=== PATIENT | male | born 1950 | race Caucasian/White ===

== ENCOUNTER 2017-12-13 00:15 | Inpatient (IN) | payer MEDICARE, OTHER, MEDICAID, SELFPAY ==
[2017-12-13] VITALS (24 sets, daily range): BP systolic 131–161; BP diastolic 48–103; PULSE 79–90; RESP 16–26; TEMP 35.6–37.2; O2SAT 85–96; BMI 56.2; BMI 56.0; BMI 56.1
--- NOTE | 2017-12-13 00:56 | ED.RN ---
PT HAS MULTIPLE AREAS ON BODY OF SKIN BREAKDOWN AND SEEPING OF CLEAR FLUID. PT HAS EDEMA FROM ABDOMEN TO FEET, BILAT LEGS WITH THICKENED SKIN AND SCALES.
--- NOTE | 2017-12-13 01:00 | EKG12_ITS ---
Test Reason : SOB Blood Pressure : / mmHG Vent. Rate : 080 BPM Atrial Rate : 080 BPM P-R Int : 000 ms QRS Dur : 168 ms QT Int : 472 ms P-R-T Axes : 000 261 066 degrees QTc Int : 544 ms Ventricular-paced rhythm Biventricular pacemaker detected Abnormal ECG Confirmed by NICOLE MALDONADO ([id number]), material expeditor SHANTI ARTIS ([id number]) on 12/17/2017 8:48:58 AM Referred By: MAIA Confirmed By:NICOLE MALDONADO
--- NOTE | 2017-12-13 01:05 | ED.DCSUM_ITS ---
History of Present Illness Chief Complaint: Shortness of Breath Informant: Patient Onset: Today Context: - - unknown Timing: Continuous Quality: sob Location: chest Current Severity: - - gone Maximum Severity: Severe Relieved by: oxygen given by EMS Associated Symptoms: productive cough. no chest pain. Narrative: Patient states he feels good now that he has oxygen. He has a history of COPD, and states that he started feeling short of breath but does not recall when, he thinks it was sometime today, he states he has felt somewhat disoriented and confused today since being dyspneic, although that is improved now as well. His lack of memory does limit the hx to some degree. States he had 2 falls recently, the last was yesterday. Thinks he ripped off a couple toenails in the process, but doesn't feel any pain due to longstanding peripheral neuropathy. - Past Medical History (1) COPD (chronic obstructive pulmonary disease) Status: Chronic (2) Type 2 diabetes mellitus Status: Chronic (3) Chronic atrial fibrillation Status: Chronic (4) S/P cardiac pacemaker procedure Status: Chronic (5) Morbid obesity with BMI of 50.0-59.9, adult Status: Chronic Past Medical History - Allergies and Home Meds Allergies/Adverse Reactions: Allergies No Known Allergies Allergy (Unverified 03/07/17 10:33) Primary Care Physician: David Doctor,Out of [NON-STAFF] - Lives: - - assisted living apartment Smoking Status: Current every day smoker Drugs: None Review of Systems General: Reports: - - ROS limited due to lack of recent memory. Denies: Chills, Fever, Malaise Eyes: Denies: Visual changes - bilaterally, Diplopia ENT: Denies: Rhinorrhea, Sore throat Cardiovascular: Denies: Chest pain, Palpitations, Heart racing Respiratory: Reports: Dyspnea, Cough, Sputum - unk contents Gastrointestinal: Denies: Abdominal pain, Nausea, Vomiting, Diarrhea, Hematochezia Musculoskeletal: Reports: Swelling - BLE chronic Skin: Reports: Rash - chronic intertriginous, Wounds - BLE. Denies: Abscess Neurological: Reports: Numbness - bilat feet chronic. Denies: Headache, Weakness Physical Exam Vital Signs/Narrative: Vital Signs Temp Pulse Resp BP Pulse Ox 12/13/17 00:17 96.0 F L 80 22 H 138/72 H 95 12/13/17 00:16 80 23 H 138/72 H 94 Inital Vital Signs reviewed: Yes General: Well nourished, Well developed, Obese - morbidly, limiting most of physical exam to some degree or another Head: Normocephalic, Atraumatic Eyes: Perrl, EOMI ENT: Moist mucous membranes, No rhinorrhea Neck: Supple, Nontender, - - FROM w/o meningismus Cardiovascular: Regular rate, Regular rhythm, No murmurs Respiratory: No distress, Chest nontender, Wheezing - end expiratory anteriorly; clear throughout posterior aspect, Diminished - throughout Abdomen: Soft, Nontender, Nondistended, Normal bowel sounds Back: Nontender Extremities: Nontender, Edema - w/ chronic BLE stasis dermatitis, - - several avulsed toenails bilaterally w/o active bleeding. evidence of chronic onychomycosis throughout the nails that are left. Skin: Normal color Neurological: Alert, Oriented x3, Cranial nerves II-XII grossly intact, Normal Strength, Normal Sensation, Disoriented - w/r/t past events today Diagnostic/Tx/Re-eval Impressions Chest X-Ray 12/13/17 01:25 IMPRESSION: Cardiomegaly with central vascular congestion.. A dual-chamber cardiac pacemaker is in place Electronically Signed: Thad Christiansen MD at 2:10 EDT Tel , Service support , 12/13/17 01:25 Chest 1 View (Portable) [RAD] Stat Laboratory Results 12/13/17 12/13/17 01:20 01:20 WBC 8.8 RBC 4.87 Hgb 12.5 L Hct 41.7 MCV 85.6 MCH 25.7 L MCHC 30.0 L RDW 18.4 H RDW Differential 56.6 H Plt Count 190 MPV 8.7 Immature Gran % (Auto) 0.200 Neut % (Auto) 81.8 H Lymph % (Auto) 7.1 L Taliaferro % (Auto) 9.2 Eos % (Auto) 1.4 Baso % (Auto) 0.3 Absolute Neuts (auto) 7.2 Absolute Lymphs (auto) 0.62 L Total Counted Not Reportable Sodium 138 Potassium 4.8 Chloride 100 Carbon Dioxide 36.0 H Anion Gap 2 L BUN 30 H Creatinine 1.15 Estim Creat Clear Calc 70.44 Est GFR (MDRD) Af Amer 82 Est GFR (MDRD) Non-Af 67 BUN/Creatinine Ratio 26.1 H Glucose 61 L Calcium 8.3 L Troponin I 0.068 H - Rhythm Strip Rhythm Strip: paced Rate: 80 Ectopy: None - EKG Initial EKG Interpretation: Paced, Non-Specific ST Changes - ant-laterally Prior: Changed - last EKG from 1999, prior to pacemaker - Medical Decision Making Patient also has a history of congestive heart failure, which is chest x-ray is consistent with, showing pulmonary edema. He took his oxygen off, saying that he wanted to go home, however he is very hypoxic without it. He is stable while he is wearing his oxygen, when his pulse ox is over 90%. He does not have renal failure or insufficiency. Clinically he appears to have anasarca. He does not have oxygen at home. For these reasons he should be admitted. He was ordered Lasix here and advised to stay on his oxygen and he eventually was comfortable with that. Discussed with Dr. Faulkner. Of note, he is not delirious. I think his memory issues and disorientation, which was described as that by the patient, is due to his hypoxemia. I do not think he needs emergent imaging of his brain given this. Also, his troponin is just barely nonspecifically elevated, and this is likely due to hypoxemia as well. He was not having any angina, although admittedly he does not recall his clinical scenario prior to getting to the hospital. Aspirin is withheld since he is anticoagulated on Xarelto. ED Disposition - Plan for ED Patient: Disposition: Acute Care Hospital [facility] Chief Complaint: Shortness of Breath Diagnosis: Hypoxemia, Morbid obesity with BMI of 50.0-59.9, adult, Acute exacerbation of CHF (congestive heart failure)
[2017-12-13] MEDS: Ipratropium/Albuterol Sulfate 3 ML AMPUL.NEB INHALATION ×5 (01:07→18:38)
--- NOTE | 2017-12-13 01:25 | RAD_ITS ---
STUDY: X-RAY CHEST REASON FOR EXAM: Male, 67 years old. Difficulty breathing TECHNIQUE: 1 view COMPARISON: None. FINDINGS: Cardiomegaly with a dual-chamber cardiac pacemaker in place. Central vascular congestive changes. No pleural effusions.. Normal visualized thoracic spine. Normal visualized ribs, clavicles, and shoulders. There is no demonstrated abnormality of the visualized soft tissue structures of the upper abdomen. RAD/Chest 1 View (Portable) IMPRESSION: Cardiomegaly with central vascular congestion.. A dual-chamber cardiac pacemaker is in place Electronically Signed: Thad Christiansen MD at 2:10 EDT Tel , Service support ,
[2017-12-13 01:41] LABS: Absolute Lymphocyte Count 0.62 X10^3/ul (0.83-4.51); Absolute Neutrophil Count 7.2 X10^3/uL (2.0-7.7); Basophil# 0.03 X10^3/uL; Basophil% 0.3 % (0-1); Eosinophil# 0.12 X10^3/uL; Eosinophils% 1.4 % (0-5); Hematocrit 41.7 % (40-54); Hemoglobin 12.5 g/dl (13.0-16.5); Lymphocyte # 0.62 X10^3/ul (4.0); Lymphocyte % 7.1 % (19-41); Mean Corpuscular Hgb 25.7 pg (27.0-32.0); Mean Corpuscular Volume 85.6 fL (80-94); Mean Platelet Vol. 8.7 fl (6.2-12.0); Monocyte# 0.81 X10^3/uL; Monocyte% 9.2 % (0-10); Neutrophil # 7.17 X10^3/uL (2.7-7.7); Neutrophil % 81.8 % (47-70); Platelet Count 190 K/mm3 (150-450); RBC Distribution Width CV 18.4 % (11.6-14.6); RBC Distribution Width SD 56.6 fl (35.1-43.9); Red Blood Count 4.87 M/mm3 (4.6-6.2); White Blood Count 8.8 K/mm3 (4.4-11.0)
[2017-12-13 01:42] LABS: POSITIVE COUNT NO; POSITIVE DIFFERENTIAL NO; POSITIVE MORPHOLOGY NO
[2017-12-13 01:55] LABS: Anion Gap 2 (5-15); BUN 30 mg/dL (7-18); BUN/Creat Ratio 26.1 RATIO (10-20); Calcium,Total 8.3 mg/dL (8.5-10.1); Chloride 100 mmol/L (98-107); Creatinine, Serum 1.15 mg/dL (0.70-1.30); EST Glomerular Filtration Rate 67 mL/min (>60); Est Glom Filt Rate - Afr Amer 82 mL/min (>60); Estimated Creatinine Clearance 70.44 ml/min; Glucose 61 mg/dL (74-106); Potassium 4.8 mmol/L (3.5-5.1); Sodium Level 138 mmol/L (136-145)
--- NOTE | 2017-12-13 03:17 | PCM.HP.STD ---
History of Present Illness Date of Admission: 12/13/17 Chief Complaint: Dyspnea The patient is a 67 y/o M w/ PMHx: GERMANIA, Morbid Obesity, HTN, HLD, Chronic CHF Unclear Type, Diabetes mellitus type II Uncontrolled w/ Neuropathy, CKD stage III, PAF, Chronic COPD, GERD who presents to the [facility] ED on 12/13/17 with history of severe dyspnea with call to EMS and upon their evaluation was confused, could not recall his name of date of , improved w/ aerosol administration. He notes having recently had increased cough, mildly productive sputum, increased LE edema, worsened orthopnea (normally sleeps in chair baseline), increased weight gain and increased abdominal girth w/ worsened dyspnea complaints. In the ED work-up included T 96, heart rate 80, BP 130/72, respiratory rate 23, 94% on 2 L nasal cannula--> increased oxygenation needs now 95% on 4 L nasal cannula CBC with WBC 8.8, hemoglobin 12.5, platelet 190 without market left shift, BMP with carbon dioxide 36, BUN/creatinine 30/1.15, glucose 61, troponin 0.068, BNP pending upon evaluation, chest x-ray with cardiomegaly with central vascular congestion with dual-chamber pacemaker in place, EKG w/ no acute evidence of ischemia. In the ED patient administered duoneb and IV lasix. Past Medical History Past Medical History (Chronic Problems): Chronic Problems (Last Reviewed 03/07/17 @ 10:25 by Ivana Jett) COPD (chronic obstructive pulmonary disease) (Chronic) Type 2 diabetes mellitus (Chronic) Chronic atrial fibrillation (Chronic) S/P cardiac pacemaker procedure (Chronic) Morbid obesity with BMI of 50.0-59.9, adult (Chronic) Medical History: Medical History (Last Reviewed 03/07/17 @ 10:25 by Ivana Jett) A-fib I48.91 Arthritis M19.90 Bone fracture T14.8XXA Bradycardia R00.1 CHF (congestive heart failure) I50.9 CKD (chronic kidney disease) N18.9 COPD (chronic obstructive pulmonary disease) J44.9 Cataracts, bilateral H26.9 Diabetes type 2, controlled E11.9 GERD (gastroesophageal reflux disease) K21.9 Headache R51 Heart failure I50.9 High cholesterol E78.00 Neuropathy G62.9 Osteoarthritis M19.90 Pneumonia J18.9 Syncope R55 Vision problems H54.7 HTN (hypertension) I10 Allergies No Known Allergies Allergy (Unverified 03/07/17 10:33) Home Medications: Ambulatory Orders Medication Instructions Recorded acetaminophen 500 mg tablet 1,000 mg PO BID PRN tab 02/25/17 acetaminophen 500 mg tablet 1,000 mg PO QHS tab 02/25/17 albuterol sulfate concentrate 2.5 2.5 mg INHALATION Q6H PRN ea 02/25/17 mg/0.5 mL solution for nebulization budesonide 0.5 mg/2 mL suspension 0.5 mg INHALATION Q12H 02/25/17 for nebulization cetirizine 10 mg capsule PO 02/25/17 cholecalciferol (vitamin D3) 50,000 unit PO .COMPLEX 02/25/17 50,000 unit capsule docusate sodium 100 mg capsule 100 mg PO QDAY 02/25/17 furosemide 40 mg tablet 40 mg PO BID tab 02/25/17 glimepiride 4 mg tablet 8 mg PO QAM tab 02/25/17 guaifenesin 100 mg/5 mL oral liquid 300 mg PO ONCE 02/25/17 guaifenesin ER 600 mg tablet, 600 mg PO Q12H PRN 02/25/17 extended release 12 hr insulin detemir (U- 100) 100 See Rx Instructions SC BID 02/25/17 unit/mL subcutaneous solution linagliptin 5 mg tablet 5 mg PO QDAY 02/25/17 lisinopril 2.5 mg tablet 2.5 mg PO QDAY 02/25/17 omega-3 fatty acids 1,000 mg 1,000 mg PO BID cap 02/25/17 capsule omeprazole 40 mg capsule,delayed 40 mg PO QDAY 02/25/17 release potassium chloride ER 20 mEq 20 meq PO QDAY 02/25/17 tablet,extended release rivaroxaban 20 mg tablet 20 mg PO QDAY 02/25/17 umeclidinium 62.5 mcg/actuation 1 inh INHALATION QDAY 02/25/17 blister powder for inhalation bumetanide 1 mg tablet 1 mg PO .q am tab 03/07/17 furosemide 20 mg tablet 20 mg PO QDAY 03/07/17 gabapentin 600 mg tablet 600 mg PO .COMPLEX 03/07/17 gabapentin 800 mg tablet 900 mg PO QHS tab 01/18/18 insulin lispro (U- 100) 100 40 unit SC TID ml 03/07/17 unit/mL subcutaneous solution omega-3 acid ethyl esters 1 gram 1 g PO BID cap 03/07/17 capsule Surgical History: Surgical History (Last Reviewed 03/07/17 @ 10:25 by Ivana Jett) H/O heart surgery Z98.890 H/O knee surgery Z98.890 Hx of appendectomy Z98.890, Z90.49 Surgical History: appendectomy, pacemaker implantation, - - Knee surgery. Psychiatric History: No pertinent psych hx Lives: - - assisted living apartment Smoking Status: Current every day smoker - 1/2-1 cigarette tobacco use per day. Tobacco Use: Cigarettes Alcohol: None Drugs: None - *Family History Maternal Family History: Family History (Last Reviewed 03/07/17 @ 10:25 by Ivana Jett) Mother Arthritis Cancer Brother Diabetes Kidney disease Grandmother Diabetes Grandfather Heart disease History Items: Cancer, Heart Disease Paternal Family History: Family History (Last Reviewed 03/07/17 @ 10:25 by Ivana Jett) Mother Arthritis Cancer Brother Diabetes Kidney disease Grandmother Diabetes Grandfather Heart disease History Items: Heart Disease Review of Systems Constitutional: Reports: Malaise, Weakness, Weight Change, Fatigue. Denies: Chills, Fever HEENT: Denies: Head Aches, Sinus Congestion, Sinus Drainage Cardiovascular: Reports: Edema, Orthopnea. Denies: Chest Pain, Palpitations Respiratory: Reports: Cough, Shortness of Breath, Shortness of breath at rest, Shortness of breath upon exertion, Sputum production, Wheezing Gastrointestinal: Denies: Abdominal Pain, Nausea, Vomiting Genitourinary: Denies: Dysuria Musculoskeletal: Reports: Back Pain, Joint Pain. Denies: Joint Tenderness Skin: Reports: Skin Changes, Wounds. Denies: Rash Neurological: Denies: Numbness, Tingling, Focal weakness Psychiatric: Denies: Anxiety, Depression, Homicidal Ideations, Suicidal Ideations Hematologic/ Lymphatic: Reports: Easy Bruising, Easy Bleeding VTE Information - Inpt Only VTE Present on Admission: No VTE Mechan Device Prophylaxis: SCD's VTE Pharm Prophylaxis ordered?: No Reason prophylaxis not ordered:: Treatment Not Indicated - On xarelto already. Subjective: Seated upright in the ED bed, fatigued appearing, increased work of breathing, accessory muscle usage, increased RR. Objective: Physical Examination: General: awake, alert, oriented x [address], name, year, improved from initial EMS evaluation, cooperative, seated upright in the ED bed, increased work of breathing, accessory muscle usage, increased RR, awaiting ABG and planned BIPAP placement. Skin: normal color, turgor, no icterus, cyanosis except severe BL LE distal to knee chronic venous stasis skin changes, poor pedal care, foul smelling. HEENT: AT/NC, EOMI, PERRLA, mildly dry MM, no carotid bruits unable to discern JVD secondary to habitus, thickened neck. Lungs: Diffusely diminished BS, > bases, increased work of breathing, accessory muscle usage, occasional expiratory wheeze, distant, minimal rales. Heart: Regular rate and rhythm (paced); no gallop, rub audible. Abdomen: firm, morbidly obese, anasarca, pitting to upper abdomen, NTTP, distended, distant BS, unable to asses HSM secondary to habitus. Extremities: no cyanosis, clubbing, BL LE severe chronic venous stasis skin changes, see skin, pitting edema to upper abdomen as noted. Neurological: patient awake, alert, oriented x 3; cognitive function intact; pupils equally reactive to light and accomodation; cranial nerves II-XII grossly normal, moving all 4 extremities but very limited, no focal deficits, strength severely globally decreased secondary to acute presentation. Psychiatric: affect appears mildly irritable, no acute evidence of depressive or anxiety feelings. - Physical Exam Vital Signs Temp Pulse Resp BP Pulse Ox 96.0 F L 80 25 H 161/67 H 95 12/13/17 00:17 12/13/17 01:11 12/13/17 01:22 12/13/17 01:22 12/13/17 01:22 Oxygen Flow Rate (L/min) 4 Oxygen Delivery Method Nasal Cannula Weight: 425 lb 14.224 oz Body Mass Index (BMI) 56.2 Laboratory Tests Past 24 Hrs 12/13/17 12/13/17 12/13/17 01:20 01:20 01:20 WBC 8.8 RBC 4.87 Hgb 12.5 L Hct 41.7 MCV 85.6 MCH 25.7 L MCHC 30.0 L RDW 18.4 H RDW Differential 56.6 H Plt Count 190 MPV 8.7 Immature Gran % (Auto) 0.200 Neut % (Auto) 81.8 H Lymph % (Auto) 7.1 L [place] % (Auto) 9.2 Eos % (Auto) 1.4 Baso % (Auto) 0.3 Absolute Neuts (auto) 7.2 Absolute Lymphs (auto) 0.62 L Total Counted Not Reportable Sodium 138 Potassium 4.8 Chloride 100 Carbon Dioxide 36.0 H Anion Gap 2 L BUN 30 H Creatinine 1.15 Estim Creat Clear Calc 70.44 Est GFR (MDRD) Af Amer 82 Est GFR (MDRD) Non-Af 67 BUN/Creatinine Ratio 26.1 H Glucose 61 L Calcium 8.3 L Troponin I 0.068 H B-Natriuretic Peptide Pending Assessment/Plan All Active Problems (Last Reviewed 03/07/17 @ 10:25 by Ivana Jett) Erectile dysfunction associated with type 2 diabetes mellitus (Acute) The patient is a 67 y/o M w/ PMHx: GERMANIA, Morbid Obesity, HTN, HLD, Chronic CHF Unclear Type, Diabetes mellitus type II Uncontrolled w/ Neuropathy, CKD stage III, PAF, Chronic COPD, GERD who presents to the [facility] ED on 12/13/17 with history of severe dyspnea with call to EMS and upon their evaluation was confused, could not recall his name of date of , improved w/ aerosol administration. (1) Acute Hypoxic Respiratory Failure secondary to Acute Decompensated CHF, Unclear type and #2, complicated by habitus, likely Hypoventilation Syndrome: CXR obtained in the ED w/ congestion, increased work of breathing, accessory muscle usage, worsening hypoxia w/ desaturations and increased oxygen needs in the ED, ABG requested, patient willing to trial BIPAP. Will admit to PCU, maintain on BIPAP if able to tolerate, maintain on cardiac telemetry, obtain cardiac enzyme series, obtain serial EKGs, initiate IV lasix diuresis, monitor I/Os, maintain on intake restriction, continue medical therapy w/ xarelto, statin, not on BB likely secondary to his COPD, ACEI. Will obtain TSH and magnesium level. Will obtain ECHO. Cardiology consulted, pending. PRN morphine to decrease afterload, continue oxygen supplementation, if necessary will position w/ upright position with legs off bed to decrease preload. (2) Acute Hypoxic Respiratory Failure secondary to Acute on chronic COPD exacerbation and #1: CXR w/ chronic changes and congestion as noted #1, increasing oxygen needs while in the ED, will obtain ABG, given GERMANIA history will place on BIPAP, continue ATC duonebs, PRN albuterol, IV methylprednisolone, HOB, IS parameters, defer abx, sputum Cx, respiratory viral panel. (3) Indeterminate cardiac enzyme: EKG in ED with no acute evidence of ischemia, CXR w/ congestion as noted, initial trop 0.68. Will place on a monitored bed, obtain serial cardiac enzymes and EKGs. ASA, NG, morphine. Cardiology consulted as noted, pending. (4) Acute Encephalopathy: Secondary to Acute Hypoxic Respiratory Failure, Multifactorial, including CHF Exacerbation #1, COPD exacerbation #2. Continue treatment as noted. (5) PAF: s/p Pacemaker placement. Maintain on telemetry as noted, continue home xarelto regimen, not on BB or other agent. (6) Diabetes mellitus type II, Uncontrolled: Uncontrolled from prior records, will obtain HgBA1c, hypoglycemia upon presentation, hold home oral regimen, continue home insulin regimen if BS improves, ADA diet, accu checks w/ TID scheduled and ISS, nutrition consultation for education and teaching. (7) Morbid Obesity: Weight loss and lifestyle changes encouraged, nutrition consulted. (8) Chronic Kidney Disease Stage III: Admission BUN/Cr 30/1.15, baseline renal function noted 1.2, repeat BMP in AM. (9) GERMANIA: CPAP q HS recommended prior but he has refused, willing to trial BIPAP. (10) Chronic Venous Stasis Disease: Notable BL LE skin changes, will consult wound RN, would benefit from referral at discharge to [facility]. (11) Tobacco Abuse: Encouraged cessation, inpatient consultation per RT, NR if desired. (12) GERD: PPI. (13) DVT Prophylaxis: SCDs, xarelto. (14) CODE status: Discussed CODE status at length including difference between FULL code, DNR-CCA and DNR-CC status. Following discussions about the differences in these status, requested FULL CODE status currently with allowance of BIPAP but no intubation unless cardiac arrest. Discussed this issues with these parameters at length but patient notes understands that current presentation may require intubation but refuses unless CODE. Advanced Care Planning Face to Face Time: 16 minutes. Code Visit Inpatient E&M: 93021 Init Hosp L3 Procedures: 11082 Advncd Care Plan 30 Min
[2017-12-13] MEDS: Furosemide 40 MG/4 ML Vial IV (03:35)
[2017-12-13 03:36] LABS: BNP,B-Type NATRIURETIC PEPTIDE 84.8 pg/mL (0-100)
--- NOTE | 2017-12-13 03:39 | ED.RN ---
[facility] CAREGIVER CALLED FOR UPDATE. CAREGIVER NOTIFIED PATIENT WILL BE ADMITTED TO PCU FOR CHF EXACERBATION AND HYPOXIA
[2017-12-13] MEDS: MethylPREDNISolone 125 MG/2 ML Vial IV (03:56)
[2017-12-13] MEDS: Lidocaine Jelly 2% 20 ML Syringe (URO-JET) 20 APPLIC TOPICAL (03:56)
--- NOTE | 2017-12-13 04:32 | ECHOCS_ITS ---
[id number] ECHO^ECHOCS^Echo Complete W/ Contrast [id number] TAG_START Cardiovascular Services Echocardiogram [address] [place], [place] [id number] Ordering Physician: Jossy Faulkner TAG_ENDED TAG_START Name: IZAIAH BRICENO Study Date: 12/13/2017 09:36 AM BP: 135/83 mmHg Patient Location: [facility]^[id number]^1 BSA: 3.0 m2 : 1950 Gender: Male Height: 73 in Age: 67 yrs Ethnicity: C Weight: 425 lb History: PAR, COPD, PACER, DM II, CKD III, HLD, HTN, GERMANIA, SOB, TOB USE.CHRONIC CHF TAG_ENDED Reason For Study: CHF Procedure This was a 2D Doppler, Color Flow transthoracic echocardiogram. The study was technically limited. The study was technically difficult. Limited views were obtained. PT unable to lie in left lateral decubitus position due to obesity and SOB. Exam performed portable in patient room. Left Ventricle Moderate concentric left ventricular hypertrophy. The estimated ejection fraction is 55 %. Paced septal motion. No regional wall motion abnormalities noted. TAG_START I Segments Size 1-2 small X - Cannot 1 - Normal 2 - 3 - Akinetic 4 - Dyskinetic3-5 moderate Interpret Hypokinetic 6-14 large 5 - Aneurysmal 15-16 diffuse TAG_ENDED Right Ventricle Severely dilated right ventricle. Moderately severe global right ventricular systolic dysfunction. Mitral Valve The mitral valve is structurally normal. No prolapse or stenosis seen. Tricuspid Valve Normal tricuspid valve. Trivial tricuspid valve insufficiency. Right ventricular systolic pressure estimated to be 24 mmHg. Aortic Valve Trisinus/trileaflet aortic valve. Pulmonic Valve The pulmonic valve is not well visualized. Great Vessels Normal aortic root. Normal arch. Pericardium/Pleural No pericardial effusion. Medication Diluted definity 6.0ml given slow IV push to enhance endocardial definition. MMode/2D Measurements & Calculations LVIDd: 5.6 cm IVSd: 1.6 cm Ao root diam: 4.4 cm LVIDs: 4.1 cm LVPWd: 1.5 cm FS: 27.0 % LA dimension(2D): 4.2 cm Doppler Measurements & Calculations PA V2 max: 121.2 cm/sec TR max napoleon: 187.7 cm/sec TR max P.1 mmHg Interpretation Summary Moderate concentric left ventricular hypertrophy. The estimated ejection fraction is 55 %. Severely dilated right ventricle. Right ventricular systolic pressure estimated to be 24 mmHg, but most likely is underestimated.. The study was technically difficult. There is no comparison study available. Contrast injection was performed. TAG_START TAG_ENDED Ordering Physician: Jossy Faulkner Referring Physician: EMMANUEL PCP Performed By: Katherine Quiñonez RDCS, RVT
[2017-12-13 05:51] LABS: Absolute Lymphocyte Count 0.79 X10^3/ul (0.83-4.51); Absolute Neutrophil Count 6.6 X10^3/uL (2.0-7.7); Basophil# 0.04 X10^3/uL; Basophil% 0.5 % (0-1); Eosinophil# 0.13 X10^3/uL; Eosinophils% 1.6 % (0-5); Hematocrit 42.9 % (40-54); Hemoglobin 13.2 g/dl (13.0-16.5); Lymphocyte # 0.79 X10^3/ul (4.0); Lymphocyte % 9.8 % (19-41); Mean Corp Hgb Conc 30.8 g/gl (32-36); Mean Corpuscular Hgb 25.8 pg (27.0-32.0); Mean Corpuscular Volume 83.8 fL (80-94); Mean Platelet Vol. 9.2 fl (6.2-12.0); Monocyte# 0.52 X10^3/uL; Monocyte% 6.5 % (0-10); Neutrophil # 6.56 X10^3/uL (2.7-7.7); Neutrophil % 81.4 % (47-70); Platelet Count 231 K/mm3 (150-450); RBC Distribution Width CV 19.2 % (11.6-14.6); RBC Distribution Width SD 57.7 fl (35.1-43.9); Red Blood Count 5.12 M/mm3 (4.6-6.2); White Blood Count 8.1 K/mm3 (4.4-11.0)
--- NOTE | 2017-12-13 05:55 | EKG12_ITS ---
Test Reason : MORNING EKG Blood Pressure : / mmHG Vent. Rate : 080 BPM Atrial Rate : 088 BPM P-R Int : 000 ms QRS Dur : 158 ms QT Int : 460 ms P-R-T Axes : 081 255 075 degrees QTc Int : 530 ms Sinus rhythm with complete heart block and Wide QRS rhythm Right bundle branch block Septal infarct , age undetermined Possible Lateral infarct , age undetermined Abnormal ECG When compared with ECG of 13-DEC-2017 01:11, MANUAL COMPARISON REQUIRED, DATA IS UNCONFIRMED Confirmed by NICOLE MALDONADO ([id number]), features editor SHANTI ARTIS ([id number]) on 12/17/2017 12:50:08 PM Referred By: MELODY Confirmed By:NICOLE MALDONADO
[2017-12-13 06:04] LABS: POSITIVE COUNT NO; POSITIVE DIFFERENTIAL NO; POSITIVE MORPHOLOGY NO
[2017-12-13 06:13] LABS: Anion Gap 6 (5-15); BUN 31 mg/dL (7-18); BUN/Creat Ratio 26.7 RATIO (10-20); Calcium,Total 8.4 mg/dL (8.5-10.1); Chloride 99 mmol/L (98-107); Cholesterol 117 mg/dL (200); Creatinine, Serum 1.16 mg/dL (0.70-1.30); EST Glomerular Filtration Rate 67 mL/min (>60); Est Glom Filt Rate - Afr Amer 81 mL/min (>60); Estimated Creatinine Clearance 69.84 ml/min; Glucose 38 mg/dL (74-106); High Density Lipoprotein 32 mg/dL; Magnesium 2.6 mg/dL (1.6-2.6); Potassium 5.1 mmol/L (3.5-5.1); Sodium Level 139 mmol/L (136-145); Thyroid Stim Hormone (TSH) 1.67 uIU/mL (0.358-3.74); Triglycerides 46 mg/dL; Very Low Density Lipoprotein 9 mg/dL (5-40)
[2017-12-13] MEDS: Budesonide Respules 0.5 MG/2 ML AMPUL.NEB. INHALATION (06:44)
[2017-12-13] MEDS: Nystatin Powder 15gm Bottle 1 APPLIC TOPICAL ×3 (06:46→22:14)
[2017-12-13 06:51] LABS: Bedside Glucose 75 mg/dL (70-110)
[2017-12-13] MEDS: 0.9% NaCl Peripheral Flush Adult/Peds IV ×4 (06:56→23:03)
[2017-12-13] MEDS: Gabapentin 600 MG Tablet PO ×2 (09:30→11:06)
[2017-12-13] MEDS: Pantoprazole Sodium 40 MG Tablet PO (09:31)
--- NOTE | 2017-12-13 10:13 | CASEMGMT ---
SW spoke with patient, introduced self and role at [facility]. Patient is from [facility]. He normally uses a power wc, but it is currently broken so he doesn't get around. They help him with everything. SW asked him if he thinks he will need to go somewhere for rehab at d/c. He said no as he had 5 weeks of rehab at [facility] and then 8 weeks at [facility]. SW asked him if this was recently and he said it was in the last couple of years. SW told him that doesn't mean he will never need rehab again especially if he is not getting around now. SW asked if he is d/c over the weekend will he need transportation and he said he will and he uses [facility]. PATO told him we will follow alone. PATO called [facility] and spoke with Denisse, one of the nurses. She said his power wc broke last Saturday. They have been trying to get him a new one or rent one, but have not had any luck. Apparently one place may be able to fix his, but it could be a couple of months. She said all he does is go from a recliner to the bedside commode. He has fallen twice since he has been without his power chair. She said he refuses to let them check his skin folds and bathe him. This whole week he has refused his Bumex until yesterday when the Nurse Practitioner came in and spoke to him. He is not on O2 at [place] normally. PATO asked if he is allowed to return. She said she would have to have their talent acquisition project manager, Machelle call PATO. She took PATO's name and number to give to Machelle. Await return call from [facility] and patient's PT/OT evaluations. Plan: undetermined Leah RIOS MSW
[2017-12-13 10:26] LABS: Bedside Glucose 185 mg/dL (70-110)
[2017-12-13] MEDS: Losartan Potassium 25 MG Tablet PO (11:06)
[2017-12-13] MEDS: Rivaroxaban 20 MG Tablet PO (11:06)
[2017-12-13] MEDS: Docusate Sodium 100 MG Capsule PO (11:06)
[2017-12-13] MEDS: Bumetanide 25 MG in CONTAINER,EMPTY 1 BAG CONT INF (11:14)
[2017-12-13] MEDS: Insulin Lispro 100 UNIT/ML INSULN.PEN SC ×3 (12:16→22:02)
[2017-12-13 12:31] LABS: Bedside Glucose 189 mg/dL (70-110)
--- NOTE | 2017-12-13 13:52 | NURSING ---
wound photo: right leg
--- NOTE | 2017-12-13 13:53 | NURSING ---
wound photo: left leg
--- NOTE | 2017-12-13 14:02 | CASEMGMT ---
PATO had faxed H&P and PT/OT to [facility]. PATO called [facility] at [facility] and she said they can take patient back as long as he will take his medications like he is supposed to. She said since his power wheelchair broke he refused to take his Bumex so he did not have to get up and urinate. She said when he has his power wheelchair he gets out and about all the time. However, since his chair has broken he isolates himself in his room and self neglects. They have things lined up to get him a power wc, but it will be a couple of months. PATO put a green sheet on chart and a transport form. Plan: Return to [facility]. Leah RIOS MSW
[2017-12-13] MEDS: Glucerna Shake 120 ML LIQUID 60 ML PO ×2 (15:39→22:12)
--- NOTE | 2017-12-13 16:28 | PCM.CONS.C ---
Problem List (1) Type 2 diabetes mellitus Status: Chronic (2) Chronic atrial fibrillation Status: Chronic (3) S/P cardiac pacemaker procedure Status: Chronic (4) Morbid obesity with BMI of 50.0-59.9, adult Status: Chronic (5) Acute exacerbation of CHF (congestive heart failure) Status: Acute Reason for Consult Date of Consultation: 12/13/17 Reason for Consultation: Shortness of breath, congestive heart failure, pachydermia, lower extremity edema. History of Present Illness: The patient is a 67 year old M, status post pacemaker placement 2 years ago at [facility], was diagnosed with congestive heart failure 3 years ago, and underwent catheterization with unknown results. He reportedly did not receive any stents however. In addition he has diabetes type 2, severe obesity, and pachydermia of both his legs and abdomen. The patient also has a PMHx of GERMANIA, Morbid Obesity, HTN, HLD, Chronic CHF Unclear Type, Diabetes mellitus type II Uncontrolled w/ Neuropathy, CKD stage III, PAF, Chronic COPD, GERD who presents to the [facility] ED on 12/13/17 with history of severe dyspnea with call to EMS and upon their evaluation was confused, could not recall his name of date of , improved w/ aerosol administration. He notes having recently had increased cough, mildly productive sputum, increased LE edema, worsened orthopnea (normally sleeps in chair baseline), increased weight gain and increased abdominal girth w/ worsened dyspnea complaints. Currently the patient is somewhat somnolent, and is nodding off to sleep several times during our conversation. He denies any chest pain, angina presyncope or syncope. I get the impression that he is essentially bedbound or chair bound at home. Echocardiogram was performed which was technically difficult due to his body habitus which showed relatively intact LV function, severe right ventricular enlargement, and an RVSP of approximately 24 mmHg which is most likely underestimated. She has severe pachydermia and severe abdominal distention, ascites, and pachydermia as well. [] Past Medical History Allergies/Adverse Reactions: Allergies No Known Allergies Allergy (Unverified 03/07/17 10:33) Home Medications: Ambulatory Orders Medication Instructions Recorded acetaminophen 500 mg tablet 1,000 mg PO BID PRN tab 02/25/17 acetaminophen 500 mg tablet 1,000 mg PO QHS tab 02/25/17 albuterol sulfate concentrate 2.5 2.5 mg INHALATION Q6H PRN ea 02/25/17 mg/0.5 mL solution for nebulization budesonide 0.5 mg/2 mL suspension 0.5 mg INHALATION Q12H 02/25/17 for nebulization cetirizine 10 mg capsule PO 02/25/17 cholecalciferol (vitamin D3) 50,000 unit PO .COMPLEX 02/25/17 50,000 unit capsule docusate sodium 100 mg capsule 100 mg PO QDAY 02/25/17 furosemide 40 mg tablet 40 mg PO BID tab 02/25/17 glimepiride 4 mg tablet 8 mg PO QAM tab 02/25/17 guaifenesin 100 mg/5 mL oral liquid 300 mg PO ONCE 02/25/17 guaifenesin ER 600 mg tablet, 600 mg PO Q12H PRN 02/25/17 extended release 12 hr insulin detemir (U- 100) 100 See Rx Instructions SC BID 02/25/17 unit/mL subcutaneous solution linagliptin 5 mg tablet 5 mg PO QDAY 02/25/17 lisinopril 2.5 mg tablet 2.5 mg PO QDAY 02/25/17 omega-3 fatty acids 1,000 mg 1,000 mg PO BID cap 02/25/17 capsule omeprazole 40 mg capsule,delayed 40 mg PO QDAY 02/25/17 release potassium chloride ER 20 mEq 20 meq PO QDAY 02/25/17 tablet,extended release rivaroxaban 20 mg tablet 20 mg PO QDAY 02/25/17 umeclidinium 62.5 mcg/actuation 1 inh INHALATION QDAY 02/25/17 blister powder for inhalation bumetanide 1 mg tablet 1 mg PO .q am tab 03/07/17 furosemide 20 mg tablet 20 mg PO QDAY 03/07/17 gabapentin 600 mg tablet 600 mg PO .COMPLEX 03/07/17 gabapentin 800 mg tablet 900 mg PO QHS tab 03/07/17 insulin lispro (U- 100) 100 40 unit SC TID ml 03/07/17 unit/mL subcutaneous solution omega-3 acid ethyl esters 1 gram 1 g PO BID cap 03/07/17 capsule Past Medical History (Chronic Problems): Chronic Problems (Last Reviewed 03/07/17 @ 10:25 by Ivana Jett) COPD (chronic obstructive pulmonary disease) (Chronic) Type 2 diabetes mellitus (Chronic) Chronic atrial fibrillation (Chronic) S/P cardiac pacemaker procedure (Chronic) Morbid obesity with BMI of 50.0-59.9, adult (Chronic) Surgical History: appendectomy, pacemaker implantation, - - Knee surgery. Psychiatric History: No pertinent psych hx - *Family History Maternal Family History: Family History (Last Reviewed 03/07/17 @ 10:25 by Ivana Jett) Mother Arthritis Cancer Brother Diabetes Kidney disease Grandmother Diabetes Grandfather Heart disease History Items: Cancer, Heart Disease Paternal Family History: Family History (Last Reviewed 03/07/17 @ 10:25 by Ivana Jett) Mother Arthritis Cancer Brother Diabetes Kidney disease Grandmother Diabetes Grandfather Heart disease History Items: Heart Disease Lives: - - assisted living apartment Smoking Status: Current every day smoker Tobacco Use: Cigarettes Alcohol: None Drugs: None Review of Systems - Review of Systems General: Denies: Fever, Night Sweats, Fatigue Cardiovascular: Reports: Shortness of Breath, Shortness of Breath at Rest, Orthopnea, PND, Peripheral Edema. Denies: Chest Discomfort, Palpitations, Lightheadedness, Dizziness, Near Syncope, Syncope Respiratory: Denies: Cough, Sputum Production, Hemoptysis Gastrointestinal: Denies: Hematemesis, Hematochezia, Melena Genitourinary: Denies: Dysuria, Hematuria Skin: Denies: Rash Subjectve: Patient laying in bed, no acute distress. Objective: Vital Signs Temp Pulse Resp BP Pulse Ox 98.9 F 80 18 143/78 H 92 12/13/17 16:22 12/13/17 16:22 12/13/17 16:22 12/13/17 16:22 12/13/17 16:22 Oxygen Flow Rate (L/min) 4.5 Oxygen Delivery Method Nasal Cannula Weight: 501 lb 8.826 oz Body Mass Index (BMI) 56.0 Intake and Output for Last 24 Hours 12/11/17 12/12/17 12/13/17 23:59 23:59 23:59 Intake Total 480 / 480 Output Total 1750 / 1750 Balance -1270 / -1270 General: Awake, Alert, Oriented x 3 HEENT: PERRL, EOMI, Sclera Non Icteric Neck: Supple, Good ROM, No Lymph Node Enlargement Lungs: Diminished Gildardo Bases Cardiovascular: Regular Rhythm, Normal S1, Normal S2, No Murmurs, No Rubs, No Gallops Vascular: No Carotid Bruits, Normal Femoral Pulses, Normal Radial Pulses, Normal Dorsalis Pedal Pulse, Normal Posterior Tibial Pulses Abdomen: Bowel Sounds Present, Soft, Non Tender, No HSM, No Organomegaly, Obese, Distended, Ascites Extremities: No Cyanosis, No Clubbing, No edema, Bilaterel Edema +4 Neurological: No Focal Motor or Sensory Deficit 12/13/17 01:20: WBC 8.8, RBC 4.87, Hgb 12.5 L, Hct 41.7, MCV 85.6, MCH 25.7 L, MCHC 30.0 L, RDW 18.4 H, RDW Differential 56.6 H, Plt Count 190, MPV 8.7, Immature Gran % (Auto) 0.200, Neut % (Auto) 81.8 H, Lymph % (Auto) 7.1 L, Frontier % (Auto) 9.2, Eos % (Auto) 1.4, Baso % (Auto) 0.3, Absolute Neuts (auto) 7.2, Total Counted Not Reportable 12/13/17 01:20: Sodium 138, Potassium 4.8, Chloride 100, Carbon Dioxide 36.0 H, Anion Gap 2 L, BUN 30 H, Creatinine 1.15, Est GFR (MDRD) Af Amer 82, Est GFR (MDRD) Non-Af 67, BUN/Creatinine Ratio 26.1 H, Glucose 61 L, Calcium 8.3 L, Troponin I 0.068 H 12/13/17 01:20: B-Natriuretic Peptide 84.8 12/13/17 05:16: Sodium 139, Potassium 5.1, Chloride 99, Carbon Dioxide 34.0 H, Anion Gap 6, BUN 31 H, Creatinine 1.16, Est GFR (MDRD) Af Amer 81, Est GFR (MDRD) Non-Af 67, BUN/Creatinine Ratio 26.7 H, Glucose 38 L*, Calcium 8.4 L, Magnesium 2.6, Triglycerides 46, Cholesterol 117, LDL Cholesterol 76, VLDL Cholesterol 9, HDL Cholesterol 32 L 12/13/17 05:16: Hemoglobin A1c 8.0 H 12/13/17 05:16: WBC 8.1, RBC 5.12, Hgb 13.2, Hct 42.9, MCV 83.8, MCH 25.8 L, MCHC 30.8 L, RDW 19.2 H, RDW Differential 57.7 H, Plt Count 231, MPV 9.2, Immature Gran % (Auto) 0.200, Neut % (Auto) 81.4 H, Lymph % (Auto) 9.8 L, Frontier % (Auto) 6.5, Eos % (Auto) 1.6, Baso % (Auto) 0.5, Absolute Neuts (auto) 6.6, Total Counted Not Reportable 12/13/17 05:16: Troponin I 0.053 H 12/13/17 09:07: Troponin I 0.053 H 12/13/17 12:05: Troponin I 0.060 H Rhythm: EKG: ECHO: As above Stress Test: Cardiac Cath: PCI: CT Surgery: Holter monitor: EPS: PPM: CXR: Chest CT Scan: Assessment/Plan 1. Right-sided heart failure: The patient has evidence of severe right-sided heart failure including abdominal distention, ascites, dense pachydermia of both lower extremities, severely enlarged right sided cardiac findings on chest x-ray as well as echocardiogram. His echocardiogram showed his RVSP to be approximately 24 mmHg, but my suspicion is that this is probably underestimated. I recommended the patient start a Bumex drip at 0.5 mg/h, as well as IV chlorothiazide 250 mg twice daily. Patient may be preload dependent so would watch for hypotension. In addition he will continue his Cozaar, and will start him on Imdur 30 mg p.o. daily for pulmonary afterload reduction. Patient has a known pacemaker in place, which appears to be working normally. At this point he is a very poor candidate for cardiac catheterization via his bilateral femoral arteries due to his severe abdominal pannus, and most likely would require left heart catheterization via the right radial approach. This could be done perhaps as an outpatient as he would have to stop his anticoagulation therapy for some time. Would recommend holding off on this until he has been medically optimized. Would recommend a goal of 1956-0421 cc net negative urine output per day. He already has a Mario in place. Recommend 1500 cc fluid restriction. I believe the majority of the patient's problem is due to his obstructive sleep apnea, and recommended he continue CPAP therapy moving forward. May want to consider pulmonary consultation for possible pulmonary artery vasodilatation therapy. 2. Coronary artery disease: Patient has had no anginal symptoms but has apparently undergone a catheterization at [facility] about 2-3 years ago. Recommend [facility] prior to repeat catheterization. 3. Status post pacemaker: We will consider pacemaker interrogation. I do not believe the patient would benefit from an upgrade of his pacemaker at this time. 4. Thank you very much for the opportunity to participate in the cardiac care of the patient. Consultation time took place between 905 and 9:35 AM. Code Visit Inpatient E&M: 06162 Init Hosp L2
--- NOTE | 2017-12-13 16:33 | CON.PCM_ITS ---
Problem List (1) Type 2 diabetes mellitus Status: Chronic (2) Chronic atrial fibrillation Status: Chronic (3) S/P cardiac pacemaker procedure Status: Chronic (4) Morbid obesity with BMI of 50.0-59.9, adult Status: Chronic (5) Acute exacerbation of CHF (congestive heart failure) Status: Acute Reason for Consult Date of Consultation: 12/13/17 Reason for Consultation: Shortness of breath, congestive heart failure, pachydermia, lower extremity edema. History of Present Illness: The patient is a 67 year old M, status post pacemaker placement 2 years ago at [facility], was diagnosed with congestive heart failure 3 years ago, and underwent catheterization with unknown results. He reportedly did not receive any stents however. In addition he has diabetes type 2, severe obesity, and pachydermia of both his legs and abdomen. The patient also has a PMHx of GERMANIA, Morbid Obesity, HTN, HLD, Chronic CHF Unclear Type, Diabetes mellitus type II Uncontrolled w/ Neuropathy, CKD stage III, PAF, Chronic COPD, GERD who presents to the [facility] ED on 12/13/17 with history of severe dyspnea with call to EMS and upon their evaluation was confused, could not recall his name of date of , improved w/ aerosol administration. He notes having recently had increased cough, mildly productive sputum, increased LE edema, worsened orthopnea (normally sleeps in chair baseline), increased weight gain and increased abdominal girth w/ worsened dyspnea complaints. Currently the patient is somewhat somnolent, and is nodding off to sleep several times during our conversation. He denies any chest pain, angina presyncope or syncope. I get the impression that he is essentially bedbound or chair bound at home. Echocardiogram was performed which was technically difficult due to his body habitus which showed relatively intact LV function, severe right ventricular enlargement, and an RVSP of approximately 24 mmHg which is most likely underestimated. She has severe pachydermia and severe abdominal distention, ascites, and pachydermia as well. [] Past Medical History Allergies/Adverse Reactions: Allergies No Known Allergies Allergy (Unverified 03/07/17 10:33) Home Medications: Ambulatory Orders Medication Instructions Recorded acetaminophen 500 mg tablet 1,000 mg PO BID PRN tab 02/25/17 acetaminophen 500 mg tablet 1,000 mg PO QHS tab 02/25/17 albuterol sulfate concentrate 2.5 2.5 mg INHALATION Q6H PRN ea 02/25/17 mg/0.5 mL solution for nebulization budesonide 0.5 mg/2 mL suspension 0.5 mg INHALATION Q12H 02/25/17 for nebulization cetirizine 10 mg capsule PO 02/25/17 cholecalciferol (vitamin D3) 50,000 unit PO .COMPLEX 02/25/17 50,000 unit capsule docusate sodium 100 mg capsule 100 mg PO QDAY 02/25/17 furosemide 40 mg tablet 40 mg PO BID tab 02/25/17 glimepiride 4 mg tablet 8 mg PO QAM tab 02/25/17 guaifenesin 100 mg/5 mL oral liquid 300 mg PO ONCE 02/25/17 guaifenesin ER 600 mg tablet, 600 mg PO Q12H PRN 02/25/17 extended release 12 hr insulin detemir (U- 100) 100 See Rx Instructions SC BID 02/25/17 unit/mL subcutaneous solution linagliptin 5 mg tablet 5 mg PO QDAY 02/25/17 lisinopril 2.5 mg tablet 2.5 mg PO QDAY 02/25/17 omega-3 fatty acids 1,000 mg 1,000 mg PO BID cap 02/25/17 capsule omeprazole 40 mg capsule,delayed 40 mg PO QDAY 02/25/17 release potassium chloride ER 20 mEq 20 meq PO QDAY 02/25/17 tablet,extended release rivaroxaban 20 mg tablet 20 mg PO QDAY 02/25/17 umeclidinium 62.5 mcg/actuation 1 inh INHALATION QDAY 02/25/17 blister powder for inhalation bumetanide 1 mg tablet 1 mg PO .q am tab 03/07/17 furosemide 20 mg tablet 20 mg PO QDAY 03/07/17 gabapentin 600 mg tablet 600 mg PO .COMPLEX 03/07/17 gabapentin 800 mg tablet 900 mg PO QHS tab 03/07/17 insulin lispro (U- 100) 100 40 unit SC TID ml 03/07/17 unit/mL subcutaneous solution omega-3 acid ethyl esters 1 gram 1 g PO BID cap 03/07/17 capsule Past Medical History (Chronic Problems): Chronic Problems (Last Reviewed 03/07/17 @ 10:25 by Ivana Jett) COPD (chronic obstructive pulmonary disease) (Chronic) Type 2 diabetes mellitus (Chronic) Chronic atrial fibrillation (Chronic) S/P cardiac pacemaker procedure (Chronic) Morbid obesity with BMI of 50.0-59.9, adult (Chronic) Surgical History: appendectomy, pacemaker implantation, - - Knee surgery. Psychiatric History: No pertinent psych hx - *Family History Maternal Family History: Family History (Last Reviewed 03/07/17 @ 10:25 by Ivana Jett) Mother Arthritis Cancer Brother Diabetes Kidney disease Grandmother Diabetes Grandfather Heart disease History Items: Cancer, Heart Disease Paternal Family History: Family History (Last Reviewed 03/07/17 @ 10:25 by Ivana Jett) Mother Arthritis Cancer Brother Diabetes Kidney disease Grandmother Diabetes Grandfather Heart disease History Items: Heart Disease Lives: - - assisted living apartment Smoking Status: Current every day smoker Tobacco Use: Cigarettes Alcohol: None Drugs: None Review of Systems - Review of Systems General: Denies: Fever, Night Sweats, Fatigue Cardiovascular: Reports: Shortness of Breath, Shortness of Breath at Rest, Orthopnea, PND, Peripheral Edema. Denies: Chest Discomfort, Palpitations, Lightheadedness, Dizziness, Near Syncope, Syncope Respiratory: Denies: Cough, Sputum Production, Hemoptysis Gastrointestinal: Denies: Hematemesis, Hematochezia, Melena Genitourinary: Denies: Dysuria, Hematuria Skin: Denies: Rash Subjectve: Patient laying in bed, no acute distress. Objective: Vital Signs Temp Pulse Resp BP Pulse Ox 98.9 F 80 18 143/78 H 92 12/13/17 16:22 12/13/17 16:22 12/13/17 16:22 12/13/17 16:22 12/13/17 16:22 Oxygen Flow Rate (L/min) 4.5 Oxygen Delivery Method Nasal Cannula Weight: 501 lb 8.826 oz Body Mass Index (BMI) 56.0 Intake and Output for Last 24 Hours 12/11/17 12/12/17 12/13/17 23:59 23:59 23:59 Intake Total 480 / 480 Output Total 1750 / 1750 Balance -1270 / -1270 General: Awake, Alert, Oriented x 3 HEENT: PERRL, EOMI, Sclera Non Icteric Neck: Supple, Good ROM, No Lymph Node Enlargement Lungs: Diminished Gildardo Bases Cardiovascular: Regular Rhythm, Normal S1, Normal S2, No Murmurs, No Rubs, No Gallops Vascular: No Carotid Bruits, Normal Femoral Pulses, Normal Radial Pulses, Normal Dorsalis Pedal Pulse, Normal Posterior Tibial Pulses Abdomen: Bowel Sounds Present, Soft, Non Tender, No HSM, No Organomegaly, Obese, Distended, Ascites Extremities: No Cyanosis, No Clubbing, No edema, Bilaterel Edema +4 Neurological: No Focal Motor or Sensory Deficit 12/13/17 01:20: WBC 8.8, RBC 4.87, Hgb 12.5 L, Hct 41.7, MCV 85.6, MCH 25.7 L, MCHC 30.0 L, RDW 18.4 H, RDW Differential 56.6 H, Plt Count 190, MPV 8.7, Immatu re Gran % (Auto) 0.200, Neut % (Auto) 81.8 H, Lymph % (Auto) 7.1 L, Carson % (Auto) 9.2, Eos % (Auto) 1.4, Baso % (Auto) 0.3, Absolute Neuts (auto) 7.2, Total Counted Not Reportable 12/13/17 01:20: Sodium 138, Potassium 4.8, Chloride 100, Carbon Dioxide 36.0 H, Anion Gap 2 L, BUN 30 H, Creatinine 1.15, Est GFR (MDRD) Af Amer 82, Est GFR (MDRD) Non-Af 67, BUN/Creatinine Ratio 26.1 H, Glucose 61 L, Calcium 8.3 L, Troponin I 0.068 H 12/13/17 01:20: B-Natriuretic Peptide 84.8 12/13/17 05:16: Sodium 139, Potassium 5.1, Chloride 99, Carbon Dioxide 34.0 H, Anion Gap 6, BUN 31 H, Creatinine 1.16, Est GFR (MDRD) Af Amer 81, Est GFR (MDRD) Non-Af 67, BUN/Creatinine Ratio 26.7 H, Glucose 38 L*, Calcium 8.4 L, Magnesium 2.6, Triglycerides 46, Cholesterol 117, LDL Cholesterol 76, VLDL Cholesterol 9, HDL Cholesterol 32 L 12/13/17 05:16: Hemoglobin A1c 8.0 H 12/13/17 05:16: WBC 8.1, RBC 5.12, Hgb 13.2, Hct 42.9, MCV 83.8, MCH 25.8 L, MCHC 30.8 L, RDW 19.2 H, RDW Differential 57.7 H, Plt Count 231, MPV 9.2, Immature Gran % (Auto) 0.200, Neut % (Auto) 81.4 H, Lymph % (Auto) 9.8 L, Carson % (Auto) 6.5, Eos % (Auto) 1.6, Baso % (Auto) 0.5, Absolute Neuts (auto) 6.6, Total Counted Not Reportable 12/13/17 05:16: Troponin I 0.053 H 12/13/17 09:07: Troponin I 0.053 H 12/13/17 12:05: Troponin I 0.060 H Rhythm: EKG: ECHO: As above Stress Test: Cardiac Cath: PCI: CT Surgery: Holter monitor: EPS: PPM: CXR: Chest CT Scan: Assessment/Plan 1. Right-sided heart failure: The patient has evidence of severe right-sided heart failure including abdominal distention, ascites, dense pachydermia of both lower extremities, severely enlarged right sided cardiac findings on chest x- ray as well as echocardiogram. His echocardiogram showed his RVSP to be approximately 24 mmHg, but my suspicion is that this is probably underestimated. I recommended the patient start a Bumex drip at 0.5 mg/h, as well as IV chlorothiazide 250 mg twice daily. Patient may be preload dependent so would watch for hypotension. In addition he will continue his Cozaar, and will start him on Imdur 30 mg p.o. daily for pulmonary afterload reduction. Patient has a known pacemaker in place, which appears to be working normally. At this point he is a very poor candidate for cardiac catheterization via his bilateral femoral arteries due to his severe abdominal pannus, and most likely would require left heart catheterization via the right radial approach. This could be done perhaps as an outpatient as he would have to stop his anticoagulation therapy for some time. Would recommend holding off on this until he has been medically optimized. Would recommend a goal of 3807-9359 cc net negative urine output per day. He already has a Mario in place. Recommend 1500 cc fluid restriction. I believe the majority of the patient's problem is due to his obstructive sleep apnea, and recommended he continue CPAP therapy moving forward. May want to consider pulmonary consultation for possible pulmonary artery vasodilatation therapy. 2. Coronary artery disease: Patient has had no anginal symptoms but has apparently undergone a catheterization at [facility] about 2-3 years ago. Recommend obtaining those records from [facility] prior to repeat catheterization. 3. Status post pacemaker: We will consider pacemaker interrogation. I do not believe the patient would benefit from an upgrade of his pacemaker at this time. 4. Thank you very much for the opportunity to participate in the cardiac care of the patient. Consultation time took place between 905 and 9:35 AM. Code Visit Inpatient E&M: 87187 Init Hosp L2
[2017-12-13 16:40] LABS: Bedside Glucose 284 mg/dL (70-110)
--- NOTE | 2017-12-13 17:42 | PCM.HOSP.N ---
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 H&P, vitals, labs, imaging and plan of management reviewed. Patient was seen by school age lead teacher. Seen and examined. Patient has multiple comorbidities including heart failure, no tinnitus type II, hypertension, coronary artery disease, pacemaker and cardiac cath probably in [facility] with unknown result. Patient was admitted with severe onset of dyspnea and patient said he could not breathe. Patient has morbid obesity, cough with productive cough and orthopnea. Anasarca with ascites and bilateral lower extremity swelling with hypertrophy and lymphedema. Patient has weeping from both legs. Troponins elevated 0.068, plateau probably from heart failure or demand ischemia: Right-sided heart failure, most probably from obstructive sleep apnea with COPD: The patient is currently on Bumex drip for right heart failure. 2D echo was done and reported EF 55% paced septal motion. No regional motion abnormality. Right ventricle severely dilated with moderate severe global systolic dysfunction. Tricuspid valve normal with trivial TR, RVSP 24 mmHg. Mitral valve normal. no pericardial effusion. Midline ordered as patient suspected to be on Bumex drip at least for few days. Coronary artery disease: Cardiology on board. Record from [facility] requested. Pacemaker interrogation ordered. COPD with obstructive sleep apnea: On bronchodilator. IV Solu-Medrol, incentive spirometry, chest physiotherapy BiPAP support Multiple comorbidities including diabetes mellitus type 2, uncontrolled with peripheral neuropathy, CKD stage III, paroxysmal A. fib, hypertension, morbid obesity: Guarded prognosis. Multiple comorbidities complicates the present care and expect difficult and delay recovery
--- NOTE | 2017-12-13 17:50 | CCHN_ITS ---
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 H&P, vitals, labs, imaging and plan of management reviewed. Patient was seen by cabinetmaker supervisor. Seen and examined. Patient has multiple comorbidities including heart failure, no tinnitus type II, hypertension, coronary artery disease, pacemaker and cardiac cath probably in [facility] [place] with unknown result. Patient was admitted with severe onset of dyspnea and patient said he could not breathe. Patient has morbid obesity, cough with productive cough and orthopnea. Anasarca with ascites and bilateral lower extremity swelling with hypertrophy and lymphedema. Patient has weeping from both legs. Troponins elevated 0.068, plateau probably from heart failure or demand ischemia: Right-sided heart failure, most probably from obstructive sleep apnea with COPD: The patient is currently on Bumex drip for right heart failure. 2D echo was done and reported EF 55% paced septal motion. No regional motion abnormality. Right ventricle severely dilated with moderate severe global systolic dysfunction. Tricuspid valve normal with trivial TR, RVSP 24 mmHg. Mitral valve normal. no pericardial effusion. Midline ordered as patient suspected to be on Bumex drip at least for few days. Coronary artery disease: Cardiology on board. Record from [facility] [place] requested. Pacemaker interrogation ordered. COPD with obstructive sleep apnea: On bronchodilator. IV Solu-Medrol, incentive spirometry, chest physiotherapy BiPAP support Multiple comorbidities including diabetes mellitus type 2, uncontrolled with peripheral neuropathy, CKD stage III, paroxysmal A. fib, hypertension, morbid obesity: Guarded prognosis. Multiple comorbidities complicates the present care and expect difficult and delay recovery
[2017-12-13] MEDS: Gabapentin 300 MG Capsule 900 MG PO (22:13)
[2017-12-13 22:30] LABS: Bedside Glucose 353 mg/dL (70-110)
[2017-12-14] VITALS (16 sets, daily range): BP systolic 119–150; BP diastolic 43–93; PULSE 70–90; RESP 16–32; TEMP 36.4–37.2; O2SAT 91–94
[2017-12-14] MEDS: 0.9% NaCl Peripheral Flush Adult/Peds IV ×2 (05:54→05:59)
[2017-12-14] MEDS: Nystatin Powder 15gm Bottle 1 APPLIC TOPICAL ×3 (05:55→22:55)
[2017-12-14] MEDS: Ipratropium/Albuterol Sulfate 3 ML AMPUL.NEB INHALATION ×4 (06:49→18:52)
[2017-12-14 06:55] LABS: Bedside Glucose 299 mg/dL (70-110)
[2017-12-14 07:01] LABS: Absolute Lymphocyte Count 1.08 X10^3/ul (0.83-4.51); Hematocrit 41.5 % (40-54); Hemoglobin 12.3 g/dl (13.0-16.5); Lymphocyte # 1.08 X10^3/ul (4.0); Lymphocyte % 9.4 % (19-41); Mean Corp Hgb Conc 29.6 g/gl (32-36); Mean Corpuscular Hgb 25.3 pg (27.0-32.0); Mean Corpuscular Volume 85.2 fL (80-94); Mean Platelet Vol. 9.2 fl (6.2-12.0); Monocyte# 0.42 X10^3/uL; Monocyte% 3.6 % (0-10); Neutrophil % 86.7 % (47-70); Platelet Count 204 K/mm3 (150-450); RBC Distribution Width CV 18.2 % (11.6-14.6); RBC Distribution Width SD 55.9 fl (35.1-43.9); Red Blood Count 4.87 M/mm3 (4.6-6.2); White Blood Count 11.5 K/mm3 (4.4-11.0)
[2017-12-14] MEDS: Budesonide Respules 0.5 MG/2 ML AMPUL.NEB. INHALATION ×3 (07:03→23:53)
[2017-12-14 07:16] LABS: POSITIVE COUNT NO; POSITIVE DIFFERENTIAL NO; POSITIVE MORPHOLOGY NO
[2017-12-14 07:21] LABS: Anion Gap 5 (5-15); BUN 40 mg/dL (7-18); BUN/Creat Ratio 26.8 RATIO (10-20); Calcium,Total 8.1 mg/dL (8.5-10.1); Chloride 95 mmol/L (98-107); Creatinine, Serum 1.49 mg/dL (0.70-1.30); EST Glomerular Filtration Rate 50 mL/min (>60); Est Glom Filt Rate - Afr Amer 61 mL/min (>60); Estimated Creatinine Clearance 54.37 ml/min; Glucose 286 mg/dL (74-106); Potassium 5.1 mmol/L (3.5-5.1); Sodium Level 135 mmol/L (136-145)
[2017-12-14] MEDS: Insulin Lispro 100 UNIT/ML INSULN.PEN SC ×4 (08:07→22:54)
[2017-12-14] MEDS: Gabapentin 600 MG Tablet PO ×2 (08:09→11:39)
[2017-12-14] MEDS: Losartan Potassium 25 MG Tablet PO (10:00)
[2017-12-14] MEDS: Isosorbide Mononitrate 30 MG Tablet PO (10:00)
[2017-12-14] MEDS: Rivaroxaban 20 MG Tablet PO (10:02)
[2017-12-14] MEDS: Pantoprazole Sodium 40 MG Tablet PO (10:02)
--- NOTE | 2017-12-14 10:30 | PCM.PN.CARD ---
Subjectve: Patient reports feeling better this morning and his lower extremity edema is markedly improved on a Bumex drip. Telemetry has shown pacemaker rhythm, no ventricular arrhythmias. Patient is approximately 5 L negative since being admitted, for a total of around 10 pounds. Echocardiogram done yesterday showed what appears to be intact LV function with an EF of 55%, severe right ventricular enlargement, and an estimated RVSP of 24 mmHg which is most likely underestimated. It was a very technically difficult study due to the patient's body habitus. Objective: Vital Signs Temp Pulse Resp BP Pulse Ox 98.4 F 90 18 134/76 H 91 12/14/17 10:00 12/14/17 10:00 12/14/17 10:00 12/14/17 10:00 12/14/17 10:00 Oxygen Flow Rate (L/min) 4 Oxygen Delivery Method Nasal Cannula Weight: 501 lb 8.826 oz Body Mass Index (BMI) 56.0 Intake and Output for Last 24 Hours 12/12/17 12/13/17 12/14/17 23:59 23:59 23:59 Intake Total 1251 / 1251 153.9 / 153.9 Output Total 4500 / 4500 1900 / 1900 Balance -3249 / -3249 -1746.1 / -1746.1 General: Awake, Alert, Oriented x 3 HEENT: PERRL, EOMI, Sclera Non Icteric Neck: Supple, Good ROM, No Lymph Node Enlargement Lungs: Clear to auscultation Cardiovascular: Regular Rhythm, Normal S1, Normal S2, No Rubs, No Gallops Murmur Murmur: Grade 2/6, Holosystolic Vascular: No Carotid Bruits, Normal Femoral Pulses, Normal Radial Pulses, Normal Dorsalis Pedal Pulse, Normal Posterior Tibial Pulses Abdomen: Bowel Sounds Present, Soft, Non Tender, No HSM, No Organomegaly Extremities: No Cyanosis, No Clubbing, No edema, Bilateral Edema +2 Neurological: No Focal Motor or Sensory Deficit 12/13/17 12:05: Troponin I 0.060 H 12/14/17 06:28: WBC 11.5 H, RBC 4.87, Hgb 12.3 L, Hct 41.5, MCV 85.2, MCH 25.3 L, MCHC 29.6 L, RDW 18.2 H, RDW Differential 55.9 H, Plt Count 204, MPV 9.2, Immature Gran % (Auto) 0.300, Neut % (Auto) 86.7 H, Lymph % (Auto) 9.4 L, Carbon % (Auto) 3.6, Eos % (Auto) 0.0, Baso % (Auto) 0.0, Absolute Neuts (auto) 10.0 H, Total Counted Not Reportable 12/14/17 06:28: Sodium 135 L, Potassium 5.1, Chloride 95 L, Carbon Dioxide 35.0 H, Anion Gap 5, BUN 40 H, Creatinine 1.49 H, Est GFR (MDRD) Af Amer 61, Est GFR (MDRD) Non-Af 50 L, BUN/Creatinine Ratio 26.8 H, Glucose 286 H, Calcium 8.1 L Rhythm: EKG: ECHO: Stress Test: Cardiac Cath: PCI: CT Surgery: Holter monitor: EPS: PPM: CXR: Chest CT Scan: Medical Necessity - Tobacco Use Smoking Status: Current every day smoker Tobacco Use: Cigarettes Assessment/Plan 1. Right-sided heart failure: The patient has evidence of severe right-sided heart failure including abdominal distention, ascites, dense pachydermia of both lower extremities, severely enlarged right sided cardiac findings on chest x-ray as well as echocardiogram. His echocardiogram showed his RVSP to be approximately 24 mmHg, but my suspicion is that this is probably underestimated. I recommended the patient start a Bumex drip at 0.5 mg/h, and we will stop his IV chlorothiazide today. Patient was admitted on 1 mg of Bumex daily, but my suspicion is he will require a higher dose such as 2 mg p.o. twice daily. Would recommend switching him to this tomorrow as well as metolazone on a as needed basis. Patient may be preload dependent so would watch for hypotension. In addition he will continue his Cozaar, and will start him on Imdur 30 mg p.o. daily for pulmonary afterload reduction, as well as hypertension. Patient has a known pacemaker in place, which appears to be working normally. At this point he is a very poor candidate for cardiac catheterization via his bilateral femoral arteries due to his severe abdominal pannus, and most likely would require left heart catheterization via the right radial approach. This could be done perhaps as an outpatient as he would have to stop his anticoagulation therapy for some time. Would recommend holding off on this until he has been medically optimized. Would recommend a goal of 3907-7177 cc net negative urine output per day. He already has a Mario in place. Recommend 1500 cc fluid restriction. I believe the majority of the patient's problem is due to his obstructive sleep apnea, and recommended he continue CPAP therapy moving forward. May want to consider pulmonary consultation for possible pulmonary artery vasodilatation therapy. 2. Coronary artery disease: Patient has had no anginal symptoms but has apparently undergone a catheterization at [facility] about 2-3 years ago. Recommend obtaining those records from [facility] prior to repeat catheterization. 3. Status post pacemaker: We will consider pacemaker interrogation. I do not believe the patient would benefit from an upgrade of his pacemaker at this time. 4. Thank you very much for the opportunity to participate in the cardiac care of the patient. He can follow-up with Dr. Pace going forward. We will look to discharge the patient tomorrow. Code Visit Inpatient E&M: 65349 Subs Hosp L2
--- NOTE | 2017-12-14 10:34 | PN.CARD_ITS ---
Subjectve: Patient reports feeling better this morning and his lower extremity edema is markedly improved on a Bumex drip. Telemetry has shown pacemaker rhythm, no ventricular arrhythmias. Patient is approximately 5 L negative since being admitted, for a total of around 10 pounds. Echocardiogram done yesterday showed what appears to be intact LV function with an EF of 55%, severe right ventricular enlargement, and an estimated RVSP of 24 mmHg which is most likely underestimated. It was a very technically difficult study due to the patient's body habitus. Objective: Vital Signs Temp Pulse Resp BP Pulse Ox 98.4 F 90 18 134/76 H 91 12/14/17 10:00 12/14/17 10:00 12/14/17 10:00 12/14/17 10:00 12/14/17 10:00 Oxygen Flow Rate (L/min) 4 Oxygen Delivery Method Nasal Cannula Weight: 501 lb 8.826 oz Body Mass Index (BMI) 56.0 Intake and Output for Last 24 Hours 12/12/17 12/13/17 12/14/17 23:59 23:59 23:59 Intake Total 1251 / 1251 153.9 / 153.9 Output Total 4500 / 4500 1900 / 1900 Balance -3249 / -3249 -1746.1 / -1746.1 General: Awake, Alert, Oriented x 3 HEENT: PERRL, EOMI, Sclera Non Icteric Neck: Supple, Good ROM, No Lymph Node Enlargement Lungs: Clear to auscultation Cardiovascular: Regular Rhythm, Normal S1, Normal S2, No Rubs, No Gallops Murmur Murmur: Grade 2/6, Holosystolic Vascular: No Carotid Bruits, Normal Femoral Pulses, Normal Radial Pulses, Normal Dorsalis Pedal Pulse, Normal Posterior Tibial Pulses Abdomen: Bowel Sounds Present, Soft, Non Tender, No HSM, No Organomegaly Extremities: No Cyanosis, No Clubbing, No edema, Bilateral Edema +2 Neurological: No Focal Motor or Sensory Deficit 12/13/17 12:05: Troponin I 0.060 H 12/14/17 06:28: WBC 11.5 H, RBC 4.87, Hgb 12.3 L, Hct 41.5, MCV 85.2, MCH 25.3 L , MCHC 29.6 L, RDW 18.2 H, RDW Differential 55.9 H, Plt Count 204, MPV 9.2, Immature Gran % (Auto) 0.300, Neut % (Auto) 86.7 H, Lymph % (Auto) 9.4 L, [place] % (Auto) 3.6, Eos % (Auto) 0.0, Baso % (Auto) 0.0, Absolute Neuts (auto) 10.0 H, Total Counted Not Reportable 12/14/17 06:28: Sodium 135 L, Potassium 5.1, Chloride 95 L, Carbon Dioxide 35.0 H, Anion Gap 5, BUN 40 H, Creatinine 1.49 H, Est GFR (MDRD) Af Amer 61, Est GFR (MDRD) Non-Af 50 L, BUN/Creatinine Ratio 26.8 H, Glucose 286 H, Calcium 8.1 L Rhythm: EKG: ECHO: Stress Test: Cardiac Cath: PCI: CT Surgery: Holter monitor: EPS: PPM: CXR: Chest CT Scan: Medical Necessity - Tobacco Use Smoking Status: Current every day smoker Tobacco Use: Cigarettes Assessment/Plan 1. Right-sided heart failure: The patient has evidence of severe right-sided heart failure including abdominal distention, ascites, dense pachydermia of both lower extremities, severely enlarged right sided cardiac findings on chest x-ray as well as echocardiogram. His echocardiogram showed his RVSP to be approximately 24 mmHg, but my suspicion is that this is probably underestimated. I recommended the patient start a Bumex drip at 0.5 mg/h, and we will stop his IV chlorothiazide today. Patient was admitted on 1 mg of Bumex daily, but my suspicion is he will require a higher dose such as 2 mg p.o. twice daily. Would recommend switching him to this tomorrow as well as metolazone on a as needed basis. Patient may be preload dependent so would watch for hypotension. In addition he will continue his Cozaar, and will start him on Imdur 30 mg p.o. daily for pulmonary afterload reduction, as well as hypertension. Patient has a known pacemaker in place, which appears to be working normally. At this point he is a very poor candidate for cardiac catheterization via his bilateral femoral arteries due to his severe abdominal pannus, and most likely would require left heart catheterization via the right radial approach. This could be done perhaps as an outpatient as he would have to stop his anticoagulation therapy for some time. Would recommend holding off on this until he has been medically optimized. Would recommend a goal of 7831-5185 cc net negative urine output per day. He already has a Mario in place. Recommend 1500 cc fluid restriction. I believe the majority of the patient's problem is due to his obstructive sleep apnea, and recommended he continue CPAP therapy moving forward. May want to consider pulmonary consultation for possible pulmonary artery vasodilatation therapy. 2. Coronary artery disease: Patient has had no anginal symptoms but has apparently undergone a catheterization at [facility] about 2-3 years ago. Recommend obtaining those records from [facility] prior to repeat catheterization. 3. Status post pacemaker: We will consider pacemaker interrogation. I do not believe the patient would benefit from an upgrade of his pacemaker at this time. 4. Thank you very much for the opportunity to participate in the cardiac care of the patient. He can follow-up with Dr. Pace going forward. We will look to discharge the patient tomorrow. Code Visit Inpatient E&M: 76377 Subs Hosp L2
[2017-12-14 11:56] LABS: Bedside Glucose 311 mg/dL (70-110)
--- NOTE | 2017-12-14 14:48 | PCM.PN.HOSP ---
Patient Problems: Active and Suspected Problems (Last Reviewed 03/07/17 @ 10:25 by Ivana Jett) Hypoxemia (Acute) Morbid obesity with BMI of 50.0-59.9, adult (Acute) Acute exacerbation of CHF (congestive heart failure) (Acute) Subjective: Patient was seen and examined. He has no new complaints. Denies any worsening shortness of breath. He has been diuresing well. Mario catheter in situ. Denies chest pain or dizziness or palpitations. Vitals/I&O's: Vital Signs Temp Pulse Resp BP Pulse Ox 98.0 F 80 18 131/71 H 92 12/14/17 12:00 12/14/17 12:00 12/14/17 12:00 12/14/17 12:00 12/14/17 12:00 Oxygen Flow Rate (L/min) 4 Oxygen Delivery Method Nasal Cannula Weight: 227.5 kg Body Mass Index (BMI) 56.0 Intake and Output for Last 24 Hours 12/12/17 12/13/17 12/14/17 23:59 23:59 23:59 Intake Total 1251 / 1251 647.1 / 647.1 Output Total 4500 / 4500 5500 / 5500 Balance -3249 / -3249 -4852.9 / -4852.9 General: Alert, Oriented x3, Cooperative, No apparent distress, - - Super morbidly obese HEENT: Atraumatic, PERRLA, EOMI, Normocephalic Oral: Moist Mucosa Neck: Supple, No JVD, Negative Carotid Bruits Lungs: Normal air movement, Diminished Cardiovascular: Regular rate, Regular Rhythm, Normal S1, Normal S2, No murmurs Abdomen: Bowel Sounds Present, Soft, Non Tender, Non-Distended, No Hepato-splenomegaly Extremities: Edema - +2-3 with chronic venous stasis changes, hyperpigmentation and scaling of the skin Skin: No rashes, No breakdown Musculoskeletal: No Tenderness to Palpation of Joints or Extremities Lymphatic: No Cervical, Supraclavicular, or Inguinal Adenopathy Neurological: Cranial nerves II-XII grossly intact, Neuro grossly intact Psych/Mental Status: Normal Affect, Appropriate Microbiology Past 72 Hours 12/13/17 06:00 Mucosa - Nasopharyngeal Respiratory Panel (PCR) - Final Laboratory Results 12/13/17 16:28: POC Glucose 284 H 12/13/17 22:01: POC Glucose 353 H 12/14/17 06:28: WBC 11.5 H, RBC 4.87, Hgb 12.3 L, Hct 41.5, MCV 85.2, MCH 25.3 L, MCHC 29.6 L, RDW 18.2 H, RDW Differential 55.9 H, Plt Count 204, MPV 9.2, Immature Gran % (Auto) 0.300, Neut % (Auto) 86.7 H, Lymph % (Auto) 9.4 L, [place] % (Auto) 3.6, Eos % (Auto) 0.0, Baso % (Auto) 0.0, Absolute Neuts (auto) 10.0 H, Absolute Lymphs (auto) 1.08, Total Counted Not Reportable 12/14/17 06:28: Sodium 135 L, Potassium 5.1, Chloride 95 L, Carbon Dioxide 35.0 H, Anion Gap 5, BUN 40 H, Creatinine 1.49 H, Estim Creat Clear Calc 54.37, Est GFR (MDRD) Af Amer 61, Est GFR (MDRD) Non-Af 50 L, BUN/Creatinine Ratio 26.8 H, Glucose 286 H, Calcium 8.1 L 12/14/17 06:41: POC Glucose 299 H 12/14/17 11:37: POC Glucose 311 H Current Medications Acetaminophen (Tylenol) 650 mg PO Q6H PRN PRN PRN Reason: Mild Pain (scale 0-3)/T>100.7 Al Hydroxide/Mg Hydroxide (Mylanta Ii) 30 ml PO Q6H PRN PRN PRN Reason: Gastric burning Albuterol/Ipratropium (Duoneb) 3 ml INHALATION Q4HWA.RT [facility] Last Admin: 12/14/17 10:50 Dose: 3 ml Budesonide (Pulmicort Aerosol) 0.5 mg INHALATION Q12H [facility] Last Admin: 12/14/17 07:03 Dose: 0.5 mg Docusate Sodium (Colace) 100 mg PO DAILY [facility] Last Admin: 12/14/17 09:54 Dose: Not Given Gabapentin (Neurontin) 600 mg PO BID@0800,1200 [facility] Last Admin: 12/14/17 11:39 Dose: 600 mg Gabapentin (Neurontin) 900 mg PO QHS [facility] Last Admin: 12/13/17 22:13 Dose: 900 mg Bumetanide 25 mg/ (Miscellaneous Information) 100 mls @ 2 mls/hr CONT INF .Q50H [facility] Last Admin: 12/13/17 11:14 Dose: 2 mls/hr Insulin Glargine (Lantus (Bkc)) 65 units SC QAM [facility] Last Admin: 12/14/17 10:01 Dose: 65 u Insulin Glargine (Lantus (Bkc)) 73 units SC QHS [facility] Last Admin: 12/13/17 22:01 Dose: 73 units Insulin Human Lispro (Humalog Kwikpen (Bk)) 0 unit SC ACHS [facility]; Protocol Last Admin: 12/14/17 11:40 Dose: 5 u Isosorbide Mononitrate (Imdur) 30 mg PO DAILY [facility] Last Admin: 12/14/17 10:00 Dose: 30 mg Losartan Potassium (Cozaar) 25 mg PO DAILY [facility] Last Admin: 12/14/17 10:00 Dose: 25 mg Magnesium Hydroxide (Milk Of Magnesia) 30 ml PO DAILY PRN PRN Reason: Constipation Methylprednisolone (Solu-Medrol) 40 mg IV Q8 [facility] Last Admin: 12/14/17 05:54 Dose: 40 mg Morphine Sulfate () 2 - 4 mg IV Q3H PRN PRN PRN Reason: Severe Pain (pain scale 6-10) Morphine Sulfate () 1 - 2 mg IV Q4H PRN PRN PRN Reason: Moderate Pain (pain scale 4-5) Nicotine (Nicoderm Cq (Pbkc)) 14 mg TRANSDERM. DAILY [facility] Last Admin: 12/14/17 10:02 Dose: 14 mg Nutritional Formula (Lactose Free) (Glucerna Shake) 60 ml PO 4X/DAY [facility] Last Admin: 12/14/17 10:00 Dose: Not Given Nystatin (Mycostatin Powder) 1 applic TOPICAL TID [facility]; Protocol Last Admin: 12/14/17 05:55 Dose: 1 applicatio Ondansetron HCl (Zofran) 4 mg IV Q8H PRN PRN PRN Reason: NAUSEA Pantoprazole Sodium (Protonix) 40 mg PO DAILY [facility] Last Admin: 12/14/17 10:02 Dose: 40 mg Potassium Chloride (K-Dur) 20 meq PO DAILY [facility] Last Admin: 12/14/17 10:01 Dose: 20 meq Promethazine HCl (Phenergan) 12.5 mg IV Q6H PRN PRN PRN Reason: NAUSEA/VOMITING Rivaroxaban (Xarelto) 20 mg PO DAILY [facility] Last Admin: 12/14/17 10:02 Dose: 20 mg Sodium Chloride () 5 - 30 ml IV UD PRN PRN Reason: SALINE FLUSH Last Admin: 12/14/17 05:59 Dose: 10 ml Medical Necessity - Tobacco Use Smoking Status: Current every day smoker Tobacco Use: Cigarettes Assessment/Plan All Active Problems (Last Reviewed 03/07/17 @ 10:25 by Ivana Jett) Hypoxemia (Acute) Morbid obesity with BMI of 50.0-59.9, adult (Acute) Acute exacerbation of CHF (congestive heart failure) (Acute) Erectile dysfunction associated with type 2 diabetes mellitus (Acute) 67-year-old male with past medical history of GER[place]IA, super morbid obesity, retention, hyperlipidemia, 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 1. Acute hypoxic respiratory failure secondary to acute on chronic diastolic CHF/acute on chronic COPD exacerbation, remains on 4 L of oxygen, will continue to wean off oxygen 2. Acute on chronic diastolic CHF, pulmonary hypertension EF 55%, on Bumex drip, diuresing well, continue diuresis, will monitor for contraction alkalosis 3. Indeterminate cardiac enzymes secondary to likely demand ischemia from CHF, cardiology following 4. Acute metabolic encephalopathy secondary to acute hypoxic respiratory failure, acute CHF exacerbation, resolved, patient is alert and oriented x3, will continue to monitor 5. PAF, status post pacemaker, rate controlled, on Xarelto 6. Type II DM, HbA1c 8.0, blood sugars are uncontrolled secondary to steroid, would increase basal insulin and continue with medium to high insulin sliding scale with Accu-Cheks 7. Super morbid obesity, HI 66.2, diet and exercises recommended 8. CKD stage III, slight increase in creatinine likely second to diuretic, will continue to monitor 9. [place]ER[place] on CPAP 10. Nicotine dependency -on nicotine patch 11. DVT prophylaxis -Xarelto Code Visit Inpatient E&M: 31784 Subs Hosp L2
--- NOTE | 2017-12-14 15:04 | PN_ITS ---
Patient Problems: Active and Suspected Problems (Last Reviewed 03/07/17 @ 10:25 by Ivana Jett) Hypoxemia (Acute) Morbid obesity with BMI of 50.0-59.9, adult (Acute) Acute exacerbation of CHF (congestive heart failure) (Acute) Subjective: Patient was seen and examined. He has no new complaints. Denies any worsening shortness of breath. He has been diuresing well. Mario catheter in situ. Denies chest pain or dizziness or palpitations. Vitals/I&O's: Vital Signs Temp Pulse Resp BP Pulse Ox 98.0 F 80 18 131/71 H 92 12/14/17 12:00 12/14/17 12:00 12/14/17 12:00 12/14/17 12:00 12/14/17 12:00 Oxygen Flow Rate (L/min) 4 Oxygen Delivery Method Nasal Cannula Weight: 227.5 kg Body Mass Index (BMI) 56.0 Intake and Output for Last 24 Hours 12/12/17 12/13/17 12/14/17 23:59 23:59 23:59 Intake Total 1251 / 1251 647.1 / 647.1 Output Total 4500 / 4500 5500 / 5500 Balance -3249 / -3249 -4852.9 / -4852.9 General: Alert, Oriented x3, Cooperative, No apparent distress, - - Super morbidly obese HEENT: Atraumatic, PERRLA, EOMI, Normocephalic Oral: Moist Mucosa Neck: Supple, No JVD, Negative Carotid Bruits Lungs: Normal air movement, Diminished Cardiovascular: Regular rate, Regular Rhythm, Normal S1, Normal S2, No murmurs Abdomen: Bowel Sounds Present, Soft, Non Tender, Non-Distended, No Hepato- splenomegaly Extremities: Edema - +2-3 with chronic venous stasis changes, hyperpigmentation and scaling of the skin Skin: No rashes, No breakdown Musculoskeletal: No Tenderness to Palpation of Joints or Extremities Lymphatic: No Cervical, Supraclavicular, or Inguinal Adenopathy Neurological: Cranial nerves II-XII grossly intact, Neuro grossly intact Psych/Mental Status: Normal Affect, Appropriate Microbiology Past 72 Hours 12/13/17 06:00 Mucosa - Nasopharyngeal Respiratory Panel (PCR) - Final Laboratory Results 12/13/17 16:28: POC Glucose 284 H 12/13/17 22:01: POC Glucose 353 H 12/14/17 06:28: WBC 11.5 H, RBC 4.87, Hgb 12.3 L, Hct 41.5, MCV 85.2, MCH 25.3 L , MCHC 29.6 L, RDW 18.2 H, RDW Differential 55.9 H, Plt Count 204, MPV 9.2, Immature Gran % (Auto) 0.300, Neut % (Auto) 86.7 H, Lymph % (Auto) 9.4 L, [place] % (Auto) 3.6, Eos % (Auto) 0.0, Baso % (Auto) 0.0, Absolute Neuts (auto) 10.0 H, Absolute Lymphs (auto) 1.08, Total Counted Not Reportable 12/14/17 06:28: Sodium 135 L, Potassium 5.1, Chloride 95 L, Carbon Dioxide 35.0 H, Anion Gap 5, BUN 40 H, Creatinine 1.49 H, Estim Creat Clear Calc 54.37, Est GFR (MDRD) Af Amer 61, Est GFR (MDRD) Non-Af 50 L, BUN/Creatinine Ratio 26.8 H, Glucose 286 H, Calcium 8.1 L 12/14/17 06:41: POC Glucose 299 H 12/14/17 11:37: POC Glucose 311 H Current Medications Acetaminophen (Tylenol) 650 mg PO Q6H PRN PRN PRN Reason: Mild Pain (scale 0-3)/T>100.7 Al Hydroxide/Mg Hydroxide (Mylanta Ii) 30 ml PO Q6H PRN PRN PRN Reason: Gastric burning Albuterol/Ipratropium (Duoneb) 3 ml INHALATION Q4HWA.RT [facility] Last Admin: 12/14/17 10:50 Dose: 3 ml Budesonide (Pulmicort Aerosol) 0.5 mg INHALATION Q12H [facility] Last Admin: 12/14/17 07:03 Dose: 0.5 mg Docusate Sodium (Colace) 100 mg PO DAILY [facility] Last Admin: 12/14/17 09:54 Dose: Not Given Gabapentin (Neurontin) 600 mg PO BID@0800,1200 [facility] Last Admin: 12/14/17 11:39 Dose: 600 mg Gabapentin (Neurontin) 900 mg PO QHS [facility] Last Admin: 12/13/17 22:13 Dose: 900 mg Bumetanide 25 mg/ (Miscellaneous Information) 100 mls @ 2 mls/hr CONT INF .Q50H [facility] Last Admin: 12/13/17 11:14 Dose: 2 mls/hr Insulin Glargine (Lantus (Bkc)) 65 units SC QAM [facility] Last Admin: 12/14/17 10:01 Dose: 65 u Insulin Glargine (Lantus (Bkc)) 73 units SC QHS [facility] Last Admin: 12/13/17 22:01 Dose: 73 units Insulin Human Lispro (Humalog Kwikpen (Bk)) 0 unit SC ACHS [facility]; Protocol Last Admin: 12/14/17 11:40 Dose: 5 u Isosorbide Mononitrate (Imdur) 30 mg PO DAILY [facility] Last Admin: 12/14/17 10:00 Dose: 30 mg Losartan Potassium (Cozaar) 25 mg PO DAILY [facility] Last Admin: 12/14/17 10:00 Dose: 25 mg Magnesium Hydroxide (Milk Of Magnesia) 30 ml PO DAILY PRN PRN Reason: Constipation Methylprednisolone (Solu-Medrol) 40 mg IV Q8 [facility] Last Admin: 12/14/17 05:54 Dose: 40 mg Morphine Sulfate () 2 - 4 mg IV Q3H PRN PRN PRN Reason: Severe Pain (pain scale 6-10) Morphine Sulfate () 1 - 2 mg IV Q4H PRN PRN PRN Reason: Moderate Pain (pain scale 4-5) Nicotine (Nicoderm Cq (Pbkc)) 14 mg TRANSDERM. DAILY [facility] Last Admin: 12/14/17 10:02 Dose: 14 mg Nutritional Formula (Lactose Free) (Glucerna Shake) 60 ml PO 4X/DAY [facility] Last Admin: 12/14/17 10:00 Dose: Not Given Nystatin (Mycostatin Powder) 1 applic TOPICAL TID [facility]; Protocol Last Admin: 12/14/17 05:55 Dose: 1 applicatio Ondansetron HCl (Zofran) 4 mg IV Q8H PRN PRN PRN Reason: NAUSEA Pantoprazole Sodium (Protonix) 40 mg PO DAILY [facility] Last Admin: 12/14/17 10:02 Dose: 40 mg Potassium Chloride (K-Dur) 20 meq PO DAILY [facility] Last Admin: 12/14/17 10:01 Dose: 20 meq Promethazine HCl (Phenergan) 12.5 mg IV Q6H PRN PRN PRN Reason: NAUSEA/VOMITING Rivaroxaban (Xarelto) 20 mg PO DAILY [facility] Last Admin: 12/14/17 10:02 Dose: 20 mg Sodium Chloride () 5 - 30 ml IV UD PRN PRN Reason: SALINE FLUSH Last Admin: 12/14/17 05:59 Dose: 10 ml Medical Necessity - Tobacco Use Smoking Status: Current every day smoker Tobacco Use: Cigarettes Assessment/Plan All Active Problems (Last Reviewed 03/07/17 @ 10:25 by Ivana Jett) Hypoxemia (Acute) Morbid obesity with BMI of 50.0-59.9, adult (Acute) Acute exacerbation of CHF (congestive heart failure) (Acute) Erectile dysfunction associated with type 2 diabetes mellitus (Acute) 67-year-old male with past medical history of GERMANIA, super morbid obesity, retention, hyperlipidemia, 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 1. Acute hypoxic respiratory failure secondary to acute on chronic diastolic CHF/acute on chronic COPD exacerbation, remains on 4 L of oxygen, will continue to wean off oxygen 2. Acute on chronic diastolic CHF, pulmonary hypertension EF 55%, on Bumex drip, diuresing well, continue diuresis, will monitor for contraction alkalosis 3. Indeterminate cardiac enzymes secondary to likely demand ischemia from CHF, cardiology following 4. Acute metabolic encephalopathy secondary to acute hypoxic respiratory failure, acute CHF exacerbation, resolved, patient is alert and oriented x3, will continue to monitor 5. PAF, status post pacemaker, rate controlled, on Xarelto 6. Type II DM, HbA1c 8.0, blood sugars are uncontrolled secondary to steroid, would increase basal insulin and continue with medium to high insulin sliding scale with Accu-Cheks 7. Super morbid obesity, AL 66.2, diet and exercises recommended 8. CKD stage III, slight increase in creatinine likely second to diuretic, will continue to monitor 9. GER[place]IA on CPAP 10. Nicotine dependency -on nicotine patch 11. DVT prophylaxis -Xarelto Code Visit Inpatient E&M: 15208 Subs Hosp L2
[2017-12-14 17:06] LABS: Bedside Glucose 271 mg/dL (70-110)
[2017-12-14] MEDS: Glucerna Shake 120 ML LIQUID 60 ML PO (22:52)
[2017-12-14] MEDS: Gabapentin 300 MG Capsule 900 MG PO (22:55)
[2017-12-14] MEDS: Bumetanide 25 MG in CONTAINER,EMPTY 1 BAG CONT INF (22:58)
[2017-12-14 23:10] LABS: Bedside Glucose 248 mg/dL (70-110)
[2017-12-15] VITALS (13 sets, daily range): BP systolic 105–140; BP diastolic 39–68; PULSE 71–99; RESP 18–26; TEMP 36.7–37.1; O2SAT 77–95
--- NOTE | 2017-12-15 01:10 | CPS ---
Pt refusing bipap at this time.
[2017-12-15 01:51] LABS: Bedside Glucose 189 mg/dL (70-110)
[2017-12-15] MEDS: Budesonide Respules 0.5 MG/2 ML AMPUL.NEB. INHALATION (06:49)
[2017-12-15] MEDS: Ipratropium/Albuterol Sulfate 3 ML AMPUL.NEB INHALATION ×3 (06:49→14:34)
[2017-12-15] MEDS: Nystatin Powder 15gm Bottle 1 APPLIC TOPICAL ×2 (06:56→11:55)
[2017-12-15 07:10] LABS: Bedside Glucose 120 mg/dL (70-110)
[2017-12-15] MEDS: Gabapentin 600 MG Tablet PO ×2 (08:54→11:55)
[2017-12-15] MEDS: predniSONE 10 MG Tablet 40 MG PO (08:54)
[2017-12-15] MEDS: Losartan Potassium 25 MG Tablet PO (08:55)
[2017-12-15] MEDS: Isosorbide Mononitrate 30 MG Tablet PO (08:55)
[2017-12-15] MEDS: Pantoprazole Sodium 40 MG Tablet PO (08:59)
[2017-12-15] MEDS: Glucerna Shake 120 ML LIQUID 60 ML PO ×2 (09:02→11:55)
[2017-12-15] MEDS: Rivaroxaban 20 MG Tablet PO (09:02)
[2017-12-15] MEDS: 0.9% NaCl Peripheral Flush Adult/Peds IV (09:17)
--- NOTE | 2017-12-15 11:17 | PCM.PN.CARD ---
Subjectve: Patient reports marked improved breathing today, and declines catheterization at this point. Patient reports that his breathing is much better, has been ambulating to the bathroom without difficulty and his lower extremity edema has markedly improved. Objective: Vital Signs Temp Pulse Resp BP Pulse Ox 98.8 F 71 18 140/53 H 93 12/15/17 08:32 12/15/17 10:53 12/15/17 10:53 12/15/17 08:32 12/15/17 08:32 Oxygen Flow Rate (L/min) 4 Oxygen Delivery Method Nasal Cannula Weight: 490 lb 1.401 oz Body Mass Index (BMI) 56.0 Intake and Output for Last 24 Hours 12/13/17 12/14/17 12/15/17 23:59 23:59 23:59 Intake Total 1251 / 1251 1396.1 / 1396.1 630.0 / 630.0 Output Total 4500 / 4500 7600 / 7600 5110 / 5110 Balance -3249 / -3249 -6203.9 / -6203.9 -4480.0 / -4480.0 General: Awake, Alert, Oriented x 3 HEENT: PERRL, EOMI, Sclera Non Icteric Neck: Supple, Good ROM, No Lymph Node Enlargement Lungs: Clear to auscultation Cardiovascular: Regular Rhythm, Normal S1, Normal S2, No Murmurs, No Rubs, No Gallops Vascular: No Carotid Bruits, Normal Femoral Pulses, Normal Radial Pulses, Normal Dorsalis Pedal Pulse, Normal Posterior Tibial Pulses Abdomen: Bowel Sounds Present, Soft, Non Tender, No HSM, No Organomegaly Extremities: No Cyanosis, No Clubbing, Bilateral Edema +2 Neurological: No Focal Motor or Sensory Deficit Rhythm: Telemetry shows permanent pacemaker. EKG: ECHO: Stress Test: Cardiac Cath: PCI: CT Surgery: Holter monitor: EPS: PPM: CXR: Chest CT Scan: Medical Necessity - Tobacco Use Smoking Status: Current every day smoker Tobacco Use: Cigarettes Assessment/Plan 1. Right-sided heart failure: The patient has evidence of severe right-sided heart failure including abdominal distention, ascites, dense pachydermia of both lower extremities, severely enlarged right sided cardiac findings on chest x-ray as well as echocardiogram. His echocardiogram showed his RVSP to be approximately 24 mmHg, but my suspicion is that this is probably underestimated. Patient was treated with IV Bumex drip as well as IV chlorothiazide. We have had fairly significant diuresis in approximately 13 L net negative reduction, estimated to be approximately 25 pounds. The patient is ambulating well, and declines catheterization at this time. Patient reports that he will be compliant with his medications.. Patient was admitted on only 20 mg of p.o. Lasix daily. Would recommend that he be discharged home on Lasix 80 mg p.o. twice daily going forward.. Patient may require periodic metolazone on an as-needed basis to facilitate IV diuresis. Patient may be preload dependent so would watch for hypotension. In addition he will continue his Cozaar, and will start him on Imdur 30 mg p.o. daily for pulmonary afterload reduction, as well as hypertension. Patient has a known pacemaker in place, which appears to be working normally. At this point he is a very poor candidate for cardiac catheterization via his bilateral femoral arteries due to his severe abdominal pannus, and most likely would require left heart catheterization via the right radial approach. This could be done perhaps as an outpatient as he would have to stop his anticoagulation therapy for some time. Would recommend holding off on this until he has been medically optimized. I believe the majority of the patient's problem is due to his obstructive sleep apnea, and recommended he continue CPAP therapy moving forward. May want to consider pulmonary consultation for possible pulmonary artery vasodilatation therapy. 2. Coronary artery disease: Patient has had no anginal symptoms but has apparently undergone a catheterization at [facility] about 2-3 years ago. Recommend obtaining those records from [facility] prior to repeat catheterization. 3. Status post pacemaker: We will consider pacemaker interrogation. I do not believe the patient would benefit from an upgrade of his pacemaker at this time. 4. Thank you very much for the opportunity to participate in the cardiac care of the patient. He can follow-up with Dr. Pace going forward. Patient may be discharged home today. Code Visit Inpatient E&M: 75164 Subs Hosp L2
--- NOTE | 2017-12-15 11:22 | PN.CARD_ITS ---
Subjectve: Patient reports marked improved breathing today, and declines catheterization at this point. Patient reports that his breathing is much better, has been ambulating to the bathroom without difficulty and his lower extremity edema has markedly improved. Objective: Vital Signs Temp Pulse Resp BP Pulse Ox 98.8 F 71 18 140/53 H 93 12/15/17 08:32 12/15/17 10:53 12/15/17 10:53 12/15/17 08:32 12/15/17 08:32 Oxygen Flow Rate (L/min) 4 Oxygen Delivery Method Nasal Cannula Weight: 490 lb 1.401 oz Body Mass Index (BMI) 56.0 Intake and Output for Last 24 Hours 12/13/17 12/14/17 12/15/17 23:59 23:59 23:59 Intake Total 1251 / 1251 1396.1 / 1396.1 630.0 / 630.0 Output Total 4500 / 4500 7600 / 7600 5110 / 5110 Balance -3249 / -3249 -6203.9 / -6203.9 -4480.0 / -4480.0 General: Awake, Alert, Oriented x 3 HEENT: PERRL, EOMI, Sclera Non Icteric Neck: Supple, Good ROM, No Lymph Node Enlargement Lungs: Clear to auscultation Cardiovascular: Regular Rhythm, Normal S1, Normal S2, No Murmurs, No Rubs, No Gallops Vascular: No Carotid Bruits, Normal Femoral Pulses, Normal Radial Pulses, Normal Dorsalis Pedal Pulse, Normal Posterior Tibial Pulses Abdomen: Bowel Sounds Present, Soft, Non Tender, No HSM, No Organomegaly Extremities: No Cyanosis, No Clubbing, Bilateral Edema +2 Neurological: No Focal Motor or Sensory Deficit Rhythm: Telemetry shows permanent pacemaker. EKG: ECHO: Stress Test: Cardiac Cath: PCI: CT Surgery: Holter monitor: EPS: PPM: CXR: Chest CT Scan: Medical Necessity - Tobacco Use Smoking Status: Current every day smoker Tobacco Use: Cigarettes Assessment/Plan 1. Right-sided heart failure: The patient has evidence of severe right-sided heart failure including abdominal distention, ascites, dense pachydermia of both lower extremities, severely enlarged right sided cardiac findings on chest x-ray as well as echocardiogram. His echocardiogram showed his RVSP to be appr oximately 24 mmHg, but my suspicion is that this is probably underestimated. Patient was treated with IV Bumex drip as well as IV chlorothiazide. We have had fairly significant diuresis in approximately 13 L net negative reduction, estimated to be approximately 25 pounds. The patient is ambulating well, and declines catheterization at this time. Patient reports that he will be compliant with his medications.. Patient was admitted on only 20 mg of p.o. Lasix daily. Would recommend that he be discharged home on Lasix 80 mg p.o. twice daily going forward.. Patient may require periodic metolazone on an as- needed basis to facilitate IV diuresis. Patient may be preload dependent so would watch for hypotension. In addition he will continue his Cozaar, and will start him on Imdur 30 mg p.o. daily for pulmonary afterload reduction, as well as hypertension. Patient has a known pacemaker in place, which appears to be working normally. At this point he is a very poor candidate for cardiac catheterization via his bilateral femoral arteries due to his severe abdominal pannus, and most likely would require left heart catheterization via the right radial approach. This could be done perhaps as an outpatient as he would have to stop his anticoagulation therapy for some time. Would recommend holding off on this until he has been medically optimized. I believe the majority of the patient's problem is due to his obstructive sleep apnea, and recommended he continue CPAP therapy moving forward. May want to consider pulmonary consultation for possible pulmonary artery vasodilatation therapy. 2. Coronary artery disease: Patient has had no anginal symptoms but has apparently undergone a catheterization at [facility] about 2-3 years ago. Recommend obtaining those records from [facility] prior to repeat catheterization. 3. Status post pacemaker: We will consider pacemaker interrogation. I do not believe the patient would benefit from an upgrade of his pacemaker at this time. 4. Thank you very much for the opportunity to participate in the cardiac care of the patient. He can follow-up with Dr. Pace going forward. Patient may be discharged home today. Code Visit Inpatient E&M: 07274 Subs Hosp L2
[2017-12-15] MEDS: Furosemide 80 MG Tablet PO (11:54)
[2017-12-15 12:11] LABS: Bedside Glucose 128 mg/dL (70-110)
[2017-12-15 12:38] LABS: Anion Gap 3 (5-15); BUN 48 mg/dL (7-18); Calcium,Total 8.2 mg/dL (8.5-10.1); Chloride 94 mmol/L (98-107); Creatinine, Serum 1.41 mg/dL (0.70-1.30); EST Glomerular Filtration Rate 53 mL/min (>60); Est Glom Filt Rate - Afr Amer 65 mL/min (>60); Estimated Creatinine Clearance 57.45 ml/min; Glucose 122 mg/dL (74-106); Potassium 4.3 mmol/L (3.5-5.1); Sodium Level 138 mmol/L (136-145)
--- NOTE | 2017-12-15 14:12 | DCINST_ITS ---
- Discharge Diagnoses Current Active Problems: Current Active and Chronic Problems (Last Reviewed 03/07/17 @ 10:25 by Ivana Jett) COPD (chronic obstructive pulmonary disease) (Chronic) Type 2 diabetes mellitus (Chronic) Chronic atrial fibrillation (Chronic) S/P cardiac pacemaker procedure (Chronic) Morbid obesity with BMI of 50.0-59.9, adult (Chronic) Hypoxemia (Acute) Morbid obesity with BMI of 50.0-59.9, adult (Acute) Acute exacerbation of CHF (congestive heart failure) (Acute) Reason(s) for Visit for Discharge Instructions: Shortness of breath You will use the following diet at home:: Calorie/Carbohydrate Controlled (specify 1200, 1400, etc), Cardiac Your food should be the consistency of: Regular Your liquids should be the consistency of: Regular/Thin Discharge Activity: Return to Normal Activity Additional Instructions: Continue to take all your medications as prescribed. Continue to use your oxygen all the time. You need to follow-up with the electron beam photo mask technician and veterinary physiologist. Follow a low salt diet. Weigh yourself everyday and keep a log of your weights. Let your doctor know if you gain more than 4 pounds. Allergies/Adverse Reactions: Allergies No Known Allergies Allergy (Unverified 03/07/17 10:33) Medications to take at Discharge acetaminophen 500 mg tablet 1,000 mg PO BID PRN tab 02/25/17 acetaminophen 500 mg tablet 1,000 mg PO QHS tab 02/25/17 budesonide 0.5 mg/2 mL suspension for nebulization 0.5 mg INHALATION Q12H 02/25/17 cholecalciferol (vitamin D3) 50,000 unit capsule 50,000 unit PO .COMPLEX 02/25/17 docusate sodium 100 mg capsule 200 mg PO QDAY 02/25/17 linagliptin 5 mg tablet 5 mg PO QDAY 02/25/17 omega-3 fatty acids 1,000 mg capsule 1,000 mg PO BID cap 02/25/17 potassium chloride ER 20 mEq tablet,extended release 20 meq PO QDAY 02/25/17 rivaroxaban 20 mg tablet 20 mg PO QDAY 02/25/17 Fluticasone/Salmeterol [Advair 100-50 Diskus] 1 each IH BID 12/15/17 Furosemide [Lasix] 80 mg PO BID@1000,1800 #60 tablet 12/15/17 Gabapentin [Neurontin] 900 mg PO QHS #30 capsule 12/15/17 Glucerna Shake 60 ml PO 4X/DAY #100 liquid 12/15/17 Insulin Glargine [Lantus SoloStar Pen] 68 units SC QAM pen 12/15/17 Insulin Glargine [Lantus SoloStar Pen] 75 units SC QHS pen 12/15/17 Insulin Lispro [Humalog KwikPen] See Protocol SC ACHS insuln.pen 12/15/17 Isosorbide Mononitrate [Imdur] 30 mg PO DAILY #30 tablet 12/15/17 Losartan Potassium [Cozaar] 25 mg PO DAILY #30 tablet 12/15/17 Melatonin 3 mg PO QHS 12/15/17 Montelukast Sodium [Singulair] 10 mg PO QHS 12/15/17 Nicotine [Nicoderm] 14 mg TRANSDERM. DAILY #30 patch 12/15/17 Potassium Chloride [K-Dur] 20 meq PO DAILY #30 tablet 12/15/17 Prednisone 10 mg PO UD #30 tablet 12/15/17 The following prescriptions were given: Furosemide [Lasix] 80 mg PO BID@1000,1800 #60 tablet Gabapentin [Neurontin] 900 mg PO QHS #30 capsule Isosorbide Mononitrate [Imdur] 30 mg PO DAILY #30 tablet Losartan Potassium [Cozaar] 25 mg PO DAILY #30 tablet Nicotine [Nicoderm] 14 mg TRANSDERM. DAILY #30 patch Potassium Chloride [K-Dur] 20 meq PO DAILY #30 tablet Prednisone 10 mg PO UD #30 tablet Glucerna Shake 60 ml PO 4X/DAY #100 liquid Orders to be completed after discharge: Basic Metabolic Profile (BMP) Location: Laboratory Primary Care Physician: Care Physician,No Primary [Primary Care Provider] - Please follow up with your Primary Care Physician in: within 2 weeks Test Results: Test results from this visit will be discussed in further detail at your follow- up appointment, if applicable. Please Follow Up With: Scottie Pace MD When: within 2 weeks Please Follow Up With: Som Vail MD When: Within 2 weeks Proposed Discharge Date: 12/15/17
--- NOTE | 2017-12-15 14:12 | DS.PCM_ITS ---
Discharge Date and Diagnosis Date of Admission: 12/13/17 Date of Discharge: 12/15/17 - Primary Discharge Diagnosis Active and Suspected Problems (Last Reviewed 03/07/17 @ 10:25 by Ivana Jett) Acute hypoxic respiratory failure Acute on chronic diastolic CHF Acute metabolic encephalopathy Hyperglycemia Morbid obesity with BMI of 50.0-59.9, adult (Acute) Nicotine independence - Secondary Discharge Diagnosis Chronic Problems (Last Reviewed 03/07/17 @ 10:25 by Ivana Jett) COPD (chronic obstructive pulmonary disease) (Chronic) Type 2 diabetes mellitus (Chronic) Chronic atrial fibrillation (Chronic) S/P cardiac pacemaker procedure (Chronic) Morbid obesity with BMI of 50.0-59.9, adult (Chronic) Hospital Course and Treatment Imaging Results: Clinical Impression(s) from Imaging Studies Chest X-Ray 12/13/17 01:25 IMPRESSION: Cardiomegaly with central vascular congestion.. 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 His management was as follows: 1. Acute hypoxic respiratory failure secondary to acute on chronic diastolic CHF/acute on chronic COPD exacerbation, was managed on oxygen, discharged on 4 L of oxygen, will need to follow-up with pulmonology 2. Acute on chronic diastolic CHF, pulmonary hypertension EF 55%, initially managed on Bumex drip, diuresed well, discharged on Lasix 80 mg p.o. twice daily, would need to follow-up with cardiology 3. Indeterminate cardiac enzymes secondary to likely demand ischemia from CHF, cardiology following 4. Acute metabolic encephalopathy secondary to acute hypoxic respiratory failure, acute CHF exacerbation, resolved, patient is alert and oriented x3, at the time of discharge 5. PAF, status post pacemaker, rate controlled, on Xarelto 6. Type II DM, HbA1c 8.0, blood sugars are uncontrolled secondary to steroid, changes were managed to insulin. 7. Super morbid obesity, BMI 66.2, diet and exercises recommended 8. CKD stage III, slight increase in creatinine likely second to diuretic, will need to follow-up closely with his primary care doctor 9. GERMANIA on CPAP 10. Nicotine dependency -on nicotine patch Subjective: On the day of discharge, patient was seen and examined. He feels relatively better. His Mario catheter was removed. He is eager to be discharged because he says he has a family meeting the evening. Discussed with cardiologymallika for discharge Objective: General: Alert, Oriented x3, Cooperative, No apparent distress, - - Super morbidly obese HEENT: Atraumatic, PERRLA, EOMI, Normocephalic Oral: Moist Mucosa Neck: Supple, No JVD, Negative Carotid Bruits Lungs: Normal air movement, Diminished Cardiovascular: Regular rate, Regular Rhythm, Normal S1, Normal S2, No murmurs Abdomen: Bowel Sounds Present, Soft, Non Tender, Non-Distended, No Hepato- splenomegaly Extremities: Edema - +2-3 with chronic venous stasis changes, hyperpigmentation and scaling of the skin Skin: No rashes, No breakdown Musculoskeletal: No Tenderness to Palpation of Joints or Extremities Lymphatic: No Cervical, Supraclavicular, or Inguinal Adenopathy Neurological: Cranial nerves II-XII grossly intact, Neuro grossly intact Psych/Mental Status: Normal Affect, Appropriate - Physical Exam Vital Signs Temp Pulse Resp BP Pulse Ox 98.8 F 80 18 140/53 H 77 12/15/17 08:32 12/15/17 12:16 12/15/17 10:53 12/15/17 08:32 12/15/17 11:57 Oxygen Flow Rate (L/min) 4 Oxygen Delivery Method Nasal Cannula Weight: 222.3 kg Body Mass Index (BMI) 56.0 Intake and Output for Last 24 Hours 12/13/17 12/14/17 12/15/17 23:59 23:59 23:59 Intake Total 1251 / 1251 1396.1 / 1396.1 930.0 / 930.0 Output Total 4500 / 4500 7600 / 7600 5110 / 5110 Balance -3249 / -3249 -6203.9 / -6203.9 -4180.0 / -4180.0 Microbiology Past 72 Hours 12/13/17 06:00 Respiratory Panel (PCR) - Final Mucosa - Nasopharyngeal Laboratory Tests Past 24 Hrs 12/15/17 12:12 Sodium 138 Potassium 4.3 Chloride 94 L Carbon Dioxide 41.0 H Anion Gap 3 L BUN 48 H Creatinine 1.41 H Estim Creat Clear Calc 57.45 Est GFR (MDRD) Af Amer 65 Est GFR (MDRD) Non-Af 53 L BUN/Creatinine Ratio 34.0 H Glucose 122 H Calcium 8.2 L POC Glucose 12/15/17 12/15/17 12/15/17 11:52 06:55 01:43 POC Glucose 128 H 120 H 189 H 12/14/17 12/14/17 22:50 16:41 POC Glucose 248 H 271 H Discharge Diet: Low fat/ Low Cholesterol, 2000 mg Sodium Diet Discharge Activity: Return to Normal Activity Home Medications: Medications to take at Discharge acetaminophen 500 mg tablet 1,000 mg PO BID PRN tab 02/25/17 acetaminophen 500 mg tablet 1,000 mg PO QHS tab 02/25/17 budesonide 0.5 mg/2 mL suspension for nebulization 0.5 mg INHALATION Q12H 02/25/17 cholecalciferol (vitamin D3) 50,000 unit capsule 50,000 unit PO .COMPLEX 02/25/17 docusate sodium 100 mg capsule 200 mg PO QDAY 02/25/17 linagliptin 5 mg tablet 5 mg PO QDAY 02/25/17 omega-3 fatty acids 1,000 mg capsule 1,000 mg PO BID cap 02/25/17 potassium chloride ER 20 mEq tablet,extended release 20 meq PO QDAY 02/25/17 rivaroxaban 20 mg tablet 20 mg PO QDAY 02/25/17 Fluticasone/Salmeterol [Advair 100-50 Diskus] 1 each IH BID 12/15/17 Furosemide [Lasix] 80 mg PO BID@1000,1800 #60 tab 12/15/17 Gabapentin [Neurontin] 900 mg PO QHS #30 cap 12/15/17 Glucerna Shake 60 ml PO 4X/DAY #100 liquid 12/15/17 Insulin Glargine [Lantus SoloStar Pen] 68 units SC QAM pen 12/15/17 Insulin Glargine [Lantus SoloStar Pen] 75 units SC QHS pen 12/15/17 Insulin Lispro [Humalog KwikPen] See Protocol SC ACHS insuln.pen 12/15/17 Isosorbide Mononitrate [Imdur] 30 mg PO DAILY #30 tab 12/15/17 Losartan Potassium [Cozaar] 25 mg PO DAILY #30 tab 12/15/17 Melatonin 3 mg PO QHS 12/15/17 Montelukast Sodium [Singulair] 10 mg PO QHS 12/15/17 Nicotine [Nicoderm] 14 mg TRANSDERM. DAILY #30 patch 12/15/17 Potassium Chloride [K-Dur] 20 meq PO DAILY #30 tab 12/15/17 Prednisone 10 mg PO UD #30 tab 12/15/17 Following Prescrptions Were Given to Patient: Furosemide [Lasix] 80 mg PO BID@1000,1800 #60 tab Gabapentin [Neurontin] 900 mg PO QHS #30 cap Isosorbide Mononitrate [Imdur] 30 mg PO DAILY #30 tab Losartan Potassium [Cozaar] 25 mg PO DAILY #30 tab Nicotine [Nicoderm] 14 mg TRANSDERM. DAILY #30 patch Potassium Chloride [K-Dur] 20 meq PO DAILY #30 tab Prednisone 10 mg PO UD #30 tab Glucerna Shake 60 ml PO 4X/DAY #100 liquid Other Amb Orders: Basic Metabolic Profile (BMP) Location: Laboratory Primary Care Physician: Care Physician,No Primary [Primary Care Provider] - Please follow up with your Primary Care Physician in: within 2 weeks Please Follow Up With: Scottie Pace MD When: within 2 weeks Please Follow Up With: Som Vail MD When: Within 2 weeks Disposition: Asstd Living/Non-Skill [place] Minutes spent on discharge:: 40 Patient Condition:: Stable Medical Necessity - Tobacco Use Smoking Status: Current every day smoker Tobacco Use: Cigarettes Meaningful Use Info Meaningful Use Diagnoses (Choose all that apply): None applicable Code Visit Inpatient E&M: 98782 Disch Hosp
[2017-12-15] MEDS: Insulin Lispro 100 UNIT/ML INSULN.PEN SC (15:47)
[2017-12-15 15:51] LABS: Bedside Glucose 186 mg/dL (70-110)
== END 2017-12-15 16:50 | disposition home or self-care (01) | DRG 291 ==
LOC: ED 03:23 → PCU 03:40
PROVIDERS: Internal Medicine; Admitting Provider Family Medicine; Emergency Provider Emergency Medicine; Visit Provider Internal Medicine
DX: I13.0 Hypertensive heart and chronic kidney disease with heart failure and stage 1 through stage 4 chronic kidney disease, or unspecified chronic kidney disease (principal); J96.01 Acute respiratory failure with hypoxia; G93.41 Metabolic encephalopathy; I50.33 Acute on chronic diastolic (congestive) heart failure; J44.1 Chronic obstructive pulmonary disease with (acute) exacerbation; Z68.43 Body mass index [BMI] 50.0-59.9, adult; E11.22 Type 2 diabetes mellitus with diabetic chronic kidney disease; N18.3 Chronic kidney disease, stage 3 (moderate); E66.01 Morbid (severe) obesity due to excess calories; E11.65 Type 2 diabetes mellitus with hyperglycemia; F17.210 Nicotine dependence, cigarettes, uncomplicated; T38.0X5A Adverse effect of glucocorticoids and synthetic analogues, initial encounter; G47.33 Obstructive sleep apnea (adult) (pediatric); I27.20 Pulmonary hypertension, unspecified; Z95.0 Presence of cardiac pacemaker; J44.9 Chronic obstructive pulmonary disease, unspecified; Z79.4 Long term (current) use of insulin; E11.42 Type 2 diabetes mellitus with diabetic polyneuropathy; I48.0 Paroxysmal atrial fibrillation
CPT/HCPCS: 36415; 51702; 71045; 80048; 80061; 82962; 83036; 83735; 83880; 84443; 84484; 85025; 87633; 93005; 93306; 94003; 94640; 97110; 97162; 97165; 97530; 99285; 99406; Q9957; A4216; C8929; J1940

== ENCOUNTER 2017-12-18 17:32 | Inpatient (IN) | payer MEDICARE, MEDICAID, SELFPAY ==
[2017-12-18] VITALS (8 sets, daily range): BP systolic 126–165; BP diastolic 58–85; PULSE 80–81; RESP 18–24; TEMP 36.6–36.7; O2SAT 95–98; BMI 61.5; BMI 60.0
[2017-12-18 17:40] LABS: Bedside Glucose 259 mg/dL (70-110)
--- NOTE | 2017-12-18 17:45 | EKG12_ITS ---
Test Reason : SOB Blood Pressure : / mmHG Vent. Rate : 080 BPM Atrial Rate : 277 BPM P-R Int : 000 ms QRS Dur : 156 ms QT Int : 464 ms P-R-T Axes : 000 265 075 degrees QTc Int : 535 ms Atrial flutter Biventricular pacemaker detected Abnormal ECG Confirmed by EMMANUEL MACIAS, AJITH ([id number]), editor publications SHANTI ARTIS ([id number]) on 12/25/2017 2:20:47 PM Referred By: MR Confirmed By:AJITH BENITEZ MD
--- NOTE | 2017-12-18 17:45 | RAD_ITS ---
STUDY: X-RAY CHEST REASON FOR EXAM: Male, 67 years old. Chest pain, shortness of breath TECHNIQUE: Single frontal view COMPARISON: December 13, 2017 FINDINGS: Stable left-sided pacemaker. The lungs are expanded. Possible trace left pleural effusion. Cardiomegaly. Normal mediastinum and francisca. Prominence of the pulmonary arteries. Normal visualized aortic arch and descending thoracic aorta. Mild degenerative changes at the thoracic spine. Normal visualized ribs, clavicles, and shoulders. There is no demonstrated abnormality of the visualized soft tissue structures of the upper abdomen. RAD/Chest 1 View (Portable) IMPRESSION: Cardiomegaly with pulmonary vascular congestion. Possible trace left effusion. Electronically Signed: Larry Alex DO at 18:47 EDT Tel [phone], Service support ,
[2017-12-18 18:00] LABS: Absolute Neutrophil Count 8.6 X10^3/uL (2.0-7.7); Basophil# 0.04 X10^3/uL; Basophil% 0.4 % (0-1); Eosinophil# 0.37 X10^3/uL; Eosinophils% 3.3 % (0-5); Hematocrit 45.4 % (40-54); Hemoglobin 13.4 g/dl (13.0-16.5); Lymphocyte % 9.9 % (19-41); Mean Corp Hgb Conc 29.5 g/gl (32-36); Mean Corpuscular Hgb 25.1 pg (27.0-32.0); Mean Platelet Vol. 9.2 fl (6.2-12.0); Monocyte# 0.98 X10^3/uL; Monocyte% 8.9 % (0-10); Neutrophil # 8.57 X10^3/uL (2.7-7.7); Neutrophil % 77.4 % (47-70); Platelet Count 166 K/mm3 (150-450); RBC Distribution Width CV 18.6 % (11.6-14.6); Red Blood Count 5.34 M/mm3 (4.6-6.2); White Blood Count 11.1 K/mm3 (4.4-11.0)
[2017-12-18 18:02] LABS: POSITIVE COUNT NO; POSITIVE DIFFERENTIAL NO; POSITIVE MORPHOLOGY NO
[2017-12-18 18:27] LABS: Bacteria 0 SEEN /hpf (None Seen); Mucous, Urine 0 SEEN /hpf (<or=2+); Red Blood Cells-Urine 0 SEEN /hpf (0-5); Squamous Epithelial Cells - UA 0 SEEN /hpf (0-5); White Blood Cells 0 SEEN /hpf (0-5)
[2017-12-18 18:28] LABS: BNP,B-Type NATRIURETIC PEPTIDE 126.2 pg/mL (0-100)
[2017-12-18 18:30] LABS: BUN 31 mg/dL (7-18); BUN/Creat Ratio 29.5 RATIO (10-20); Calcium,Total 8.9 mg/dL (8.5-10.1); Carbon Dioxide > 45.0 mmol/L (21.0-32.0); Chloride 89 mmol/L (98-107); Creatinine, Serum 1.05 mg/dL (0.70-1.30); EST Glomerular Filtration Rate 75 mL/min (>60); Est Glom Filt Rate - Afr Amer 91 mL/min (>60); Estimated Creatinine Clearance 77.15 ml/min; Glucose 258 mg/dL (74-106); Potassium 4.5 mmol/L (3.5-5.1); Sodium Level 137 mmol/L (136-145)
[2017-12-18 18:36] LABS: Color, Urine Yellow (Yellow); Glucose, Dipstick 50 mg/dl (Normal); Ketone-Dipstick Negative (Negative); Leukocyte Esterase-Dipstick Negative /ul (Negative); Nitrite-Dipstick Negative (Negative); Occult Blood-Urine Negative /ul (Negative); Protein-Dipstick Negative (Negative); Urine Bilirubin Dipstick Negative (Negative); Urine Clarity Clear (Clear); Urine Urobilinogen Normal (Normal)
--- NOTE | 2017-12-18 18:47 | ED.VISSUMM ---
- ER Visit Summary Date of Service: 12/18/17 Chief Complaint: Dizziness and blood sugar problem History of Present Illness: The patient is a 67 M who has been living in assisted living. He was recently discharged from the hospital. He was treated for hypoxic respiratory failure, CHF, encephalopathy, and high blood sugars. He had an echocardiogram that showed LVH and a dilated right ventricle. His ejection fraction was 55%. He is on Lasix. History was obtained from his facility. The patient has been essentially bedridden. He is morbidly obese and had his chair break recently so he has been laying in bed. He has not taking his medications because he does not want to get up to urinate. He has difficulty with ambulation. He has difficulty taking care of himself. He was planning to be transferred to [facility] on Saturday for rehab. He is not doing well and his assisted living currently. Last night he was seen by EMS after he was less responsive than normal. He was hypoglycemic. He was treated with D50. He refused transport at that time. Staff at his facility said he seemed a little bit confused today. Physical Examination: Afebrile and vital signs unremarkable. 98% on nasal cannula. He is sitting upright. He has difficulty moving secondary to his size. His lungs are diminished throughout all helms. Heart regular. Abdomen soft. Lower extremities are edematous with venous stasis changes. Alert and oriented. Cranial nerves grossly intact. Normal strength and sensation grossly. Test Results: EKG showed a paced rhythm at a rate of 80. White count 11.1. Chloride 89, CO2 greater than 45. Glucose 258, BUN 31. BNP 126 and troponin normal. Chest x-ray shows chronic changes and congestion. Official read is pending. Emergency Department Course and Treatment: Patient placed on the monitor. Treated with oxygen. He was having difficulty ambulating and using the restroom so a Mario catheter was placed. He quickly passed 1500 cc of urine. It was noted that he has a stage I ulcer under his abdominal wall pannus. Workup was all fairly unremarkable. I believe his symptoms are related to his obesity, CHF, and COPD. He is hyperglycemic here today without acute complications. He is not septic at this time. Patient will be discussed with the hospitalist for admission. I suspect he will need placement. Treatment Plan: As above Disposition: Admission Impression: 1. CHF 2. COPD 3. Hyperglycemia 4. Inability to ambulate This note was generated with [employer] dictation software. It may contain incorrect words, spelling, and punctuation that were not noted in review of the chart prior to signing ED Disposition - Plan for ED Patient: Chief Complaint: Shortness of Breath Referrals: Care Physician,No Primary [Primary Care Provider] -
--- NOTE | 2017-12-18 18:53 | ED.DCSUM_ITS ---
- ER Visit Summary Date of Service: 12/18/17 Chief Complaint: Dizziness and blood sugar problem History of Present Illness: The patient is a 67 M who has been living in assisted living. He was recently discharged from the hospital. He was treated for hypoxic respiratory failure, CHF, encephalopathy, and high blood sugars. He had an echocardiogram that showed LVH and a dilated right ventricle. His ejection fraction was 55%. He is on Lasix. History was obtained from his facility. The patient has been essentially bedridden. He is morbidly obese and had his chair break recently so he has been laying in bed. He has not taking his medications because he does not want to get up to urinate. He has difficulty with ambulation. He has difficulty taking care of himself. He was planning to be transferred to [facility] on Saturday for rehab. He is not doing well and his assisted living currently. Last night he was seen by EMS after he was less responsive than normal. He was hypoglycemic. He was treated with D50. He refused transport at that time. Staff at his facility said he seemed a little bit confused today. Physical Examination: Afebrile and vital signs unremarkable. 98% on nasal cannula. He is sitting upright. He has difficulty moving secondary to his s ize. His lungs are diminished throughout all helms. Heart regular. Abdomen soft. Lower extremities are edematous with venous stasis changes. Alert and oriented. Cranial nerves grossly intact. Normal strength and sensation grossly. Test Results: EKG showed a paced rhythm at a rate of 80. White count 11.1. Chloride 89, CO2 greater than 45. Glucose 258, BUN 31. BNP 126 and troponin normal. Chest x-ray shows chronic changes and congestion. Official read is pending. Emergency Department Course and Treatment: Patient placed on the monitor. Treated with oxygen. He was having difficulty ambulating and using the restroom so a Mario catheter was placed. He quickly passed 1500 cc of urine. It was noted that he has a stage I ulcer under his abdominal wall pannus. Workup was all fairly unremarkable. I believe his symptoms are related to his obesity, CHF, and COPD. He is hyperglycemic here today without acute compl ications. He is not septic at this time. Patient will be discussed with the hospitalist for admission. I suspect he will need placement. Treatment Plan: As above Disposition: Admission Impression: 1. CHF 2. COPD 3. Hyperglycemia 4. Inability to ambulate This note was generated with [employer] dictation software. It may contain incorrect words, spelling, and punctuation that were not noted in review of the chart prior to signing ED Disposition - Plan for ED Patient: Chief Complaint: Shortness of Breath Referrals: Care Physician,No Primary [Primary Care Provider] -
--- NOTE | 2017-12-18 19:25 | PCM.HP.STD ---
Problem List (1) COPD (chronic obstructive pulmonary disease) Status: Chronic (2) Type 2 diabetes mellitus Status: Chronic (3) Chronic atrial fibrillation Status: Chronic (4) S/P cardiac pacemaker procedure Status: Chronic (5) Morbid obesity with BMI of 50.0-59.9, adult Status: Chronic (6) Hypoxemia Status: Acute (7) Morbid obesity with BMI of 50.0-59.9, adult Status: Acute History of Present Illness Date of Admission: 12/18/17 Chief Complaint: SOB The patient is a 67 year old M with a past medical history of GERMANIA, morbid obesity, hypertension, hyperlipidemia, chronic CHF of unclear type, diabetes type 2 uncontrolled with neuropathy, CKD stage III, paroxysmal A. fib, chronic COPD, GERD who presents the ER today with increased shortness of breath from his assisted living. He had EMS called yesterday because of altered mental status and hypoglycemia where he required an amp of D50. At that time he refused to come in for evaluation. Today he was feeling more short of breath and be able to the assisted living felt that he was a little bit more confused so EMS was called to bring to the hospital. According to the facility he is been essentially bedridden since his chair broke and he has been having difficulty ambulating and taking care of himself and they state that he has not been taking his medications because he does not want to get up to urinate. I discussed this with him, and he states that he has been taking his Lasix at home. In the ER vital signs were fairly unremarkable he was satting well on 2-4 L of nasal cannula which she wears chronically at home. Labs were only mildly abnormal compared to his baseline on discharge on 12/15 he had a CO2 of 41 at discharge and now his bicarb is greater than 45. His glucose is 258 and his chloride is 89. Past Medical History Past Medical History (Chronic Problems): Chronic Problems (Last Reviewed 03/07/17 @ 10:25 by Ivana Jett) COPD (chronic obstructive pulmonary disease) (Chronic) Type 2 diabetes mellitus (Chronic) Chronic atrial fibrillation (Chronic) S/P cardiac pacemaker procedure (Chronic) Morbid obesity with BMI of 50.0-59.9, adult (Chronic) Medical History: Medical History (Last Reviewed 03/07/17 @ 10:25 by Ivana Jett) A-fib I48.91 Arthritis M19.90 Bone fracture T14.8XXA Bradycardia R00.1 CHF (congestive heart failure) I50.9 CKD (chronic kidney disease) N18.9 COPD (chronic obstructive pulmonary disease) J44.9 Cataracts, bilateral H26.9 Diabetes type 2, controlled E11.9 GERD (gastroesophageal reflux disease) K21.9 Headache R51 Heart failure I50.9 High cholesterol E78.00 Neuropathy G62.9 Osteoarthritis M19.90 Pneumonia J18.9 Syncope R55 Vision problems H54.7 HTN (hypertension) I10 Allergies No Known Allergies Allergy (Unverified 03/07/17 10:33) Home Medications: Ambulatory Orders Medication Instructions Recorded acetaminophen 500 mg tablet 1,000 mg PO QHS tab 02/25/17 budesonide 0.5 mg/2 mL suspension 0.5 mg INHALATION Q12H 02/25/17 for nebulization cholecalciferol (vitamin D3) 50,000 unit PO .COMPLEX 02/25/17 50,000 unit capsule docusate sodium 100 mg capsule 200 mg PO QDAY 02/25/17 linagliptin 5 mg tablet 5 mg PO QDAY 02/25/17 omega-3 fatty acids 1,000 mg 1,000 mg PO BID cap 02/25/17 capsule rivaroxaban 20 mg tablet 20 mg PO QDAY 02/25/17 Furosemide [Lasix] 80 mg PO BID@1000,1800 #60 tab 12/15/17 Melatonin 3 mg PO QHS 12/15/17 Montelukast Sodium [Singulair] 10 mg PO QHS 12/15/17 Fluticasone/Salmeterol [Advair 1 each IH BID 12/18/17 100-50 Diskus] Gabapentin [Neurontin] 900 mg PO QHS 12/18/17 Glimepiride [Amaryl] 4 mg PO DAILY 12/18/17 Insulin Glargine [Lantus SoloStar 68 units SC QAM 12/18/17 Pen] Insulin Glargine [Lantus SoloStar 75 units SC QHS 12/18/17 Pen] Insulin Lispro [Humalog KwikPen] 45 unit SC TIDCM 12/18/17 Losartan Potassium [Cozaar] 25 mg PO DAILY 12/18/17 Nicotine [Nicoderm] 14 mg TRANSDERM. DAILY 12/18/17 Omeprazole 40 mg PO DAILY 12/18/17 Potassium Chloride [K-Dur] 20 meq PO DAILY 12/18/17 Prednisone 10 mg PO DAILY 12/18/17 Vitamin B Complex 1 each PO DAILY 12/18/17 Surgical History: Surgical History (Last Reviewed 03/07/17 @ 10:25 by Ivana Jett) H/O heart surgery Z98.890 H/O knee surgery Z98.890 Hx of appendectomy Z98.890, Z90.49 Surgical History: appendectomy, pacemaker implantation, - - Knee surgery. Psychiatric History: No pertinent psych hx Smoking Status: Current every day smoker Tobacco Use: Cigarettes - *Family History Maternal Family History: Family History (Last Reviewed 03/07/17 @ 10:25 by Ivana Jett) Mother Arthritis Cancer Brother Diabetes Kidney disease Grandmother Diabetes Grandfather Heart disease History Items: Cancer, Heart Disease Paternal Family History: Family History (Last Reviewed 03/07/17 @ 10:25 by Ivana Jett) Mother Arthritis Cancer Brother Diabetes Kidney disease Grandmother Diabetes Grandfather Heart disease History Items: Heart Disease Review of Systems Constitutional: Denies: Chills, Fever, Weight Change HEENT: Denies: Head Aches, Sinus Congestion, Sinus Drainage Cardiovascular: Denies: Chest Pain, Palpitations Respiratory: Reports: Shortness of breath at rest. Denies: Cough, Sputum production Gastrointestinal: Denies: Abdominal Pain, Nausea, Vomiting Genitourinary: Denies: Dysuria Musculoskeletal: Denies: Joint Pain, Joint Tenderness Skin: Denies: Rash, Wounds Neurological: Denies: Focal weakness, Numbness, Tingling Psychiatric: Denies: Anxiety, Depression Hematologic/ Lymphatic: Denies: Easy Bruising, Easy Bleeding VTE Information - Inpt Only VTE Present on Admission: No - Physical Exam General: Alert, Oriented x3, Cooperative, No apparent distress HEENT: Atraumatic, PERRLA, EOMI, Normocephalic Oral: Moist Mucosa Neck: Supple, No JVD Lungs: Clear to auscultation, Normal air movement, No rhonchi, No wheeze, No rales, - - difficult to hear well given body habitus Cardiovascular: Regular rate, Regular Rhythm, Normal S1, Normal S2, No murmurs, - - Difficult to hear well given body habitus Abdomen: Soft, Non Tender, Non-Distended, No Hepato-splenomegaly, Obese Extremities: Edema - significant and non-pitting Skin: - - stasis dermatitis Neurological: Cranial nerves II-XII grossly intact, - - no sensation in his feet from neuropathy Psych/Mental Status: Normal Affect, Appropriate Vital Signs Temp Pulse Resp Pulse Ox 98 F 80 24 H 98 12/18/17 17:33 12/18/17 17:33 12/18/17 17:33 12/18/17 17:33 Oxygen Flow Rate (L/min) 4 Oxygen Delivery Method Nasal Cannula Weight: 466 lb 7.97 oz Body Mass Index (BMI) 61.5 Laboratory Tests Past 24 Hrs 12/18/17 12/18/17 12/18/17 17:40 17:52 17:52 WBC 11.1 H RBC 5.34 Hgb 13.4 Hct 45.4 MCV 85.0 MCH 25.1 L MCHC 29.5 L RDW 18.6 H RDW Differential 57.0 H Plt Count 166 MPV 9.2 Immature Gran % (Auto) 0.100 Neut % (Auto) 77.4 H Lymph % (Auto) 9.9 L [place] % (Auto) 8.9 Eos % (Auto) 3.3 Baso % (Auto) 0.4 Absolute Neuts (auto) 8.6 H Absolute Lymphs (auto) 1.10 Total Counted Not Reportable Sodium 137 Potassium 4.5 Chloride 89 L Carbon Dioxide > 45.0 H* Anion Gap TNP BUN 31 H Creatinine 1.05 Estim Creat Clear Calc 77.15 Est GFR (MDRD) Af Amer 91 Est GFR (MDRD) Non-Af 75 BUN/Creatinine Ratio 29.5 H Glucose 258 H Calcium 8.9 Troponin I 0.040 B-Natriuretic Peptide Urine Color Yellow Urine Clarity Clear Urine pH 8.0 Ur Specific [place] 1.010 Urine Protein Negative Urine Glucose (UA) 50 H Urine Ketones Negative Urine Occult Blood Negative Urine Nitrite Negative Urine Bilirubin Negative Urine Urobilinogen Normal Ur Leukocyte Esterase Negative Urine RBC 0 SEEN Urine WBC 0 SEEN Ur Squamous Epith Cells 0 SEEN Urine Bacteria 0 SEEN Urine Mucus 0 SEEN 12/18/17 17:52 WBC RBC Hgb Hct MCV MCH MCHC RDW RDW Differential Plt Count MPV Immature Gran % (Auto) Neut % (Auto) Lymph % (Auto) [place] % (Auto) Eos % (Auto) Baso % (Auto) Absolute Neuts (auto) Absolute Lymphs (auto) Total Counted Sodium Potassium Chloride Carbon Dioxide Anion Gap BUN Creatinine Estim Creat Clear Calc Est GFR (MDRD) Af Amer Est GFR (MDRD) Non-Af BUN/Creatinine Ratio Glucose Calcium Troponin I B-Natriuretic Peptide 126.2 H Urine Color Urine Clarity Urine pH Ur Specific [place] Urine Protein Urine Glucose (UA) Urine Ketones Urine Occult Blood Urine Nitrite Urine Bilirubin Urine Urobilinogen Ur Leukocyte Esterase Urine RBC Urine WBC Ur Squamous Epith Cells Urine Bacteria Urine Mucus POC Glucose 12/18/17 17:37 POC Glucose 259 H Assessment/Plan All Active Problems (Last Reviewed 03/07/17 @ 10:25 by Ivana Jett) Hypoxemia (Acute) Morbid obesity with BMI of 50.0-59.9, adult (Acute) Acute exacerbation of CHF (congestive heart failure) (Acute) Erectile dysfunction associated with type 2 diabetes mellitus (Acute) 1. SOB and confusion secondary to COPD, Chronic CHF, ? metabolic alkalosis either from hypochloremia or lasix use, and his morbid obesity - He is not requiring more oxygen than he went home on -He is still on 4 L - Cannot appreciate any wheezing, will continue him on his home respiratory medications - He does have an elevated bicarb, will order an ABG to evaluate the extent of his alkalosis - If he has an alkalosis would start acetazolamide instead of lasix for diuresis - He had a recent echo on 12/13 with an Ef of 55%, will not repeat - He had recent steroids and since he is not requiring more oxygen will hold off on IV steroids for now, c/w chronic prednisone - troponin negative 2. A-fib - stable at the moment - c/w xarelto and home medications 3. DM2/CKD3 - he is a little hyperglycemic today - Will resume his home insulin with an added SSI - Creatinine 1.05 4. Morbid obesity/Chronic venous stasis - Discussed that his weight is killing him - He refuses to diet at home and refuses to consider bariatric surgery 5. Tobacco abuse - advised cessation 6. GERMANIA - refuses CPAP - Can try BiPAP if needed DVT: Xarelto Diet: 1800 calories per day only Code Visit Inpatient E&M: 54463 Init Hosp L3
[2017-12-18 20:50] LABS: Bedside Glucose 211 mg/dL (70-110)
[2017-12-18] MEDS: Insulin Lispro 100 UNIT/ML INSULN.PEN SQ (22:02)
[2017-12-18 22:11] LABS: Bedside Glucose 280 mg/dL (70-110)
[2017-12-18] MEDS: 0.9% NaCl Peripheral Flush Adult/Peds IV (23:20)
[2017-12-18] MEDS: LORazepam 2 MG/ML Syringe 1 MG IV (23:20)
[2017-12-19] VITALS (18 sets, daily range): BP systolic 138–183; BP diastolic 68–92; PULSE 78–98; RESP 16–22; TEMP 36.6–36.9; O2SAT 80–99
[2017-12-19] MEDS: AcetaZOLAMIDE 250 MG Tablet PO ×3 (03:09→17:56)
[2017-12-19 06:48] LABS: Absolute Lymphocyte Count 0.94 X10^3/ul (0.83-4.51); Absolute Neutrophil Count 7.2 X10^3/uL (2.0-7.7); Basophil# 0.07 X10^3/uL; Basophil% 0.7 % (0-1); Eosinophil# 0.51 X10^3/uL; Eosinophils% 5.2 % (0-5); Hematocrit 42.6 % (40-54); Hemoglobin 13.1 g/dl (13.0-16.5); Lymphocyte # 0.94 X10^3/ul (4.0); Lymphocyte % 9.6 % (19-41); Mean Corp Hgb Conc 30.8 g/gl (32-36); Mean Corpuscular Hgb 25.4 pg (27.0-32.0); Mean Corpuscular Volume 82.7 fL (80-94); Mean Platelet Vol. 9.7 fl (6.2-12.0); Monocyte# 1.05 X10^3/uL; Monocyte% 10.7 % (0-10); Neutrophil # 7.23 X10^3/uL (2.7-7.7); Neutrophil % 73.6 % (47-70); Platelet Count 182 K/mm3 (150-450); RBC Distribution Width CV 19.6 % (11.6-14.6); RBC Distribution Width SD 57.6 fl (35.1-43.9); Red Blood Count 5.15 M/mm3 (4.6-6.2); White Blood Count 9.8 K/mm3 (4.4-11.0)
[2017-12-19 07:05] LABS: Anion Gap 3 (5-15); BUN 26 mg/dL (7-18); BUN/Creat Ratio 28.6 RATIO (10-20); Calcium,Total 8.7 mg/dL (8.5-10.1); Chloride 93 mmol/L (98-107); Creatinine, Serum 0.91 mg/dL (0.70-1.30); EST Glomerular Filtration Rate 88 mL/min (>60); Est Glom Filt Rate - Afr Amer 107 mL/min (>60); Estimated Creatinine Clearance 89.02 ml/min; Glucose 175 mg/dL (74-106); Potassium 4.3 mmol/L (3.5-5.1); Sodium Level 138 mmol/L (136-145)
[2017-12-19] MEDS: Albuterol 2.5 MG/3 ML VIAL.NEB. INHALATION ×3 (07:08→19:34)
[2017-12-19 07:11] LABS: POSITIVE COUNT NO; POSITIVE DIFFERENTIAL NO; POSITIVE MORPHOLOGY NO
[2017-12-19 07:20] LABS: Bedside Glucose 193 mg/dL (70-110)
[2017-12-19] MEDS: Pantoprazole Sodium 40 MG Tablet PO (09:48)
[2017-12-19] MEDS: Docusate Sodium 100 MG Capsule 200 MG PO (09:48)
[2017-12-19] MEDS: Omega-3 Acid Ethyl Esters 1 GM Capsule PO ×2 (09:48→21:24)
[2017-12-19] MEDS: Losartan Potassium 25 MG Tablet PO (09:48)
[2017-12-19] MEDS: predniSONE 10 MG Tablet PO (09:49)
[2017-12-19] MEDS: LINAGLIPTIN 5 MG TABLET PO (09:49)
[2017-12-19] MEDS: Insulin Lispro 100 UNIT/ML INSULN.PEN SQ ×2 (10:14→14:07)
[2017-12-19 10:36] LABS: Bedside Glucose 185 mg/dL (70-110)
--- NOTE | 2017-12-19 11:22 | CASEMGMT ---
PATO spoke with patient and he said he was planning on going to [facility] for a short time. The plan was to go Saturday. PATO called Michelle at [facility] and she confirmed this plan. PATO told her patient will likely be here until Saturday which would give him his qualifying stay. Information will be faxed to [facility]. Plan: [facility] under skilled level of care when ready for d/c. Leah CRONIN
--- NOTE | 2017-12-19 11:50 | CASEMGMT ---
Initial referral faxed to [facility], PT/OT pending. ERICK Carranza, TONGUE STITCHER
--- NOTE | 2017-12-19 13:01 | NURSING ---
was asked to see patient for dry skin to bilateral lower legs and sheared areas inner thighs and scrotum. patient has a very large, hardened pannus so is difficult to assess skin folds. pt was able to stand. there is some sheared, irritated skin noted to inner thighs and scrotum. will get an order for calmoseptine to protect skin. patient also has very dry, thick skin to bilateral lower legs. pt was in the hospital approx a week ago. legs looks slightly less edematous this admission. will monitor skin. pt states he will be going to [facility] at discharge.
[2017-12-19] MEDS: 0.9% NaCl Peripheral Flush Adult/Peds IV ×3 (13:51→21:20)
[2017-12-19] MEDS: Furosemide 40 MG/4 ML Vial IV ×2 (13:51→20:21)
[2017-12-19] MEDS: Insulin Lispro 100 UNIT/ML INSULN.PEN 45 UNIT SC (14:07)
[2017-12-19 14:26] LABS: Bedside Glucose 275 mg/dL (70-110)
--- NOTE | 2017-12-19 14:39 | PCM.PROGNOTE ---
<Darren Allan - Last Filed: 12/19/17 14:39> Subjective: SOB improved. No CP. Rare nonproductive cough. Significant LE edema. Not using CPAP/BiPAP at home. Reportedly noncompliant with lasix. - Physical Exam General: Alert, Oriented x3, Cooperative HEENT: Atraumatic, PERRLA, EOMI, Normocephalic Neck: Supple, No JVD, Negative Carotid Bruits Lungs: Rales, Wheezes Cardiovascular: Regular rate, No murmurs Abdomen: Bowel Sounds Present, Soft, Non Tender, Obese Extremities: Capillary Refill Less than 3 Seconds, Edema - 2+ pitting edema BLE Skin: No rashes, No breakdown Musculoskeletal: No Tenderness to Palpation of Joints or Extremities Neurological: Cranial nerves II-XII grossly intact Psych/Mental Status: Normal Affect, Appropriate, Alert and oriented to time, place, person, mood and affect Vital Signs Temp Pulse Resp BP Pulse Ox 98.0 F 80 20 H 144/92 H 99 12/19/17 13:58 12/19/17 13:58 12/19/17 13:58 12/19/17 13:58 12/19/17 13:58 Oxygen Flow Rate (L/min) 4 Oxygen Delivery Method Nasal Cannula Weight: 449 lb 11.888 oz Body Mass Index (BMI) 60.0 Intake and Output for Last 24 Hours 12/17/17 12/18/17 12/19/17 23:59 23:59 23:59 Intake Total 180 / 180 240 / 240 Output Total 1400 / 1400 2049 / 2049 Balance -1220 / -1220 -1810 / -1810 Laboratory Tests Past 24 Hrs 12/18/17 12/18/17 12/18/17 17:40 17:52 17:52 WBC 11.1 H RBC 5.34 Hgb 13.4 Hct 45.4 MCV 85.0 MCH 25.1 L MCHC 29.5 L RDW 18.6 H RDW Differential 57.0 H Plt Count 166 MPV 9.2 Immature Gran % (Auto) 0.100 Neut % (Auto) 77.4 H Lymph % (Auto) 9.9 L [place] % (Auto) 8.9 Eos % (Auto) 3.3 Baso % (Auto) 0.4 Absolute Neuts (auto) 8.6 H Absolute Lymphs (auto) 1.10 Total Counted Not Reportable Sodium 137 Potassium 4.5 Chloride 89 L Carbon Dioxide > 45.0 H* Anion Gap TNP BUN 31 H Creatinine 1.05 Estim Creat Clear Calc 77.15 Est GFR (MDRD) Af Amer 91 Est GFR (MDRD) Non-Af 75 BUN/Creatinine Ratio 29.5 H Glucose 258 H Calcium 8.9 Troponin I 0.040 B-Natriuretic Peptide Urine Color Yellow Urine Clarity Clear Urine pH 8.0 Ur Specific [place] 1.010 Urine Protein Negative Urine Glucose (UA) 50 H Urine Ketones Negative Urine Occult Blood Negative Urine Nitrite Negative Urine Bilirubin Negative Urine Urobilinogen Normal Ur Leukocyte Esterase Negative Urine RBC 0 SEEN Urine WBC 0 SEEN Ur Squamous Epith Cells 0 SEEN Urine Bacteria 0 SEEN Urine Mucus 0 SEEN 12/18/17 12/19/17 12/19/17 17:52 06:05 06:05 WBC 9.8 RBC 5.15 Hgb 13.1 Hct 42.6 MCV 82.7 MCH 25.4 L MCHC 30.8 L RDW 19.6 H RDW Differential 57.6 H Plt Count 182 MPV 9.7 Immature Gran % (Auto) 0.200 Neut % (Auto) 73.6 H Lymph % (Auto) 9.6 L [place] % (Auto) 10.7 H Eos % (Auto) 5.2 H Baso % (Auto) 0.7 Absolute Neuts (auto) 7.2 Absolute Lymphs (auto) 0.94 Total Counted Not Reportable Sodium 138 Potassium 4.3 Chloride 93 L Carbon Dioxide 42.0 H Anion Gap 3 L BUN 26 H Creatinine 0.91 Estim Creat Clear Calc 89.02 Est GFR (MDRD) Af Amer 107 Est GFR (MDRD) Non-Af 88 BUN/Creatinine Ratio 28.6 H Glucose 175 H Calcium 8.7 Troponin I B-Natriuretic Peptide 126.2 H Urine Color Urine Clarity Urine pH Ur Specific [place] Urine Protein Urine Glucose (UA) Urine Ketones Urine Occult Blood Urine Nitrite Urine Bilirubin Urine Urobilinogen Ur Leukocyte Esterase Urine RBC Urine WBC Ur Squamous Epith Cells Urine Bacteria Urine Mucus POC Glucose 12/19/17 12/19/17 12/19/17 14:02 10:07 06:46 POC Glucose 275 H 185 H 193 H 12/18/17 12/18/17 12/18/17 22:00 20:43 17:37 POC Glucose 280 H 211 H 259 H Medical Necessity - Tobacco Use Smoking Status: Current every day smoker Tobacco Use: Cigarettes Assessment/Plan All Active Problems (Last Reviewed 03/07/17 @ 10:25 by Ivana Jett) Hypoxemia (Acute) Morbid obesity with BMI of 50.0-59.9, adult (Acute) Acute exacerbation of CHF (congestive heart failure) (Acute) Erectile dysfunction associated with type 2 diabetes mellitus (Acute) 1. Acute hypoxic respiratory exacerbation 2/2 Acute systolic CHF exacerbation and CO2 retention 2/2 noncompliance with CPAP/BiPAP - continue bipap, lasix. Currently stable on NC. on losartan. Not on beta melly. last echo ef 55%. 2. COPD - continue aerosols, continue oral prednisone taper. Recent negative resp panel. 3. Nicotine abuse - continues to smoke at least 1 ppd. Nicotine patch if desired 4. Hx afib - rate stable, on xarelto 5. Dmt2 with morbid obesity - titrate insulin to response 6. CKDIII - stable 7. GERMANIA - refusing bipap DVT ppx: xarelto DC planning: SNF. Failed at home after recent admission. This patient was seen by Darren Allan PA-C under the supervision of Doctor Aranda. <Serenity Aranda - Last Filed: 12/19/17 15:27> - Physical Exam Vital Signs Temp Pulse Resp BP Pulse Ox 98.0 F 80 20 H 144/92 H 99 12/19/17 13:58 12/19/17 13:58 12/19/17 13:58 12/19/17 13:58 12/19/17 13:58 Oxygen Flow Rate (L/min) 4 Oxygen Delivery Method Nasal Cannula Weight: 204 kg Body Mass Index (BMI) 60.0 Intake and Output for Last 24 Hours 12/17/17 12/18/17 12/19/17 23:59 23:59 23:59 Intake Total 180 / 180 240 / 240 Output Total 1400 / 1400 2049 Balance -1220 / -1220 -1810 / -1810 Laboratory Tests Past 24 Hrs 12/18/17 12/18/17 12/18/17 17:40 17:52 17:52 WBC 11.1 H RBC 5.34 Hgb 13.4 Hct 45.4 MCV 85.0 MCH 25.1 L MCHC 29.5 L RDW 18.6 H RDW Differential 57.0 H Plt Count 166 MPV 9.2 Immature Gran % (Auto) 0.100 Neut % (Auto) 77.4 H Lymph % (Auto) 9.9 L [place] % (Auto) 8.9 Eos % (Auto) 3.3 Baso % (Auto) 0.4 Absolute Neuts (auto) 8.6 H Absolute Lymphs (auto) 1.10 Total Counted Not Reportable Sodium 137 Potassium 4.5 Chloride 89 L Carbon Dioxide > 45.0 H* Anion Gap TNP BUN 31 H Creatinine 1.05 Estim Creat Clear Calc 77.15 Est GFR (MDRD) Af Amer 91 Est GFR (MDRD) Non-Af 75 BUN/Creatinine Ratio 29.5 H Glucose 258 H Calcium 8.9 Troponin I 0.040 B-Natriuretic Peptide Urine Color Yellow Urine Clarity Clear Urine pH 8.0 Ur Specific [place] 1.010 Urine Protein Negative Urine Glucose (UA) 50 H Urine Ketones Negative Urine Occult Blood Negative Urine Nitrite Negative Urine Bilirubin Negative Urine Urobilinogen Normal Ur Leukocyte Esterase Negative Urine RBC 0 SEEN Urine WBC 0 SEEN Ur Squamous Epith Cells 0 SEEN Urine Bacteria 0 SEEN Urine Mucus 0 SEEN 12/18/17 12/19/17 12/19/17 17:52 06:05 06:05 WBC 9.8 RBC 5.15 Hgb 13.1 Hct 42.6 MCV 82.7 MCH 25.4 L MCHC 30.8 L RDW 19.6 H RDW Differential 57.6 H Plt Count 182 MPV 9.7 Immature Gran % (Auto) 0.200 Neut % (Auto) 73.6 H Lymph % (Auto) 9.6 L [place] % (Auto) 10.7 H Eos % (Auto) 5.2 H Baso % (Auto) 0.7 Absolute Neuts (auto) 7.2 Absolute Lymphs (auto) 0.94 Total Counted Not Reportable Sodium 138 Potassium 4.3 Chloride 93 L Carbon Dioxide 42.0 H Anion Gap 3 L BUN 26 H Creatinine 0.91 Estim Creat Clear Calc 89.02 Est GFR (MDRD) Af Amer 107 Est GFR (MDRD) Non-Af 88 BUN/Creatinine Ratio 28.6 H Glucose 175 H Calcium 8.7 Troponin I B-Natriuretic Peptide 126.2 H Urine Color Urine Clarity Urine pH Ur Specific [place] Urine Protein Urine Glucose (UA) Urine Ketones Urine Occult Blood Urine Nitrite Urine Bilirubin Urine Urobilinogen Ur Leukocyte Esterase Urine RBC Urine WBC Ur Squamous Epith Cells Urine Bacteria Urine Mucus POC Glucose 12/19/17 12/19/17 12/19/17 14:02 10:07 06:46 POC Glucose 275 H 185 H 193 H 12/18/17 12/18/17 12/18/17 22:00 20:43 17:37 POC Glucose 280 H 211 H 259 H Assessment/Plan This patient was seen in conjunction with CHRIS Austin. I have independently interviewed and examined the patient and reviewed pertinent historical, laboratory, and other data. Please refer to CHRIS Austin note for his patient's presentation, findings, and recommendations. I have reviewed and his note and concur with his documentation Patient was seen and examined. Complains of feeling very slightly better. Denies chest pain or shortness of breath. Remains on 4 L of oxygen Vitals reviewed -blood pressure slightly high. Patient is diuresing well Labs reviewed - stable Physical Exam: Gen: Super morbidly obese, not pale, not jaundiced, appears comfortable CVS:HS I +II, regular, no murmurs RESP: Diminished at lung bases GI: bese abdominal wall pannus, full, nontender, no ballotable organs EXT: Chronic scaling of legs, chronic venous stasis changes, dystrophic nails Meds reviewed. ASSESSMENT: 1. Acute Hypoxic respiratory failure 2. Acute on chronic diastolic CHF 3. PAF 4. Type II DM 5. Super morbid obesity 6. CKD stage III 7. GERMANIA on CPAP 8. Nicotine dependency 9. COPD Plan: Encourage use of BiPAP per previous settings Start Lasix 40 mg IV twice daily Strict I's and O's Daily weight Continue with prednisone taper Code Visit Inpatient E&M: 32727 Subs Hosp L2
--- NOTE | 2017-12-19 15:09 | CHAPLAIN ---
Type of Pastoral Visit _x__ Initial Visit ___ Follow-up Visit ___ On-call Visit ___ General Patient Visit ___ Spiritual Assessment ___ Family Conference ___ Bereavement ___ Rapid Response ___ Code Blue ___ Other (describe below) Pastoral Care Referral From _x__ Patient ___ Family ___ Nurse ___ Physician ___ Industrial Relations Representative ___ Visiting Teacher ___ Other (describe below) Sacrament/Intervention _x__ Active listening ___ Anointing ___ Yarsanism ___ Bereavement ___ Communion _x__ Lily exploration ___ _x__ Life review _x__ Prayer ___ Reconciliation ___ Sacrament of Sick ___ Supportive presence ___ Wedding ___ Other (describe below) Pastoral Comments patient is welcoming, answers questions, but is somewhat slow to give answers; 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
[2017-12-19 17:01] LABS: Bedside Glucose 84 mg/dL (70-110)
[2017-12-19] MEDS: predniSONE 20 MG Tablet PO (17:56)
[2017-12-19] MEDS: Rivaroxaban 20 MG Tablet PO (17:56)
[2017-12-19] MEDS: Dextrose 50%-Water 25 GM/50 ML DISP.SYRIN IV (21:20)
[2017-12-19] MEDS: Acetaminophen 500 MG Tablet 1000 MG PO (21:23)
[2017-12-19] MEDS: Gabapentin 300 MG Capsule 900 MG PO (21:23)
[2017-12-19] MEDS: Menthol/Lanolin/Calamine/Znox 113 GM Tube 1 APPLIC TOPICAL (21:24)
[2017-12-19] MEDS: Montelukast 10 MG Tablet PO (21:24)
[2017-12-19] MEDS: MELATONIN 3 MG TABLET PO (21:24)
[2017-12-19 23:16] LABS: Bedside Glucose 57 mg/dL (70-110)
[2017-12-19 23:16] LABS: Bedside Glucose 153 mg/dL (70-110)
--- NOTE | 2017-12-19 23:55 | CPS ---
Pt refuses PAP therapy at this time
[2017-12-20] VITALS (14 sets, daily range): BP systolic 113–157; BP diastolic 58–98; PULSE 79–87; RESP 18–22; TEMP 36.6–37.2; O2SAT 93–94
[2017-12-20 02:51] LABS: Bedside Glucose 122 mg/dL (70-110)
[2017-12-20 06:25] LABS: Anion Gap 7 (5-15); BUN 27 mg/dL (7-18); BUN/Creat Ratio 25.7 RATIO (10-20); Calcium,Total 9.3 mg/dL (8.5-10.1); Chloride 96 mmol/L (98-107); Creatinine, Serum 1.05 mg/dL (0.70-1.30); EST Glomerular Filtration Rate 75 mL/min (>60); Est Glom Filt Rate - Afr Amer 91 mL/min (>60); Estimated Creatinine Clearance 77.15 ml/min; Glucose 143 mg/dL (74-106); Potassium 4.6 mmol/L (3.5-5.1); Sodium Level 137 mmol/L (136-145)
[2017-12-20 07:01] LABS: Bedside Glucose 148 mg/dL (70-110)
[2017-12-20 07:11] LABS: Allen Test POS; Blood Gas Specimen Type ART; SITE L RADIAL
[2017-12-20 07:12] LABS: O2 Delivery Device Nasal Can; Time Given 128; pH 7.47 (7.35-7.45)
[2017-12-20 07:13] LABS: Base Excess 28 mmol/L (-2 to +2); Bicarbonate 51.6 mmol/L (22-26); PO2 62 mmHG (75-100); SO2 91 % (95-99); Total Carbon Dioxide > 50 mmol/L; pCO2 71.7 mmHg (35-45)
[2017-12-20] MEDS: Albuterol 2.5 MG/3 ML VIAL.NEB. INHALATION ×3 (07:34→19:25)
[2017-12-20] MEDS: predniSONE 10 MG Tablet 20 MG PO (09:25)
[2017-12-20] MEDS: Omega-3 Acid Ethyl Esters 1 GM Capsule PO ×2 (09:26→22:53)
[2017-12-20] MEDS: Insulin Lispro 100 UNIT/ML INSULN.PEN 45 UNIT SC ×2 (09:26→12:22)
[2017-12-20] MEDS: Losartan Potassium 25 MG Tablet PO (09:26)
[2017-12-20] MEDS: Docusate Sodium 100 MG Capsule 200 MG PO (09:26)
[2017-12-20] MEDS: Pantoprazole Sodium 40 MG Tablet PO (09:26)
[2017-12-20] MEDS: LINAGLIPTIN 5 MG TABLET PO (09:26)
[2017-12-20] MEDS: Furosemide 40 MG/4 ML Vial IV ×2 (09:26→17:23)
[2017-12-20] MEDS: Menthol/Lanolin/Calamine/Znox 113 GM Tube 1 APPLIC TOPICAL ×2 (09:27→22:43)
[2017-12-20 12:05] LABS: Bedside Glucose 156 mg/dL (70-110)
[2017-12-20] MEDS: AcetaZOLAMIDE 250 MG Tablet PO (12:22)
[2017-12-20] MEDS: Insulin Lispro 100 UNIT/ML INSULN.PEN SQ ×2 (12:23→22:47)
--- NOTE | 2017-12-20 13:18 | PN_ITS ---
Addendum entered and electronically signed by CHRIS Austin 12/20/17 13:30: Code Visit Clarification - pt has acute on chronic hypoxic and hypercapnic respiratory failure Original Note: <Darren Allan - Last Filed: 12/20/17 13:29> Subjective: Pt overall feels much better. He has maintained on O2 via NC with good sats and has even had periods where he took off the NC and felt fine. His LE edema has improved as well. He has had a large volume diuresis >11L out since arrival. Pt refused to use BiPAP again. He says he does not have a machine at home and does not have a plan to get one. - Physical Exam General: Alert, Oriented x3, Cooperative HEENT: Atraumatic, PERRLA, EOMI, Normocephalic Neck: Supple, No JVD, Negative Carotid Bruits Lungs: Diminished, Rales - faint Cardiovascular: Regular rate, No murmurs Abdomen: Bowel Sounds Present, Soft, Non Tender Extremities: Capillary Refill Less than 3 Seconds, Edema Skin: No rashes, No breakdown Musculoskeletal: No Tenderness to Palpation of Joints or Extremities Neurological: Cranial nerves II-XII grossly intact Psych/Mental Status: Normal Affect, Appropriate, Alert and oriented to time, place, person, mood and affect Vital Signs Temp Pulse Resp BP Pulse Ox 98.7 F 80 18 143/74 H 93 12/20/17 10:46 12/20/17 10:46 12/20/17 10:46 12/20/17 10:46 12/20/17 10:46 Oxygen Flow Rate (L/min) 2 Oxygen Delivery Method Nasal Cannula Weight: 428 lb 5.73 oz Body Mass Index (BMI) 60.0 Intake and Output for Last 24 Hours 12/18/17 12/19/17 12/20/17 23:59 23:59 23:59 Intake Total 180 / 180 840 / 840 240 / 240 Output Total 1400 / 1400 7950 / 7950 3600 / 3600 Balance -1220 / -1220 -7110 / -7110 -3360 / -3360 Laboratory Tests Past 24 Hrs 12/19/17 12/20/17 01:28 05:45 Specimen Type ART Sample Site L RADIAL pH 7.47 H Bicarbonate Actual 51.6 H POC Total CO2 > 50 Base Excess 28 H O2 Saturation 91 L ABG pCO2 71.7 H* ABG pO2 62 L Mario Test POS O2 Delivery Device Nasal Can Liter Flow 4.0 Blood Gas Notified Whom HOSP Blood Gas Notified Time 128 Sodium 137 Potassium 4.6 Chloride 96 L Carbon Dioxide 34.0 H Anion Gap 7 BUN 27 H Creatinine 1.05 Estim Creat Clear Calc 77.15 Est GFR (MDRD) Af Amer 91 Est GFR (MDRD) Non-Af 75 BUN/Creatinine Ratio 25.7 H Glucose 143 H Calcium 9.3 POC Glucose 12/20/17 12/20/17 12/20/17 12:02 06:56 02:47 POC Glucose 156 H 148 H 122 H 12/19/17 12/19/17 12/19/17 22:13 20:54 16:51 POC Glucose 153 H 57 L 84 12/19/17 14:02 POC Glucose 275 H Medical Necessity - Tobacco Use Smoking Status: Current every day smoker Tobacco Use: Cigarettes Assessment/Plan All Active Problems (Last Reviewed 03/07/17 @ 10:25 by Ivana Jett) Hypoxemia (Acute) Morbid obesity with BMI of 50.0-59.9, adult (Acute) Acute exacerbation of CHF (congestive heart failure) (Acute) Erectile dysfunction associated with type 2 diabetes mellitus (Acute) 1. Acute hypoxic respiratory exacerbation 2/2 Acute systolic CHF exacerbation and CO2 retention 2/2 noncompliance with CPAP/BiPAP - continue bipap, lasix. Cur rently stable on NC. on losartan. Not on beta melly. last echo ef 55%. -Out >11 liter. -He was given diamox last night and his CO2 has significantly decreased. Will hold for now. 2. COPD - continue aerosols, continue oral prednisone taper. Recent negative resp panel. 3. Nicotine abuse - continues to smoke at least 1 ppd. Nicotine patch if desired 4. Hx afib - rate stable, on xarelto 5. Dmt2 with morbid obesity - titrate insulin to response 6. CKDIII - stable 7. GERMANIA - refusing bipap, does not have at home. 8. HTN - this has improved with diuresis. DVT ppx: xarelto DC planning: SNF likely tomorrow. This patient was seen by Darren Allan PA-C under the supervision of Doctor Manoj. <Serenity Aranda - Last Filed: 12/20/17 17:59> - Physical Exam Vital Signs Temp Pulse Resp BP Pulse Ox 99 F 80 18 113/58 L 93 12/20/17 16:18 12/20/17 16:18 12/20/17 16:18 12/20/17 16:18 12/20/17 16:18 Oxygen Flow Rate (L/min) 2 Oxygen Delivery Method Nasal Cannula Weight: 194.3 kg Body Mass Index (BMI) 60.0 Intake and Output for Last 24 Hours 12/18/17 12/19/17 12/20/17 23:59 23:59 23:59 Intake Total 180 / 180 840 / 840 510 / 510 Output Total 1400 / 1400 7950 / 7950 3600 / 3600 Balance -1220 / -1220 -7110 / -7110 -3090 / -3090 Laboratory Tests Past 24 Hrs 12/19/17 12/20/17 01:28 05:45 Specimen Type ART Sample Site L RADIAL pH 7.47 H Bicarbonate Actual 51.6 H POC Total CO2 > 50 Base Excess 28 H O2 Saturation 91 L ABG pCO2 71.7 H* ABG pO2 62 L Mario Test POS O2 Delivery Device Nasal Can Liter Flow 4.0 Blood Gas Notified Whom HOSP Blood Gas Notified Time 128 Sodium 137 Potassium 4.6 Chloride 96 L Carbon Dioxide 34.0 H Anion Gap 7 BUN 27 H Creatinine 1.05 Estim Creat Clear Calc 77.15 Est GFR (MDRD) Af Amer 91 Est GFR (MDRD) Non-Af 75 BUN/Creatinine Ratio 25.7 H Glucose 143 H Calcium 9.3 POC Glucose 12/20/17 12/20/17 12/20/17 16:18 12:02 06:56 POC Glucose 144 H 156 H 148 H 12/20/17 12/19/17 12/19/17 02:47 22:13 20:54 POC Glucose 122 H 153 H 57 L Assessment/Plan This patient was seen in conjunction with CHRIS Austin. I have independently interviewed and examined the patient and reviewed pertinent historical, laboratory, and other data. Please refer to CHRIS Austin note for his patient's presentation, findings, and recommendations. I have reviewed and his note and concur with his documentation Patient was seen and examined. No new complaints, diuresed a lot, currently on 2 L of oxygen Vitals reviewed, stable Labs reviewed - stable Physical Exam: Gen: Super morbidly obese, not pale, not jaundiced, appears comfortable CVS:HS I +II, regular, no murmurs RESP: Diminished at lung bases GI: bese abdominal wall pannus, full, nontender, no ballotable organs EXT: Chronic scaling of legs, chronic venous stasis changes, dystrophic nails Meds reviewed. ASSESSMENT: 1. Acute Hypoxic respiratory failure 2. Acute on chronic diastolic CHF 3. PAF 4. Type II DM 5. Super morbid obesity 6. CKD stage III 7. GERMANIA on CPAP 8. Nicotine dependency 9. COPD Plan: Continue on the current dose of Lasix, strict I's and O's, daily weight Continue with BiPAP treatment Blood work in a.m. Possible DC in am Code Visit Inpatient E&M: [id number] Subs Hosp L2
--- NOTE | 2017-12-20 14:00 | CPS ---
Pt. knows how to do IS, gets good volumes. He says he works on it throughout day. Encouraged pt. to keep working on IS every hour. Did 3 reps @ 1300mL with me, but refused to do anymore since he works on it by himself. D/Cing due to pts. ability to understand instruction of device shown by his volumes and method of doing exercise.
[2017-12-20 16:55] LABS: Bedside Glucose 144 mg/dL (70-110)
[2017-12-20] MEDS: Rivaroxaban 20 MG Tablet PO (17:23)
[2017-12-20] MEDS: Insulin Lispro 100 UNIT/ML INSULN.PEN 15 UNIT SC (17:24)
[2017-12-20] MEDS: Acetaminophen 500 MG Tablet 1000 MG PO (22:48)
[2017-12-20] MEDS: Gabapentin 300 MG Capsule 900 MG PO (22:52)
[2017-12-20] MEDS: MELATONIN 3 MG TABLET PO (22:53)
[2017-12-20] MEDS: Montelukast 10 MG Tablet PO (22:53)
[2017-12-20 23:46] LABS: Bedside Glucose 173 mg/dL (70-110)
[2017-12-21] VITALS (7 sets, daily range): BP systolic 140–154; BP diastolic 78–90; PULSE 78–80; RESP 16–18; TEMP 36.6–36.8; O2SAT 93–95
[2017-12-21 02:46] LABS: Bedside Glucose 116 mg/dL (70-110)
[2017-12-21] MEDS: Albuterol 2.5 MG/3 ML VIAL.NEB. INHALATION (06:54)
[2017-12-21 06:55] LABS: Bedside Glucose 99 mg/dL (70-110)
[2017-12-21] MEDS: predniSONE 10 MG Tablet 20 MG PO (07:35)
[2017-12-21] MEDS: Insulin Lispro 100 UNIT/ML INSULN.PEN 45 UNIT SC ×2 (07:36→12:00)
[2017-12-21 08:12] LABS: Anion Gap 5 (5-15); BUN 32 mg/dL (7-18); BUN/Creat Ratio 29.1 RATIO (10-20); Calcium,Total 9.3 mg/dL (8.5-10.1); Chloride 98 mmol/L (98-107); EST Glomerular Filtration Rate 71 mL/min (>60); Est Glom Filt Rate - Afr Amer 86 mL/min (>60); Estimated Creatinine Clearance 73.65 ml/min; Glucose 99 mg/dL (74-106); Potassium 4.2 mmol/L (3.5-5.1); Sodium Level 139 mmol/L (136-145)
[2017-12-21] MEDS: Losartan Potassium 25 MG Tablet PO (09:27)
[2017-12-21] MEDS: Furosemide 40 MG/4 ML Vial IV (09:27)
[2017-12-21] MEDS: Omega-3 Acid Ethyl Esters 1 GM Capsule PO (09:27)
[2017-12-21] MEDS: LINAGLIPTIN 5 MG TABLET PO (09:28)
[2017-12-21] MEDS: Pantoprazole Sodium 40 MG Tablet PO (09:28)
--- NOTE | 2017-12-21 09:28 | PCM.TXEXTCAR ---
- Diet 12/18/17 20:15 Diet: Cardiac: Calorie-Controlled Food consistency:: Regular Liquid Consistency:: Regular/Thin Is pt able to select menu?: Yes How many daily calories?: 1800 calorie Sodium restrict to <2 grams sodium daily. - Routine Orders/Code Status Suppository Type: Dulcolax 10mg Suppository Frequency: Daily PRN O2 Frequency: Continuous Keep PO Greater than or Equal to (%): 89 Routine Lab Work: BMP - 3 days Code Status: Full Code - Wound(s) left inner thigh Wound Type: Abrasion right inner thigh Wound Type: Abrasion scrotum Wound Type: Pressure Injury - Therapies Physical Therapy: Eval and Treat Occupational Therapy: Eval and Treat - Problem/Diagnosis (1) Acute exacerbation of CHF (congestive heart failure) Status: Acute Current Visit: No (2) Chronic respiratory failure Status: Acute Current Visit: Yes (3) HTN (hypertension) Status: Chronic Current Visit: Yes (4) Nicotine abuse Status: Chronic Current Visit: Yes (5) CKD (chronic kidney disease) stage 3, GFR 30-59 ml/min Status: Chronic Current Visit: Yes (6) GERMANIA (obstructive sleep apnea) Status: Chronic Current Visit: Yes (7) Morbid obesity with BMI of 50.0-59.9, adult Status: Chronic Current Visit: No (8) COPD (chronic obstructive pulmonary disease) Status: Chronic Current Visit: No (9) Chronic atrial fibrillation Status: Chronic Current Visit: No (10) S/P cardiac pacemaker procedure Status: Chronic Current Visit: No (11) Type 2 diabetes mellitus Status: Chronic Current Visit: No - Allergies/Procedures Done in Hospital Allergies/Adverse Reactions: Allergies No Known Allergies Allergy (Unverified 03/07/17 10:33) Procedures: None - Type of Care/Length of Stay Estimated LOS: Convalescent Care Less Than 30 days Type of Care Needed: Skilled Rehab Potential: Fair Prognosis: Fair - Additional Orders/Day of Discharge Additional Orders: WILLIAM wraps to BLE daily. Check daily weights. Adjust lasix depending on weight fluctuations and BMP results. Next BMP in 3 days. Day of Discharge: 12/21/17 - Dietary and Speech Recommendations Dietitian Recommendations/Changes: Recommend diet change to 2200 calorie, cardiac/low-salt diet w/ fluid restriction as indicated. Recommend 1 packet Shen PO BID for wound healing--ordered through pharmacy. - Follow Up Care Primary Care Physician: Care Physician,No Primary [Primary Care Provider] - Please follow up with your Primary Care Physician in: 2 weeks Please Follow Up With: Scottie Pace MD When: 4 weeks
--- NOTE | 2017-12-21 09:38 | PCA ---
Spoke with patients uncle Chaz on the telephone and notified him of discharge to [facility] today and that he would be picked up from here at 1430.
--- NOTE | 2017-12-21 10:33 | PCA ---
Faxed discharge orders and signed med list with pickup time wrote on fax over to [facility].
--- NOTE | 2017-12-21 11:32 | PCM.DC.SUM ---
<Darren Allan - Last Filed: 12/21/17 11:35> Discharge Date and Diagnosis - Problem List Patient Problems: Active and Suspected Problems (Last Reviewed 03/07/17 @ 10:25 by Ivana Jett) Chronic respiratory failure (Acute) Date of Admission: 12/18/17 Date of Discharge: 12/21/17 - Primary Discharge Diagnosis Acute on chronic hypoxic hypercarbic respiratory failure 2/2 Acute systolic CHF exacerbation GERMANIA noncompliant with therapy COPD without acute exacerbation Nicotine abuse Chronic Afib s/p pacemaker DMt2 HTN CKDIII GERD - Secondary Discharge Diagnosis Chronic Problems (Last Reviewed 03/07/17 @ 10:25 by Ivana Jett) COPD (chronic obstructive pulmonary disease) (Chronic) Type 2 diabetes mellitus (Chronic) Chronic atrial fibrillation (Chronic) S/P cardiac pacemaker procedure (Chronic) Morbid obesity with BMI of 50.0-59.9, adult (Chronic) Morbid obesity with BMI of 50.0-59.9, adult (Chronic) HTN (hypertension) (Chronic) Nicotine abuse (Chronic) CKD (chronic kidney disease) stage 3, GFR 30-59 ml/min (Chronic) GERMANIA (obstructive sleep apnea) (Chronic) Hospital Course and Treatment Imaging Results: RAD/Chest 1 View (Portable) IMPRESSION: Cardiomegaly with pulmonary vascular congestion. Possible trace left effusion. Consultations 12/19/17 10:30 Consult: Onc/Wound/coroner/medical examiner Routine Comment: Operations: None Procedures: None Summary of Care Provided: Hospital course: The patient is a 67 year old M with a pmhx as above, recently admitted to the hospital for CHF and COPD exacerbation who represented from home with severe dyspnea and LE edema, CXR c/w CHF exacerbation, with pulse of in the 80s. He was admitted to the PCU on IV lasix and initially bipap (which he later refused to continue to use) and his prior prednisone taper was continued. He was significantly hypercarbic and he was given diamox. He had massive diuresis with about 12 liters out. He improved dramatically. He remained significantly debilitated and was not performing well at home. SNF was recommended and he was agreeable. He was transitioned to 80 BID lasix and will continue his prior prednisone taper. He remained stable at 2 liters of O2 which is less than his baseline of 4. He has GERMANIA but wont use Bipap at home or here and does not want it going forward. He was discharged to SNF in stable condition. Please keep a close eye on his BMP to monitor renal function, electrolytes, and CO2. Please check daily weights and WILLIAM wrap his legs daily. F/u with PCP 1-2 weeks and Cardiology 3-4 weeks This patient was seen by Darren Allan PA-C under the supervision of Doctor Manoj. [] Patient Problems: Active and Suspected Problems (Last Reviewed 03/07/17 @ 10:25 by Ivana Jett) Chronic respiratory failure (Acute) - Physical Exam General: Alert, Oriented x3, Cooperative HEENT: Atraumatic, PERRLA, EOMI, Normocephalic Neck: Supple, No JVD, Negative Carotid Bruits Lungs: Clear to auscultation, Normal air movement Cardiovascular: Regular rate, No murmurs Abdomen: Bowel Sounds Present, Soft, Non Tender, Obese Extremities: Capillary Refill Less than 3 Seconds, Edema Skin: No rashes, No breakdown Musculoskeletal: No Tenderness to Palpation of Joints or Extremities Neurological: Cranial nerves II-XII grossly intact Psych/Mental Status: Normal Affect, Appropriate, Alert and oriented to time, place, person, mood and affect Vital Signs Temp Pulse Resp BP Pulse Ox 97.8 F 80 16 154/90 H 93 12/21/17 08:46 12/21/17 10:56 12/21/17 08:46 12/21/17 08:46 12/21/17 08:46 Oxygen Flow Rate (L/min) 2 Oxygen Delivery Method Nasal Cannula Weight: 422 lb 2.963 oz Body Mass Index (BMI) 60.0 Intake and Output for Last 24 Hours 12/19/17 12/20/17 12/21/17 23:59 23:59 23:59 Intake Total 840 / 840 1010 / 1010 240 / 240 Output Total 7950 / 7950 4500 / 4500 700 / 700 Balance -7110 / -7110 -3490 / -3490 -460 / -460 Laboratory Tests Past 24 Hrs 12/21/17 07:35 Sodium 139 Potassium 4.2 Chloride 98 Carbon Dioxide 36.0 H Anion Gap 5 BUN 32 H Creatinine 1.10 Estim Creat Clear Calc 73.65 Est GFR (MDRD) Af Amer 86 Est GFR (MDRD) Non-Af 71 BUN/Creatinine Ratio 29.1 H Glucose 99 Calcium 9.3 POC Glucose 12/21/17 12/21/17 12/20/17 06:46 02:41 22:42 POC Glucose 99 116 H 173 H 12/20/17 12/20/17 16:18 12:02 POC Glucose 144 H 156 H Discharge Diet: Low fat/ Low Cholesterol, 2200 Calorie Control Diet, 2000 mg Sodium Diet Discharge Activity: Return to Normal Activity Home Medications: Medications to take at Discharge acetaminophen 500 mg tablet 1,000 mg PO QHS tab 02/25/17 budesonide 0.5 mg/2 mL suspension for nebulization 0.5 mg INHALATION Q12H 02/25/17 cholecalciferol (vitamin D3) 50,000 unit capsule 50,000 unit PO SUWE 02/25/17 docusate sodium 100 mg capsule 200 mg PO QDAY 02/25/17 linagliptin 5 mg tablet 5 mg PO QDAY 02/25/17 omega-3 fatty acids 1,000 mg capsule 1,000 mg PO BID cap 02/25/17 rivaroxaban 20 mg tablet 20 mg PO QDAY 02/25/17 Furosemide [Lasix] 80 mg PO BID@1000,1800 #60 tab 12/15/17 Melatonin 3 mg PO QHS 12/15/17 Montelukast Sodium [Singulair] 10 mg PO QHS 12/15/17 Fluticasone/Salmeterol [Advair 100-50 Diskus] 1 each IH BID 12/18/17 Gabapentin [Neurontin] 900 mg PO QHS 12/18/17 Losartan Potassium [Cozaar] 25 mg PO DAILY 12/18/17 Nicotine [Nicoderm] 14 mg TRANSDERM. DAILY 12/18/17 Omeprazole 40 mg PO DAILY 12/18/17 Potassium Chloride [K-Dur] 20 meq PO DAILY 12/18/17 Vitamin B Complex 1 each PO DAILY 12/18/17 Albuterol Aerosols [Ventolin Aerosols] 2.5 mg INHALATION Q6H PRN PRN vial.neb. 12/21/17 Insulin Glargine [Lantus SoloStar Pen] 20 units SC QAM@0800 pen 12/21/17 Insulin Glargine [Lantus SoloStar Pen] 20 units SC QHS pen 12/21/17 Insulin Lispro [Humalog KwikPen] 0 unit SQ 4X/DAYCM insuln.pen 12/21/17 Insulin Lispro [Humalog KwikPen] 15 unit SC 1700 insuln.pen 12/21/17 Insulin Lispro [Humalog KwikPen] 45 unit SC 0800 insuln.pen 12/21/17 Insulin Lispro [Humalog KwikPen] 45 unit SC 1200 insuln.pen 12/21/17 Magnesium Hydroxide [Milk Of Magnesia] 30 ml PO DAILY PRN udc 12/21/17 Menthol/Lanolin/Calamine/Znox [Calmoseptine Ointment] 1 applic TOPICAL BID tube 12/21/17 Prednisone 10 mg PO DAILY #5 tablet 12/21/17 Following Prescrptions Were Given to Patient: Prednisone 10 mg PO DAILY #5 tablet Primary Care Physician: Care Physician,No Primary [Primary Care Provider] - Please follow up with your Primary Care Physician in: 2 weeks Please Follow Up With: Scottie Pace MD When: 4 weeks Disposition: [facility] facility Minutes spent on discharge:: 35 Patient Condition:: Stable Medical Necessity - Tobacco Use Smoking Status: Current every day smoker Tobacco Use: Cigarettes Meaningful Use Info Meaningful Use Diagnoses (Choose all that apply): CHF - CHF WILLIAM/ARB ordered at discharge?: Yes Documented LVEF (%): 55 <Serenity Aranda - Last Filed: 12/21/17 14:41> Discharge Date and Diagnosis - Primary Discharge Diagnosis Active and Suspected Problems (Last Reviewed 03/07/17 @ 10:25 by Ivana Jett) Chronic respiratory failure (Acute) - Secondary Discharge Diagnosis Chronic Problems (Last Reviewed 03/07/17 @ 10:25 by Ivana Jett) COPD (chronic obstructive pulmonary disease) (Chronic) Type 2 diabetes mellitus (Chronic) Chronic atrial fibrillation (Chronic) S/P cardiac pacemaker procedure (Chronic) Morbid obesity with BMI of 50.0-59.9, adult (Chronic) Morbid obesity with BMI of 50.0-59.9, adult (Chronic) HTN (hypertension) (Chronic) Nicotine abuse (Chronic) CKD (chronic kidney disease) stage 3, GFR 30-59 ml/min (Chronic) GERMANIA (obstructive sleep apnea) (Chronic) Hospital Course and Treatment Consultations 12/19/17 10:30 Consult: Onc/Wound/coroner/medical examiner Routine Comment: Summary of Care Provided: The patient is a 67 year old M past medical history of chronic diastolic CHF, super morbid obesity, COPD, pulmonary hypertension, recently admitted and treated for acute on chronic CHF. Patient was noncompliant with his medications and diet as well as use of BiPAP. Patient was brought back, started on IV Lasix, diuresed more than 12 L, discharged to senior living facility. Subjective: Patient was seen and examined on day of discharge. He felt improved. Diuresed a lot. - Physical Exam Vital Signs Temp Pulse Resp BP Pulse Ox 97.8 F 80 16 154/90 H 93 12/21/17 08:46 12/21/17 10:56 12/21/17 08:46 12/21/17 08:46 12/21/17 08:46 Oxygen Flow Rate (L/min) 2 Oxygen Delivery Method Nasal Cannula Weight: 191.5 kg Body Mass Index (BMI) 60.0 Intake and Output for Last 24 Hours 12/19/17 12/20/17 12/21/17 23:59 23:59 23:59 Intake Total 840 / 840 1010 / 1010 720 / 720 Output Total 7950 / 7950 4500 / 4500 1900 / 1900 Balance -7110 / -7110 -3490 / -3490 -1180 / -1180 Laboratory Tests Past 24 Hrs 12/21/17 07:35 Sodium 139 Potassium 4.2 Chloride 98 Carbon Dioxide 36.0 H Anion Gap 5 BUN 32 H Creatinine 1.10 Estim Creat Clear Calc 73.65 Est GFR (MDRD) Af Amer 86 Est GFR (MDRD) Non-Af 71 BUN/Creatinine Ratio 29.1 H Glucose 99 Calcium 9.3 POC Glucose 12/21/17 12/21/17 12/21/17 11:09 06:46 02:41 POC Glucose 194 H 99 116 H 12/20/17 12/20/17 22:42 16:18 POC Glucose 173 H 144 H Code Visit Inpatient E&M: [id number] Disch Hosp
[2017-12-21 11:41] LABS: Bedside Glucose 194 mg/dL (70-110)
[2017-12-21] MEDS: Insulin Lispro 100 UNIT/ML INSULN.PEN SQ (12:00)
[2017-12-21] MEDS: Menthol/Lanolin/Calamine/Znox 113 GM Tube 1 APPLIC TOPICAL (12:01)
[2017-12-21] MEDS: Rivaroxaban 20 MG Tablet PO (16:23)
--- NOTE | 2017-12-21 16:54 | NURSING ---
report called to the nurse at [facility].
== END 2017-12-21 17:19 | disposition skilled nursing facility (03) | DRG 291 ==
LOC: ED 18:22 → PCU 19:38
PROVIDERS: Physician Assistant; Admitting Provider Family Medicine; Emergency Provider Emergency Medicine; Visit Provider Internal Medicine
DX: I13.0 Hypertensive heart and chronic kidney disease with heart failure and stage 1 through stage 4 chronic kidney disease, or unspecified chronic kidney disease (principal); J96.21 Acute and chronic respiratory failure with hypoxia; I50.23 Acute on chronic systolic (congestive) heart failure; J96.22 Acute and chronic respiratory failure with hypercapnia; Z68.43 Body mass index [BMI] 50.0-59.9, adult; E66.01 Morbid (severe) obesity due to excess calories; Z79.01 Long term (current) use of anticoagulants; I87.8 Other specified disorders of veins; F17.210 Nicotine dependence, cigarettes, uncomplicated; J44.9 Chronic obstructive pulmonary disease, unspecified; E11.22 Type 2 diabetes mellitus with diabetic chronic kidney disease; N18.3 Chronic kidney disease, stage 3 (moderate); G47.33 Obstructive sleep apnea (adult) (pediatric); I48.2 Chronic atrial fibrillation; K21.9 Gastro-esophageal reflux disease without esophagitis; Z95.0 Presence of cardiac pacemaker; Z91.19 Patient's noncompliance with other medical treatment and regimen; Z79.4 Long term (current) use of insulin; Z99.81 Dependence on supplemental oxygen
CPT/HCPCS: 36415; 36600; 51702; 71045; 80048; 81001; 82803; 82962; 83880; 84484; 85025; 93005; 94640; 97110; 97162; 97165; 97802; 99285; 99406; A4216; J1940

== ENCOUNTER 2018-06-12 09:30 | Outpatient (RCR) | payer MEDICARE, OTHER, MEDICAID, SELFPAY ==
[2018-05-22 10:23] VITALS: BP 160/87; PULSE 81; RESP 16; TEMP 36.6
--- NOTE | 2018-05-22 12:34 | PCM.WC.HP ---
(1) Abscess of right buttock Status: Acute Current Visit: Yes Code(s): L02.31 - Cutaneous abscess of buttock (2) Diabetic ulcer of right buttock Status: Acute Current Visit: Yes Code(s): E11.622 - Type 2 diabetes mellitus with other skin ulcer; L98.419 - Non-pressure chronic ulcer of buttock with unspecified severity (3) Morbid obesity with BMI of 50.0-59.9, adult Status: Chronic Current Visit: Yes Code(s): E66.01 - Morbid (severe) obesity due to excess calories; Z68.43 - Body mass index (BMI) 50-59.9, adult (4) Nicotine abuse Status: Chronic Current Visit: No Code(s): Z72.0 - Tobacco use (5) Type 2 diabetes mellitus Status: Chronic Current Visit: Yes Code(s): E11.9 - Type 2 diabetes mellitus without complications History of Present Illness Chief Complaint: Nonhealing right buttock/upper thigh ulcerated abscess. History of Wound: Mr. Flowers is a 67-year-old with past medical history of poorly controlled diabetes mellitus, tobacco abuse amongst others who presented to the wound center due to nonhealing ulceration/swelling in his right buttock/upper thigh. Initially noted 3 weeks ago and has been receiving wound care at his assisted living. He is unsure what exactly has been done but states that it has been dressed 2-3 times daily due to drainage. Reports pain around the area. He denies chills, fever or otherwise feeling of unwell. Past Medical History Past Medical History: Chronic Problems (Last Reviewed 01/13/18 @ 09:26 by Eleni Bradley) Ascites (Chronic) Hyperlipidemia (Chronic) Diabetes type 2, controlled (Chronic) HTN (hypertension) (Chronic) Left ventricular hypertrophy (Chronic) Severe per echo 12/13/2017, EF 55% Complete heart block (Chronic) Biventricular implantable cardioverter-defibrillator (ICD) in situ (Chronic 06/05/15) Implanted by Dr. Denise @ [facility] for Complete heart block, symptomatic bradycardia and EF 40-45%. Generator is [employer] model U128, serial # [id number] COPD (chronic obstructive pulmonary disease) (Chronic) Type 2 diabetes mellitus (Chronic) Chronic atrial fibrillation (Chronic) Morbid obesity with BMI of 50.0-59.9, adult (Chronic) HTN (hypertension) (Chronic) Nicotine abuse (Chronic) CKD (chronic kidney disease) stage 3, GFR 30-59 ml/min (Chronic) GERMANIA (obstructive sleep apnea) (Chronic) Surgical History: appendectomy, pacemaker implantation, - - Knee surgery. Allergies/Adverse Reactions: Allergies No Known Allergies Allergy (Unverified 03/07/17 10:33) Home Medications: Ambulatory Orders Medication Instructions Recorded acetaminophen 500 mg tablet 1,000 mg PO QHS tab 02/25/17 budesonide 0.5 mg/2 mL suspension 0.5 mg INHALATION Q12H 02/25/17 for nebulization cholecalciferol (vitamin D3) 50,000 unit PO SUWE 02/25/17 50,000 unit capsule docusate sodium 100 mg capsule 200 mg PO QDAY 02/25/17 linagliptin 5 mg tablet 5 mg PO QDAY 02/25/17 omega-3 fatty acids 1,000 mg 1,000 mg PO BID cap 02/25/17 capsule rivaroxaban 20 mg tablet 20 mg PO QDAY 02/25/17 Furosemide [Lasix] 80 mg PO BID@1000,1800 #60 tab 12/15/17 Melatonin 3 mg PO QHS 12/15/17 Montelukast Sodium [Singulair] 10 mg PO QHS 12/15/17 Fluticasone/Salmeterol [Advair 1 each IH BID 12/18/17 100-50 Diskus] Gabapentin [Neurontin] 300 mg PO QHS 12/18/17 Losartan Potassium [Cozaar] 25 mg PO DAILY 12/18/17 Nicotine [Nicoderm] 14 mg TRANSDERM. DAILY 12/18/17 Omeprazole 40 mg PO DAILY 12/18/17 Potassium Chloride [K-Dur] 20 meq PO DAILY 12/18/17 Vitamin B Complex 1 each PO DAILY 12/18/17 Albuterol Aerosols [Ventolin 2.5 mg INHALATION Q6H PRN PRN 12/21/17 Aerosols] vial.neb. Insulin Lispro [Humalog KwikPen] 45 unit SC 0800 insuln.pen 12/21/17 Insulin Lispro [Humalog KwikPen] 45 unit SC 1200 insuln.pen 12/21/17 Magnesium Hydroxide [Milk Of 30 ml PO DAILY PRN udc 12/21/17 Magnesia] Menthol/Lanolin/Calamine/Znox 1 applic TOPICAL BID tube 12/21/17 [Calmoseptine Ointment] Prednisone 10 mg PO DAILY #5 tablet 12/21/17 Insulin Glargine [Lantus SoloStar 24 units SC QAM@0800 05/22/18 Pen] Insulin Glargine [Lantus SoloStar 36 units SC QHS 05/22/18 Pen] Insulin Lispro [Humalog KwikPen] 17 unit SC 1700 05/22/18 - Family History Maternal Family History: Family History (Last Reviewed 01/13/18 @ 09:26 by Eleni Bradley) Mother Arthritis Cancer Brother Diabetes Kidney disease Grandmother Diabetes Grandfather Heart disease Cancer, Heart Disease Paternal Family History: Family History (Last Reviewed 01/13/18 @ 09:26 by Eleni Bradley) Mother Arthritis Cancer Brother Diabetes Kidney disease Grandmother Diabetes Grandfather Heart disease Heart Disease Smoking Status: Current every day smoker Review of Systems Constitutional: Denies: Anorexia, Chills, Fever Eyes: Denies: Blurred vision, Pain HEENT: Denies: Difficulty Hearing, Difficulty Swallowing Cardiovascular: Denies: Chest Pain, Chest Tightness Respiratory: Denies: Hemoptysis Gastrointestinal: Denies: Abdominal Pain, Hematemesis, Vomiting Skin: Denies: Jaundice - Physical Exam Vital Signs Temp Pulse Resp BP 98 F 81 16 160/87 H 05/22/18 10:23 05/22/18 10:23 05/22/18 10:23 05/22/18 10:23 General: Alert, Oriented x3, Cooperative, No apparent distress HEENT: Atraumatic, Normocephalic Oral: Moist Mucosa Neck: Supple Lungs: Normal air movement Abdomen: Non Tender, Obese Extremities: No cyanosis Skin: Ulcer/ Wound Wound Measurements and Assessment WC - Nurse 1 - General Ulcer Measurement Start: 05/22/18 10:20 Freq: Status: Active Protocol: Activity Type Activity Date Activity User E-Sign Co-Sign Detail Recorded Client Recorded Date Recorded By Document 05/22/18 10:23 PA [id number] 05/22/18 10:50 MT 05/22/18 10:23 Wound Center Nurse 1 [Ulcer Assessment] right upper thigh posterior cluster -Current Size (cm) - Length 3 -Current Size (cm) - Width 6 -Current Size (cm) - Depth 2.5 -Total Square Cm 18 -Date of Last Picture (Recall this 05/22/18 field) -Epithelialization None Present -Tunneling Yes -Tunneling Position (O'clock) 3 -Tunneling Distance (cm) 3.5 -Classification - Thickness Full Thickness without Exposed Support Structure -Exudate Type Purulent -Wound Margin Flat & Intact -Granulation Amt Large (67-100%) -Granulation Quality Red -Necrosis Amt Small (1-33%) -Necrotic Tissue Type Adherent Slough -Structure Exposed None/Limited to Skin Breakdown -Texture (Jennifer-wound Skin Appearance) Assessed Induration Localized Edema -Moisture (Jennifer-wound Skin Appearance Assessed ) -Color (Jennifer-wound Skin Appearance) Assessed Erythema -Temperature (Jennifer-wound Skin No Abnormality Appearance) (Pt Warm) -Tenderness on Palpation (Jennifer-wound Yes Skin Appearance) -Ulcer Cleansing Rinsed/ Irrigated with Saline -Foul Odor after Cleansing No -Anesthetic Used 4% Lidocaine Solution WC - Nurse 2 - General Ulcer CM Notes Start: 05/22/18 10:20 Freq: Status: Active Protocol: Activity Type Activity Date Activity User E-Sign Co-Sign Detail Recorded Client Recorded Date Recorded By Document 05/22/18 11:33 MW [id number] 05/22/18 11:44 MW 05/22/18 11:33 Wound Center Nurse 2 [Procedure/Treatment] -Time 11:33 -Correct Patient Yes -Correct Side, Site, Position Yes -Correct Procedure Yes -Procedure Performed Yes -Type of Procedure Debridement -Clinical Debridement Subcutaneous -Post Debridement Size (cm) - Length 1.0 -Post Debridement Size (cm) - Width 2.0 -Post Debridement Size (cm) - Depth 3.2 -Total Square Cm 2.00 -Wound/Ulcer Outcome Not Healed -Ulcer Cleansing Rinsed/ Irrigated with Saline -Foul Odor after Cleansing No -Bioengineered Tissue No -Bleeding Controlled with Pressure -Offloading No -Treatment Response Procedure Tolerated Well [See Physician Procedure note for Specifics] Pain Scale: 0-10 Numeric [Pain] -Is Patient Pain Free? Yes Musculoskeletal: No Muscle Wasting Neurological: Cranial nerves II-XII grossly intact Psych/Mental Status: Normal Affect Debridement Note Post-Debridement Measurements/Treatment WC - Nurse 2 - General Ulcer CM Notes Start: 05/22/18 10:20 Freq: Status: Active Protocol: Activity Type Activity Date Activity User E-Sign Co-Sign Detail Recorded Client Recorded Date Recorded By Document 05/22/18 11:33 MW [id number] 05/22/18 11:44 MW 05/22/18 11:33 Wound Center Nurse 2 right upper thigh posterior cluster -Time 11:33 -Correct Patient Yes -Correct Side, Site, Position Yes -Correct Procedure Yes -Procedure Performed Yes -Type of Procedure Debridement -Clinical Debridement Subcutaneous -Post Debridement Size (cm) - Length 1.0 -Post Debridement Size (cm) - Width 2.0 -Post Debridement Size (cm) - Depth 3.2 -Total Square Cm 2.00 -Wound/Ulcer Outcome Not Healed -Ulcer Cleansing Rinsed/ Irrigated with Saline -Foul Odor after Cleansing No -Bioengineered Tissue No -Bleeding Controlled with Pressure -Offloading No -Treatment Response Procedure Tolerated Well Pain Scale: 0-10 Numeric Is Patient Pain Free? Yes Wound debrided: Right buttock/upper thigh. Wound Grade/Stage: Stage III Type of Debridement: Excisional debridement Anesthesia Used: 4% Lidocaine Solution Depth: Down to and including healthy tissue, in the subcutaneous layer Percentage of wound debrided: 100 Instrument Used: 5mm curette, #15 blade Tissue Removed: Slough and devitalized tissue Severity: Fat Layer Exposed Amount of bleeding with debridement: Moderate Bleeding Controlled with: Pressure Assessment/Plan Active Problems (Last Reviewed 01/13/18 @ 09:26 by Eleni Bradley) Abscess of right buttock (Acute) Diabetic ulcer of right buttock (Acute) Type 2 diabetes mellitus (Chronic) Morbid obesity with BMI of 50.0-59.9, adult (Chronic) Assessment: Ulcerated abscess. Nonhealing. Poorly controlled diabetes mellitus and tobacco abuse. Morbid obesity with limited ambulation. Plan: Tender fluctuant swelling with a mixture of purulent and bloody drainage. Debridement done as documented above. Procedure was well-tolerated. A 0.2cm additional incision made and more drainage expressed. Immediate relief expressed by patient. Augmentin and doxycycline to cover for possible organisms. Aquacel silver rope. Pack daily to twice daily depending on drainage. ABD overtop. Avoid prolonged sitting or laying. Reposition often. Pressure relief also recommended. Due to significant depth and drainage, I believe he will benefit from a snap VAC. Will check insurance coverage. Tobacco cessation very strongly encouraged. Optimal blood sugar control also recommended. Increased protein intake. All his questions were answered and he was advised to call with any further questions or concerns. Follow-up in 1 week. This note was generated with [employer] software. It may contain incorrect words, spelling, and punctuation that were not noted in checking the note before signing.
--- NOTE | 2018-05-22 12:38 | HP.PCM_ITS ---
(1) Abscess of right buttock Status: Acute Current Visit: Yes Code(s): L02.31 - Cutaneous abscess of buttock (2) Diabetic ulcer of right buttock Status: Acute Current Visit: Yes Code(s): E11.622 - Type 2 diabetes mellitus with other skin ulcer; L98.419 - Non-pressure chronic ulcer of buttock with unspecified severity (3) Morbid obesity with BMI of 50.0-59.9, adult Status: Chronic Current Visit: Yes Code(s): E66.01 - Morbid (severe) obesity due to excess calories; Z68.43 - Body mass index (BMI) 50-59.9, adult (4) Nicotine abuse Status: Chronic Current Visit: No Code(s): Z72.0 - Tobacco use (5) Type 2 diabetes mellitus Status: Chronic Current Visit: Yes Code(s): E11.9 - Type 2 diabetes mellitus without complications History of Present Illness Chief Complaint: Nonhealing right buttock/upper thigh ulcerated abscess. History of Wound: Mr. Flowers is a 67-year-old with past medical history of poorly controlled diabetes mellitus, tobacco abuse amongst others who presented to the wound center due to nonhealing ulceration/swelling in his right buttock/upper thigh. Initially noted 3 weeks ago and has been receiving wound care at his assisted living. He is unsure what exactly has been done but states that it has been dressed 2-3 times daily due to drainage. Reports pain around the area. He denies chills, fever or otherwise feeling of unwell. Past Medical History Past Medical History: Chronic Problems (Last Reviewed 01/13/18 @ 09:26 by Eleni Bradley) Ascites (Chronic) Hyperlipidemia (Chronic) Diabetes type 2, controlled (Chronic) HTN (hypertension) (Chronic) Left ventricular hypertrophy (Chronic) Severe per echo 12/13/2017, EF 55% Complete heart block (Chronic) Biventricular implantable cardioverter-defibrillator (ICD) in situ (Chronic 06/05/15) Implanted by Dr. Denise @ [facility] for Complete heart block, symptomatic bradycardia and EF 40-45%. Generator is [employer] model U128, serial # [id number] COPD (chronic obstructive pulmonary disease) (Chronic) Type 2 diabetes mellitus (Chronic) Chronic atrial fibrillation (Chronic) Morbid obesity with BMI of 50.0-59.9, adult (Chronic) HTN (hypertension) (Chronic) Nicotine abuse (Chronic) CKD (chronic kidney disease) stage 3, GFR 30-59 ml/min (Chronic) GERMANIA (obstructive sleep apnea) (Chronic) Surgical History: appendectomy, pacemaker implantation, - - Knee surgery. Allergies/Adverse Reactions: Allergies No Known Allergies Allergy (Unverified 03/07/17 10:33) Home Medications: Ambulatory Orders Medication Instructions Recorded acetaminophen 500 mg tablet 1,000 mg PO QHS tab 02/25/17 budesonide 0.5 mg/2 mL suspension 0.5 mg INHALATION Q12H 02/25/17 for nebulization cholecalciferol (vitamin D3) 50,000 unit PO SUWE 02/25/17 50,000 unit capsule docusate sodium 100 mg capsule 200 mg PO QDAY 02/25/17 linagliptin 5 mg tablet 5 mg PO QDAY 02/25/17 omega-3 fatty acids 1,000 mg 1,000 mg PO BID cap 02/25/17 capsule rivaroxaban 20 mg tablet 20 mg PO QDAY 02/25/17 Furosemide [Lasix] 80 mg PO BID@1000,1800 #60 tab 12/15/17 Melatonin 3 mg PO QHS 12/15/17 Montelukast Sodium [Singulair] 10 mg PO QHS 12/15/17 Fluticasone/Salmeterol [Advair 1 each IH BID 12/18/17 100-50 Diskus] Gabapentin [Neurontin] 300 mg PO QHS 12/18/17 Losartan Potassium [Cozaar] 25 mg PO DAILY 12/18/17 Nicotine [Nicoderm] 14 mg TRANSDERM. DAILY 12/18/17 Omeprazole 40 mg PO DAILY 12/18/17 Potassium Chloride [K-Dur] 20 meq PO DAILY 12/18/17 Vitamin B Complex 1 each PO DAILY 12/18/17 Albuterol Aerosols [Ventolin 2.5 mg INHALATION Q6H PRN PRN 12/21/17 Aerosols] vial.neb. Insulin Lispro [Humalog KwikPen] 45 unit SC 0800 insuln.pen 12/21/17 Insulin Lispro [Humalog KwikPen] 45 unit SC 1200 insuln.pen 12/21/17 Magnesium Hydroxide [Milk Of 30 ml PO DAILY PRN udc 12/21/17 Magnesia] Menthol/Lanolin/Calamine/Znox 1 applic TOPICAL BID tube 12/21/17 [Calmoseptine Ointment] Prednisone 10 mg PO DAILY #5 tablet 12/21/17 Insulin Glargine [Lantus SoloStar 24 units SC QAM@0800 05/22/18 Pen] Insulin Glargine [Lantus SoloStar 36 units SC QHS 05/22/18 Pen] Insulin Lispro [Humalog KwikPen] 17 unit SC 1700 05/22/18 - Family History Maternal Family History: Family History (Last Reviewed 01/13/18 @ 09:26 by Eleni Bradley) Mother Arthritis Cancer Brother Diabetes Kidney disease Grandmother Diabetes Grandfather Heart disease Cancer, Heart Disease Paternal Family History: Family History (Last Reviewed 01/13/18 @ 09:26 by Eleni Bradley) Mother Arthritis Cancer Brother Diabetes Kidney disease Grandmother Diabetes Grandfather Heart disease Heart Disease Smoking Status: Current every day smoker Review of Systems Constitutional: Denies: Anorexia, Chills, Fever Eyes: Denies: Blurred vision, Pain HEENT: Denies: Difficulty Hearing, Difficulty Swallowing Cardiovascular: Denies: Chest Pain, Chest Tightness Respiratory: Denies: Hemoptysis Gastrointestinal: Denies: Abdominal Pain, Hematemesis, Vomiting Skin: Denies: Jaundice - Physical Exam Vital Signs Temp Pulse Resp BP 98 F 81 16 160/87 H 05/22/18 10:23 05/22/18 10:23 05/22/18 10:23 05/22/18 10:23 General: Alert, Oriented x3, Cooperative, No apparent distress HEENT: Atraumatic, Normocephalic Oral: Moist Mucosa Neck: Supple Lungs: Normal air movement Abdomen: Non Tender, Obese Extremities: No cyanosis Skin: Ulcer/ Wound Wound Measurements and Assessment WC - Nurse 1 - General Ulcer Measurement Start: 05/22/18 10:20 Freq: Status: Active Protocol: Activity Type Activity Date Activity User E-Sign Co-Sign Detail Recorded Client Recorded Date Recorded By Document 05/22/18 10:23 IN [id number] 05/22/18 10:50 MT 05/22/18 10:23 Wound Center Nurse 1 [Ulcer Assessment] right upper thigh posterior cluster -Current Size (cm) - Length 3 -Current Size (cm) - Width 6 -Current Size (cm) - Depth 2.5 -Total Square Cm 18 -Date of Last Picture (Recall this 05/22/18 field) -Epithelialization None Present -Tunneling Yes -Tunneling Position (O'clock) 3 -Tunneling Distance (cm) 3.5 -Classification - Thickness Full Thickness without Exposed Support Structure -Exudate Type Purulent -Wound Margin Flat & Intact -Granulation Amt Large (67-100%) -Granulation Quality Red -Necrosis Amt Small (1-33%) -Necrotic Tissue Type Adherent Slough -Structure Exposed None/Limited to Skin Breakdown -Texture (Jennifer-wound Skin Appearance) Assessed Induration Localized Edema -Moisture (Jennifer-wound Skin Appearance Assessed ) -Color (Jennifer-wound Skin Appearance) Assessed Erythema -Temperature (Jennifer-wound Skin No Abnormality Appearance) (Pt Warm) -Tenderness on Palpation (Jennifer-wound Yes Skin Appearance) -Ulcer Cleansing Rinsed/ Irrigated with Saline -Foul Odor after Cleansing No -Anesthetic Used 4% Lidocaine Solution WC - Nurse 2 - General Ulcer CM Notes Start: 05/22/18 10:20 Freq: Status: Active Protocol: Activity Type Activity Date Activity User E-Sign Co-Sign Detail Recorded Client Recorded Date Recorded By Document 05/22/18 11:33 MW [id number] 05/22/18 11:44 MW 05/22/18 11:33 Wound Center Nurse 2 [Procedure/Treatment] -Time 11:33 -Correct Patient Yes -Correct Side, Site, Position Yes -Correct Procedure Yes -Procedure Performed Yes -Type of Procedure Debridement -Clinical Debridement Subcutaneous -Post Debridement Size (cm) - Length 1.0 -Post Debridement Size (cm) - Width 2.0 -Post Debridement Size (cm) - Depth 3.2 -Total Square Cm 2.00 -Wound/Ulcer Outcome Not Healed -Ulcer Cleansing Rinsed/ Irrigated with Saline -Foul Odor after Cleansing No -Bioengineered Tissue No -Bleeding Controlled with Pressure -Offloading No -Treatment Response Procedure Tolerated Well [See Physician Procedure note for Specifics] Pain Scale: 0-10 Numeric [Pain] -Is Patient Pain Free? Yes Musculoskeletal: No Muscle Wasting Neurological: Cranial nerves II-XII grossly intact Psych/Mental Status: Normal Affect Debridement Note Post-Debridement Measurements/Treatment WC - Nurse 2 - General Ulcer CM Notes Start: 05/22/18 10:20 Freq: Status: Active Protocol: Activity Type Activity Date Activity User E-Sign Co-Sign Detail Recorded Client Recorded Date Recorded By Document 05/22/18 11:33 MW [id number] 05/22/18 11:44 MW 05/22/18 11:33 Wound Center Nurse 2 right upper thigh posterior cluster -Time 11:33 -Correct Patient Yes -Correct Side, Site, Position Yes -Correct Procedure Yes -Procedure Performed Yes -Type of Procedure Debridement -Clinical Debridement Subcutaneous -Post Debridement Size (cm) - Length 1.0 -Post Debridement Size (cm) - Width 2.0 -Post Debridement Size (cm) - Depth 3.2 -Total Square Cm 2.00 -Wound/Ulcer Outcome Not Healed -Ulcer Cleansing Rinsed/ Irrigated with Saline -Foul Odor after Cleansing No -Bioengineered Tissue No -Bleeding Controlled with Pressure -Offloading No -Treatment Response Procedure Tolerated Well Pain Scale: 0-10 Numeric Is Patient Pain Free? Yes Wound debrided: Right buttock/upper thigh. Wound Grade/Stage: Stage III Type of Debridement: Excisional debridement Anesthesia Used: 4% Lidocaine Solution Depth: Down to and including healthy tissue, in the subcutaneous layer Percentage of wound debrided: 100 Instrument Used: 5mm curette, #15 blade Tissue Removed: Slough and devitalized tissue Severity: Fat Layer Exposed Amount of bleeding with debridement: Moderate Bleeding Controlled with: Pressure Assessment/Plan Active Problems (Last Reviewed 01/13/18 @ 09:26 by Eleni Bradley) Abscess of right buttock (Acute) Diabetic ulcer of right buttock (Acute) Type 2 diabetes mellitus (Chronic) Morbid obesity with BMI of 50.0-59.9, adult (Chronic) Assessment: Ulcerated abscess. Nonhealing. Poorly controlled diabetes mellitus and tobacco abuse. Morbid obesity with limited ambulation. Plan: Tender fluctuant swelling with a mixture of purulent and bloody drainage. Debridement done as documented above. Procedure was well-tolerated. A 0.2cm additional incision made and more drainage expressed. Immediate relief expressed by patient. Augmentin and doxycycline to cover for possible organisms. Aquacel silver rope. Pack daily to twice daily depending on drainage. ABD overtop. Avoid prolonged sitting or laying. Reposition often. Pressure relief also recommended. Due to significant depth and drainage, I believe he will benefit from a snap VAC. Will check insurance coverage. To bacco cessation very strongly encouraged. Optimal blood sugar control also recommended. Increased protein intake. All his questions were answered and he was advised to call with any further questions or concerns. Follow-up in 1 week. This note was generated with [email or web address] dictation software. It may contain incorrect words, spelling, and punctuation that were not noted in checking the note before signing.
--- NOTE | 2018-05-29 12:06 | PCM.WC.PN ---
(1) Abscess of right buttock Status: Acute Current Visit: Yes Code(s): L02.31 - Cutaneous abscess of buttock (2) Diabetic ulcer of right buttock Status: Acute Current Visit: Yes Code(s): E11.622 - Type 2 diabetes mellitus with other skin ulcer; L98.419 - Non-pressure chronic ulcer of buttock with unspecified severity (3) Morbid obesity with BMI of 50.0-59.9, adult Status: Chronic Current Visit: Yes Code(s): E66.01 - Morbid (severe) obesity due to excess calories; Z68.43 - Body mass index (BMI) 50-59.9, adult (4) Nicotine abuse Status: Chronic Current Visit: No Code(s): Z72.0 - Tobacco use (5) Type 2 diabetes mellitus Status: Chronic Current Visit: Yes Code(s): E11.9 - Type 2 diabetes mellitus without complications Type of Wound Chief Complaint: Nonhealing right buttock/upper thigh ulcerated abscess. History of Wound: Mr. Flowers is a 67-year-old with past medical history of poorly controlled diabetes mellitus, tobacco abuse amongst others who presented to the wound center due to nonhealing ulceration/swelling in his right buttock/upper thigh. Initially noted 3 weeks ago and has been receiving wound care at his assisted living. He is unsure what exactly has been done but states that it has been dressed 2-3 times daily due to drainage. Reports pain around the area. He denies chills, fever or otherwise feeling of unwell. Progress of Wound: Inproving. No new concerns at this time. - Physical Exam Vital Signs Temp Pulse Resp BP 98 F 81 16 160/87 H 05/22/18 10:23 05/22/18 10:23 05/22/18 10:23 05/22/18 10:23 General: Alert, Oriented x3, Cooperative, No apparent distress HEENT: Atraumatic, Normocephalic Oral: Moist Mucosa Neck: Supple Lungs: Normal air movement Abdomen: Non Tender Extremities: No cyanosis Skin: Ulcer/ Wound Wound Measurements and Assessment WC - Nurse 1 - General Ulcer Measurement Start: 05/22/18 10:20 Freq: Status: Active Protocol: Activity Type Activity Date Activity User E-Sign Co-Sign Detail Recorded Client Recorded Date Recorded By Document 05/29/18 09:58 [facility] [id number] 05/29/18 10:09 [facility] 05/29/18 09:58 Wound Center Nurse 1 [Ulcer Assessment] #1- right upper thigh posterior cluster -Combined with other wound No -Current Size (cm) - Length 0.8 -Current Size (cm) - Width 1.4 -Current Size (cm) - Depth 3.5 -Total Square Cm 1.12 -Photo Taken No -Epithelialization None Present -Tunneling No -Undermining/Tunneling No -Circular Undermining No -Exudate Amt Small -Exudate Type Serosanguineous -Wound Margin Distinct, Outline Attached -Granulation Amt Medium (34-66%) -Granulation Quality [place] -Slough/Fibrin Yes -Necrosis Amt Small (1-33%) -Necrotic Tissue Type Adherent Slough -Texture (Jennifer-wound Skin Appearance) Scarring -Moisture (Jennifer-wound Skin Appearance Assessed ) -Color (Jennifer-wound Skin Appearance) Assessed -Temperature (Jennifer-wound Skin No Abnormality Appearance) (Pt Warm) -Tenderness on Palpation (Jennifer-wound No Skin Appearance) -Ulcer Cleansing Wound Cleanser -Foul Odor after Cleansing No -Anesthetic Used 4% Lidocaine Solution WC - Nurse 2 - General Ulcer CM Notes Start: 05/22/18 10:20 Freq: Status: Active Protocol: Activity Type Activity Date Activity User E-Sign Co-Sign Detail Recorded Client Recorded Date Recorded By Document 05/29/18 10:30 MW [id number] 05/29/18 10:43 MW 05/29/18 10:30 Wound Center Nurse 2 [Procedure/Treatment] -Time 10:31 -Correct Patient Yes -Correct Side, Site, Position Yes -Correct Procedure Yes -Procedure Performed Yes -Type of Procedure Debridement -Clinical Debridement Subcutaneous -Post Debridement Size (cm) - Length 0.6 -Post Debridement Size (cm) - Width 1.3 -Post Debridement Size (cm) - Depth 1.9 -Total Square Cm 0.78 -Wound/Ulcer Outcome Not Healed -Ulcer Cleansing Rinsed/ Irrigated with Saline -Foul Odor after Cleansing No -Bioengineered Tissue No -Bleeding Controlled with Pressure -Offloading No -Treatment Response Procedure Tolerated Well [See Physician Procedure note for Specifics] Pain Scale: 0-10 Numeric [Pain] -Is Patient Pain Free? Yes Musculoskeletal: No Muscle Wasting Neurological: Cranial nerves II-XII grossly intact Psych/Mental Status: Normal Affect Debridement Note Post-Debridement Measurements/Treatment WC - Nurse 2 - General Ulcer CM Notes Start: 05/22/18 10:20 Freq: Status: Active Protocol: Activity Type Activity Date Activity User E-Sign Co-Sign Detail Recorded Client Recorded Date Recorded By Document 05/22/18 11:33 MW [id number] 05/22/18 11:44 MW Document 05/29/18 10:30 MW [id number] 05/29/18 10:43 MW 05/22/18 05/29/18 11:33 10:30 Wound Center Nurse 2 #1- right upper thigh posterior cluster -Time 11:33 10:31 -Correct Patient Yes Yes -Correct Side, Site, Position Yes Yes -Correct Procedure Yes Yes -Procedure Performed Yes Yes -Type of Procedure Debridement Debridement -Clinical Debridement Subcutaneous Subcutaneous -Post Debridement Size (cm) - Length 1.0 0.6 -Post Debridement Size (cm) - Width 2.0 1.3 -Post Debridement Size (cm) - Depth 3.2 1.9 -Total Square Cm 2.00 0.78 -Wound/Ulcer Outcome Not Healed Not Healed -Ulcer Cleansing Rinsed/ Rinsed/ Irrigated with Irrigated with Saline Saline -Foul Odor after Cleansing No No -Bioengineered Tissue No No -Bleeding Controlled with Pressure Pressure -Offloading No No -Treatment Response Procedure Procedure Tolerated Well Tolerated Well Pain Scale: 0-10 Numeric Is Patient Pain Free? Yes Yes Wound debrided: Right buttick/ Upper thigh Wound Grade/Stage: Stage III Type of Debridement: Excisional debridement Anesthesia Used: 4% Lidocaine Solution Depth: Down to and including healthy tissue, in the subcutaneous layer Percentage of wound debrided: 90 Instrument Used: 5mm curette Tissue Removed: Slough and devitalized tissue Severity: Fat Layer Exposed Amount of bleeding with debridement: Mild Bleeding Controlled with: Pressure Patient tolerated procedure well Assessment/Plan Active Problems (Last Reviewed 01/13/18 @ 09:26 by Eleni Bradley) Abscess of right buttock (Acute) Diabetic ulcer of right buttock (Acute) Type 2 diabetes mellitus (Chronic) Morbid obesity with BMI of 50.0-59.9, adult (Chronic) Assessment: Ulcerated abscess. Nonhealing. Poorly controlled diabetes mellitus and tobacco abuse. Morbid obesity with limited ambulation. Plan: Improving. Debridement done as documented above. Procedure was well-tolerated. Continue Aquacel silver rope. Pack daily to twice daily depending on drainage. ABD overtop. Avoid prolonged sitting or laying. Reposition often. Pressure relief also recommended. Due to significant depth and drainage, I believe he will benefit from a snap VAC. However, he seems to be impoving so will waiyt another wek and reasses. Will check insurance coverage. Aquacel over medial skin break down. Tobacco cessation very strongly encouraged. Optimal blood sugar control also recommended. Increased protein intake. All his questions were answered and he was advised to call with any further questions or concerns. Follow-up in 1 week. This note was generated with [employer] dictation software. It may contain incorrect words, spelling, and punctuation that were not noted in checking the note before signing.
--- NOTE | 2018-05-29 12:11 | PN.PCM_ITS ---
(1) Abscess of right buttock Status: Acute Current Visit: Yes Code(s): L02.31 - Cutaneous abscess of buttock (2) Diabetic ulcer of right buttock Status: Acute Current Visit: Yes Code(s): E11.622 - Type 2 diabetes mellitus with other skin ulcer; L98.419 - Non-pressure chronic ulcer of buttock with unspecified severity (3) Morbid obesity with BMI of 50.0-59.9, adult Status: Chronic Current Visit: Yes Code(s): E66.01 - Morbid (severe) obesity due to excess calories; Z68.43 - Body mass index (BMI) 50-59.9, adult (4) Nicotine abuse Status: Chronic Current Visit: No Code(s): Z72.0 - Tobacco use (5) Type 2 diabetes mellitus Status: Chronic Current Visit: Yes Code(s): E11.9 - Type 2 diabetes mellitus without complications Type of Wound Chief Complaint: Nonhealing right buttock/upper thigh ulcerated abscess. History of Wound: Mr. Flowers is a 67-year-old with past medical history of poorly controlled diabetes mellitus, tobacco abuse amongst others who presented to the wound center due to nonhealing ulceration/swelling in his right butt ock/upper thigh. Initially noted 3 weeks ago and has been receiving wound care at his assisted living. He is unsure what exactly has been done but states that it has been dressed 2-3 times daily due to drainage. Reports pain around the area. He denies chills, fever or otherwise feeling of unwell. Progress of Wound: Inproving. No new concerns at this time. - Physical Exam Vital Signs Temp Pulse Resp BP 98 F 81 16 160/87 H 05/22/18 10:23 05/22/18 10:23 05/22/18 10:23 05/22/18 10:23 General: Alert, Oriented x3, Cooperative, No apparent distress HEENT: Atraumatic, Normocephalic Oral: Moist Mucosa Neck: Supple Lungs: Normal air movement Abdomen: Non Tender Extremities: No cyanosis Skin: Ulcer/ Wound Wound Measurements and Assessment WC - Nurse 1 - General Ulcer Measurement Start: 05/22/18 10:20 Freq: Status: Active Protocol: Activity Type Activity Date Activity User E-Sign Co-Sign Detail Recorded Client Recorded Date Recorded By Document 05/29/18 09:58 [facility] [id number] 05/29/18 10:09 [facility] 05/29/18 09:58 Wound Center Nurse 1 [Ulcer Assessment] #1- right upper thigh posterior cluster -Combined with other wound No -Current Size (cm) - Length 0.8 -Current Size (cm) - Width 1.4 -Current Size (cm) - Depth 3.5 -Total Square Cm 1.12 -Photo Taken No -Epithelialization None Present -Tunneling No -Undermining/Tunneling No -Circular Undermining No -Exudate Amt Small -Exudate Type Serosanguineous -Wound Margin Distinct, Outline Attached -Granulation Amt Medium (34-66%) -Granulation Quality [place] -Slough/Fibrin Yes -Necrosis Amt Small (1-33%) -Necrotic Tissue Type Adherent Slough -Texture (Jennifer-wound Skin Appearance) Scarring -Moisture (Jennifer-wound Skin Appearance Assessed ) -Color (Jennifer-wound Skin Appearance) Assessed -Temperature (Jennifer-wound Skin No Abnormality Appearance) (Pt Warm) -Tenderness on Palpation (Jennifer-wound No Skin Appearance) -Ulcer Cleansing Wound Cleanser -Foul Odor after Cleansing No -Anesthetic Used 4% Lidocaine Solution WC - Nurse 2 - General Ulcer CM Notes Start: 05/22/18 10:20 Freq: Status: Active Protocol: Activity Type Activity Date Activity User E-Sign Co-Sign Detail Recorded Client Recorded Date Recorded By Document 05/29/18 10:30 MW [id number] 05/29/18 10:43 MW 05/29/18 10:30 Wound Center Nurse 2 [Procedure/Treatment] -Time 10:31 -Correct Patient Yes -Correct Side, Site, Position Yes -Correct Procedure Yes -Procedure Performed Yes -Type of Procedure Debridement -Clinical Debridement Subcutaneous -Post Debridement Size (cm) - Length 0.6 -Post Debridement Size (cm) - Width 1.3 -Post Debridement Size (cm) - Depth 1.9 -Total Square Cm 0.78 -Wound/Ulcer Outcome Not Healed -Ulcer Cleansing Rinsed/ Irrigated with Saline -Foul Odor after Cleansing No -Bioengineered Tissue No -Bleeding Controlled with Pressure -Offloading No -Treatment Response Procedure Tolerated Well [See Physician Procedure note for Specifics] Pain Scale: 0-10 Numeric [Pain] -Is Patient Pain Free? Yes Musculoskeletal: No Muscle Wasting Neurological: Cranial nerves II-XII grossly intact Psych/Mental Status: Normal Affect Debridement Note Post-Debridement Measurements/Treatment WC - Nurse 2 - General Ulcer CM Notes Start: 05/22/18 10:20 Freq: Status: Active Protocol: Activity Type Activity Date Activity User E-Sign Co-Sign Detail Recorded Client Recorded Date Recorded By Document 05/22/18 11:33 MW [id number] 05/22/18 11:44 MW Document 05/29/18 10:30 MW [id number] 05/29/18 10:43 MW 05/22/18 05/29/18 11:33 10:30 Wound Center Nurse 2 #1- right upper thigh posterior cluster -Time 11:33 10:31 -Correct Patient Yes Yes -Correct Side, Site, Position Yes Yes -Correct Procedure Yes Yes -Procedure Performed Yes Yes -Type of Procedure Debridement Debridement -Clinical Debridement Subcutaneous Subcutaneous -Post Debridement Size (cm) - Length 1.0 0.6 -Post Debridement Size (cm) - Width 2.0 1.3 -Post Debridement Size (cm) - Depth 3.2 1.9 -Total Square Cm 2.00 0.78 -Wound/Ulcer Outcome Not Healed Not Healed -Ulcer Cleansing Rinsed/ Rinsed/ Irrigated with Irrigated with Saline Saline -Foul Odor after Cleansing No No -Bioengineered Tissue No No -Bleeding Controlled with Pressure Pressure -Offloading No No -Treatment Response Procedure Procedure Tolerated Well Tolerated Well Pain Scale: 0-10 Numeric Is Patient Pain Free? Yes Yes Wound debrided: Right buttick/ Upper thigh Wound Grade/Stage: Stage III Type of Debridement: Excisional debridement Anesthesia Used: 4% Lidocaine Solution Depth: Down to and including healthy tissue, in the subcutaneous layer Percentage of wound debrided: 90 Instrument Used: 5mm curette Tissue Removed: Slough and devitalized tissue Severity: Fat Layer Exposed Amount of bleeding with debridement: Mild Bleeding Controlled with: Pressure Patient tolerated procedure well Assessment/Plan Active Problems (Last Reviewed 01/13/18 @ 09:26 by Eleni Bradley) Abscess of right buttock (Acute) Diabetic ulcer of right buttock (Acute) Type 2 diabetes mellitus (Chronic) Morbid obesity with BMI of 50.0-59.9, adult (Chronic) Assessment: Ulcerated abscess. Nonhealing. Poorly controlled diabetes mellitus and tobacco abuse. Morbid obesity with limited ambulation. Plan: Improving. Debridement done as documented above. Procedure was well- tolerated. Continue Aquacel silver rope. Pack daily to twice daily depending on drainage. ABD overtop. Avoid prolonged sitting or laying. Reposition often. Pressure relief also recommended. Due to significant depth and drainage, I believe he will benefit from a snap VAC. However, he seems to be impoving so will waiyt another wek and reasses. Will check insurance coverage. Aquacel over medial skin break down. Tobacco cessation very strongly encouraged. Optimal blood sugar control also recommended. Increased protein intake. All his questions were answered and he was advised to call with any further questions or concerns. Follow-up in 1 week. This note was generated with [employer] dictation software. It may contain incorrect words, spelling, and punctuation that were not noted in checking the note before signing.
[2018-06-05 10:20] VITALS: BP 158/82; PULSE 80; RESP 18; TEMP 37.2
--- NOTE | 2018-06-05 13:28 | PN.PCM_ITS ---
(1) Abscess of right buttock Status: Acute Current Visit: Yes Code(s): L02.31 - Cutaneous abscess of buttock (2) Diabetic ulcer of right buttock Status: Acute Current Visit: Yes Code(s): E11.622 - Type 2 diabetes mellitus with other skin ulcer; L98.419 - Non-pressure chronic ulcer of buttock with unspecified severity (3) Morbid obesity with BMI of 50.0-59.9, adult Status: Chronic Current Visit: Yes Code(s): E66.01 - Morbid (severe) obesity due to excess calories; Z68.43 - Body mass index (BMI) 50-59.9, adult (4) Nicotine abuse Status: Chronic Current Visit: No Code(s): Z72.0 - Tobacco use (5) Type 2 diabetes mellitus Status: Chronic Current Visit: Yes Code(s): E11.9 - Type 2 diabetes mellitus without complications Type of Wound Chief Complaint: Nonhealing right buttock/upper thigh ulcerated abscess. History of Wound: Mr. Flowers is a 67-year-old with past medical history of poorly controlled diabetes mellitus, tobacco abuse amongst others who presented to the wound center due to nonhealing ulceration/swelling in his right butt ock/upper thigh. Initially noted 3 weeks ago and has been receiving wound care at his assisted living. He is unsure what exactly has been done but states that it has been dressed 2-3 times daily due to drainage. Reports pain around the area. He denies chills, fever or otherwise feeling of unwell. Progress of Wound: Stable. No new concerns at this time. - Physical Exam Vital Signs Temp Pulse Resp BP 98.9 F 80 18 158/82 H 06/05/18 10:20 06/05/18 10:20 06/05/18 10:20 06/05/18 10:20 General: Alert, Oriented x3, Cooperative, No apparent distress HEENT: Atraumatic, Normocephalic Oral: Moist Mucosa Neck: Supple Lungs: Normal air movement Abdomen: Non Tender, Obese Extremities: No cyanosis Skin: Ulcer/ Wound Wound Measurements and Assessment WC - Nurse 1 - General Ulcer Measurement Start: 05/22/18 10:20 Freq: Status: Active Protocol: Activity Type Activity Date Activity User E-Sign Co-Sign Detail Recorded Client Recorded Date Recorded By Document 06/05/18 10:20 MT [id number] 06/05/18 10:26 ID 06/05/18 10:20 Wound Center Nurse 1 [Ulcer Assessment] #1- right upper thigh posterior cluster -Combined with other wound No -Current Size (cm) - Length 0.5 -Current Size (cm) - Width 1.0 -Current Size (cm) - Depth 2.5 -Total Square Cm 0.50 -Photo Taken No -Tunneling No -Undermining/Tunneling No -Circular Undermining No -Exudate Amt Medium -Exudate Type Serosanguineous -Wound Margin Thickened & Rolled Under -Granulation Amt Large (67-100%) -Granulation Quality [place] -Slough/Fibrin No -Texture (Jennifer-wound Skin Appearance) Assessed -Moisture (Jennifer-wound Skin Appearance Assessed ) Maceration -Color (Jennifer-wound Skin Appearance) Assessed -Temperature (Jennifer-wound Skin No Abnormality Appearance) (Pt Warm) -Tenderness on Palpation (Jennifer-wound No Skin Appearance) -Ulcer Cleansing Rinsed/ Irrigated with Saline -Foul Odor after Cleansing No -Anesthetic Used 5% Lidocaine Gel WC - Nurse 2 - General Ulcer CM Notes Start: 05/22/18 10:20 Freq: Status: Active Protocol: Activity Type Activity Date Activity User E-Sign Co-Sign Detail Recorded Client Recorded Date Recorded By Document 06/05/18 10:47 MW [id number] 06/05/18 10:53 MW 06/05/18 10:47 Wound Center Nurse 2 [Procedure/Treatment] -Time 10:47 -Correct Patient Yes -Correct Side, Site, Position Yes -Correct Procedure Yes -Procedure Performed Yes -Type of Procedure Debridement -Clinical Debridement Subcutaneous -Post Debridement Size (cm) - Length 0.4 -Post Debridement Size (cm) - Width 1.2 -Post Debridement Size (cm) - Depth 2.3 -Total Square Cm 0.48 -Wound/Ulcer Outcome Not Healed -Ulcer Cleansing Rinsed/ Irrigated with Saline -Foul Odor after Cleansing No -Bioengineered Tissue No -Bleeding Controlled with Pressure -Offloading No -Treatment Response Procedure Tolerated Well [See Physician Procedure note for Specifics] Pain Scale: 0-10 Numeric [Pain] -Is Patient Pain Free? Yes Musculoskeletal: No Muscle Wasting Neurological: Cranial nerves II-XII grossly intact Psych/Mental Status: Normal Affect Debridement Note Post-Debridement Measurements/Treatment WC - Nurse 2 - General Ulcer CM Notes Start: 05/22/18 10:20 Freq: Status: Active Protocol: Activity Type Activity Date Activity User E-Sign Co-Sign Detail Recorded Client Recorded Date Recorded By Document 05/22/18 11:33 MW [id number] 05/22/18 11:44 MW Document 05/29/18 10:30 MW [id number] 05/29/18 10:43 MW Document 06/05/18 10:47 MW [id number] 06/05/18 10:53 MW 05/22/18 05/29/18 06/05/18 11:33 10:30 10:47 Wound Center Nurse 2 #1- right upper thigh posterior cluster -Time 11:33 10:31 10:47 -Correct Patient Yes Yes Yes -Correct Side, Site, Position Yes Yes Yes -Correct Procedure Yes Yes Yes -Procedure Performed Yes Yes Yes -Type of Procedure Debridement Debridement Debridement -Clinical Debridement Subcutaneous Subcutaneous Subcutaneous -Post Debridement Size (cm) - Length 1.0 0.6 0.4 -Post Debridement Size (cm) - Width 2.0 1.3 1.2 -Post Debridement Size (cm) - Depth 3.2 1.9 2.3 -Total Square Cm 2.00 0.78 0.48 -Wound/Ulcer Outcome Not Healed Not Healed Not Healed -Ulcer Cleansing Rinsed/ Rinsed/ Rinsed/ Irrigated with Irrigated with Irrigated with Saline Saline Saline -Foul Odor after Cleansing No No No -Bioengineered Tissue No No No -Bleeding Controlled with Pressure Pressure Pressure -Offloading No No No -Treatment Response Procedure Procedure Procedure Tolerated Well Tolerated Well Tolerated Well Pain Scale: 0-10 Numeric Is Patient Pain Free? Yes Yes Yes Wound debrided: Right buttock Wound Grade/Stage: Stage II Type of Debridement: Excisional debridement Anesthesia Used: 4% Lidocaine Solution Depth: Down to and including healthy tissue, in the subcutaneous layer Percentage of wound debrided: 100 Instrument Used: 3mm curette Tissue Removed: Devitalized tissue Severity: Fat Layer Exposed Amount of bleeding with debridement: Mild Bleeding Controlled with: Pressure Patient tolerated procedure well Assessment/Plan Active Problems (Last Reviewed 01/13/18 @ 09:26 by Eleni Bradley) Abscess of right buttock (Acute) Diabetic ulcer of right buttock (Acute) Type 2 diabetes mellitus (Chronic) Morbid obesity with BMI of 50.0-59.9, adult (Chronic) Assessment: Ulcerated abscess. Nonhealing. Poorly controlled diabetes mellitus and tobacco abuse. Morbid obesity with limited ambulation. Plan: Stable. Debridement done as documented above. Procedure was well- tolerated. Switch to Promogran with Adaptic over top. Pack daily to twice daily depending on drainage. ABD overtop. Avoid prolonged sitting or laying. Reposition often. Pressure relief also recommended. Due to significant depth and drainage, I believe he will benefit from a snap VAC. However, patient is not open to this. Tobacco cessation very strongly encouraged. Optimal blood sugar control also recommended. Increased protein intake. All his questions were answered and he was advised to call with any further questions or concerns. Follow-up in 1 week. This note was generated with [employer] dictation software. It may contain incorrect words, spelling, and punctuation that were not noted in checking the note before signing.
[2018-06-12 10:12] VITALS: BP 142/73; PULSE 80; RESP 18; TEMP 37.1
--- NOTE | 2018-06-12 10:20 | WC ---
pt states abrasion of skin on Rbuttock from tape. Pt states it happened a couple weeks ago
--- NOTE | 2018-06-12 10:42 | PN.PCM_ITS ---
(1) Abscess of right buttock Status: Acute Current Visit: Yes Code(s): L02.31 - Cutaneous abscess of buttock (2) Diabetic ulcer of right buttock Status: Acute Current Visit: Yes Code(s): E11.622 - Type 2 diabetes mellitus with other skin ulcer; L98.419 - Non-pressure chronic ulcer of buttock with unspecified severity (3) Morbid obesity with BMI of 50.0-59.9, adult Status: Chronic Current Visit: Yes Code(s): E66.01 - Morbid (severe) obesity due to excess calories; Z68.43 - Body mass index (BMI) 50-59.9, adult (4) Nicotine abuse Status: Chronic Current Visit: No Code(s): Z72.0 - Tobacco use (5) Type 2 diabetes mellitus Status: Chronic Current Visit: Yes Code(s): E11.9 - Type 2 diabetes mellitus without complications Type of Wound Chief Complaint: Nonhealing right buttock/upper thigh ulcerated abscess. History of Wound: Mr. Flowers is a 67-year-old with past medical history of poorly controlled diabetes mellitus, tobacco abuse amongst others who presented to the wound center due to nonhealing ulceration/swelling in his right butt ock/upper thigh. Initially noted 3 weeks ago and has been receiving wound care at his assisted living. He is unsure what exactly has been done but states that it has been dressed 2-3 times daily due to drainage. Reports pain around the area. He denies chills, fever or otherwise feeling of unwell. Progress of Wound: Stable. No new concerns at this time. - Physical Exam Vital Signs Temp Pulse Resp BP 98.7 F 80 18 142/73 H 06/12/18 10:12 06/12/18 10:12 06/12/18 10:12 06/12/18 10:12 General: Alert, Oriented x3, Cooperative, No apparent distress HEENT: Atraumatic, Normocephalic Oral: Moist Mucosa Neck: Supple Lungs: Normal air movement Abdomen: Non Tender, Obese Extremities: No cyanosis Wound Measurements and Assessment WC - Nurse 1 - General Ulcer Measurement Start: 05/22/18 10:20 Freq: Status: Active Protocol: Activity Type Activity Date Activity User E-Sign Co-Sign Detail Recorded Client Recorded Date Recorded By Document 06/12/18 10:12 RB [id number] 06/12/18 10:22 RB 06/12/18 10:12 Wound Center Nurse 1 [Ulcer Assessment] #1- right upper thigh posterior cluster -Combined with other wound No -Current Size (cm) - Length 0.4 -Current Size (cm) - Width 1.2 -Current Size (cm) - Depth 1.8 -Total Square Cm 0.48 -Photo Taken No -Tunneling No -Undermining/Tunneling No -Circular Undermining No -Exudate Amt Small -Exudate Type Serosanguineous -Wound Margin Distinct, Outline Attached -Granulation Amt Medium (34-66%) -Granulation Quality [place] -Slough/Fibrin Yes -Necrosis Amt Small (1-33%) -Necrotic Tissue Type Adherent Slough -Structure Exposed N/A -Texture (Jennifer-wound Skin Appearance) Assessed -Moisture (Jennifer-wound Skin Appearance Assessed ) -Color (Jennifer-wound Skin Appearance) Assessed -Temperature (Jennifer-wound Skin No Abnormality Appearance) (Pt Warm) -Tenderness on Palpation (Jennifer-wound No Skin Appearance) -Ulcer Cleansing Rinsed/ Irrigated with Saline -Foul Odor after Cleansing No -Anesthetic Used 5% Lidocaine Gel 06/12/18 10:20 Wound Center by Susi Espana pt states abrasion of skin on Rbuttock from tape. Pt states it happened a couple weeks ago Initialized on 06/12/18 10:20 - END OF NOTE WC - Nurse 2 - General Ulcer CM Notes Start: 05/22/18 10:20 Freq: Status: Active Protocol: Activity Type Activity Date Activity User E-Sign Co-Sign Detail Recorded Client Recorded Date Recorded By Document 06/12/18 10:36 MW [id number] 06/12/18 10:38 MW 06/12/18 10:36 Wound Center Nurse 2 [Procedure/Treatment] -Time 10:36 -Correct Patient Yes -Correct Side, Site, Position Yes -Correct Procedure Yes -Procedure Performed Yes -Type of Procedure Debridement -Clinical Debridement Subcutaneous -Post Debridement Size (cm) - Length 0.4 -Post Debridement Size (cm) - Width 9.0 -Post Debridement Size (cm) - Depth 1.0 -Total Square Cm 3.60 -Wound/Ulcer Outcome Not Healed -Ulcer Cleansing Rinsed/ Irrigated with Saline -Foul Odor after Cleansing No -Bioengineered Tissue No -Bleeding Controlled with Pressure -Offloading No -Treatment Response Procedure Tolerated Well [See Physician Procedure note for Specifics] Pain Scale: 0-10 Numeric [Pain] -Is Patient Pain Free? Yes Musculoskeletal: No Muscle Wasting Neurological: Cranial nerves II-XII grossly intact Psych/Mental Status: Normal Affect Debridement Note Post-Debridement Measurements/Treatment WC - Nurse 2 - General Ulcer CM Notes Start: 05/22/18 10:20 Freq: Status: Active Protocol: Activity Type Activity Date Activity User E-Sign Co-Sign Detail Recorded Client Recorded Date Recorded By Document 05/22/18 11:33 MW [id number] 05/22/18 11:44 MW Document 05/29/18 10:30 MW [id number] 05/29/18 10:43 MW Document 06/05/18 10:47 MW [id number] 06/05/18 10:53 MW Document 06/12/18 10:36 MW [id number] 06/12/18 10:38 MW 05/22/18 05/29/18 06/05/18 11:33 10:30 10:47 Wound Center Nurse 2 #1- right upper thigh posterior cluster -Time 11:33 10:31 10:47 -Correct Patient Yes Yes Yes -Correct Side, Site, Position Yes Yes Yes -Correct Procedure Yes Yes Yes -Procedure Performed Yes Yes Yes -Type of Procedure Debridement Debridement Debridement -Clinical Debridement Subcutaneous Subcutaneous Subcutaneous -Post Debridement Size (cm) - Length 1.0 0.6 0.4 -Post Debridement Size (cm) - Width 2.0 1.3 1.2 -Post Debridement Size (cm) - Depth 3.2 1.9 2.3 -Total Square Cm 2.00 0.78 0.48 -Wound/Ulcer Outcome Not Healed Not Healed Not Healed -Ulcer Cleansing Rinsed/ Rinsed/ Rinsed/ Irrigated with Irrigated with Irrigated with Saline Saline Saline -Foul Odor after Cleansing No No No -Bioengineered Tissue No No No -Bleeding Controlled with Pressure Pressure Pressure -Offloading No No No -Treatment Response Procedure Procedure Procedure Tolerated Well Tolerated Well Tolerated Well Pain Scale: 0-10 Numeric Is Patient Pain Free? Yes Yes Yes 06/12/18 10:36 Wound Center Nurse 2 #1- right upper thigh posterior cluster -Time 10:36 -Correct Patient Yes -Correct Side, Site, Position Yes -Correct Procedure Yes -Procedure Performed Yes -Type of Procedure Debridement -Clinical Debridement Subcutaneous -Post Debridement Size (cm) - Length 0.4 -Post Debridement Size (cm) - Width 9.0 -Post Debridement Size (cm) - Depth 1.0 -Total Square Cm 3.60 -Wound/Ulcer Outcome Not Healed -Ulcer Cleansing Rinsed/ Irrigated with Saline -Foul Odor after Cleansing No -Bioengineered Tissue No -Bleeding Controlled with Pressure -Offloading No -Treatment Response Procedure Tolerated Well Pain Scale: 0-10 Numeric Is Patient Pain Free? Yes Wound debrided: Right buttock/Upper thigh Wound Grade/Stage: Stage III Type of Debridement: Excisional debridement Anesthesia Used: 4% Lidocaine Solution Depth: Down to and including healthy tissue, in the subcutaneous layer Percentage of wound debrided: 100 Instrument Used: 3mm curette Tissue Removed: Slough and devitalized tissue Severity: Fat Layer Exposed Amount of bleeding with debridement: Mild Bleeding Controlled with: Pressure Patient tolerated procedure well Assessment/Plan Active Problems (Last Reviewed 01/13/18 @ 09:26 by Eleni Bradley) Abscess of right buttock (Acute) Diabetic ulcer of right buttock (Acute) Type 2 diabetes mellitus (Chronic) Morbid obesity with BMI of 50.0-59.9, adult (Chronic) Assessment: Ulcerated abscess. Nonhealing. Poorly controlled diabetes mellitus and tobacco abuse. Morbid obesity with limited ambulation. Plan: Improving. No new cocnerns at this time. Debridement done as documented above. Procedure was well-tolerated. Continue Promogran with Adaptic over top. Pack daily to twice daily depending on drainage. ABD overtop. Avoid prolonged sitting or laying. Reposition often. Pressure relief also recommended. Tobacco cessation very strongly encouraged. Optimal blood sugar control also recommended. Increased protein intake. All his questions were answered and he was advised to call with any further questions or concerns. Follow-up in 2 weeks per patient preference. This note was generated with [facility] [employer] [facility] dictation software. It may contain incorrect words, spelling, and punctuation that were not noted in checking the note before signing.
== END 2018-06-17 23:59 ==
LOC: WC 09:30
PROVIDERS: Visit Provider Internal Medicine
DX: E11.622 Type 2 diabetes mellitus with other skin ulcer (principal); L02.31 Cutaneous abscess of buttock; L98.412 Non-pressure chronic ulcer of buttock with fat layer exposed; E66.01 Morbid (severe) obesity due to excess calories; Z71.3 Dietary counseling and surveillance; Z68.43 Body mass index [BMI] 50.0-59.9, adult; E11.65 Type 2 diabetes mellitus with hyperglycemia; E78.5 Hyperlipidemia, unspecified; I10 Essential (primary) hypertension; I48.2 Chronic atrial fibrillation; J44.9 Chronic obstructive pulmonary disease, unspecified; Z95.810 Presence of automatic (implantable) cardiac defibrillator; F17.200 Nicotine dependence, unspecified, uncomplicated
CPT/HCPCS: 11042; 99213; G0463

== ENCOUNTER 2018-07-17 09:30 | Outpatient (RCR) | payer MEDICARE, OTHER, MEDICAID, SELFPAY ==
[2017-12-18 19:45] VITALS: BMI 60.0
[2018-06-18 01:44] VITALS: BP 142/73; PULSE 80; RESP 18; TEMP 37.1
[2018-07-03 09:38] VITALS: BP 145/70; PULSE 80; RESP 16; TEMP 37.3; BMI 60.0
--- NOTE | 2018-07-03 14:37 | PCM.WC.PN ---
(1) Skin ulcer Status: Acute Current Visit: Yes Qualifiers: Non-pressure ulcer stage: with fat layer exposed Qualified Code(s): L98.492 - Non-pressure chronic ulcer of skin of other sites with fat layer exposed Code(s): L98.499 - Non-pressure chronic ulcer of skin of other sites with unspecified severity Comment: Right medial buttock (2) Abscess of right buttock Status: Chronic Current Visit: Yes Code(s): L02.31 - Cutaneous abscess of buttock (3) Morbid obesity with BMI of 50.0-59.9, adult Status: Chronic Current Visit: No Code(s): E66.01 - Morbid (severe) obesity due to excess calories; Z68.43 - Body mass index (BMI) 50-59.9, adult (4) Type 2 diabetes mellitus Status: Chronic Current Visit: No Code(s): E11.9 - Type 2 diabetes mellitus without complications Type of Wound Chief Complaint: Nonhealing right buttock/upper thigh ulcerated abscess. History of Wound: Mr. Flowers is a 67-year-old with past medical history of poorly controlled diabetes mellitus, tobacco abuse amongst others who presented to the wound center due to nonhealing ulceration/swelling in his right buttock/upper thigh. Initially noted 3 weeks ago and has been receiving wound care at his assisted living. He is unsure what exactly has been done but states that it has been dressed 2-3 times daily due to drainage. Reports pain around the area. He denies chills, fever or otherwise feeling of unwell. Progress of Wound: Prior abscess/wound with only minimal area left however, patient has a new right medial buttock ulcer which he states was possibly from tape tear however is not very sure. No dressing has been done to this. - Physical Exam Vital Signs Temp Pulse Resp BP 99.1 F 80 16 145/70 H 07/03/18 09:38 07/03/18 09:38 07/03/18 09:38 07/03/18 09:38 General: Alert, Oriented x3, Cooperative, No apparent distress HEENT: Atraumatic, Normocephalic Oral: Moist Mucosa Neck: Supple Abdomen: Non Tender, Obese Extremities: No cyanosis Skin: Ulcer/ Wound Wound Measurements and Assessment WC - Nurse 1 - General Ulcer Measurement Start: 07/03/18 09:38 Freq: Status: Active Protocol: Activity Type Activity Date Activity User E-Sign Co-Sign Detail Recorded Client Recorded Date Recorded By Document 07/03/18 09:38 [facility] [id number] 07/03/18 09:46 [facility] 07/03/18 09:38 Wound Center Nurse 1 [Ulcer Assessment] #1- right upper thigh posterior cluster -Combined with other wound No -Current Size (cm) - Length 0.9 -Current Size (cm) - Width 0.6 -Current Size (cm) - Depth 0.3 -Total Square Cm 0.54 -Date of Last Picture (Recall this 07/03/18 field) -Photo Taken Yes -Epithelialization Small 1-33% -Tunneling No -Undermining/Tunneling No -Circular Undermining No -Exudate Amt Small -Exudate Type Serosanguineous -Wound Margin Distinct, Outline Attached -Granulation Amt Large (67-100%) -Granulation Quality Red -Slough/Fibrin Yes -Necrosis Amt Small (1-33%) -Necrotic Tissue Type Adherent Slough -Texture (Jennifer-wound Skin Appearance) Assessed Scarring -Moisture (Jennifer-wound Skin Appearance Assessed ) Dry/Scaly -Color (Jennifer-wound Skin Appearance) Assessed -Temperature (Jennifer-wound Skin No Abnormality Appearance) (Pt Warm) -Tenderness on Palpation (Jennifer-wound No Skin Appearance) -Ulcer Cleansing Rinsed/ Irrigated with Saline -Foul Odor after Cleansing No -Anesthetic Used 5% Lidocaine Gel WC - Nurse 2 - General Ulcer CM Notes Start: 07/03/18 09:38 Freq: Status: Active Protocol: Activity Type Activity Date Activity User E-Sign Co-Sign Detail Recorded Client Recorded Date Recorded By Document 07/03/18 10:17 [id number] 07/03/18 10:24 MW 07/03/18 10:17 Wound Center Nurse 2 [Procedure/Treatment] #2 right medial buttocks -Time 10:22 -Correct Patient Yes -Correct Side, Site, Position Yes -Correct Procedure Yes -Procedure Performed Yes -Type of Procedure Debridement -Clinical Debridement Subcutaneous -Post Debridement Size (cm) - Length 1.0 -Post Debridement Size (cm) - Width 0.6 -Post Debridement Size (cm) - Depth 0.3 -Total Square Cm 0.60 -Wound/Ulcer Outcome Not Healed -Ulcer Cleansing Rinsed/ Irrigated with Saline -Foul Odor after Cleansing No -Bioengineered Tissue No -Bleeding Controlled with Pressure -Offloading No -Treatment Response Procedure Tolerated Well #1- right upper thigh posterior cluster -Time 10:18 -Correct Patient Yes -Correct Side, Site, Position Yes -Correct Procedure Yes -Procedure Performed No -Post Debridement Size (cm) - Length 0.1 -Post Debridement Size (cm) - Width 0.1 -Post Debridement Size (cm) - Depth 0.1 -Total Square Cm 0.01 -Wound/Ulcer Outcome Not Healed -Ulcer Cleansing Rinsed/ Irrigated with Saline -Foul Odor after Cleansing No -Bleeding Controlled with Pressure -Offloading No -Treatment Response Procedure Tolerated Well [See Physician Procedure note for Specifics] Pain Scale: 0-10 Numeric [Pain] -Is Patient Pain Free? Yes Musculoskeletal: No Muscle Wasting Neurological: Cranial nerves II-XII grossly intact Psych/Mental Status: Normal Affect Debridement Note Post-Debridement Measurements/Treatment WC - Nurse 2 - General Ulcer CM Notes Start: 07/03/18 09:38 Freq: Status: Active Protocol: Activity Type Activity Date Activity User E-Sign Co-Sign Detail Recorded Client Recorded Date Recorded By Document 07/03/18 10:17 MW [id number] 07/03/18 10:24 MW 07/03/18 10:17 Wound Center Nurse 2 #2 right medial buttocks -Time 10:22 -Correct Patient Yes -Correct Side, Site, Position Yes -Correct Procedure Yes -Procedure Performed Yes -Type of Procedure Debridement -Clinical Debridement Subcutaneous -Post Debridement Size (cm) - Length 1.0 -Post Debridement Size (cm) - Width 0.6 -Post Debridement Size (cm) - Depth 0.3 -Total Square Cm 0.60 -Wound/Ulcer Outcome Not Healed -Ulcer Cleansing Rinsed/ Irrigated with Saline -Foul Odor after Cleansing No -Bioengineered Tissue No -Bleeding Controlled with Pressure -Offloading No -Treatment Response Procedure Tolerated Well #1- right upper thigh posterior cluster -Time 10:18 -Correct Patient Yes -Correct Side, Site, Position Yes -Correct Procedure Yes -Procedure Performed No -Post Debridement Size (cm) - Length 0.1 -Post Debridement Size (cm) - Width 0.1 -Post Debridement Size (cm) - Depth 0.1 -Total Square Cm 0.01 -Wound/Ulcer Outcome Not Healed -Ulcer Cleansing Rinsed/ Irrigated with Saline -Foul Odor after Cleansing No -Bleeding Controlled with Pressure -Offloading No -Treatment Response Procedure Tolerated Well Pain Scale: 0-10 Numeric Is Patient Pain Free? Yes Wound debrided: Right medial buttock Wound Grade/Stage: Stage II Type of Debridement: Selective debridement Anesthesia Used: 4% Lidocaine Solution Depth: Down to and including healthy tissue Instrument Used: 3mm curette Tissue Removed: Devitalized tissue Severity: Fat Layer Exposed Amount of bleeding with debridement: Mild Bleeding Controlled with: Pressure Patient tolerated procedure well Assessment/Plan Active Problems (Last Reviewed 01/13/18 @ 09:26 by Eleni Bradley) Abscess of right buttock (Chronic) Skin ulcer (Acute) Right medial buttock Assessment: Ulcerated abscess. Nonhealing. Poorly controlled diabetes mellitus and tobacco abuse. Morbid obesity with limited ambulation. Plan: Prior abscess/ulcer with only minimal area left however has a new medial buttock ulcer which he thinks might have been from a tape tear but is not very clear about this. No dressing has been done to this area per patient. Debridement done as documented above. Procedure was well-tolerated. Continue Promogran with Adaptic over top to both. Avoid prolonged sitting or laying. Reposition often. Pressure relief also recommended. Tobacco cessation very strongly encouraged. Optimal blood sugar control also recommended. Increased protein intake. All his questions were answered and he was advised to call with any further questions or concerns. Follow-up in 2 weeks per patient preference. This note was generated with [employer] software. It may contain incorrect words, spelling, and punctuation that were not noted in checking the note before signing.
--- NOTE | 2018-07-03 14:54 | PN.PCM_ITS ---
(1) Skin ulcer Status: Acute Current Visit: Yes Qualifiers: Non-pressure ulcer stage: with fat layer exposed Qualified Code(s): L98.492 - Non-pressure chronic ulcer of skin of other sites with fat layer exposed Code(s): L98.499 - Non-pressure chronic ulcer of skin of other sites with unspecified severity Comment: Right medial buttock (2) Abscess of right buttock Status: Chronic Current Visit: Yes Code(s): L02.31 - Cutaneous abscess of buttock (3) Morbid obesity with BMI of 50.0-59.9, adult Status: Chronic Current Visit: No Code(s): E66.01 - Morbid (severe) obesity due to excess calories; Z68.43 - Body mass index (BMI) 50-59.9, adult (4) Type 2 diabetes mellitus Status: Chronic Current Visit: No Code(s): E11.9 - Type 2 diabetes mellitus without complications Type of Wound Chief Complaint: Nonhealing right buttock/upper thigh ulcerated abscess. History of Wound: Mr. Flowers is a 67-year-old with past medical history of poorly controlled diabetes mellitus, tobacco abuse amongst others who presented to the wound center due to nonhealing ulceration/swelling in his right buttock/upper thigh. Initially noted 3 weeks ago and has been receiving wound care at his assisted living. He is unsure what exactly has been done but states that it has been dressed 2-3 times daily due to drainage. Reports pain around the area. He denies chills, fever or otherwise feeling of unwell. Progress of Wound: Prior abscess/wound with only minimal area left however, patient has a new right medial buttock ulcer which he states was possibly from tape tear however is not very sure. No dressing has been done to this. - Physical Exam Vital Signs Temp Pulse Resp BP 99.1 F 80 16 145/70 H 07/03/18 09:38 07/03/18 09:38 07/03/18 09:38 07/03/18 09:38 General: Alert, Oriented x3, Cooperative, No apparent distress HEENT: Atraumatic, Normocephalic Oral: Moist Mucosa Neck: Supple Abdomen: Non Tender, Obese Extremities: No cyanosis Skin: Ulcer/ Wound Wound Measurements and Assessment WC - Nurse 1 - General Ulcer Measurement Start: 07/03/18 09:38 Freq: Status: Active Protocol: Activity Type Activity Date Activity User E-Sign Co-Sign Detail Recorded Client Recorded Date Recorded By Document 07/03/18 09:38 [facility] [id number] 07/03/18 09:46 [facility] 07/03/18 09:38 Wound Center Nurse 1 [Ulcer Assessment] #1- right upper thigh posterior cluster -Combined with other wound No -Current Size (cm) - Length 0.9 -Current Size (cm) - Width 0.6 -Current Size (cm) - Depth 0.3 -Total Square Cm 0.54 -Date of Last Picture (Recall this 07/03/18 field) -Photo Taken Yes -Epithelialization Small 1-33% -Tunneling No -Undermining/Tunneling No -Circular Undermining No -Exudate Amt Small -Exudate Type Serosanguineous -Wound Margin Distinct, Outline Attached -Granulation Amt Large (67-100%) -Granulation Quality Red -Slough/Fibrin Yes -Necrosis Amt Small (1-33%) -Necrotic Tissue Type Adherent Slough -Texture (Jennifer-wound Skin Appearance) Assessed Scarring -Moisture (Jennifer-wound Skin Appearance Assessed ) Dry/Scaly -Color (Jennifer-wound Skin Appearance) Assessed -Temperature (Jennifer-wound Skin No Abnormality Appearance) (Pt Warm) -Tenderness on Palpation (Jennifer-wound No Skin Appearance) -Ulcer Cleansing Rinsed/ Irrigated with Saline -Foul Odor after Cleansing No -Anesthetic Used 5% Lidocaine Gel WC - Nurse 2 - General Ulcer CM Notes Start: 07/03/18 09:38 Freq: Status: Active Protocol: Activity Type Activity Date Activity User E-Sign Co-Sign Detail Recorded Client Recorded Date Recorded By Document 07/03/18 10:17 [id number] 07/03/18 10:24 MW 07/03/18 10:17 Wound Center Nurse 2 [Procedure/Treatment] #2 right medial buttocks -Time 10:22 -Correct Patient Yes -Correct Side, Site, Position Yes -Correct Procedure Yes -Procedure Performed Yes -Type of Procedure Debridement -Clinical Debridement Subcutaneous -Post Debridement Size (cm) - Length 1.0 -Post Debridement Size (cm) - Width 0.6 -Post Debridement Size (cm) - Depth 0.3 -Total Square Cm 0.60 -Wound/Ulcer Outcome Not Healed -Ulcer Cleansing Rinsed/ Irrigated with Saline -Foul Odor after Cleansing No -Bioengineered Tissue No -Bleeding Controlled with Pressure -Offloading No -Treatment Response Procedure Tolerated Well #1- right upper thigh posterior cluster -Time 10:18 -Correct Patient Yes -Correct Side, Site, Position Yes -Correct Procedure Yes -Procedure Performed No -Post Debridement Size (cm) - Length 0.1 -Post Debridement Size (cm) - Width 0.1 -Post Debridement Size (cm) - Depth 0.1 -Total Square Cm 0.01 -Wound/Ulcer Outcome Not Healed -Ulcer Cleansing Rinsed/ Irrigated with Saline -Foul Odor after Cleansing No -Bleeding Controlled with Pressure -Offloading No -Treatment Response Procedure Tolerated Well [See Physician Procedure note for Specifics] Pain Scale: 0-10 Numeric [Pain] -Is Patient Pain Free? Yes Musculoskeletal: No Muscle Wasting Neurological: Cranial nerves II-XII grossly intact Psych/Mental Status: Normal Affect Debridement Note Post-Debridement Measurements/Treatment WC - Nurse 2 - General Ulcer CM Notes Start: 07/03/18 09:38 Freq: Status: Active Protocol: Activity Type Activity Date Activity User E-Sign Co-Sign Detail Recorded Client Recorded Date Recorded By Document 07/03/18 10:17 MW [id number] 07/03/18 10:24 MW 07/03/18 10:17 Wound Center Nurse 2 #2 right medial buttocks -Time 10:22 -Correct Patient Yes -Correct Side, Site, Position Yes -Correct Procedure Yes -Procedure Performed Yes -Type of Procedure Debridement -Clinical Debridement Subcutaneous -Post Debridement Size (cm) - Length 1.0 -Post Debridement Size (cm) - Width 0.6 -Post Debridement Size (cm) - Depth 0.3 -Total Square Cm 0.60 -Wound/Ulcer Outcome Not Healed -Ulcer Cleansing Rinsed/ Irrigated with Saline -Foul Odor after Cleansing No -Bioengineered Tissue No -Bleeding Controlled with Pressure -Offloading No -Treatment Response Procedure Tolerated Well #1- right upper thigh posterior cluster -Time 10:18 -Correct Patient Yes -Correct Side, Site, Position Yes -Correct Procedure Yes -Procedure Performed No -Post Debridement Size (cm) - Length 0.1 -Post Debridement Size (cm) - Width 0.1 -Post Debridement Size (cm) - Depth 0.1 -Total Square Cm 0.01 -Wound/Ulcer Outcome Not Healed -Ulcer Cleansing Rinsed/ Irrigated with Saline -Foul Odor after Cleansing No -Bleeding Controlled with Pressure -Offloading No -Treatment Response Procedure Tolerated Well Pain Scale: 0-10 Numeric Is Patient Pain Free? Yes Wound debrided: Right medial buttock Wound Grade/Stage: Stage II Type of Debridement: Selective debridement Anesthesia Used: 4% Lidocaine Solution Depth: Down to and including healthy tissue Instrument Used: 3mm curette Tissue Removed: Devitalized tissue Severity: Fat Layer Exposed Amount of bleeding with debridement: Mild Bleeding Controlled with: Pressure Patient tolerated procedure well Assessment/Plan Active Problems (Last Reviewed 01/13/18 @ 09:26 by Eleni Bradley) Abscess of right buttock (Chronic) Skin ulcer (Acute) Right medial buttock Assessment: Ulcerated abscess. Nonhealing. Poorly controlled diabetes mellitus and tobacco abuse. Morbid obesity with limited ambulation. Plan: Prior abscess/ulcer with only minimal area left however has a new medial buttock ulcer which he thinks might have been from a tape tear but is not very clear about this. No dressing has been done to this area per patient. Debridement done as documented above. Procedure was well-tolerated. Continue Promogran with Adaptic over top to both. Avoid prolonged sitting or laying. Reposition often. Pressure relief also recommended. Tobacco cessation very strongly encouraged. Optimal blood sugar control also recommended. Increased protein intake. All his questions were answered and he was advised to call with any further questions or concerns. Follow-up in 2 weeks per patient preference. This note was generated with [employer] software. It may contain incorrect words, spelling, and punctuation that were not noted in checking the note before signing.
[2018-07-17 09:28] VITALS: BP 152/79; PULSE 80; RESP 18; TEMP 36.7; BMI 60.0
--- NOTE | 2018-07-17 10:13 | PCM.WC.PN ---
(1) Skin ulcer Status: Acute Current Visit: Yes Qualifiers: Non-pressure ulcer stage: with fat layer exposed Qualified Code(s): L98.492 - Non-pressure chronic ulcer of skin of other sites with fat layer exposed Code(s): L98.499 - Non-pressure chronic ulcer of skin of other sites with unspecified severity Comment: Right medial buttock (2) Abscess of right buttock Status: Chronic Current Visit: Yes Code(s): L02.31 - Cutaneous abscess of buttock (3) Morbid obesity with BMI of 50.0-59.9, adult Status: Chronic Current Visit: No Code(s): E66.01 - Morbid (severe) obesity due to excess calories; Z68.43 - Body mass index (BMI) 50-59.9, adult (4) Type 2 diabetes mellitus Status: Chronic Current Visit: No Code(s): E11.9 - Type 2 diabetes mellitus without complications Type of Wound Chief Complaint: Nonhealing right buttock/upper thigh ulcerated abscess. History of Wound: Mr. Flowers is a 67-year-old with past medical history of poorly controlled diabetes mellitus, tobacco abuse amongst others who presented to the wound center due to nonhealing ulceration/swelling in his right buttock/upper thigh. Initially noted 3 weeks ago and has been receiving wound care at his assisted living. He is unsure what exactly has been done but states that it has been dressed 2-3 times daily due to drainage. Reports pain around the area. He denies chills, fever or otherwise feeling of unwell. Progress of Wound: Healed. No new concerns at this time. - Physical Exam Vital Signs Temp Pulse Resp BP 98.0 F 80 18 152/79 H 07/17/18 09:28 07/17/18 09:28 07/17/18 09:28 07/17/18 09:28 General: Alert, Oriented x3, Cooperative, No apparent distress HEENT: Atraumatic, Normocephalic Oral: Moist Mucosa Neck: Supple Lungs: Normal air movement Abdomen: Non Tender, Obese Extremities: No cyanosis Wound Measurements and Assessment WC - Nurse 1 - General Ulcer Measurement Start: 07/03/18 09:38 Freq: Status: Active Protocol: Activity Type Activity Date Activity User E-Sign Co-Sign Detail Recorded Client Recorded Date Recorded By Document 07/17/18 09:28 [place] [id number] 07/17/18 09:34 [place] 07/17/18 09:28 Wound Center Nurse 1 [Ulcer Assessment] #2 right medial buttocks -Current Size (cm) - Length 0.1 -Current Size (cm) - Width 0.1 -Current Size (cm) - Depth 0.1 -Total Square Cm 0.01 -Texture (Jennifer-wound Skin Appearance) Assessed -Moisture (Jennifer-wound Skin Appearance Assessed ) -Color (Jennifer-wound Skin Appearance) Assessed Erythema -Temperature (Jennifer-wound Skin No Abnormality Appearance) (Pt Warm) -Tenderness on Palpation (Jennifer-wound No Skin Appearance) -Ulcer Cleansing Rinsed/ Irrigated with Saline -Foul Odor after Cleansing No -Anesthetic Used 4% Lidocaine Solution #1- right upper thigh posterior cluster -Current Size (cm) - Length 0.1 -Current Size (cm) - Width 0.1 -Current Size (cm) - Depth 0.1 -Total Square Cm 0.01 -Texture (Jennifer-wound Skin Appearance) Assessed -Moisture (Jennifer-wound Skin Appearance Assessed ) -Color (Jennifer-wound Skin Appearance) Assessed Erythema -Temperature (Jennifer-wound Skin No Abnormality Appearance) (Pt Warm) -Tenderness on Palpation (Jennifer-wound No Skin Appearance) -Ulcer Cleansing Rinsed/ Irrigated with Saline -Foul Odor after Cleansing No -Anesthetic Used 4% Lidocaine Solution WC - Nurse 2 - General Ulcer CM Notes Start: 07/03/18 09:38 Freq: Status: Active Protocol: Activity Type Activity Date Activity User E-Sign Co-Sign Detail Recorded Client Recorded Date Recorded By Document 07/17/18 10:12 [id number] 07/17/18 10:13 MW 07/17/18 10:12 Wound Center Nurse 2 [Procedure/Treatment] #2 right medial buttocks -Time 10:12 -Correct Patient Yes -Correct Side, Site, Position Yes -Correct Procedure Yes -Procedure Performed No -Post Debridement Size (cm) - Length 0 -Post Debridement Size (cm) - Width 0 -Post Debridement Size (cm) - Depth 0 -Total Square Cm 0 -Wound/Ulcer Outcome Healed- Epithelialized #1- right upper thigh posterior cluster -Time 10:12 -Correct Patient Yes -Correct Side, Site, Position Yes -Correct Procedure Yes -Procedure Performed No -Post Debridement Size (cm) - Length 0 -Post Debridement Size (cm) - Width 0 -Post Debridement Size (cm) - Depth 0 -Total Square Cm 0 -Wound/Ulcer Outcome Healed- Epithelialized [See Physician Procedure note for Specifics] Pain Scale: 0-10 Numeric [Pain] -Is Patient Pain Free? Yes Musculoskeletal: No Muscle Wasting Neurological: Cranial nerves II-XII grossly intact Psych/Mental Status: Normal Affect Debridement Note Post-Debridement Measurements/Treatment WC - Nurse 2 - General Ulcer CM Notes Start: 07/03/18 09:38 Freq: Status: Active Protocol: Activity Type Activity Date Activity User E-Sign Co-Sign Detail Recorded Client Recorded Date Recorded By Document 07/03/18 10:17 MW [id number] 07/03/18 10:24 MW Document 07/17/18 10:12 MW [id number] 07/17/18 10:13 MW 07/03/18 07/17/18 10:17 10:12 Wound Center Nurse 2 #2 right medial buttocks -Time 10:22 10:12 -Correct Patient Yes Yes -Correct Side, Site, Position Yes Yes -Correct Procedure Yes Yes -Procedure Performed Yes No -Type of Procedure Debridement -Clinical Debridement Subcutaneous -Post Debridement Size (cm) - Length 1.0 0 -Post Debridement Size (cm) - Width 0.6 0 -Post Debridement Size (cm) - Depth 0.3 0 -Total Square Cm 0.60 0 -Wound/Ulcer Outcome Not Healed Healed- Epithelialized -Ulcer Cleansing Rinsed/ Irrigated with Saline -Foul Odor after Cleansing No -Bioengineered Tissue No -Bleeding Controlled with Pressure -Offloading No -Treatment Response Procedure Tolerated Well #1- right upper thigh posterior cluster -Time 10:18 10:12 -Correct Patient Yes Yes -Correct Side, Site, Position Yes Yes -Correct Procedure Yes Yes -Procedure Performed No No -Post Debridement Size (cm) - Length 0.1 0 -Post Debridement Size (cm) - Width 0.1 0 -Post Debridement Size (cm) - Depth 0.1 0 -Total Square Cm 0.01 0 -Wound/Ulcer Outcome Not Healed Healed- Epithelialized -Ulcer Cleansing Rinsed/ Irrigated with Saline -Foul Odor after Cleansing No -Bleeding Controlled with Pressure -Offloading No -Treatment Response Procedure Tolerated Well Pain Scale: 0-10 Numeric Is Patient Pain Free? Yes Yes No debridement was completed today Assessment/Plan Active Problems (Last Reviewed 01/13/18 @ 09:26 by Eleni Bradley) Abscess of right buttock (Chronic) Skin ulcer (Acute) Right medial buttock Assessment: Ulcerated abscess. Nonhealing. Poorly controlled diabetes mellitus and tobacco abuse. Morbid obesity with limited ambulation. Plan: Healed. No new concerns at this time. ABD and guaze over right buttock until new scooter due to risk for reinjury and tears. Avoid prolonged sitting or laying. Reposition often. Pressure relief also recommended. Tobacco cessation very strongly encouraged. Optimal blood sugar control also recommended. All his questions were answered and he was advised to call with any further questions or concerns. Discharge from the wound center. This note was generated with [employer] dictation software. It may contain incorrect words, spelling, and punctuation that were not noted in checking the note before signing.
--- NOTE | 2018-07-17 10:18 | PN.PCM_ITS ---
(1) Skin ulcer Status: Acute Current Visit: Yes Qualifiers: Non-pressure ulcer stage: with fat layer exposed Qualified Code(s): L98.492 - Non-pressure chronic ulcer of skin of other sites with fat layer exposed Code(s): L98.499 - Non-pressure chronic ulcer of skin of other sites with unspecified severity Comment: Right medial buttock (2) Abscess of right buttock Status: Chronic Current Visit: Yes Code(s): L02.31 - Cutaneous abscess of buttock (3) Morbid obesity with BMI of 50.0-59.9, adult Status: Chronic Current Visit: No Code(s): E66.01 - Morbid (severe) obesity due to excess calories; Z68.43 - Body mass index (BMI) 50-59.9, adult (4) Type 2 diabetes mellitus Status: Chronic Current Visit: No Code(s): E11.9 - Type 2 diabetes mellitus without complications Type of Wound Chief Complaint: Nonhealing right buttock/upper thigh ulcerated abscess. History of Wound: Mr. Flowers is a 67-year-old with past medical history of poorly controlled diabetes mellitus, tobacco abuse amongst others who presented to the wound center due to nonhealing ulceration/swelling in his right buttock/upper thigh. Initially noted 3 weeks ago and has been receiving wound care at his assisted living. He is unsure what exactly has been done but states that it has been dressed 2-3 times daily due to drainage. Reports pain around the area. He denies chills, fever or otherwise feeling of unwell. Progress of Wound: Healed. No new concerns at this time. - Physical Exam Vital Signs Temp Pulse Resp BP 98.0 F 80 18 152/79 H 07/17/18 09:28 07/17/18 09:28 07/17/18 09:28 07/17/18 09:28 General: Alert, Oriented x3, Cooperative, No apparent distress HEENT: Atraumatic, Normocephalic Oral: Moist Mucosa Neck: Supple Lungs: Normal air movement Abdomen: Non Tender, Obese Extremities: No cyanosis Wound Measurements and Assessment WC - Nurse 1 - General Ulcer Measurement Start: 07/03/18 09:38 Freq: Status: Active Protocol: Activity Type Activity Date Activity User E-Sign Co-Sign Detail Recorded Client Recorded Date Recorded By Document 07/17/18 09:28 [place] [id number] 07/17/18 09:34 [place] 07/17/18 09:28 Wound Center Nurse 1 [Ulcer Assessment] #2 right medial buttocks -Current Size (cm) - Length 0.1 -Current Size (cm) - Width 0.1 -Current Size (cm) - Depth 0.1 -Total Square Cm 0.01 -Texture (Jennifer-wound Skin Appearance) Assessed -Moisture (Jennifer-wound Skin Appearance Assessed ) -Color (Jennifer-wound Skin Appearance) Assessed Erythema -Temperature (Jennifer-wound Skin No Abnormality Appearance) (Pt Warm) -Tenderness on Palpation (Jennifer-wound No Skin Appearance) -Ulcer Cleansing Rinsed/ Irrigated with Saline -Foul Odor after Cleansing No -Anesthetic Used 4% Lidocaine Solution #1- right upper thigh posterior cluster -Current Size (cm) - Length 0.1 -Current Size (cm) - Width 0.1 -Current Size (cm) - Depth 0.1 -Total Square Cm 0.01 -Texture (Jennifer-wound Skin Appearance) Assessed -Moisture (Jennifer-wound Skin Appearance Assessed ) -Color (Jennifer-wound Skin Appearance) Assessed Erythema -Temperature (Jennifer-wound Skin No Abnormality Appearance) (Pt Warm) -Tenderness on Palpation (Jennifer-wound No Skin Appearance) -Ulcer Cleansing Rinsed/ Irrigated with Saline -Foul Odor after Cleansing No -Anesthetic Used 4% Lidocaine Solution WC - Nurse 2 - General Ulcer CM Notes Start: 07/03/18 09:38 Freq: Status: Active Protocol: Activity Type Activity Date Activity User E-Sign Co-Sign Detail Recorded Client Recorded Date Recorded By Document 07/17/18 10:12 [id number] 07/17/18 10:13 MW 07/17/18 10:12 Wound Center Nurse 2 [Procedure/Treatment] #2 right medial buttocks -Time 10:12 -Correct Patient Yes -Correct Side, Site, Position Yes -Correct Procedure Yes -Procedure Performed No -Post Debridement Size (cm) - Length 0 -Post Debridement Size (cm) - Width 0 -Post Debridement Size (cm) - Depth 0 -Total Square Cm 0 -Wound/Ulcer Outcome Healed- Epithelialized #1- right upper thigh posterior cluster -Time 10:12 -Correct Patient Yes -Correct Side, Site, Position Yes -Correct Procedure Yes -Procedure Performed No -Post Debridement Size (cm) - Length 0 -Post Debridement Size (cm) - Width 0 -Post Debridement Size (cm) - Depth 0 -Total Square Cm 0 -Wound/Ulcer Outcome Healed- Epithelialized [See Physician Procedure note for Specifics] Pain Scale: 0-10 Numeric [Pain] -Is Patient Pain Free? Yes Musculoskeletal: No Muscle Wasting Neurological: Cranial nerves II-XII grossly intact Psych/Mental Status: Normal Affect Debridement Note Post-Debridement Measurements/Treatment WC - Nurse 2 - General Ulcer CM Notes Start: 07/03/18 09:38 Freq: Status: Active Protocol: Activity Type Activity Date Activity User E-Sign Co-Sign Detail Recorded Client Recorded Date Recorded By Document 07/03/18 10:17 MW [id number] 07/03/18 10:24 MW Document 07/17/18 10:12 MW [id number] 07/17/18 10:13 MW 07/03/18 07/17/18 10:17 10:12 Wound Center Nurse 2 #2 right medial buttocks -Time 10:22 10:12 -Correct Patient Yes Yes -Correct Side, Site, Position Yes Yes -Correct Procedure Yes Yes -Procedure Performed Yes No -Type of Procedure Debridement -Clinical Debridement Subcutaneous -Post Debridement Size (cm) - Length 1.0 0 -Post Debridement Size (cm) - Width 0.6 0 -Post Debridement Size (cm) - Depth 0.3 0 -Total Square Cm 0.60 0 -Wound/Ulcer Outcome Not Healed Healed- Epithelialized -Ulcer Cleansing Rinsed/ Irrigated with Saline -Foul Odor after Cleansing No -Bioengineered Tissue No -Bleeding Controlled with Pressure -Offloading No -Treatment Response Procedure Tolerated Well #1- right upper thigh posterior cluster -Time 10:18 10:12 -Correct Patient Yes Yes -Correct Side, Site, Position Yes Yes -Correct Procedure Yes Yes -Procedure Performed No No -Post Debridement Size (cm) - Length 0.1 0 -Post Debridement Size (cm) - Width 0.1 0 -Post Debridement Size (cm) - Depth 0.1 0 -Total Square Cm 0.01 0 -Wound/Ulcer Outcome Not Healed Healed- Epithelialized -Ulcer Cleansing Rinsed/ Irrigated with Saline -Foul Odor after Cleansing No -Bleeding Controlled with Pressure -Offloading No -Treatment Response Procedure Tolerated Well Pain Scale: 0-10 Numeric Is Patient Pain Free? Yes Yes No debridement was completed today Assessment/Plan Active Problems (Last Reviewed 01/13/18 @ 09:26 by Eleni Bradley) Abscess of right buttock (Chronic) Skin ulcer (Acute) Right medial buttock Assessment: Ulcerated abscess. Nonhealing. Poorly controlled diabetes mellitus and tobacco abuse. Morbid obesity with limited ambulation. Plan: Healed. No new concerns at this time. ABD and guaze over right buttock until new scooter due to risk for reinjury and tears. Avoid prolonged sitting or laying. Reposition often. Pressure relief also recommended. Tobacco cessation very strongly encouraged. Optimal blood sugar control also recommended. All his questions were answered and he was advised to call with any further questions or concerns. Discharge from the wound center. This note was generated with [employer] dictation software. It may contain incorrect words, spelling, and punctuation that were not noted in checking the note before signing.
== END 2018-07-18 23:59 ==
LOC: WC 09:30
PROVIDERS: Visit Provider Internal Medicine
DX: E11.622 Type 2 diabetes mellitus with other skin ulcer (principal); L02.31 Cutaneous abscess of buttock; L98.412 Non-pressure chronic ulcer of buttock with fat layer exposed; E66.01 Morbid (severe) obesity due to excess calories; Z68.43 Body mass index [BMI] 50.0-59.9, adult; Z71.3 Dietary counseling and surveillance; E11.65 Type 2 diabetes mellitus with hyperglycemia; Z72.0 Tobacco use
CPT/HCPCS: 97597; 99213; G0463

== ENCOUNTER 2018-07-24 10:26 | Outpatient (RCR) | payer MEDICARE, OTHER, MEDICAID, SELFPAY ==
[2018-07-03 09:38] VITALS: BMI 60.0
--- NOTE | 2018-10-21 14:55 | HP.PT.NRP ---
HP - Discharge Summary (1) - Patient Information IZAIAH BRICENO was seen in my office for initial evaluation on 07/24/18. The following Plan of Care was established for this patient: Initial Frequency: 1x/Week Initial Duration: 1 Week This patient was last seen in our office 10/24/18. Pertinent comments regarding their Physical therapy will appear below: This patient has not returned to Physical Therapy and is appropriate to return to MD for further follow-up as needed. At this point I will be discontinuing this patient from physical therapy. I would be happy to see this patient again in the future if found appropriate by the physician. Thank you! Keiko Cai, PT, Cert MDT
== END 2018-07-24 19:00 | disposition home or self-care (01) ==
LOC: PT 10:26
DX: Z46.89 Encounter for fitting and adjustment of other specified devices (principal)
CPT/HCPCS: 97163

== ENCOUNTER 2018-10-24 08:19 | Outpatient (RCR) | payer MEDICARE, OTHER, MEDICAID, SELFPAY | END 2018-10-24 08:19 | disposition home or self-care (01) | LOC: SP 08:19 | PROVIDERS: Visit Provider Nurse Practitioner Adult Health | DX: R69 Illness, unspecified (principal) ==

== ENCOUNTER 2020-03-06 17:06 | Inpatient (IN) | payer MEDICARE, OTHER, MEDICAID, SELFPAY ==
[2020-03-06] VITALS (14 sets, daily range): BP systolic 78–113; BP diastolic 48–85; PULSE 80–87; RESP 20–31; TEMP 36.7–37.6; O2SAT 95–99; BMI 56.5; BMI 54.2
[2020-03-06 17:55] LABS: Absolute Lymphocyte Count 0.26 X10^3/uL (0.83-4.51); Basophil# 0.09 X10^3/uL; Basophil% 0.6 % (0-1); Eosinophil# 0.11 X10^3/uL; Eosinophils% 0.8 % (0-5); Hematocrit 42.4 % (40-54); Hemoglobin 13.8 g/dL (13.0-16.5); Lymphocyte # 0.26 X10^3/ul (4.0); Lymphocyte % 1.8 % (19-41); Mean Corp Hgb Conc 32.5 g/dL (32-36); Mean Corpuscular Hgb 29.6 pg (27.0-32.0); Mean Corpuscular Volume 90.8 fL (80-94); Mean Platelet Vol. 10.9 fl (6.2-12.0); Monocyte% 2.8 % (0-10); NRBC Flagged by Analyzer 0 % (0-5); Neutrophil # 12.96 X10^3/uL (2.7-7.7); Neutrophil % 90.2 % (47-70); POSITIVE DIFFERENTIAL YES; POSITIVE MORPHOLOGY YES; Platelet Count 172 K/mm3 (150-450); RBC Distribution Width CV 16.8 % (11.6-14.6); RBC Distribution Width SD 55.8 fl (35.1-43.9); Red Blood Count 4.67 M/mm3 (4.6-6.2); White Blood Count 14.4 K/mm3 (4.4-11.0)
[2020-03-06 17:58] LABS: Differential Indicated SCAN CRITERIA MET
--- NOTE | 2020-03-06 18:07 | RAD_ITS ---
STUDY: X-RAY CHEST REASON FOR EXAM: Male, 69 years old. Shortness of breath TECHNIQUE: Frontal and lateral views of the chest COMPARISON: 12/18/17 FINDINGS: There are mild congestive changes noted. The lungs are otherwise clear. There are no pleural effusions. There is no pneumothorax. The heart is enlarged, but stable. Again noted is a pacemaker. The visualized osseous structures are within normal limits. RAD/Chest PA and Lateral IMPRESSION: Mild pulmonary vascular congestion. Electronically Signed: Irineo Boswell MD at 18:21 EST Tel , Service support ,
[2020-03-06 18:13] LABS: Anion Gap 9 (5-15); BUN 63 mg/dL (7-18); BUN/Creat Ratio 17.5 RATIO (10-20); Calcium,Total 8.4 mg/dL (8.5-10.1); Chloride 97 mmol/L (98-107); EST Glomerular Filtration Rate 18 mL/min (>60); Est Glom Filt Rate - Afr Amer 22 mL/min (>60); Estimated Creatinine Clearance 21.89 ml/min; Glucose 457 mg/dL (74-106); Potassium 6.1 mmol/L (3.5-5.1); Sodium Level 128 mmol/L (136-145)
[2020-03-06 18:32] LABS: Differential Comment SCANNED
[2020-03-06 18:40] LABS: Lactic Acid 5.3 mmol/L (0.4-1.9)
[2020-03-06 18:42] LABS: BNP,B-Type NATRIURETIC PEPTIDE 80.2 pg/mL (0-100)
--- NOTE | 2020-03-06 18:43 | EKG12_ITS ---
Test Reason : DYSRHYTHMIA Blood Pressure : / mmHG Vent. Rate : 080 BPM Atrial Rate : 085 BPM P-R Int : 000 ms QRS Dur : 176 ms QT Int : 434 ms P-R-T Axes : 000 253 074 degrees QTc Int : 500 ms Ventricular-paced rhythm Biventricular pacemaker detected Abnormal ECG Confirmed by EMMANUEL MACIAS, AJITH ([id number]), news videotape editor SHANTI ARTIS ([id number]) on 03/09/2020 7:00:10 AM Referred By: AB Confirmed By:AJITH BENITEZ MD
--- NOTE | 2020-03-06 18:45 | ED.DCSUM_ITS ---
- ER Visit Summary Date of Service: 03/06/20 Chief Complaint: General weakness History of Present Illness: The patient is a 69 M who presents with generalized weakness that has been getting worse over the past week. Patient states today he was too weak to be able to stand. Patient states his hands and legs have been getting more weak. Patient states this is worse with movement. Patient denies any fevers or chills. Patient denies any headaches. Patient denies any nausea or vomiting. Patient denies any visual changes. The recent Covid antigen test was negative. Patient has a Covid PCR which is pending. Currently, patient denies any shortness of breath. Physical Examination: Vital signs are stable except for mild tachypnea of 24. Patient is afebrile. Patient is in no acute distress. Oral mucosa is pink and moist. Neck is supple. Trachea is midline. There is no JVD. Heart was regular rate and rhythm. Lungs scattered rhonchi. There is good respiratory effort. Abdomen is soft. Bowel sounds are normal. There is no tenderness. Cranial nerves II through XII are intact. Strength is 5/5 bilateral in the upper extremities. Strength is 3/5 in the lower extremities. There is no calf tenderness. There is 2+ edema of the lower extremities. Test Results: PA and lateral chest x-ray was obtained. There are 2 views. On my interpretation, there is mild pulmonary vascular congestion. There is no acute infiltrate. Bony thorax is normal. There is mild cardiomegaly. Radiologist also interpreted the x-ray and agrees. CBC shows a leukocytosis of 14.4. Basic metabolic profile showed a potassium of 6.1. BUN was 63 and creatinine was 3.60. Sodium was 128 and chloride was 97. Lactate was elevated at 5.3. BNP was normal at 80.2. EKG was obtained. On my interpretation, there is a paced rhythm with a rate of 80. There is some hyperacute T waves noted in leads V1 and V2. Urinalysis does show evidence of urinary tract infection with 50-100 white blood cells and leukocyte esterase of 500. Emergency Department Course and Treatment: Patient was given IV fluids. Because of the vascular congestion on the chest x-ray, fluids were given judiciously. Patient was given calcium gluconate. Patient was given insulin 5 units IV. Patient was given Kayexalate. Case was discussed with the hospitalist. She will admit the patient to ICU. She also recommended obtaining an inpatient C ovid PCR test. This was obtained and was positive. Patient understood and was agreeable with the plan. All questions were answered. Disposition: Admit to hospital Impression: 1. Acute kidney injury 2. Hyperkalemia 3. Septic shock 4. Urinary tract infection Critical care time: 30 minutes. This was time spent obtaining history, performing physical examination, documenting, interpreting test results, discussion with consultants, and determining disposition. This note was generated with [employer] dictation software. It may contain incorrect words, spelling, and punctuation that were not noted in review of the chart prior to signing ED Disposition - Plan for ED Patient: Disposition: Acute Care Hospital [facility] Diagnosis: Acute kidney injury, Septic shock, Hyperkalemia, Urinary tract infection
--- NOTE | 2020-03-06 18:53 | HP.PCM_ITS ---
Problem List (1) Septic shock Status: Acute (2) UTI (urinary tract infection) Status: Acute Qualifiers: Urinary tract infection type: site unspecified (3) Suspected COVID-19 virus infection Status: Acute (4) Hyperkalemia Status: Acute (5) Acute kidney injury superimposed on chronic kidney disease Status: Acute (6) Chronic CHF Status: Chronic Qualifiers: Heart failure type: unspecified Qualified Code(s): I50.9 - Heart failure, unspecified (7) Hyperlipidemia Status: Chronic Qualifiers: Hyperlipidemia type: unspecified Qualified Code(s): E78.5 - Hyperlipidemia, unspecified (8) Diabetes type 2, controlled Status: Chronic Qualifiers: Diabetes mellitus 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 Denise @ [facility] for Complete heart block, symptomatic bradycardia and EF 40-45%. Generator is [employer] model U128, serial # [id number] (12) COPD (chronic obstructive pulmonary disease) Status: Chronic Qualifiers: COPD type: unspecified COPD Qualified Code(s): J44.9 - Chronic obstructive pulmonary disease, unspecified (13) Chronic atrial fibrillation Status: Chronic (14) Morbid obesity with BMI of 50.0-59.9, adult Status: Chronic (15) Chronic respiratory failure Status: Acute Qualifiers: Respiratory failure complication: unspecified whether with hypoxia or hypercapnia Qualified Code(s): J96.10 - Chronic respiratory failure, unspecified whether with hypoxia or hypercapnia (16) HTN (hypertension) Status: Chronic Qualifiers: Hypertension type: essential hypertension Qualified Code(s): I10 - Essential (primary) hypertension (17) Nicotine abuse Status: Chronic History of Present Illness Date of Admission: 03/06/20 Chief Complaint: Weakness, cough, dyspnea. The patient is a 69 y/o M from [facility] w/ PMHx: Morbid obesity, CKD stage III, HTN, HLD, GERMANIA, Diabetes mellitus type II with neuropathy, Chronic atrial fibrillation, Tobacco use, GERD, Hx complete heart block s/p AICD/pacemaker placement, Chronic CHF Unclear type, Chronic COPD w/ Chronic Hypoxic Respiratory Failure who presents to the [facility] ED on 03/06/20 with history of worsening generalized weakness over the last week, notes even too debilitated to stand, worse with any attempted movements with no specific fevers or chills but ongoing cough and dyspnea, worsening prompting ED presentation. Patient reports having had a recent Covid antigen test that was negative and has a pending Covid PCR. Work-up in the ED included T 99.6, heart rate 87, BP 101/48, respiratory rate 28, 97% on 3 L nasal cannula, CBC with WC 14.4, hemoglobin 13.8, platelet 172 with left shift and concurrent lymphopenia, BMP with sodium 128, potassium 6.1, chloride 97, BUN/creatinine 63/3.60, glucose 457, lactic acid 5.3, BNP 80.2, blood culture x2 pending per ED, chest x-ray with mild pulmonary vascular congestion. EKG with mild peaked T waves, paced with LBBB. Hepatic profile, Troponin, COVID PCR, Urinalysis and urine culture pending per ED. In the ED patient ministered Kayexalate 30 g p.o. x1, insulin 5 units IV x1, calcium gluconate 1 g IV x1 in addition to normal saline. Past Medical History Past Medical History (Chronic Problems): Chronic Problems (Last Reviewed 01/13/18 @ 09:26 by Eleni Bradley) Abscess of right buttock (Chronic) Chronic CHF (Chronic) Ascites (Chronic) Hyperlipidemia (Chronic) Diabetes type 2, controlled (Chronic) HTN (hypertension) (Chronic) Left ventricular hypertrophy (Chronic) Severe per echo 12/13/2017, EF 55% Complete heart block (Chronic) Biventricular implantable cardioverter-defibrillator (ICD) in situ (Chronic 06/05/15) Implanted by Dr. Denise @ [facility] for Complete heart block, symptomatic bradycardia and EF 40-45%. Generator is [employer] model U128, serial # [id number] COPD (chronic obstructive pulmonary disease) (Chronic) Type 2 diabetes mellitus (Chronic) Chronic atrial fibrillation (Chronic) Morbid obesity with BMI of 50.0-59.9, adult (Chronic) HTN (hypertension) (Chronic) Nicotine abuse (Chronic) CKD (chronic kidney disease) stage 3, GFR 30-59 ml/min (Chronic) GERMANIA (obstructive sleep apnea) (Chronic) Medical History: Medical History (Last Reviewed 01/13/18 @ 09:26 by Eleni Bradley) Ascites (Chronic) R18.8 Hyperlipidemia (Chronic) E78.5 Diabetes type 2, controlled (Chronic) E11.9 HTN (hypertension) (Chronic) I10 Left ventricular hypertrophy (Chronic) I51.7 Severe per echo 12/13/2017, EF 55% Complete heart block (Chronic) I44.2 COPD (chronic obstructive pulmonary disease) (Chronic) J44.9 Type 2 diabetes mellitus (Chronic) E11.9 Chronic atrial fibrillation (Chronic) I48.2 Morbid obesity with BMI of 50.0-59.9, adult (Chronic) E66.01, Z68.43 Hypoxemia (Acute) R09.02 Acute exacerbation of CHF (congestive heart failure) (Acute) I50.9 Chronic respiratory failure (Acute) J96.10 HTN (hypertension) (Chronic) I10 Nicotine abuse (Chronic) Z72.0 CKD (chronic kidney disease) stage 3, GFR 30-59 ml/min (Chronic) N18.3 GERMANIA (obstructive sleep apnea) (Chronic) G47.33 Erectile dysfunction associated with type 2 diabetes mellitus (Acute) E11.69, N52.1 CHF (congestive heart failure) I50.9 COPD (chronic obstructive pulmonary disease) J44.9 Vision problems H54.7 Arthritis M19.90 Cataracts, bilateral H26.9 GERD (gastroesophageal reflux disease) K21.9 Neuropathy G62.9 Osteoarthritis M19.90 Bone fracture T14.8XXA Bradycardia R00.1 Headache R51 Pneumonia J18.9 Syncope R55 Allergies No Known Allergies Allergy (Verified 03/06/20 17:06) Home Medications: Ambulatory Orders Medication Instructions Recorded acetaminophen 500 mg tablet 1,000 mg PO TID tab 02/25/17 budesonide 0.5 mg/2 mL suspension 0.5 mg INHALATION Q12H 02/25/17 for nebulization cholecalciferol (vitamin D3) 1,250 50,000 unit PO SUWE 02/25/17 mcg (50,000 unit) capsule docusate sodium 100 mg capsule 200 mg PO QDAY 02/25/17 rivaroxaban 20 mg tablet 20 mg PO QDAY 02/25/17 Montelukast Sodium [Singulair] 10 mg PO QHS 12/15/17 Gabapentin [Neurontin] 300 mg PO BID 12/18/17 Losartan Potassium [Cozaar] 25 mg PO DAILY 12/18/17 Omeprazole 40 mg PO DAILY 12/18/17 Potassium Chloride [K-Dur] 20 meq PO DAILY 12/18/17 Albuterol Aerosols [Ventolin 2.5 mg INHALATION Q6H PRN PRN 12/21/17 Aerosols] vial.neb. Insulin Lispro [Humalog KwikPen] 45 unit SC 0800 insuln.pen 12/21/17 Insulin Lispro [Humalog KwikPen] 45 unit SC 1200 insuln.pen 12/21/17 Insulin Lispro [Humalog KwikPen] 17 unit SC 1700 05/22/18 Azithromycin [Zithromax] 500 mg PO DAILY 03/06/20 Bisacodyl 10 mg PO DAILY PRN PRN 03/06/20 Budesonide [Pulmicort] 0.5 mg IH BID PRN PRN 03/06/20 Furosemide [Lasix] 80 mg PO DAILY 03/06/20 Gabapentin 1,200 mg PO 1700 03/06/20 Gabapentin [Neurontin] 100 mg PO 1200 03/06/20 Gabapentin [Neurontin] 400 mg PO 1200 03/06/20 Guaifenesin [Mucus Relief] 400 mg PO DAILY 03/06/20 Guaifenesin [Mucus Relief] 400 mg PO DAILY PRN PRN 03/06/20 Guaifenesin/Dextromethorphan 10 ml PO Q4H PRN PRN 03/06/20 [Siltussin Dm 100 mg-10 mg/5 ml] Ibuprofen 800 mg PO QHS 03/06/20 Insulin Degludec [Tresiba 23 unit SQ BREAKFAST 03/06/20 Flextouch U-100] Linagliptin [Tradjenta] 5 mg PO DAILY 03/06/20 Magnesium Hydroxide [Milk Of 30 ml PO DAILY PRN PRN 03/06/20 Magnesia] Metolazone 5 mg PO DAILY 03/06/20 Nicotine [Nicotine Patch] 1 ea TD DAILY PRN PRN 03/06/20 Surgical History: Surgical History (Last Reviewed 01/13/18 @ 09:26 by Eleni Bradley) Biventricular implantable cardioverter-defibrillator (ICD) in situ (Chronic) Onset Date: 06/05/[address] Z95[address] Denise @ [facility] for Complete heart block, symptomatic bradycardia and EF 40-45%. Generator is [employer] model U128, serial # [id number] H/O knee surgery Z98.890 Hx of appendectomy Z98.890, Z90.49 Surgical History: appendectomy, pacemaker implantation, - - Knee surgery. Psychiatric History: No pertinent psych hx Lives: [facility] Smoking Status: Current every day smoker Tobacco Use: Cigarettes Alcohol: None Drugs: None - *Family History Maternal Family History: Family History (Last Reviewed 01/13/18 @ 09:26 by Eleni Bradley) Mother Arthritis Cancer Brother Diabetes Kidney disease Grandmother Diabetes Grandfather Heart disease History Items: Cancer, Heart Disease Paternal Family History: Family History (Last Reviewed 01/13/18 @ 09:26 by Eleni Bradley) Mother Arthritis Cancer Brother Diabetes Kidney disease Grandmother Diabetes Grandfather Heart disease History Items: Heart Disease Review of Systems Constitutional: Reports: Anorexia, Malaise, Weakness, Fatigue. Denies: Chills, Fever, Weight Change HEENT: Denies: Head Aches, Sinus Congestion, Sinus Drainage Cardiovascular: Denies: Chest Pain, Palpitations Respiratory: Reports: Cough, Shortness of Breath, Shortness of breath upon exertion. Denies: Shortness of breath at rest, Sputum production, Wheezing Gastrointestinal: Denies: Abdominal Pain, Nausea, Vomiting Genitourinary: Reports: Retention. Denies: Dysuria Musculoskeletal: Reports: Back Pain, Joint Pain. Denies: Joint Tenderness Skin: Reports: Skin Changes, Wounds. Denies: Rash Neurological: Denies: Numbness, Tingling, Focal weakness Psychiatric: Denies: Anxiety, Depression, Homicidal Ideations, Suicidal Ideations Hematologic/ Lymphatic: Reports: Easy Bruising, Easy Bleeding VTE Information - Inpt Only VTE Present on Admission: No VTE Mechan Device Prophylaxis: SCD's VTE Pharm Prophylaxis ordered?: No Reason prophylaxis not ordered:: Treatment Not Indicated - Continue patient home Xarelto regimen. Patient Problems: Active and Suspected Problems (Last Reviewed 01/13/18 @ 09:26 by Eleni A Mirna) Septic shock (Acute) UTI (urinary tract infection) (Acute) Suspected COVID-19 virus infection (Acute) Hyperkalemia (Acute) Acute kidney injury superimposed on chronic kidney disease (Acute) Chronic respiratory failure (Acute) Subjective: Patient seated upright in the ED bed, fatigued appearing, less ill-appearing than expected given labs. Objective: Physical Examination: General: awake, alert, oriented x 3 and cooperative, seated upright in the ED bed, fatigued and ill-appearing but no obvious distress. Skin: normal color, turgor, no icterus, cyanosis except significant bilateral lower extremity stasis, foul appearing, poor lower extremity care. HEENT: AT/NC, EOMI, PERRLA, dry MM, no carotid bruits, unable to discern JVD secondary to thickened neck. Lungs: Diminished breath sounds, greater bases, moderate effort, no obvious distress but mildly increased respiratory rate, no rales, ronchi or wheezing. Heart: Irregular; no gallop, rub audible. Abdomen: soft, morbidly obese, NTTP, ND, normal BS, no HSM. Extremities: no cyanosis or clubbing, see skin, significant chronic lower extremity lymphedema. Neurological: patient awake, alert, oriented as noted; cognitive function intact despite presentation; pupils equally reactive to light and accomodation; cranial nerves II-XII grossly normal, moving all 4 extremities, no focal deficits, strength severely global decrease secondary to acute presentation and underlying comorbidities as well as habitus. Psychiatric: affect appears fatigued, mildly ill-appearing, no acute evidence of depressive or anxiety feelings. - Physical Exam Vitals/I&O's: Vital Signs Temp Pulse Resp BP Pulse Ox 98.7 F 80 24 H 112/54 L 96 03/06/20 18:09 03/06/20 18:09 03/06/20 18:09 03/06/20 18:09 03/06/20 18:09 Oxygen Flow Rate (L/min) 3 Oxygen Delivery Method Nasal Cannula Weight: 428 lb 12.785 oz Body Mass Index (BMI) 56.5 Laboratory Results 03/06/20 17:40: WBC 14.4 H, RBC 4.67, Hgb 13.8, Hct 42.4, MCV 90.8, MCH 29.6, MCHC 32.5, RDW Std Deviation 55.8 H, RDW Coeff of Shaq 16.8 H, Plt Count 172, MPV 10.9, Immature Gran % (Auto) 3.800 H, Neut % (Auto) 90.2 H, Lymph % (Auto) 1.8 L , Brewster % (Auto) 2.8, Eos % (Auto) 0.8, Baso % (Auto) 0.6, Absolute Neuts (auto) 13.0 H, Absolute Lymphs (auto) 0.26 L, Nucleated RBC % 0, Differential Comment SCANNED 03/06/20 17:40: Sodium 128 L, Potassium 6.1 H*, Chloride 97 L, Carbon Dioxide 22.0, Anion Gap 9, BUN 63 H, Creatinine 3.60 H, Estim Creat Clear Calc 21.89, Est GFR (MDRD) Af Amer 22 L, Est GFR (MDRD) Non-Af 18 L, BUN/Creatinine Ratio 17.5, Glucose 457 H*, Calcium 8.4 L 03/06/20 17:40: Lactic Acid 5.3 H* 03/06/20 17:40: B-Natriuretic Peptide 80.2 Current Medications Sodium Chloride () 1,000 mls @ 1,000 mls/hr IV .Q1H ONE Stop: 03/06/20 19:40 Assessment/Plan All Active Problems (Last Reviewed 01/13/18 @ 09:26 by Eleni Bradley) Diabetic ulcer of right buttock (Acute) Skin ulcer (Acute) Septic shock (Acute) UTI (urinary tract infection) (Acute) Suspected COVID-19 virus infection (Acute) Hyperkalemia (Acute) Acute kidney injury superimposed on chronic kidney disease (Acute) Hypoxemia (Acute) Acute exacerbation of CHF (congestive heart failure) (Acute) Chronic respiratory failure (Acute) Erectile dysfunction associated with type 2 diabetes mellitus (Acute) The patient is a 69 y/o M from [facility] w/ PMHx: Morbid obesity, CKD stage III, HTN, HLD, GERMANIA, Diabetes mellitus type II with neuropathy, Chronic atrial fibrillation, Tobacco use, GERD, Hx complete heart block s/p AICD/pacemaker placement, Chronic CHF Unclear type, Chronic COPD w/ Chronic Hypoxic Respiratory Failure who presents to the [facility] ED on 03/06/20 with history of worsening generalized weakness over the last week, notes even too debilitated to stand, worse with any attempted movements with no specific fevers or chills but ongoing cough and dyspnea, worsening prompting ED presentation. 1. Septic Shock secondary to Acute Complicated UTI however concurrent complaint Dyspnea, Cough, possible concurrent Acute Viral Syndrome, COVID-19: Given current presentation will admit to the ICU under COVID precautions, will maintain on oxygen with wean as tolerated to room air, continue MDI inhaler/budesonide, PRN albuterol, will continue BSA w/ Vanc and Zosyn pending further evaluation given presentation appearance with MRSA screen and await UCx to de-escalate, continue alcantara placed in the ED, HOB, IS parameters w/ pending sputum cultures, respiratory viral panel and urine antigens, will obtain d- dimer, procalcitonin, CRP, CPK, Ferritin, LDH, Alk phos/AST/ALT, continue supportive care including q 2 hour turning including prone given no prone bed availability and judicious hydration especially given possible Covid status and underlying CHF history thus deferring the aggressive 30 mg/kg cc bolus as discussed with ED physician, closely monitor for worsening status for ARDS and multiorgan failure, will consult ICU physician, will consult ID physician, current renal function would preclude usage of remdesivir. 2. Hyperkalemia: Admission potassium 6.1, EKG pending per ED, administered Kayexalate, calcium gluconate and insulin therapy, will repeat BMP this evening and in AM. 3. Hyponatremia, acute, presumed hypovolemic: Admission sodium 128, previously noted normal levels, still unsure of exact etiology of presentation, still some concern for septic shock presentation secondary to possibly underlying pulmonary etiology including Covid, will judiciously hydrate given this history and trend as noted. 4. Acute kidney injury on CKD stage III: Secondary to acute presentation as noted above. Admission BUN/Cr 63/3.60, prior baseline creatinine noted to be 1.0-1.1. Will judiciously hydrate given current presentation as noted above, will obtain FeNa and may need to consider renal ultrasound, urinalysis/urine culture pending per ED. 5. Chronic CHF, presumed diastolic: 12/13/2017 echocardiogram with moderate concentric LVH, EF 55%, severely dilated RV, RVSP 24 mmHg suspected underestimated at that time. We will continue patient home Xarelto regimen, holding diuretic and ARB given acute presentation with JESUS as noted, resume as appropriate, not on beta-melly therapy nor statin. 6. Chronic COPD with chronic hypoxic respiratory failure: We will continue scheduled budesonide as well as as needed albuterol inhaler regimen given unclear status as noted above, still some suspicion for possible underlying Covid, will alter treatment as needed as noted above. 7. Diabetes mellitus type II with significant hyperglycemia: Hold oral home regimen, continue home insulin regimen however this may need adjusted given acute presentation as noted, ADA diet, accu checks w/ ISS. We will continue patient gabapentin regimen although may need renal dosing given presentation. 8. Hypertension: Given acute presentation holding patient diuretic therapy as well as ARB, restart once clinically appropriate, PRN hydralazine. 9. Hyperlipidemia: From current list not on statin therapy, defer to outpatient. 10. Morbid Obesity: Weight loss and lifestyle changes encouraged. 11. Chronic atrial fibrillation: Not on rate or rhythm agent per review of current list, will continue patient Xarelto home regimen. 12. Complete heart block: Status post pacemaker/AICD placement. 13. GERMANIA: BiPAP nightly. 14. GERD: Continue home PPI. 15. Chronic bilateral lower extremity lymphedema, stasis: Patient with significant lower extremity appearance, will place Sreedhar wraps, wound RN consultation is likely could benefit from aggressive skin care. 16. DVT prophylaxis: SCDs, continue home Xarelto regimen. 17. CODE status: Patient HCPOA is his nephew Kenneth Flowers and living will is currently in place. Discussed CODE status at length including difference between FULL code, DNR-CCA and DNR-CC status. Following discussions about the differences in these status, requested DNR-CCA, no intubation. Amenable to BIPAP. Advanced Care Planning Face to Face Time: 16 minutes. Inpatient E&M: 99774 Init Hosp L3 Procedures: 29126 Advncd Care Plan 30 Min
[2020-03-06 19:05] LABS: Mucous, Urine 0 SEEN /hpf (<or=2+)
[2020-03-06 19:07] LABS: Color, Urine Brown (Yellow); Glucose, Dipstick 50 mg/dl (Normal); Ketone-Dipstick 5 mg/dl (Negative); Leukocyte Esterase-Dipstick 500 /ul (Negative); Nitrite-Dipstick Negative (Negative); Occult Blood-Urine 250 /ul (Negative); Protein-Dipstick 100 mg/dl (Negative); Specific Gravity, Urine 1.025 (1.002-1.030); Urine Clarity Cloudy (Clear); Urine Urobilinogen 1 mg/dl (Normal)
[2020-03-06 19:13] LABS: Urine Bilirubin Dipstick 1 mg/dL (Negative)
[2020-03-06 19:25] LABS: Amorphous Sediment 2+; Bacteria 2+ /hpf (None Seen); Red Blood Cells-Urine 10-25 SEEN /hpf (0-5); Squamous Epithelial Cells - UA 0-5 SEEN /hpf (0-5); White Blood Cells 50-100 SEEN /hpf (0-5)
[2020-03-06] MEDS: 0.9% Normal Saline 1,000 ML 1000 ML IV (19:33)
[2020-03-06] MEDS: Insulin Lispro 5 UNIT in Syringe 0 ML 3 UNIT IV (19:33)
--- NOTE | 2020-03-06 19:33 | ED.RN ---
Pt's nephew Kenneth called to inform him his uncle's admission to ICU. Nurses station desk number given and informed of no visitor policy.
[2020-03-06] MEDS: Calcium Gluconate 1 GM/10 ML Vial IV (19:34)
[2020-03-06 19:43] LABS: AST(SGOT) 54 U/L (15-37); Alanine Aminotransfer ALT/SGPT 25 U/L (16-61); Albumin, Serum 2.5 g/dL (3.2-5.0); Alkaline Phosphatase 77 U/L (45-117); Bilirubin, Direct 0.27 mg/dL (0.00-0.30); Globulin 5.4 g/dL (2.2-4.2); Protein, Total 7.9 g/dL (6.4-8.2)
[2020-03-06 20:18] LABS: Probe Check PASS; Specimen Processing Control PASS
[2020-03-06] MEDS: Sodium Polystyrene Sulfonate 15 GM/60 ML UDC 30 GM PO (20:29)
[2020-03-06] MEDS: Insulin Lispro 100 UNIT/ML INSULN.PEN 20 UNIT SC (20:30)
[2020-03-06 20:55] LABS: D-Dimer Quantitative (DVT/PE) 2.02 FEU/ug/m (0.27-0.49)
[2020-03-06 21:03] LABS: Hemoglobin A1c 9.5 % (3.8-5.6)
[2020-03-06] MEDS: 0.9% Normal Saline 1,000 ML 999 ML IV (21:06)
[2020-03-06] MEDS: Nystatin Powder 15gm Bottle 1 APPLIC TOPICAL (21:06)
[2020-03-06] MEDS: Montelukast 10 MG Tablet PO (21:07)
[2020-03-06 21:22] LABS: Ferritin 76 ng/mL (26-388); LDH 95 U/L (87-241); Magnesium 0.7 mg/dL (1.6-2.6)
[2020-03-06 21:52] LABS: Reflex Lactate? Y
[2020-03-06 21:56] LABS: M R Staph aureus DNA By PCR POSITIVE (Negative); Probe Check PASS
--- NOTE | 2020-03-06 22:00 | PCM.PN.BLA ---
Progress Note Notified by nurse that patient who was a DNR CCA with no intubation not want to be a full code. Went to bedside and discussed with patient. Patient stated that he wants chest compressions with intubation if necessary. CODE STATUS changed to reflect patient wishes. STROKE Vital Signs/Narrative: Vital Signs Temp Pulse Resp BP BP Pulse Ox 03/06/20 21:30 80 25 H 107/56 L 96 03/06/20 21:00 80 26 H 94/61 98 03/06/20 20:45 80 26 H 101/63 98 03/06/20 20:30 80 26 H 86/54 L 97 03/06/20 20:19 98.1 F 80 28 H 78/55 L 97 03/06/20 19:37 99.1 F 80 23 H 113/60 95 03/06/20 19:27 99.1 F 80 20 H 113/60 96 03/06/20 18:09 98.7 F 80 24 H 112/54 L 96
[2020-03-06] MEDS: 0.9% Normal Saline 1,000 ML 125 ML IV (22:12)
[2020-03-06] MEDS: dexAMETHasone 4 MG/ML Vial 6 MG IV (22:12)
[2020-03-06 22:17] LABS: Urine Sodium < 5 mmol/L (Not Establ.)
[2020-03-06 22:18] LABS: Lactic Acid 2.2 mmol/L (0.4-1.9)
[2020-03-06] MEDS: Insulin Lispro 100 UNIT/ML INSULN.PEN SC (22:18)
[2020-03-06] MEDS: Magnesium Sulfate 4gm/100mL 4 GM/100 ML IV.SOLN. IV (22:55)
--- NOTE | 2020-03-06 22:59 | PCM.RX.CS ---
Consult Pharmacy has been consulted to manage selected antiobiotic: Vancomycin Type of Consult: New start Microbiology: Microbiology 03/06/20 17:55 Urine Catheter - Catheter Legionella Antigen - Final 03/06/20 17:55 Urine Catheter - Catheter Streptococcus pneumoniae Antigen (M - Final Goal Trough: 15-20 mcg/mL Pharmacy Plan for Drug Dosing: Pharmacy Service will continue to monitor and adjust dosing as required. Medications Vancomycin HCl 1,500 mg/ (Sodium Chloride) 530 mls @ 250 mls/hr IV Q24H YADIRA Discontinued Medications Vancomycin HCl 2,000 mg/ (Sodium Chloride) 540 mls @ 250 mls/hr IV X1 ONE Stop: 03/06/20 21:39 Last Admin: 03/06/20 20:30 Dose: 250 mls/hr Documented by: Follow-Up Labs: Trough Vancomycin Labs to be done on [date and time ordered]: 03/08 @ 1999
--- NOTE | 2020-03-06 23:11 | CPS ---
Pt refusing PAP therapy for RN at this time. RN explained danger of non-compliance and pt understands fully
[2020-03-06 23:12] LABS: Anion Gap 8 (5-15); BUN 66 mg/dL (7-18); BUN/Creat Ratio 19.5 RATIO (10-20); Calcium,Total 8.1 mg/dL (8.5-10.1); Chloride 99 mmol/L (98-107); Creatinine, Serum 3.39 mg/dL (0.70-1.30); EST Glomerular Filtration Rate 19 mL/min (>60); Est Glom Filt Rate - Afr Amer 23 mL/min (>60); Estimated Creatinine Clearance 23.24 ml/min; Glucose 366 mg/dL (74-106); Potassium 5.6 mmol/L (3.5-5.1); Sodium Level 132 mmol/L (136-145)
[2020-03-07] VITALS (28 sets, daily range): BP systolic 93–140; BP diastolic 54–84; PULSE 80; RESP 18–29; TEMP 36.1–37.1; O2SAT 90–98
[2020-03-07 00:21] LABS: Bedside Glucose 381 mg/dL (70-110)
[2020-03-07] MEDS: Nystatin Powder 15gm Bottle 1 APPLIC TOPICAL ×3 (04:15→21:07)
[2020-03-07 04:37] LABS: Hematocrit 40.3 % (40-54); Hemoglobin 12.9 g/dL (13.0-16.5); Mean Corpuscular Hgb 29.4 pg (27.0-32.0); Mean Corpuscular Volume 91.8 fL (80-94); Mean Platelet Vol. 10.4 fl (6.2-12.0); POSITIVE COUNT YES; POSITIVE DIFFERENTIAL YES; POSITIVE MORPHOLOGY YES; Platelet Count 151 K/mm3 (150-450); RBC Distribution Width CV 16.8 % (11.6-14.6); Red Blood Count 4.39 M/mm3 (4.6-6.2)
[2020-03-07 04:48] LABS: Differential Indicated MANUAL DIFF
[2020-03-07 05:07] LABS: ALB/GLOB Ratio 0.4 RATIO (0.9-2.4); AST(SGOT) 49 U/L (15-37); Alanine Aminotransfer ALT/SGPT 28 U/L (16-61); Albumin, Serum 2.2 g/dL (3.2-5.0); Alkaline Phosphatase 74 U/L (45-117); Anion Gap 10 (5-15); BUN 68 mg/dL (7-18); BUN/Creat Ratio 22.5 RATIO (10-20); Calcium,Total 8.4 mg/dL (8.5-10.1); Chloride 94 mmol/L (98-107); Creatinine, Serum 3.02 mg/dL (0.70-1.30); EST Glomerular Filtration Rate 22 mL/min (>60); Est Glom Filt Rate - Afr Amer 27 mL/min (>60); Estimated Creatinine Clearance 26.09 ml/min; Globulin 5.1 g/dL (2.2-4.2); Glucose 324 mg/dL (74-106); Potassium 5.6 mmol/L (3.5-5.1); Protein, Total 7.3 g/dL (6.4-8.2); Sodium Level 127 mmol/L (136-145)
[2020-03-07 05:14] LABS: Lymphocyte 1 % (19-41); Metamyelocyte 1 % (0-1); Monocyte 7 % (0-10); Neutrophil-Band 25 % (0-5); Neutrophil-Segmented 66 % (47-70); Total Cells Counted 100 (MANUAL DIFF)
[2020-03-07 05:15] LABS: Absolute Lymphocyte Count 0.15 X10^3/uL (0.83-4.51); Absolute Neutrophil Count 13.7 X10^3/uL (2.0-7.7); Platelet Estimate ADEQUATE (ADEQ); Red Cell Morphology NORM C+C NORMAL (NORM C&C)
--- NOTE | 2020-03-07 05:55 | RAD_ITS ---
STUDY: X-RAY CHEST REASON FOR EXAM: Male, 69 years old. SOB -- DONE SEMI-ERECT BECAUSE PATIENT''S BARIATRIC BED WOULD NOT SET UP ANY HIGHER TECHNIQUE: Single AP portable view of the chest. COMPARISON: Comparison is made with prior study dated 09/03/2020. FINDINGS: EKG electrodes are seen. The lungs are clear and expanded. There is no demonstrated pleural abnormality. There is moderate cardiac enlargement. A left-sided dual-chamber pacemaker is seen. Normal mediastinum and francisca. Normal visualized pulmonary arteries. Normal visualized aortic arch and descending thoracic aorta. There are diffuse degenerative changes of the visualized thoracic spine. Normal visualized ribs, clavicles, and shoulders. There is no demonstrated abnormality of the visualized soft tissue structures of the upper abdomen. RAD/Chest 1 View (Portable) IMPRESSION: Moderate degree of cardiac enlargement. Electronically Signed: Alex Gary MD at 8:34 EST , Service support ,
[2020-03-07] MEDS: Insulin Lispro 100 UNIT/ML INSULN.PEN 45 UNIT SC ×2 (08:26→13:00)
[2020-03-07] MEDS: Insulin Lispro 100 UNIT/ML INSULN.PEN SC ×3 (08:27→17:12)
--- NOTE | 2020-03-07 09:14 | CON.PCM_ITS ---
Problem List (1) Diabetic ulcer of right buttock Status: Acute (2) Suspected COVID-19 virus infection Status: Acute (3) Hyperkalemia Status: Acute (4) Acute kidney injury superimposed on chronic kidney disease Status: Acute (5) Chronic CHF Status: Chronic Qualifiers: Heart failure type: unspecified Qualified Code(s): I50.9 - Heart failure, unspecified (6) Acute kidney injury Status: Acute (7) Hyperlipidemia Status: Chronic Qualifiers: Hyperlipidemia type: unspecified Qualified Code(s): E78.5 - Hyperlipidemia, unspecified (8) Diabetes type 2, controlled Status: Chronic Qualifiers: Diabetes mellitus 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 Denise @ [facility] for Complete heart block, symptomatic bradycardia and EF 40-45%. Generator is Aarki model U128, serial # [id number] (11) COPD (chronic obstructive pulmonary disease) Status: Chronic Qualifiers: COPD type: unspecified COPD Qualified Code(s): J44.9 - Chronic obstructive pulmonary disease, unspecified (12) Type 2 diabetes mellitus Status: Chronic (13) Chronic atrial fibrillation Status: Chronic (14) Morbid obesity with BMI of 50.0-59.9, adult Status: Chronic (15) Chronic respiratory failure Status: Acute Qualifiers: Respiratory failure complication: unspecified whether with hypoxia or hypercapnia Qualified Code(s): J96.10 - Chronic respiratory failure, unspecified whether with hypoxia or hypercapnia (16) HTN (hypertension) Status: Chronic Qualifiers: Hypertension type: essential hypertension Qualified Code(s): I10 - Essential (primary) hypertension (17) Nicotine abuse Status: Chronic (18) GERMANIA (obstructive sleep apnea) Status: Chronic (19) Erectile dysfunction associated with type 2 diabetes mellitus Status: Acute Reason for Consult Date of Consultation: 03/07/20 Reason for Consultation: Hypoxic respiratory failure History of Present Illness: The patient is a 69 year old M with past medical history listed below, who presented to [facility] 03/06/2020 secondary to progressive weakness over the last week. Patient had reported that he was unable to stand, so came to the ER for evaluation. Patient did have a recent Covid test that was negative. Patient reportedly has denied any fever, chills or dyspnea. On evaluation in the ER, patient was noted to be tachypneic at 24 breaths/min with decreased lower extremity strength. Chest x-ray showed only mild pulmonary vascular congestion with no acute infiltrate. Laboratory work-up showed a leukocytosis of 14.4 with an elevated potassium of 6.1, creatinine of 3.6 with BUN of 63. Lactate was elevated at 5.3, but BNP was normal at 80.2. EKG showed only a paced rhythm with some hyperacute T waves. Urinalysis did show some white blood cell count and elevated leuk esterase. Patient was given some IV fluids, but not 30 cc/kg secondary to concerns for overload. Patient was also given insulin, Kayexalate and admitted to the intensive care unit for further evaluation. Patient's Covid PCR test did come back positive. Since being in the intensive care unit, patient reports that he is improved compared to previous. Patient feels that he is less short of breath and has bet ter strength. Patient reportedly uses a powered wheelchair, but lives independently. Patient reports he has chronic weeping of his lower extremities at baseline. Patient does carry diagnosis of obstructive sleep apnea, but states he does not use any BiPAP/CPAP to facilitate sleep. Patient is otherwise a relatively poor historian from a medical perspective. Patient does state that he is not having any chest pain or dyspnea when lying still. Poor historian, but review of systems otherwise negative from a constitutional, HEENT, respiratory, cardiovascular, GI, genitourinary, musculoskeletal, skin, neurologic, psychiatric and hematologic system unless stated above. Past Medical History Past Medical History (Chronic Problems): Chronic Problems (Last Reviewed 01/13/18 @ 09:26 by Eleni Bradley) Abscess of right buttock (Chronic) Chronic CHF (Chronic) Ascites (Chronic) Hyperlipidemia (Chronic) Diabetes type 2, controlled (Chronic) HTN (hypertension) (Chronic) Left ventricular hypertrophy (Chronic) Severe per echo 12/13/2017, EF 55% Complete heart block (Chronic) Biventricular implantable cardioverter-defibrillator (ICD) in situ (Chronic 06/05/15) Implanted by Dr. Denise @ [facility] for Complete heart block, symptomatic bradycardia and EF 40-45%. Generator is Aarki model U128, serial # [id number] COPD (chronic obstructive pulmonary disease) (Chronic) Type 2 diabetes mellitus (Chronic) Chronic atrial fibrillation (Chronic) Morbid obesity with BMI of 50.0-59.9, adult (Chronic) HTN (hypertension) (Chronic) Nicotine abuse (Chronic) CKD (chronic kidney disease) stage 3, GFR 30-59 ml/min (Chronic) GERMANIA (obstructive sleep apnea) (Chronic) Medical History: Medical History (Last Reviewed 01/13/18 @ 09:26 by Eleni Bradley) Ascites (Chronic) R18.8 Hyperlipidemia (Chronic) E78.5 Diabetes type 2, controlled (Chronic) E11.9 HTN (hypertension) (Chronic) I10 Left ventricular hypertrophy (Chronic) I51.7 Severe per echo 12/13/2017, EF 55% Complete heart block (Chronic) I44.2 COPD (chronic obstructive pulmonary disease) (Chronic) J44.9 Type 2 diabetes mellitus (Chronic) E11.9 Chronic atrial fibrillation (Chronic) I48.2 Morbid obesity with BMI of 50.0-59.9, adult (Chronic) E66.01, Z68.43 Hypoxemia (Acute) R09.02 Acute exacerbation of CHF (congestive heart failure) (Acute) I50.9 Chronic respiratory failure (Acute) J96.10 HTN (hypertension) (Chronic) I10 Nicotine abuse (Chronic) Z72.0 CKD (chronic kidney disease) stage 3, GFR 30-59 ml/min (Chronic) N18.3 GERMANIA (obstructive sleep apnea) (Chronic) G47.33 Erectile dysfunction associated with type 2 diabetes mellitus (Acute) E11.69, N52.1 CHF (congestive heart failure) I50.9 COPD (chronic obstructive pulmonary disease) J44.9 Vision problems H54.7 Arthritis M19.90 Cataracts, bilateral H26.9 GERD (gastroesophageal reflux disease) K21.9 Neuropathy G62.9 Osteoarthritis M19.90 Bone fracture T14.8XXA Bradycardia R00.1 Headache R51 Pneumonia J18.9 Syncope R55 Allergies No Known Allergies Allergy (Verified 03/06/20 17:06) Home Medications: Ambulatory Orders Medication Instructions Recorded acetaminophen 500 mg tablet 1,000 mg PO TID tab 02/25/17 budesonide 0.5 mg/2 mL suspension 0.5 mg INHALATION Q12H 02/25/17 for nebulization cholecalciferol (vitamin D3) 1,250 50,000 unit PO SUWE 02/25/17 mcg (50,000 unit) capsule docusate sodium 100 mg capsule 200 mg PO QDAY 02/25/17 rivaroxaban 20 mg tablet 20 mg PO QDAY 02/25/17 Montelukast Sodium [Singulair] 10 mg PO QHS 12/15/17 Gabapentin [Neurontin] 300 mg PO BID 12/18/17 Losartan Potassium [Cozaar] 25 mg PO DAILY 12/18/17 Omeprazole 40 mg PO DAILY 12/18/17 Potassium Chloride [K-Dur] 20 meq PO DAILY 12/18/17 Albuterol Aerosols [Ventolin 2.5 mg INHALATION Q6H PRN PRN 12/21/17 Aerosols] vial.neb. Insulin Lispro [Humalog KwikPen] 45 unit SC 0800 insuln.pen 12/21/17 Insulin Lispro [Humalog KwikPen] 45 unit SC 1200 insuln.pen 12/21/17 Insulin Lispro [Humalog KwikPen] 17 unit SC 1700 05/22/18 Azithromycin [Zithromax] 500 mg PO DAILY 03/06/20 Bisacodyl 10 mg PO DAILY PRN PRN 03/06/20 Budesonide [Pulmicort] 0.5 mg IH BID PRN PRN 03/06/20 Furosemide [Lasix] 80 mg PO DAILY 03/06/20 Gabapentin 1,200 mg PO 1700 03/06/20 Gabapentin [Neurontin] 100 mg PO 1200 03/06/20 Gabapentin [Neurontin] 400 mg PO 1200 03/06/20 Guaifenesin [Mucus Relief] 400 mg PO DAILY 03/06/20 Guaifenesin [Mucus Relief] 400 mg PO DAILY PRN PRN 03/06/20 Guaifenesin/Dextromethorphan 10 ml PO Q4H PRN PRN 03/06/20 [Siltussin Dm 100 mg-10 mg/5 ml] Ibuprofen 800 mg PO QHS 03/06/20 Insulin Degludec [Tresiba 23 unit SQ BREAKFAST 03/06/20 Flextouch U-100] Linagliptin [Tradjenta] 5 mg PO DAILY 03/06/20 Magnesium Hydroxide [Milk Of 30 ml PO DAILY PRN PRN 03/06/20 Magnesia] Metolazone 5 mg PO DAILY 03/06/20 Nicotine [Nicotine Patch] 1 ea TD DAILY PRN PRN 03/06/20 Surgical History: Surgical History (Last Reviewed 01/13/18 @ 09:26 by Eleni Bradley) Biventricular implantable cardioverter-defibrillator (ICD) in situ (Chronic) Onset Date: 06/05/[address] Z95[address] Denise @ [facility] for Complete heart block, symptomatic bradycardia and EF 40-45%. Generator is Aarki model U128, serial # [id number] H/O knee surgery Z98.890 Hx of appendectomy Z98.890, Z90.49 Surgical History: appendectomy, pacemaker implantation, - - Knee surgery. Psychiatric History: No pertinent psych hx Lives: Care Home Smoking Status: Current every day smoker Tobacco Use: Cigarettes Alcohol: None Drugs: None - *Family History Maternal Family History: Family History (Last Reviewed 01/13/18 @ 09:26 by Eleni Bradley) Mother Arthritis Cancer Brother Diabetes Kidney disease Grandmother Diabetes Grandfather Heart disease History Items: Cancer, Heart Disease Paternal Family History: Family History (Last Reviewed 01/13/18 @ 09:26 by Eleni Bradley) Mother Arthritis Cancer Brother Diabetes Kidney disease Grandmother Diabetes Grandfather Heart disease History Items: Heart Disease Review of Systems Comment: See HPI Patient Problems: Active and Suspected Problems (Last Reviewed 01/13/18 @ 09:26 by Eleni Bradley) Diabetic ulcer of right buttock (Acute) Septic shock (Acute) UTI (urinary tract infection) (Acute) Suspected COVID-19 virus infection (Acute) Hyperkalemia (Acute) Acute kidney injury superimposed on chronic kidney disease (Acute) Acute kidney injury (Acute) Chronic respiratory failure (Acute) Erectile dysfunction associated with type 2 diabetes mellitus (Acute) Objective: Chest x-ray was personally reviewed and does show some vascular congestion. Patient's images are limited given body habitus. Patient's last echocardiogram was in 2018 showing moderate LVH with an EF of 55%, severely dilated right ventricle with moderately severe systolic dysfunction. Right ventricular systolic pressure was estimated at 24 mmHg. Patient has no PFTs available for review. - Physical Exam Vitals/I&O's: Vital Signs Temp Pulse Resp BP Pulse Ox 36.6 C 80 23 H 113/70 95 03/07/20 06:00 03/07/20 07:00 03/07/20 07:00 03/07/20 07:00 03/07/20 08:06 Oxygen Flow Rate (L/min) 4 Oxygen Delivery Method Nasal Cannula Weight: 186.9 kg Body Mass Index (BMI) 54.2 Intake and Output for Last 24 Hours 03/05/20 03/06/20 03/07/20 23:59 23:59 23:59 Intake Total 2640.05 / 2640.05 506.25 / 506.25 Output Total 450 / 850 750 / 750 Balance 2190.05 / 1790.05 -243.75 / -243.75 General: Alert, Oriented x3, Cooperative, No apparent distress, - - Morbidly obese. Appears older than stated age. HEENT: Atraumatic, PERRLA, EOMI, Normocephalic, - - No scleral icterus or injection noted Oral: Moist Mucosa, No Gingival or Mucosal Lesions/ Ulcerations Neck: Supple, No Nodes, Trachea Midline, JVD, Right Lungs: No rhonchi, No wheeze, Diminished, Rales - Right base, - - Symmetric expansion. Cardiovascular: Regular rate, Regular Rhythm, Normal S1, Normal S2, Murmur - Grade 3 out of 6 systolic ejection murmur at the right sternal border, No rub noted, No Gallop Abdomen: Bowel Sounds Present, Soft, Non Tender, Non-Distended, Obese Extremities: No clubbing, No cyanosis, Edema, Peripheral Pulses Normal Skin: - - Lichenification of most dependent areas including his pannus. There does appear to be increased redness and heat from the right lower extremity compared to the left. Patient also has periodic ulcers between lichenification Musculoskeletal: Tenderness - Palpation of the right lower extremity Lymphatic: No Cervical, Supraclavicular, or Inguinal Adenopathy Neurological: Cranial nerves II-XII grossly intact, Neuro grossly intact, - - Decreased sensation of bilateral lower extremities Psych/Mental Status: Alert and oriented to time, place, person, mood and affect Microbiology Past 72 Hours 03/06/20 17:40 Blood Culture (Wb) - Anticubital Right Bacteria Detection (PCR) - Preliminary Strep not Strep pneumo 03/06/20 17:40 Blood Culture (Wb) - Anticubital Right Blood Culture - Preliminary 03/06/20 18:20 Blood Culture (Wb) - Right Hand Bacteria Detection (PCR) - Final 03/06/20 18:20 Blood Culture (Wb) - Right Hand Blood Culture - Preliminary 03/06/20 Unknown Mucosa - Nasopharyngeal Respiratory Panel (PCR) - Final 03/06/20 17:55 Urine Catheter - Catheter Legionella Antigen - Final 03/06/20 17:55 Urine Catheter - Catheter Streptococcus pneumoniae Antigen (M - Final Laboratory Results 03/06/20 17:40: WBC 14.4 H, RBC 4.67, Hgb 13.8, Hct 42.4, MCV 90.8, MCH 29.6, MCHC 32.5, RDW Std Deviation 55.8 H, RDW Coeff of Shaq 16.8 H, Plt Count 172, MPV 10.9, Immature Gran % (Auto) 3.800 H, Neut % (Auto) 90.2 H, Lymph % (Auto) 1.8 L , Saline % (Auto) 2.8, Eos % (Auto) 0.8, Baso % (Auto) 0.6, Absolute Neuts (auto) 13.0 H, Absolute Lymphs (auto) 0.26 L, Nucleated RBC % 0, Differential Comment SCANNED 03/06/20 17:40: Sodium 128 L, Potassium 6.1 H*, Chloride 97 L, Carbon Dioxide 22.0, Anion Gap 9, BUN 63 H, Creatinine 3.60 H, Estim Creat Clear Calc 21.89, Est GFR (MDRD) Af Amer 22 L, Est GFR (MDRD) Non-Af 18 L, BUN/Creatinine Ratio 17.5, Glucose 457 H*, Calcium 8.4 L 03/06/20 17:40: Lactic Acid 5.3 H* 03/06/20 17:40: B-Natriuretic Peptide 80.2 03/06/20 17:40: Total Bilirubin 0.70, Direct Bilirubin 0.27, AST 54 H, ALT 25, Alkaline Phosphatase 77, Troponin I 0.079 H, Total Protein 7.9, Albumin 2.5 L, Globulin 5.4 H 03/06/20 17:55: Urine Color Brown, Urine Clarity Cloudy, Urine pH 5.0, Ur Specific [place] 1.025, Urine Protein 100 H, Urine Glucose (UA) 50 H, Urine Ketones 5 H, Urine Occult Blood 250 H, Urine Nitrite Negative, Urine Bilirubin 1 H, Urine Urobilinogen 1 H, Ur Leukocyte Esterase 500 H, Urine RBC 10-25 SEEN, Urine WBC 50-100 SEEN, Ur Squamous Epith Cells 0-5 SEEN, Amorphous Sediment 2+, Urine Bacteria 2+, Urine Mucus 0 SEEN 03/06/20 19:16: COVID-19 (CORNEL) Positive 03/06/20 20:25: D-Dimer Quant (PE/DVT) 2.02 H* 03/06/20 20:25: Magnesium 0.7 L*, Ferritin 76, Lactate Dehydrogenase 95, C-React Prot Ext Range 141.00 H 03/06/20 20:25: Hemoglobin A1c 9.5 H 03/06/20 20:25: Procalcitonin 17.60 H 03/06/20 20:25: MRSA (PCR) POSITIVE H 03/06/20 20:25: Troponin I 0.054 H 03/06/20 21:20: Ur Random Sodium < 5, Urine Creatinine 227.00 03/06/20 21:30: Lactic Acid 2.2 H* 03/06/20 22:13: POC Glucose 381 H 03/06/20 22:50: Sodium 132 L, Potassium 5.6 H, Chloride 99, Carbon Dioxide 25.0, Anion Gap 8, BUN 66 H, Creatinine 3.39 H, Estim Creat Clear Calc 23.24, Est GFR (MDRD) Af Amer 23 L, Est GFR (MDRD) Non-Af 19 L, BUN/Creatinine Ratio 19.5, Glucose 366 H, Calcium 8.1 L 03/06/20 22:50: Troponin I 0.083 H 03/07/20 04:20: WBC 15.0 H, RBC 4.39 L, Hgb 12.9 L, Hct 40.3, MCV 91.8, MCH 29.4, MCHC 32.0, RDW Std Deviation 57.0 H, RDW Coeff of Shaq 16.8 H, Plt Count 151, MPV 10.4, Neut % (Auto) Not Reportable, Absolute Neuts (auto) 13.7 H, Absolute Lymphs (auto) 0.15 L, Total Counted 100, Neutrophils % (Manual) 66, Band Neutrophils % 25 H, Lymphocytes % (Manual) 1 L, Monocytes % (Manual) 7, Metamyelocytes % 1, Diff Path Review May , Platelet Estimate ADEQUATE, RBC Morphology NORM C+C 03/07/20 04:20: Sodium 127 L, Potassium 5.6 H, Chloride 94 L, Carbon Dioxide 23.0, Anion Gap 10, BUN 68 H, Creatinine 3.02 H, Estim Creat Clear Calc 26.09, Est GFR (MDRD) Af Amer 27 L, Est GFR (MDRD) Non-Af 22 L, BUN/Creatinine Ratio 22.5 H, Glucose 324 H, Calcium 8.4 L, Total Bilirubin 0.50, AST 49 H, ALT 28, Alkaline Phosphatase 74, Total Protein 7.3, Albumin 2.2 L, Globulin 5.1 H, [place] min/Globulin Ratio 0.4 L Current Medications Acetaminophen (Acetaminophen 325 Mg Tablet) 650 mg PO Q6H PRN PRN PRN Reason: Pain Score 1-10/Temp > 100.7 F Al Hydroxide/Mg Hydroxide (Mag Hydrox/Al Hydrox/Simeth 30 Ml Udc) 30 ml PO Q6H PRN PRN PRN Reason: Gastric Burning Albuterol Sulfate (Albuterol Ih 8.5 Gm (Proair) Inhaler (200 Puffs)) 4 - 8 puff INHALATION Q4H PRN PRN PRN Reason: Dyspnea, wheezing Last Admin: 03/07/20 04:28 Dose: 4 puff Documented by: Dexamethasone Sodium Phosphate (Dexamethasone 4 Mg/Ml Vial) 6 mg IV DAILY [facility] Stop: 03/15/20 10:01 Last Admin: 03/06/20 22:12 Dose: 6 mg Documented by: Docusate Sodium (Docusate Sodium 100 Mg Capsule) 200 mg PO DAILY [facility] Gabapentin (Gabapentin 400 Mg Capsule) 400 mg PO 1200 YADIRA Gabapentin (Gabapentin 300 Mg Capsule) 300 mg PO BIDCM [facility] Gabapentin (Gabapentin 100 Mg Capsule) 100 mg PO 1200 [facility] Guaifenesin (Guaifenesin 10 Ml Udc (200mg/10ml)) 10 ml PO Q4H PRN PRN PRN Reason: COUGH Hydralazine HCl (Hydralazine 20 Mg/Ml Vial) 10 mg IV Q4H PRN PRN PRN Reason: SBP > 160 Piperacillin Sod/Tazobactam (Sod 3.375 gm/ Sodium Chloride) 50 mls @ 12.5 mls/hr IV Q8 [facility] Last Admin: 03/07/20 05:24 Dose: 12.5 mls/hr Documented by: Vancomycin IV Pharmacy to Dose (1 ea/ Sodium Chloride) 500 mls @ 250 mls/hr IV X1 PRN; Protocol PRN Reason: Rx to Dose Sodium Chloride () 250 mls @ 15 mls/hr IV .[id number] PRN PRN Reason: Saline Flush Sodium Chloride () 250 mls @ 15 mls/hr IV .[id number] PRN PRN Reason: Additional IVPB Infusion Vancomycin HCl 1,500 mg/ (Sodium Chloride) 530 mls @ 250 mls/hr IV Q24H [facility] Insulin Glargine (Insulin Glargine 100 Units/Ml Pen) 23 units SC BREAKFAST [facility] Last Admin: 03/07/20 08:29 Dose: 23 u Documented by: Insulin Human Lispro (Insulin Lispro 100 Unit/Ml Insuln.Pen) 45 unit SC 1200 [facility] Insulin Human Lispro (Insulin Lispro 100 Unit/Ml Insuln.Pen) 45 unit SC 0800 [facility] Last Admin: 03/07/20 08:26 Dose: 45 u Documented by: Insulin Human Lispro (Insulin Lispro 100 Unit/Ml Insuln.Pen) 17 unit SC 1700 [facility] Insulin Human Lispro (Insulin Lispro 100 Unit/Ml Insuln.Pen) 0 unit SC ACHS [facility]; Protocol Last Admin: 03/07/20 08:27 Dose: 14 u Documented by: Magnesium Hydroxide (Magnesium Hydroxide 30 Ml Udc) 30 ml PO DAILY PRN PRN PRN Reason: Constipation Melatonin (Melatonin 3 Mg Tablet) 3 mg PO QHS PRN PRN PRN Reason: INSOMNIA Miscellaneous Information (Aerochamber 1 Each) 1 ea INHALATION UD PRN PRN Reason: INHALER USE Montelukast Sodium (Montelukast 10 Mg Tablet) 10 mg PO QHS [facility] Last Admin: 03/06/20 21:07 Dose: 10 mg Documented by: Nitroglycerin (Nitroglycerin (Inpatient Use) 0.4 Mg Tab.Subl) 0.4 mg SUBLINGUAL Q5M PRN PRN Reason: CARDIAC/CHEST PAIN Nystatin (Nystatin Powder 15gm Bottle) 1 applic TOPICAL TID YADIRA; Protocol Last Admin: 03/07/20 04:15 Dose: 1 applicatio Documented by: Ondansetron HCl (Ondansetron 4 Mg/2 Ml Vial) 4 mg IV Q8H PRN PRN PRN Reason: NAUSEA/VOMITING Pantoprazole Sodium (Pantoprazole Sodium 40 Mg Tablet) 40 mg PO DAILY YADIRA Prochlorperazine Edisylate (Prochlorperazine 10 Mg/2 Ml Vial) 5 mg IV Q4H PRN PRN PRN Reason: Breakthrough Nausea/Vomiting Psyllium Hydrophilic Mucilloid (Psyllium 1 Packet) 1 packet PO DAILY PRN PRN PRN Reason: Constipation Senna/Docusate Sodium (Senna/Docusate Sodium 1 Tablet) 2 tablet PO BID PRN PRN PRN Reason: Constipation Sodium Chloride (0.9% Saline Lock 10 Ml Syringe) 10 - 40 ml IV UD PRN PRN Reason: SALINE FLUSH Throat Lozenges (Benzocaine/Menthol 1 Lozenge) 1 lozenge MUCOUS MEM Q2H PRN PRN PRN Reason: SORE THROAT Clinical Impression(s) from Imaging Studies Chest X-Ray 03/06/20 18:07 IMPRESSION: Mild pulmonary vascular congestion. Electronically Signed: Irineo Boswell MD at 18:21 EST Tel , Service support , Chest X-Ray 03/07/20 05:55 IMPRESSION: Moderate degree of cardiac enlargement. Electronically Signed: Alex Gary MD at 8:34 EST , Service support , Assessment/Plan Active and Suspected Problems (Last Reviewed 01/13/18 @ 09:26 by Eelni Bradley) Diabetic ulcer of right buttock (Acute) Septic shock (Acute) UTI (urinary tract infection) (Acute) Suspected COVID-19 virus infection (Acute) Hyperkalemia (Acute) Acute kidney injury superimposed on chronic kidney disease (Acute) Acute kidney injury (Acute) Chronic respiratory failure (Acute) Erectile dysfunction associated with type 2 diabetes mellitus (Acute) RECOMMENDATIONS: 1. Hold on aggressive fluid resuscitation 2. Agree with empiric antibiotics 3. Hold Xarelto therapy 4. Aggressive blood sugar control 5. BiPAP with sleep 6. Await infectious disease recommendations IMPRESSIONS: 1. Septic shock secondary to UTI versus right lower extremity cellulitis Patient appears to have staph growing in his blood. Given lichenification of lower extremities, this may need to be treated even if staph epidermidis. Infectious diseases consulted. Continue empiric antibiotics at this time. Concomitant UTI may be suggestive of hematologic spread. Await blood cultures. Patient may need an echocardiogram for evaluation of endocarditis. Given size, JUDY may be necessary. This is complicated by COVID-19. Would attempt to keep fluid on the lower side if possible secondary to respiratory status. 2. Acute hypoxic respiratory insufficiency secondary to chronic COPD/cor pulmonale/COVID-19 Patient currently on 4 L to maintain saturations. Volume status will be very difficult as patient will require volume secondary to cor pulmonale to maintain cardiac output, but excess fluid has led to increased risk for intubation in patients with COVID-19. Likely okay to discontinue inhaled steroids if patient is placed on Decadron. Continue with bronchodilators. Patient has refused BiPAP, which does increased risk for need of intubation. 3. Acute kidney injury on CKD stage III Patient appears to be volume overloaded, but may be intravascularly depleted versus decreased cardiac output secondary to RV strain. Patient does have some elevated blood sugars, which may be leading to auto diuresis. We will continue to monitor, but intravascular volume may improve from extracellular recruitment. No indication for dialysis at this time, but will have to watch closely. 4. Diabetes mellitus type 2 with hyperglycemia - uncontrolled Poorly controlled at baseline. Patient does have an elevated glucose at this time. We will add on insulin dosing and monitor closely. Clinical suspicion the patient does not follow a diabetic diet at home leading to increased insulin requirements. We will also need to follow for hypoglycemia for these reasons. 5. Chronic anticoagulation with Xarelto Patient presented with significantly elevated creatinine. Xarelto is renally excreted and likely represents increased anticoagulation at this time. We will hold empirically for 3 days. A 10 a level or Xarelto level will take days to weeks to return. Doubt patient would be a candidate for Lovenox given body habitus. Heparin drip versus Eliquis can be evaluated after 3 days. Patient will be at increased risk for bleeding in the interim. 6. Hypertension/hyperlipidemia/super morbid obesity/chronic A. fib with heart block Complicates care, management, recovery and prognosis. Agree with holding diuretic and ARB at this time. We will need to monitor fluid status closely. Xarelto held for reasons above. Likely reinitiate anticoagulation in 3 days empirically. Inpatient E&M: [id number] [facility] L3
[2020-03-07] MEDS: dexAMETHasone 4 MG/ML Vial 6 MG IV (10:21)
[2020-03-07] MEDS: Gabapentin 300 MG Capsule PO ×2 (10:21→17:12)
[2020-03-07] MEDS: Pantoprazole Sodium 40 MG Tablet PO (10:21)
[2020-03-07 10:55] LABS: Bedside Glucose 391 mg/dL (70-110)
--- NOTE | 2020-03-07 11:50 | PCM.PN.HOSP ---
Patient Problems: Active and Suspected Problems (Last Reviewed 01/13/18 @ 09:26 by Eleni Bradley) Diabetic ulcer of right buttock (Acute) Septic shock (Acute) UTI (urinary tract infection) (Acute) Suspected COVID-19 virus infection (Acute) Hyperkalemia (Acute) Acute kidney injury superimposed on chronic kidney disease (Acute) Acute kidney injury (Acute) Chronic respiratory failure (Acute) Erectile dysfunction associated with type 2 diabetes mellitus (Acute) Subjective: No issues overnight, doing better than when he came in. Vitals/I&O's: Vital Signs Temp Pulse Resp BP Pulse Ox 98.7 F 80 20 H 118/66 95 03/07/20 09:00 03/07/20 11:00 03/07/20 11:00 03/07/20 11:00 03/07/20 11:00 Oxygen Flow Rate (L/min) 4 Oxygen Delivery Method Nasal Cannula Weight: 412 lb 0.703 oz Body Mass Index (BMI) 54.2 Intake and Output for Last 24 Hours 03/05/20 03/06/20 03/07/20 23:59 23:59 23:59 Intake Total 2640.05 / 2640.05 556.25 / 556.25 Output Total 450 / 850 750 / 750 Balance 2190.05 / 1790.05 -193.75 / -193.75 General: Alert, Oriented x3, Cooperative, No apparent distress HEENT: Atraumatic, PERRLA, EOMI, Normocephalic Oral: Moist Mucosa Neck: Supple, No JVD Lungs: No rhonchi, No wheeze, Diminished, Rales Cardiovascular: Regular rate, Regular Rhythm, Normal S1, Normal S2, Murmur - CARLOS EDUARDO Abdomen: Soft, Non Tender, Non-Distended, No Hepato-splenomegaly Extremities: Capillary Refill Less than 3 Seconds, Edema Skin: - - Right lower extremity erythema Neurological: Neuro grossly intact, Sensory exam intact to light touch and pain Psych/Mental Status: Normal Affect, Appropriate Microbiology Past 72 Hours 03/06/20 17:40 Blood Culture (Wb) - Anticubital Right Bacteria Detection (PCR) - Preliminary Strep not Strep pneumo 03/06/20 17:40 Blood Culture (Wb) - Anticubital Right Blood Culture - Preliminary 03/06/20 18:20 Blood Culture (Wb) - Right Hand Bacteria Detection (PCR) - Final 03/06/20 18:20 Blood Culture (Wb) - Right Hand Blood Culture - Preliminary 03/06/20 Unknown Mucosa - Nasopharyngeal Respiratory Panel (PCR) - Final 03/06/20 17:55 Urine Catheter - Catheter Legionella Antigen - Final 03/06/20 17:55 Urine Catheter - Catheter Streptococcus pneumoniae Antigen (M - Final Laboratory Results 03/06/20 17:40: WBC 14.4 H, RBC 4.67, Hgb 13.8, Hct 42.4, MCV 90.8, MCH 29.6, MCHC 32.5, RDW Std Deviation 55.8 H, RDW Coeff of Shaq 16.8 H, Plt Count 172, MPV 10.9, Immature Gran % (Auto) 3.800 H, Neut % (Auto) 90.2 H, Lymph % (Auto) 1.8 L, Mcculloch % (Auto) 2.8, Eos % (Auto) 0.8, Baso % (Auto) 0.6, Absolute Neuts (auto) 13.0 H, Absolute Lymphs (auto) 0.26 L, Nucleated RBC % 0, Differential Comment SCANNED 03/06/20 17:40: Sodium 128 L, Potassium 6.1 H*, Chloride 97 L, Carbon Dioxide 22.0, Anion Gap 9, BUN 63 H, Creatinine 3.60 H, Estim Creat Clear Calc 21.89, Est GFR (MDRD) Af Amer 22 L, Est GFR (MDRD) Non-Af 18 L, BUN/Creatinine Ratio 17.5, Glucose 457 H*, Calcium 8.4 L 03/06/20 17:40: Lactic Acid 5.3 H* 03/06/20 17:40: B-Natriuretic Peptide 80.2 03/06/20 17:40: Total Bilirubin 0.70, Direct Bilirubin 0.27, AST 54 H, ALT 25, Alkaline Phosphatase 77, Troponin I 0.079 H, Total Protein 7.9, Albumin 2.5 L, Globulin 5.4 H 03/06/20 17:55: Urine Color Brown, Urine Clarity Cloudy, Urine pH 5.0, Ur Specific [place] 1.025, Urine Protein 100 H, Urine Glucose (UA) 50 H, Urine Ketones 5 H, Urine Occult Blood 250 H, Urine Nitrite Negative, Urine Bilirubin 1 H, Urine Urobilinogen 1 H, Ur Leukocyte Esterase 500 H, Urine RBC 10-25 SEEN, Urine WBC 50-100 SEEN, Ur Squamous Epith Cells 0-5 SEEN, Amorphous Sediment 2+, Urine Bacteria 2+, Urine Mucus 0 SEEN 03/06/20 19:16: COVID-19 ([facility]) Positive 03/06/20 20:25: D-Dimer Quant (PE/DVT) 2.02 H* 03/06/20 20:25: Magnesium 0.7 L*, Ferritin 76, Lactate Dehydrogenase 95, C-React Prot Ext Range 141.00 H 03/06/20 20:25: Hemoglobin A1c 9.5 H 03/06/20 20:25: Procalcitonin 17.60 H 03/06/20 20:25: MRSA (PCR) POSITIVE H 03/06/20 20:25: Troponin I 0.054 H 03/06/20 21:20: Ur Random Sodium < 5, Urine Creatinine 227.00 03/06/20 21:30: Lactic Acid 2.2 H* 03/06/20 22:13: POC Glucose 381 H 03/06/20 22:50: Sodium 132 L, Potassium 5.6 H, Chloride 99, Carbon Dioxide 25.0, Anion Gap 8, BUN 66 H, Creatinine 3.39 H, Estim Creat Clear Calc 23.24, Est GFR (MDRD) Af Amer 23 L, Est GFR (MDRD) Non-Af 19 L, BUN/Creatinine Ratio 19.5, Glucose 366 H, Calcium 8.1 L 03/06/20 22:50: Troponin I 0.083 H 03/07/20 04:20: WBC 15.0 H, RBC 4.39 L, Hgb 12.9 L, Hct 40.3, MCV 91.8, MCH 29.4, MCHC 32.0, RDW Std Deviation 57.0 H, RDW Coeff of Shaq 16.8 H, Plt Count 151, MPV 10.4, Neut % (Auto) Not Reportable, Absolute Neuts (auto) 13.7 H, Absolute Lymphs (auto) 0.15 L, Total Counted 100, Neutrophils % (Manual) 66, Band Neutrophils % 25 H, Lymphocytes % (Manual) 1 L, Monocytes % (Manual) 7, Metamyelocytes % 1, Diff Path Review May foll, Platelet Estimate ADEQUATE, RBC Morphology NORM C+C 03/07/20 04:20: Sodium 127 L, Potassium 5.6 H, Chloride 94 L, Carbon Dioxide 23.0, Anion Gap 10, BUN 68 H, Creatinine 3.02 H, Estim Creat Clear Calc 26.09, Est GFR (MDRD) Af Amer 27 L, Est GFR (MDRD) Non-Af 22 L, BUN/Creatinine Ratio 22.5 H, Glucose 324 H, Calcium 8.4 L, Total Bilirubin 0.50, AST 49 H, ALT 28, Alkaline Phosphatase 74, Total Protein 7.3, Albumin 2.2 L, Globulin 5.1 H, Albumin/Globulin Ratio 0.4 L 03/07/20 08:25: POC Glucose 391 H Current Medications Acetaminophen (Acetaminophen 325 Mg Tablet) 650 mg PO Q6H PRN PRN PRN Reason: Pain Score 1-10/Temp > 100.7 F Al Hydroxide/Mg Hydroxide (Mag Hydrox/Al Hydrox/Simeth 30 Ml Udc) 30 ml PO Q6H PRN PRN PRN Reason: Gastric Burning Albuterol Sulfate (Albuterol Ih 8.5 Gm (Proair) Inhaler (200 Puffs)) 4 - 8 puff INHALATION Q4H PRN PRN PRN Reason: Dyspnea, wheezing Last Admin: 03/07/20 04:28 Dose: 4 puff Documented by: Dexamethasone Sodium Phosphate (Dexamethasone 4 Mg/Ml Vial) 6 mg IV DAILY [facility] Stop: 03/15/20 10:01 Last Admin: 03/07/20 10:21 Dose: 6 mg Documented by: Docusate Sodium (Docusate Sodium 100 Mg Capsule) 200 mg PO DAILY [facility] Last Admin: 03/07/20 10:02 Dose: Not Given Documented by: Gabapentin (Gabapentin 400 Mg Capsule) 400 mg PO 1200 [facility] Gabapentin (Gabapentin 300 Mg Capsule) 300 mg PO BIDCM [facility] Last Admin: 03/07/20 10:21 Dose: 300 mg Documented by: Gabapentin (Gabapentin 100 Mg Capsule) 100 mg PO 1200 [facility] Guaifenesin (Guaifenesin 10 Ml Udc (200mg/10ml)) 10 ml PO Q4H PRN PRN PRN Reason: COUGH Hydralazine HCl (Hydralazine 20 Mg/Ml Vial) 10 mg IV Q4H PRN PRN PRN Reason: SBP > 160 Piperacillin Sod/Tazobactam (Sod 3.375 gm/ Sodium Chloride) 50 mls @ 12.5 mls/hr IV Q8 [facility] Last Infusion: 03/07/20 09:29 Dose: Infused Documented by: Vancomycin IV Pharmacy to Dose (1 ea/ Sodium Chloride) 500 mls @ 250 mls/hr IV X1 PRN; Protocol PRN Reason: Rx to Dose Sodium Chloride () 250 mls @ 15 mls/hr IV .[id number] PRN PRN Reason: Saline Flush Sodium Chloride () 250 mls @ 15 mls/hr IV .[id number] PRN PRN Reason: Additional IVPB Infusion Vancomycin HCl 1,500 mg/ (Sodium Chloride) 530 mls @ 250 mls/hr IV Q24H [facility] Insulin Glargine (Insulin Glargine 100 Units/Ml Pen) 23 units SC BREAKFAST [facility] Last Admin: 03/07/20 08:29 Dose: 23 u Documented by: Insulin Glargine (Insulin Glargine 100 Units/Ml Pen) 20 units SC QHS [facility] Insulin Human Lispro (Insulin Lispro 100 Unit/Ml Insuln.Pen) 45 unit SC 1200 [facility] Insulin Human Lispro (Insulin Lispro 100 Unit/Ml Insuln.Pen) 45 unit SC 0800 [facility] Last Admin: 03/07/20 08:26 Dose: 45 u Documented by: Insulin Human Lispro (Insulin Lispro 100 Unit/Ml Insuln.Pen) 17 unit SC 1700 [facility] Insulin Human Lispro (Insulin Lispro 100 Unit/Ml Insuln.Pen) 0 unit SC ACHS [facility]; Protocol Last Admin: 03/07/20 08:27 Dose: 14 u Documented by: Magnesium Hydroxide (Magnesium Hydroxide 30 Ml Ud) 30 ml PO DAILY PRN PRN PRN Reason: Constipation Melatonin (Melatonin 3 Mg Tablet) 3 mg PO QHS PRN PRN PRN Reason: INSOMNIA Miscellaneous Information (Aerochamber 1 Each) 1 ea INHALATION UD PRN PRN Reason: INHALER USE Montelukast Sodium (Montelukast 10 Mg Tablet) 10 mg PO QHS [facility] Last Admin: 03/06/20 21:07 Dose: 10 mg Documented by: Nitroglycerin (Nitroglycerin (Inpatient Use) 0.4 Mg Tab.Subl) 0.4 mg SUBLINGUAL Q5M PRN PRN Reason: CARDIAC/CHEST PAIN Nystatin (Nystatin Powder 15gm Bottle) 1 applic TOPICAL TID [facility]; Protocol Last Admin: 03/07/20 04:15 Dose: 1 applicatio Documented by: Ondansetron HCl (Ondansetron 4 Mg/2 Ml Vial) 4 mg IV Q8H PRN PRN PRN Reason: NAUSEA/VOMITING Pantoprazole Sodium (Pantoprazole Sodium 40 Mg Tablet) 40 mg PO DAILY [facility] Last Admin: 03/07/20 10:21 Dose: 40 mg Documented by: Prochlorperazine Edisylate (Prochlorperazine 10 Mg/2 Ml Vial) 5 mg IV Q4H PRN PRN PRN Reason: Breakthrough Nausea/Vomiting Psyllium Hydrophilic Mucilloid (Psyllium 1 Packet) 1 packet PO DAILY PRN PRN PRN Reason: Constipation Senna/Docusate Sodium (Senna/Docusate Sodium 1 Tablet) 2 tablet PO BID PRN PRN PRN Reason: Constipation Sodium Chloride (0.9% Saline Lock 10 Ml Syringe) 10 - 40 ml IV UD PRN PRN Reason: SALINE FLUSH Throat Lozenges (Benzocaine/Menthol 1 Lozenge) 1 lozenge MUCOUS MEM Q2H PRN PRN PRN Reason: SORE THROAT STROKE Vital Signs/Narrative: Vital Signs Temp Pulse Resp BP Pulse Ox 03/07/20 11:00 80 20 H 118/66 95 03/07/20 10:00 80 18 137/63 H 96 03/07/20 09:00 98.7 F 80 24 H 120/64 98 03/07/20 08:06 95 03/07/20 08:00 80 23 H 127/61 H 95 Medical Necessity - Tobacco Use Smoking Status: Current every day smoker Tobacco Use: Cigarettes Assessment/Plan All Active Problems (Last Reviewed 01/13/18 @ 09:26 by Eleni Bradley) Diabetic ulcer of right buttock (Acute) Skin ulcer (Acute) Septic shock (Acute) UTI (urinary tract infection) (Acute) Suspected COVID-19 virus infection (Acute) Hyperkalemia (Acute) Acute kidney injury superimposed on chronic kidney disease (Acute) Acute kidney injury (Acute) Hypoxemia (Acute) Acute exacerbation of CHF (congestive heart failure) (Acute) Chronic respiratory failure (Acute) Erectile dysfunction associated with type 2 diabetes mellitus (Acute) 1. Septic shock secondary to UTI and right lower extremity cellulitis with streptococcal bacteremia/JESUS on CKD 3 -Does have strep organism growing in his blood as well -Appreciate ID assistance -Continue with Vanco and Zosyn -May need echo for further evaluation of his murmur in the setting of streptococcal bacteremia assuming that he cannot clear the infection quickly -Continue with IV fluids 2. Acute hypoxic respiratory insufficiency secondary to chronic COPD/cor pulmonale/COVID-19 infection -Currently on 4 L nasal cannula and feels like he is less short of breath today -Continue with Decadron, symptoms started within the last week, may benefit from remdesivir as well 3. DM 2 -Continue with insulin and monitor his blood sugars closely secondary to the Decadron for Covid -Hold Tradjenta 4. Chronic A. fib/chronic CHF likely diastolic/super morbid obesity/HTN/HLD/complete heart block status post pacemaker -He is on Xarelto as an outpatient however given his increasing creatinine, this has been discontinued. He will likely need to transition to Eliquis on discharge as creatinine returns to baseline -Hold Lasix and losartan and metolazone secondary to JESUS and IV fluid necessity -Echo in 2018 with moderate concentric LVH and an EF of 55% with a dilated right ventricle RVSP of 24 mmHg 5. GERD -Stable -Continue with PPI DVT: Xarelto, though on hold per discovery guide note, Xarelto is renally excreted given his acute renal failure he is likely hypercoagulable at this moment Inpatient E&M: [id number] Subs Hosp L2
--- NOTE | 2020-03-07 12:07 | CASEMGMT ---
Addendum entered by Madai Valiente 03/07/20 14:47: SW called back to [facility] to inquire if pt was using oxygen prior to this hospitalization. The nurse Susi states pt does have a concentrator in his room but does not use the oxygen often. She is not certain the company, she thinks is either [employer] or [employer]. Erick Craranza Addendum entered by Madai Valiente 03/07/20 13:28: SW did attempt to call into pt's room, however he does not answer his phone. SW will continue to follow. ERICK Carranza Original Note: SW participated in ICU rounds. Pt is here from [facility]. SW called [facility], spoke w/nurse Susi. As per Susi, they do manage pt's medications. However, pt refuses to let the nurses take his blood sugars for the last couple of months. Pt has wounds on his buttocks, pt gets these cared for by staff at [facility] 3 times per week. [facility] They wash his legs twice per day and then ammonium lactate is applied. Susi states she did not see his legs leaking the way they were prior to his admission here. Pt can normally get up on his own from his motorized scooter to get up and into the bathroom, does need help with hygiene after however. Pt has refused to take a shower. As per Susi, prior to admission had not been getting himself to the bathroom, had soiled his recliner. In order for pt to return, as per Susi, pt needs to be able to get up on his own or with very little assist to get to the bathroom. Susi states pt has been to [facility] in the past and is wondering if pt would be willing to go again after this hospitalization. SW attempted to speak w/pt, he is sleeping at present. SW will try again to speak w/pt later today. SW will continue to follow. ERICK Carranza
[2020-03-07] MEDS: Gabapentin 400 MG Capsule PO (13:03)
[2020-03-07] MEDS: Gabapentin 100 MG Capsule PO (13:04)
[2020-03-07 13:31] LABS: Pathologist Review Reviewed
--- NOTE | 2020-03-07 14:46 | NURSING ---
Was asked to see patient for scaly, weeping legs and maceration to buttocks. In room to see patient. therapy attempted to get patient up into the chair, but patient was too weak to get to the chair. bilateral buttocks and posterior thighs are dark in color with a few denuded areas. patient lives in [facility] and gets assistance 2-3 times per week. patient states he does not shower much. states they usually come in and put lotion on my legs. only a few superficial open areas are noted to the mehnaz anal area and buttocks. orders received for calmoseptine. bilateral lower legs are edematous. patient's pannus is large and firm and also has some dark thick scaly skin noted. legs with hemosiderin staining, hyperpigmentation, scaly skin, and thick nails. pedal pulses are not palpable. nursing has been using the doppler. minimal drainage noted from the legs at this time. this nurse attempted to removed some of the scaly skin. some areas are very soft and moist. pt refuses to let nursing apply wraps to legs as well. There is still a large amount of scaly skin noted. some mild redness noted to the right lower leg. moderate edema noted, but pt states is much improved since admission. will continue to follow. will try daily to remove more of the scaly skin if possible.
--- NOTE | 2020-03-07 14:51 | CM.UR ---
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 SW called and left him a message letting him know pt is here in the hospital. ERICK Carranza
--- NOTE | 2020-03-07 15:35 | CON.PCM_ITS ---
Problem List (1) Suspected COVID-19 virus infection Status: Acute Reason for Consult: covid Consulted by: Dr. Greco History of Present Illness: The patient is a 69 year old M with chronic BLE lymphedema, presented with about 1 week of weakness, fever, dyspnea, aches, BLE redness and pain. Came to ED 03/06, admitted to icu, on vanc/zosyn, dex. Covid pcr (+). Bcx x2 with strep. UCx with staph aureus. Feeling a little better. Full ROS performed and neg except as noted above. - Medical History Past Medical History (Chronic Problems): Chronic Problems (Last Reviewed 01/13/18 @ 09:26 by Eleni Bradley) Abscess of right buttock (Chronic) Chronic CHF (Chronic) Ascites (Chronic) Hyperlipidemia (Chronic) Diabetes type 2, controlled (Chronic) HTN (hypertension) (Chronic) Left ventricular hypertrophy (Chronic) Severe per echo 12/13/2017, EF 55% Complete heart block (Chronic) Biventricular implantable cardioverter-defibrillator (ICD) in situ (Chronic 06/05/15) Implanted by Dr. Denise @ [facility] for Complete heart block, symptomatic bradycardia and EF 40-45%. Generator is [employer] model U128, serial # [id number] COPD (chronic obstructive pulmonary disease) (Chronic) Type 2 diabetes mellitus (Chronic) Chronic atrial fibrillation (Chronic) Morbid obesity with BMI of 50.0-59.9, adult (Chronic) HTN (hypertension) (Chronic) Nicotine abuse (Chronic) CKD (chronic kidney disease) stage 3, GFR 30-59 ml/min (Chronic) GERMANIA (obstructive sleep apnea) (Chronic) Allergies/Adverse Reactions: Allergies No Known Allergies Allergy (Verified 03/06/20 17:06) Home Medications: Ambulatory Orders Medication Instructions Recorded acetaminophen 500 mg tablet 1,000 mg PO TID tab 02/25/17 budesonide 0.5 mg/2 mL suspension 0.5 mg INHALATION Q12H 02/25/17 for nebulization cholecalciferol (vitamin D3) 1,250 50,000 unit PO SUWE 02/25/17 mcg (50,000 unit) capsule docusate sodium 100 mg capsule 200 mg PO QDAY 02/25/17 rivaroxaban 20 mg tablet 20 mg PO QDAY 02/25/17 Montelukast Sodium [Singulair] 10 mg PO QHS 10/28/18 Gabapentin [Neurontin] 300 mg PO BID 12/18/17 Losartan Potassium [Cozaar] 25 mg PO DAILY 12/18/17 Omeprazole 40 mg PO DAILY 12/18/17 Potassium Chloride [K-Dur] 20 meq PO DAILY 12/18/17 Albuterol Aerosols [Ventolin 2.5 mg INHALATION Q6H PRN PRN 12/21/17 Aerosols] vial.neb. Insulin Lispro [Humalog KwikPen] 45 unit SC 0800 insuln.pen 12/21/17 Insulin Lispro [Humalog KwikPen] 45 unit SC 1200 insuln.pen 12/21/17 Insulin Lispro [Humalog KwikPen] 17 unit SC 1700 05/22/18 Azithromycin [Zithromax] 500 mg PO DAILY 03/06/20 Bisacodyl 10 mg PO DAILY PRN PRN 03/06/20 Budesonide [Pulmicort] 0.5 mg IH BID PRN PRN 03/06/20 Furosemide [Lasix] 80 mg PO DAILY 03/06/20 Gabapentin 1,200 mg PO 1700 03/06/20 Gabapentin [Neurontin] 100 mg PO 1200 03/06/20 Gabapentin [Neurontin] 400 mg PO 1200 03/06/20 Guaifenesin [Mucus Relief] 400 mg PO DAILY 03/06/20 Guaifenesin [Mucus Relief] 400 mg PO DAILY PRN PRN 03/06/20 Guaifenesin/Dextromethorphan 10 ml PO Q4H PRN PRN 03/06/20 [Siltussin Dm 100 mg-10 mg/5 ml] Ibuprofen 800 mg PO QHS 03/06/20 Insulin Degludec [Tresiba 23 unit SQ BREAKFAST 03/06/20 Flextouch U-100] Linagliptin [Tradjenta] 5 mg PO DAILY 03/06/20 Magnesium Hydroxide [Milk Of 30 ml PO DAILY PRN PRN 03/06/20 Magnesia] Metolazone 5 mg PO DAILY 03/06/20 Nicotine [Nicotine Patch] 1 ea TD DAILY PRN PRN 03/06/20 - Social History SMOKING STATUS:: Current every day smoker Vital Signs Temp Pulse Resp BP Pulse Ox 97.0 F L 80 26 H 129/66 H 97 03/07/20 12:00 03/07/20 13:00 03/07/20 13:00 03/07/20 13:00 03/07/20 13:00 Oxygen Flow Rate (L/min) 4 Oxygen Delivery Method Nasal Cannula Weight: 186.9 kg Body Mass Index (BMI) 54.2 Microbiology Past 72 Hours 03/06/20 17:40 Bacteria Detection (PCR) - Final Blood Culture (Wb) - Anticubital Right Strep not Strep pneumo Blood Culture - Preliminary Beta streptococcus 03/06/20 18:20 Bacteria Detection (PCR) - Final Blood Culture (Wb) - Right Hand Blood Culture - Preliminary Beta streptococcus 03/06/20 17:55 Urine Culture - Preliminary Urine Catheter - Catheter Staphylococcus aureus 03/06/20 Unknown Respiratory Panel (PCR) - Final Mucosa - Nasopharyngeal 03/06/20 17:55 Legionella Antigen - Final Urine Catheter - Catheter Streptococcus pneumoniae Antigen (M - Final Laboratory Tests Past 24 Hrs 03/06/20 03/06/20 03/06/20 17:40 17:40 17:40 WBC 14.4 H RBC 4.67 Hgb 13.8 Hct 42.4 MCV 90.8 MCH 29.6 MCHC 32.5 RDW Std Deviation 55.8 H RDW Coeff of Shaq 16.8 H Plt Count 172 MPV 10.9 Immature Gran % (Auto) 3.800 H Neut % (Auto) 90.2 H Lymph % (Auto) 1.8 L [place] % (Auto) 2.8 Eos % (Auto) 0.8 Baso % (Auto) 0.6 Absolute Neuts (auto) 13.0 H Absolute Lymphs (auto) 0.26 L Total Counted Neutrophils % (Manual) Band Neutrophils % Lymphocytes % (Manual) Monocytes % (Manual) Metamyelocytes % Nucleated RBC % 0 Differential Comment SCANNED Diff Path Review Platelet Estimate RBC Morphology D-Dimer Quant (PE/DVT) Sodium 128 L Potassium 6.1 H* Chloride 97 L Carbon Dioxide 22.0 Anion Gap 9 BUN 63 H Creatinine 3.60 H Estim Creat Clear Calc 21.89 Est GFR (MDRD) Af Amer 22 L Est GFR (MDRD) Non-Af 18 L BUN/Creatinine Ratio 17.5 Glucose 457 H* Hemoglobin A1c Lactic Acid 5.3 H* Calcium 8.4 L Magnesium Ferritin Total Bilirubin Direct Bilirubin AST ALT Alkaline Phosphatase Lactate Dehydrogenase Troponin I C-React Prot Ext Range B-Natriuretic Peptide Total Protein Albumin Globulin Albumin/Globulin Ratio Procalcitonin Urine Color Urine Clarity Urine pH Ur Specific [place] Urine Protein Urine Glucose (UA) Urine Ketones Urine Occult Blood Urine Nitrite Urine Bilirubin Urine Urobilinogen Ur Leukocyte Esterase Urine RBC Urine WBC Ur Squamous Epith Cells Amorphous Sediment Urine Bacteria Urine Mucus Ur Random Sodium Urine Creatinine COVID-19 (CORNEL) MRSA (PCR) 03/06/20 03/06/20 03/06/20 17:40 17:40 17:55 WBC RBC Hgb Hct MCV MCH MCHC RDW Std Deviation RDW Coeff of Shaq Plt Count MPV Immature Gran % (Auto) Neut % (Auto) Lymph % (Auto) [place] % (Auto) Eos % (Auto) Baso % (Auto) Absolute Neuts (auto) Absolute Lymphs (auto) Total Counted Neutrophils % (Manual) Band Neutrophils % Lymphocytes % (Manual) Monocytes % (Manual) Metamyelocytes % Nucleated RBC % Differential Comment Diff Path Review Platelet Estimate RBC Morphology D-Dimer Quant (PE/DVT) Sodium Potassium Chloride Carbon Dioxide Anion Gap BUN Creatinine Estim Creat Clear Calc Est GFR (MDRD) Af Amer Est GFR (MDRD) Non-Af BUN/Creatinine Ratio Glucose Hemoglobin A1c Lactic Acid Calcium Magnesium Ferritin Total Bilirubin 0.70 Direct Bilirubin 0.27 AST 54 H ALT 25 Alkaline Phosphatase 77 Lactate Dehydrogenase Troponin I 0.079 H C-React Prot Ext Range B-Natriuretic Peptide 80.2 Total Protein 7.9 Albumin 2.5 L Globulin 5.4 H Albumin/Globulin Ratio Procalcitonin Urine Color Brown Urine Clarity Cloudy Urine pH 5.0 Ur Specific [place] 1.025 Urine Protein 100 H Urine Glucose (UA) 50 H Urine Ketones 5 H Urine Occult Blood 250 H Urine Nitrite Negative Urine Bilirubin 1 H Urine Urobilinogen 1 H Ur Leukocyte Esterase 500 H Urine RBC 10-25 SEEN Urine WBC 50-100 SEEN Ur Squamous Epith Cells 0-5 SEEN Amorphous Sediment 2+ Urine Bacteria 2+ Urine Mucus 0 SEEN Ur Random Sodium Urine Creatinine COVID-19 (CORNEL) MRSA (PCR) 03/06/20 03/06/20 03/06/20 19:16 20:25 20:25 WBC RBC Hgb Hct MCV MCH MCHC RDW Std Deviation RDW Coeff of Shaq Plt Count MPV Immature Gran % (Auto) Neut % (Auto) Lymph % (Auto) [place] % (Auto) Eos % (Auto) Baso % (Auto) Absolute Neuts (auto) Absolute Lymphs (auto) Total Counted Neutrophils % (Manual) Band Neutrophils % Lymphocytes % (Manual) Monocytes % (Manual) Metamyelocytes % Nucleated RBC % Differential Comment Diff Path Review Platelet Estimate RBC Morphology D-Dimer Quant (PE/DVT) 2.02 H* Sodium Potassium Chloride Carbon Dioxide Anion Gap BUN Creatinine Estim Creat Clear Calc Est GFR (MDRD) Af Amer Est GFR (MDRD) Non-Af BUN/Creatinine Ratio Glucose Hemoglobin A1c Lactic Acid Calcium Magnesium 0.7 L* Ferritin 76 Total Bilirubin Direct Bilirubin AST ALT Alkaline Phosphatase Lactate Dehydrogenase 95 Troponin I C-React Prot Ext Range 141.00 H B-Natriuretic Peptide Total Protein Albumin Globulin Albumin/Globulin Ratio Procalcitonin Urine Color Urine Clarity Urine pH Ur Specific [place] Urine Protein Urine Glucose (UA) Urine Ketones Urine Occult Blood Urine Nitrite Urine Bilirubin Urine Urobilinogen Ur Leukocyte Esterase Urine RBC Urine WBC Ur Squamous Epith Cells Amorphous Sediment Urine Bacteria Urine Mucus Ur Random Sodium Urine Creatinine COVID-19 (CORNEL) Positive MRSA (PCR) 03/06/20 03/06/20 03/06/20 20:25 20:25 20:25 WBC RBC Hgb Hct MCV MCH MCHC RDW Std Deviation RDW Coeff of Shaq Plt Count MPV Immature Gran % (Auto) Neut % (Auto) Lymph % (Auto) [place] % (Auto) Eos % (Auto) Baso % (Auto) Absolute Neuts (auto) Absolute Lymphs (auto) Total Counted Neutrophils % (Manual) Band Neutrophils % Lymphocytes % (Manual) Monocytes % (Manual) Metamyelocytes % Nucleated RBC % Differential Comment Diff Path Review Platelet Estimate RBC Morphology D-Dimer Quant (PE/DVT) Sodium Potassium Chloride Carbon Dioxide Anion Gap BUN Creatinine Estim Creat Clear Calc Est GFR (MDRD) Af Amer Est GFR (MDRD) Non-Af BUN/Creatinine Ratio Glucose Hemoglobin A1c 9.5 H Lactic Acid Calcium Magnesium Ferritin Total Bilirubin Direct Bilirubin AST ALT Alkaline Phosphatase Lactate Dehydrogenase Troponin I C-React Prot Ext Range B-Natriuretic Peptide Total Protein Albumin Globulin Albumin/Globulin Ratio Procalcitonin 17.60 H Urine Color Urine Clarity Urine pH Ur Specific [place] Urine Protein Urine Glucose (UA) Urine Ketones Urine Occult Blood Urine Nitrite Urine Bilirubin Urine Urobilinogen Ur Leukocyte Esterase Urine RBC Urine WBC Ur Squamous Epith Cells Amorphous Sediment Urine Bacteria Urine Mucus Ur Random Sodium Urine Creatinine COVID-19 (CORNEL) MRSA (PCR) POSITIVE H 03/06/20 03/06/20 03/06/20 20:25 21:20 21:30 WBC RBC Hgb Hct MCV MCH MCHC RDW Std Deviation RDW Coeff of Shaq Plt Count MPV Immature Gran % (Auto) Neut % (Auto) Lymph % (Auto) [place] % (Auto) Eos % (Auto) Baso % (Auto) Absolute Neuts (auto) Absolute Lymphs (auto) Total Counted Neutrophils % (Manual) Band Neutrophils % Lymphocytes % (Manual) Monocytes % (Manual) Metamyelocytes % Nucleated RBC % Differential Comment Diff Path Review Platelet Estimate RBC Morphology D-Dimer Quant (PE/DVT) Sodium Potassium Chloride Carbon Dioxide Anion Gap BUN Creatinine Estim Creat Clear Calc Est GFR (MDRD) Af Amer Est GFR (MDRD) Non-Af BUN/Creatinine Ratio Glucose Hemoglobin A1c Lactic Acid 2.2 H* Calcium Magnesium Ferritin Total Bilirubin Direct Bilirubin AST ALT Alkaline Phosphatase Lactate Dehydrogenase Troponin I 0.054 H C-React Prot Ext Range B-Natriuretic Peptide Total Protein Albumin Globulin Albumin/Globulin Ratio Procalcitonin Urine Color Urine Clarity Urine pH Ur Specific [place] Urine Protein Urine Glucose (UA) Urine Ketones Urine Occult Blood Urine Nitrite Urine Bilirubin Urine Urobilinogen Ur Leukocyte Esterase Urine RBC Urine WBC Ur Squamous Epith Cells Amorphous Sediment Urine Bacteria Urine Mucus Ur Random Sodium < 5 Urine Creatinine 227.00 COVID-19 (CORNEL) MRSA (PCR) 03/06/20 03/06/20 03/07/20 22:50 22:50 04:20 WBC 15.0 H RBC 4.39 L Hgb 12.9 L Hct 40.3 MCV 91.8 MCH 29.4 MCHC 32.0 RDW Std Deviation 57.0 H RDW Coeff of Shaq 16.8 H Plt Count 151 MPV 10.4 Immature Gran % (Auto) Neut % (Auto) Not Reportable Lymph % (Auto) [place] % (Auto) Eos % (Auto) Baso % (Auto) Absolute Neuts (auto) 13.7 H Absolute Lymphs (auto) 0.15 L Total Counted 100 Neutrophils % (Manual) 66 Band Neutrophils % 25 H Lymphocytes % (Manual) 1 L Monocytes % (Manual) 7 Metamyelocytes % 1 Nucleated RBC % Differential Comment Diff Path Review Reviewed Platelet Estimate ADEQUATE RBC Morphology NORM C+C D-Dimer Quant (PE/DVT) Sodium 132 L Potassium 5.6 H Chloride 99 Carbon Dioxide 25.0 Anion Gap 8 BUN 66 H Creatinine 3.39 H Estim Creat Clear Calc 23.24 Est GFR (MDRD) Af Amer 23 L Est GFR (MDRD) Non-Af 19 L BUN/Creatinine Ratio 19.5 Glucose 366 H Hemoglobin A1c Lactic Acid Calcium 8.1 L Magnesium Ferritin Total Bilirubin Direct Bilirubin AST ALT Alkaline Phosphatase Lactate Dehydrogenase Troponin I 0.083 H C-React Prot Ext Range B-Natriuretic Peptide Total Protein Albumin Globulin Albumin/Globulin Ratio Procalcitonin Urine Color Urine Clarity Urine pH Ur Specific [place] Urine Protein Urine Glucose (UA) Urine Ketones Urine Occult Blood Urine Nitrite Urine Bilirubin Urine Urobilinogen Ur Leukocyte Esterase Urine RBC Urine WBC Ur Squamous Epith Cells Amorphous Sediment Urine Bacteria Urine Mucus Ur Random Sodium Urine Creatinine COVID-19 (CORNEL) MRSA (PCR) 03/07/20 04:20 WBC RBC Hgb Hct MCV MCH MCHC RDW Std Deviation RDW Coeff of Shaq Plt Count MPV Immature Gran % (Auto) Neut % (Auto) Lymph % (Auto) [place] % (Auto) Eos % (Auto) Baso % (Auto) Absolute Neuts (auto) Absolute Lymphs (auto) Total Counted Neutrophils % (Manual) Band Neutrophils % Lymphocytes % (Manual) Monocytes % (Manual) Metamyelocytes % Nucleated RBC % Differential Comment Diff Path Review Platelet Estimate RBC Morphology D-Dimer Quant (PE/DVT) Sodium 127 L Potassium 5.6 H Chloride 94 L Carbon Dioxide 23.0 Anion Gap 10 BUN 68 H Creatinine 3.02 H Estim Creat Clear Calc 26.09 Est GFR (MDRD) Af Amer 27 L Est GFR (MDRD) Non-Af 22 L BUN/Creatinine Ratio 22.5 H Glucose 324 H Hemoglobin A1c Lactic Acid Calcium 8.4 L Magnesium Ferritin Total Bilirubin 0.50 Direct Bilirubin AST 49 H ALT 28 Alkaline Phosphatase 74 Lactate Dehydrogenase Troponin I C-React Prot Ext Range B-Natriuretic Peptide Total Protein 7.3 Albumin 2.2 L Globulin 5.1 H Albumin/Globulin Ratio 0.4 L Procalcitonin Urine Color Urine Clarity Urine pH Ur Specific [place] Urine Protein Urine Glucose (UA) Urine Ketones Urine Occult Blood Urine Nitrite Urine Bilirubin Urine Urobilinogen Ur Leukocyte Esterase Urine RBC Urine WBC Ur Squamous Epith Cells Amorphous Sediment Urine Bacteria Urine Mucus Ur Random Sodium Urine Creatinine COVID-19 (CORNEL) MRSA (PCR) - Other Studies Radiology: [] reviewed Other Studies: [] Route of nutrition/ use of supplements: [] Nutritional Intake: [] IV Site: [] Mario Catheter: [] - Physical Exam General: Alert, Oriented x3, Cooperative, No apparent distress HEENT: Atraumatic, PERRLA, EOMI Neck: Supple, No Nodes Lungs: Clear to auscultation, Diminished Cardiovascular: Regular rate, Regular Rhythm Abdomen: Soft, Non Tender, Non-Distended Extremities: Edema Skin: Rash Present - B lower legs IV Site: Peripheral, without redness Musculoskeletal: No Tenderness to Palpation of Joints or Extremities Neurological: Cranial nerves II-XII grossly intact - Assessment/Plan Antibiotics: [] Assessment/Plan: [] Active and Suspected Problems (Last Reviewed 01/13/18 @ 09:26 by Eleni Bradley) Diabetic ulcer of right buttock (Acute) Septic shock (Acute) UTI (urinary tract infection) (Acute) Suspected COVID-19 virus infection (Acute) Hyperkalemia (Acute) Acute kidney injury superimposed on chronic kidney disease (Acute) Acute kidney injury (Acute) Chronic respiratory failure (Acute) Erectile dysfunction associated with type 2 diabetes mellitus (Acute) Covid with hypoxia - on dex, will change to po for 10 day course, start remdesivir. Sx started around 02/27. Xarelto on hold. D-dimer 2. strep bacteremia with BLE cellulitis and chronic lymphedema - on vanc/zosyn. staph aureus (+) ucx - abx as above JESUS on CKD - improving uncontrolled DM -a1c 9.5. Will follow, thank you
[2020-03-07 17:11] LABS: Bedside Glucose 326 mg/dL (70-110)
[2020-03-07] MEDS: Insulin Lispro 100 UNIT/ML INSULN.PEN 17 UNIT SC (17:11)
[2020-03-07 20:16] LABS: Bedside Glucose 287 mg/dL (70-110)
[2020-03-07] MEDS: Montelukast 10 MG Tablet PO (21:07)
[2020-03-07] MEDS: Menthol/Lanolin/Calamine/Znox 113 GM Tube 1 APPLIC TOPICAL (21:07)
[2020-03-07 21:26] LABS: Bedside Glucose 162 mg/dL (70-110)
[2020-03-08] VITALS (21 sets, daily range): BP systolic 86–150; BP diastolic 44–121; PULSE 80; RESP 15–25; TEMP 36–36.6; O2SAT 91–98
[2020-03-08 04:45] LABS: Hematocrit 37.5 % (40-54); Hemoglobin 12.4 g/dL (13.0-16.5); Mean Corp Hgb Conc 33.1 g/dL (32-36); Mean Corpuscular Hgb 29.3 pg (27.0-32.0); Mean Corpuscular Volume 88.7 fL (80-94); Mean Platelet Vol. 10.7 fl (6.2-12.0); Platelet Count 158 K/mm3 (150-450); RBC Distribution Width CV 16.8 % (11.6-14.6); RBC Distribution Width SD 54.5 fl (35.1-43.9); Red Blood Count 4.23 M/mm3 (4.6-6.2); White Blood Count 17.2 K/mm3 (4.4-11.0)
[2020-03-08 05:03] LABS: ALB/GLOB Ratio 0.4 RATIO (0.9-2.4); AST(SGOT) 42 U/L (15-37); Alanine Aminotransfer ALT/SGPT 30 U/L (16-61); Albumin, Serum 2.1 g/dL (3.2-5.0); Alkaline Phosphatase 77 U/L (45-117); Anion Gap 6 (5-15); BUN 65 mg/dL (7-18); BUN/Creat Ratio 34.4 RATIO (10-20); Chloride 101 mmol/L (98-107); Creatinine, Serum 1.89 mg/dL (0.70-1.30); EST Glomerular Filtration Rate 38 mL/min (>60); Est Glom Filt Rate - Afr Amer 46 mL/min (>60); Estimated Creatinine Clearance 41.69 ml/min; Globulin 5.1 g/dL (2.2-4.2); Glucose 180 mg/dL (74-106); Potassium 4.6 mmol/L (3.5-5.1); Protein, Total 7.2 g/dL (6.4-8.2); Sodium Level 134 mmol/L (136-145)
[2020-03-08] MEDS: Menthol/Lanolin/Calamine/Znox 113 GM Tube 1 APPLIC TOPICAL ×3 (05:15→20:54)
[2020-03-08] MEDS: Nystatin Powder 15gm Bottle 1 APPLIC TOPICAL ×3 (05:16→20:55)
--- NOTE | 2020-03-08 08:10 | PN_ITS ---
Subjective: Patient did okay overnight. Patient has maintained saturations on 4 L nasal cannula. Patient refused BiPAP for obstructive sleep apnea. Blood pressure has been stable with systolics in the 90s. Patient is minimally cooperative with questioning and feels that he is well enough to go home. General: Alert, Oriented x3, Cooperative, - - Mild conversational dyspnea. Super morbid obesity. Appears older than stated age. HEENT: Atraumatic, PERRLA, EOMI, Normocephalic, - - No scleral icterus or injection noted Oral: Moist Mucosa, No Gingival or Mucosal Lesions/ Ulcerations, - - Carotid posterior pharynx Neck: Supple, No Nodes, Trachea Midline, - - Unable to assess JVD secondary to body habitus Lungs: No rhonchi, No wheeze, No rales, Diminished, - - Symmetric expansion Cardiovascular: Regular rate, Regular Rhythm, Normal S1, Normal S2, No murmurs, No rub noted, No Gallop Abdomen: Bowel Sounds Present, Soft, Non Tender, Non-Distended, Obese Extremities: No clubbing, No cyanosis, Edema Skin: - - No change compared to previous. Musculoskeletal: No Tenderness to Palpation of Joints or Extremities - Still with erythema of the right lower extremity Lymphatic: No Cervical, Supraclavicular, or Inguinal Adenopathy Neurological: Cranial nerves II-XII grossly intact, Neuro grossly intact - Decreased peripheral sensation Psych/Mental Status: Normal Affect, Appropriate Vital Signs Temp Pulse Resp BP Pulse Ox 36.6 C 80 20 H 102/44 L 93 03/08/20 04:00 03/08/20 07:00 03/08/20 07:00 03/08/20 07:00 03/08/20 07:00 Oxygen Flow Rate (L/min) 4 Oxygen Delivery Method Nasal Cannula Weight: 188.9 kg Body Mass Index (BMI) 54.2 Intake and Output for Last 24 Hours 03/06/20 03/07/20 03/08/20 23:59 23:59 23:59 Intake Total 2640.05 / 2640.05 1336.25 / 1456.25 170 / 170 Output Total 450 / 850 2050 / 2650 900 / 900 Balance 2190.05 / 1790.05 -713.75 / -1193.75 -730 / -730 Labs (Last 48 Hours) 01/03/06/20 03/06/20 17:40 17:40 17:40 WBC 14.4 H RBC 4.67 Hgb 13.8 Hct 42.4 MCV 90.8 MCH 29.6 MCHC 32.5 RDW Std Deviation 55.8 H RDW Coeff of Shaq 16.8 H Plt Count 172 MPV 10.9 Immature Gran % (Auto) 3.800 H Neut % (Auto) 90.2 H Lymph % (Auto) 1.8 L [place] % (Auto) 2.8 Eos % (Auto) 0.8 Baso % (Auto) 0.6 Absolute Neuts (auto) 13.0 H Absolute Lymphs (auto) 0.26 L Total Counted Neutrophils % (Manual) Band Neutrophils % Lymphocytes % (Manual) Monocytes % (Manual) Metamyelocytes % Nucleated RBC % 0 Differential Comment SCANNED Diff Path Review Platelet Estimate RBC Morphology D-Dimer Quant (PE/DVT) Sodium 128 L Potassium 6.1 H* Chloride 97 L Carbon Dioxide 22.0 Anion Gap 9 BUN 63 H Creatinine 3.60 H Estim Creat Clear Calc 21.89 Est GFR (MDRD) Af Amer 22 L Est GFR (MDRD) Non-Af 18 L BUN/Creatinine Ratio 17.5 Glucose 457 H* Hemoglobin A1c Lactic Acid 5.3 H* Calcium 8.4 L Magnesium Ferritin Total Bilirubin Direct Bilirubin AST ALT Alkaline Phosphatase Lactate Dehydrogenase Troponin I C-React Prot Ext Range B-Natriuretic Peptide Total Protein Albumin Globulin Albumin/Globulin Ratio Procalcitonin Urine Color Urine Clarity Urine pH Ur Specific [place] Urine Protein Urine Glucose (UA) Urine Ketones Urine Occult Blood Urine Nitrite Urine Bilirubin Urine Urobilinogen Ur Leukocyte Esterase Urine RBC Urine WBC Ur Squamous Epith Cells Amorphous Sediment Urine Bacteria Urine Mucus Ur Random Sodium Urine Creatinine COVID-19 (CORNEL) MRSA (PCR) POC Glucose 03/06/20 03/06/20 03/06/20 17:40 17:40 17:55 WBC RBC Hgb Hct MCV MCH MCHC RDW Std Deviation RDW Coeff of Shaq Plt Count MPV Immature Gran % (Auto) Neut % (Auto) Lymph % (Auto) [place] % (Auto) Eos % (Auto) Baso % (Auto) Absolute Neuts (auto) Absolute Lymphs (auto) Total Counted Neutrophils % (Manual) Band Neutrophils % Lymphocytes % (Manual) Monocytes % (Manual) Metamyelocytes % Nucleated RBC % Differential Comment Diff Path Review Platelet Estimate RBC Morphology D-Dimer Quant (PE/DVT) Sodium Potassium Chloride Carbon Dioxide Anion Gap BUN Creatinine Estim Creat Clear Calc Est GFR (MDRD) Af Amer Est GFR (MDRD) Non-Af BUN/Creatinine Ratio Glucose Hemoglobin A1c Lactic Acid Calcium Magnesium Ferritin Total Bilirubin 0.70 Direct Bilirubin 0.27 AST 54 H ALT 25 Alkaline Phosphatase 77 Lactate Dehydrogenase Troponin I 0.079 H C-React Prot Ext Range B-Natriuretic Peptide 80.2 Total Protein 7.9 Albumin 2.5 L Globulin 5.4 H Albumin/Globulin Ratio Procalcitonin Urine Color Brown Urine Clarity Cloudy Urine pH 5.0 Ur Specific [place] 1.025 Urine Protein 100 H Urine Glucose (UA) 50 H Urine Ketones 5 H Urine Occult Blood 250 H Urine Nitrite Negative Urine Bilirubin 1 H Urine Urobilinogen 1 H Ur Leukocyte Esterase 500 H Urine RBC 10-25 SEEN Urine WBC 50-100 SEEN Ur Squamous Epith Cells 0-5 SEEN Amorphous Sediment 2+ Urine Bacteria 2+ Urine Mucus 0 SEEN Ur Random Sodium Urine Creatinine COVID-19 (CORNEL) MRSA (PCR) POC Glucose 03/06/20 03/06/20 03/06/20 19:16 20:25 20:25 WBC RBC Hgb Hct MCV MCH MCHC RDW Std Deviation RDW Coeff of Shaq Plt Count MPV Immature Gran % (Auto) Neut % (Auto) Lymph % (Auto) [place] % (Auto) Eos % (Auto) Baso % (Auto) Absolute Neuts (auto) Absolute Lymphs (auto) Total Counted Neutrophils % (Manual) Band Neutrophils % Lymphocytes % (Manual) Monocytes % (Manual) Metamyelocytes % Nucleated RBC % Differential Comment Diff Path Review Platelet Estimate RBC Morphology D-Dimer Quant (PE/DVT) 2.02 H* Sodium Potassium Chloride Carbon Dioxide Anion Gap BUN Creatinine Estim Creat Clear Calc Est GFR (MDRD) Af Amer Est GFR (MDRD) Non-Af BUN/Creatinine Ratio Glucose Hemoglobin A1c Lactic Acid Calcium Magnesium 0.7 L* Ferritin 76 Total Bilirubin Direct Bilirubin AST ALT Alkaline Phosphatase Lactate Dehydrogenase 95 Troponin I C-React Prot Ext Range 141.00 H B-Natriuretic Peptide Total Protein Albumin Globulin Albumin/Globulin Ratio Procalcitonin Urine Color Urine Clarity Urine pH Ur Specific [place] Urine Protein Urine Glucose (UA) Urine Ketones Urine Occult Blood Urine Nitrite Urine Bilirubin Urine Urobilinogen Ur Leukocyte Esterase Urine RBC Urine WBC Ur Squamous Epith Cells Amorphous Sediment Urine Bacteria Urine Mucus Ur Random Sodium Urine Creatinine COVID-19 (CORNEL) Positive MRSA (PCR) POC Glucose 03/06/20 03/06/20 03/06/20 20:25 20:25 20:25 WBC RBC Hgb Hct MCV MCH MCHC RDW Std Deviation RDW Coeff of Shaq Plt Count MPV Immature Gran % (Auto) Neut % (Auto) Lymph % (Auto) [place] % (Auto) Eos % (Auto) Baso % (Auto) Absolute Neuts (auto) Absolute Lymphs (auto) Total Counted Neutrophils % (Manual) Band Neutrophils % Lymphocytes % (Manual) Monocytes % (Manual) Metamyelocytes % Nucleated RBC % Differential Comment Diff Path Review Platelet Estimate RBC Morphology D-Dimer Quant (PE/DVT) Sodium Potassium Chloride Carbon Dioxide Anion Gap BUN Creatinine Estim Creat Clear Calc Est GFR (MDRD) Af Amer Est GFR (MDRD) Non-Af BUN/Creatinine Ratio Glucose Hemoglobin A1c 9.5 H Lactic Acid Calcium Magnesium Ferritin Total Bilirubin Direct Bilirubin AST ALT Alkaline Phosphatase Lactate Dehydrogenase Troponin I C-React Prot Ext Range B-Natriuretic Peptide Total Protein Albumin Globulin Albumin/Globulin Ratio Procalcitonin 17.60 H Urine Color Urine Clarity Urine pH Ur Specific [place] Urine Protein Urine Glucose (UA) Urine Ketones Urine Occult Blood Urine Nitrite Urine Bilirubin Urine Urobilinogen Ur Leukocyte Esterase Urine RBC Urine WBC Ur Squamous Epith Cells Amorphous Sediment Urine Bacteria Urine Mucus Ur Random Sodium Urine Creatinine COVID-19 (CORNEL) MRSA (PCR) POSITIVE H POC Glucose 03/06/20 03/06/20 03/06/20 20:25 21:20 21:30 WBC RBC Hgb Hct MCV MCH MCHC RDW Std Deviation RDW Coeff of Shaq Plt Count MPV Immature Gran % (Auto) Neut % (Auto) Lymph % (Auto) [place] % (Auto) Eos % (Auto) Baso % (Auto) Absolute Neuts (auto) Absolute Lymphs (auto) Total Counted Neutrophils % (Manual) Band Neutrophils % Lymphocytes % (Manual) Monocytes % (Manual) Metamyelocytes % Nucleated RBC % Differential Comment Diff Path Review Platelet Estimate RBC Morphology D-Dimer Quant (PE/DVT) Sodium Potassium Chloride Carbon Dioxide Anion Gap BUN Creatinine Estim Creat Clear Calc Est GFR (MDRD) Af Amer Est GFR (MDRD) Non-Af BUN/Creatinine Ratio Glucose Hemoglobin A1c Lactic Acid 2.2 H* Calcium Magnesium Ferritin Total Bilirubin Direct Bilirubin AST ALT Alkaline Phosphatase Lactate Dehydrogenase Troponin I 0.054 H C-React Prot Ext Range B-Natriuretic Peptide Total Protein Albumin Globulin Albumin/Globulin Ratio Procalcitonin Urine Color Urine Clarity Urine pH Ur Specific [place] Urine Protein Urine Glucose (UA) Urine Ketones Urine Occult Blood Urine Nitrite Urine Bilirubin Urine Urobilinogen Ur Leukocyte Esterase Urine RBC Urine WBC Ur Squamous Epith Cells Amorphous Sediment Urine Bacteria Urine Mucus Ur Random Sodium < 5 Urine Creatinine 227.00 COVID-19 (CORNEL) MRSA (PCR) POC Glucose 03/06/20 03/06/20 03/06/20 22:13 22:50 22:50 WBC RBC Hgb Hct MCV MCH MCHC RDW Std Deviation RDW Coeff of Shaq Plt Count MPV Immature Gran % (Auto) Neut % (Auto) Lymph % (Auto) [place] % (Auto) Eos % (Auto) Baso % (Auto) Absolute Neuts (auto) Absolute Lymphs (auto) Total Counted Neutrophils % (Manual) Band Neutrophils % Lymphocytes % (Manual) Monocytes % (Manual) Metamyelocytes % Nucleated RBC % Differential Comment Diff Path Review Platelet Estimate RBC Morphology D-Dimer Quant (PE/DVT) Sodium 132 L Potassium 5.6 H Chloride 99 Carbon Dioxide 25.0 Anion Gap 8 BUN 66 H Creatinine 3.39 H Estim Creat Clear Calc 23.24 Est GFR (MDRD) Af Amer 23 L Est GFR (MDRD) Non-Af 19 L BUN/Creatinine Ratio 19.5 Glucose 366 H Hemoglobin A1c Lactic Acid Calcium 8.1 L Magnesium Ferritin Total Bilirubin Direct Bilirubin AST ALT Alkaline Phosphatase Lactate Dehydrogenase Troponin I 0.083 H C-React Prot Ext Range B-Natriuretic Peptide Total Protein Albumin Globulin Albumin/Globulin Ratio Procalcitonin Urine Color Urine Clarity Urine pH Ur Specific [place] Urine Protein Urine Glucose (UA) Urine Ketones Urine Occult Blood Urine Nitrite Urine Bilirubin Urine Urobilinogen Ur Leukocyte Esterase Urine RBC Urine WBC Ur Squamous Epith Cells Amorphous Sediment Urine Bacteria Urine Mucus Ur Random Sodium Urine Creatinine COVID-19 (CORNEL) MRSA (PCR) POC Glucose 381 H 03/07/20 03/07/20 03/07/20 04:20 04:20 08:25 WBC 15.0 H RBC 4.39 L Hgb 12.9 L Hct 40.3 MCV 91.8 MCH 29.4 MCHC 32.0 RDW Std Deviation 57.0 H RDW Coeff of Shaq 16.8 H Plt Count 151 MPV 10.4 Immature Gran % (Auto) Neut % (Auto) Not Reportable Lymph % (Auto) [place] % (Auto) Eos % (Auto) Baso % (Auto) Absolute Neuts (auto) 13.7 H Absolute Lymphs (auto) 0.15 L Total Counted 100 Neutrophils % (Manual) 66 Band Neutrophils % 25 H Lymphocytes % (Manual) 1 L Monocytes % (Manual) 7 Metamyelocytes % 1 Nucleated RBC % Differential Comment Diff Path Review Reviewed Platelet Estimate ADEQUATE RBC Morphology NORM C+C D-Dimer Quant (PE/DVT) Sodium 127 L Potassium 5.6 H Chloride 94 L Carbon Dioxide 23.0 Anion Gap 10 BUN 68 H Creatinine 3.02 H Estim Creat Clear Calc 26.09 Est GFR (MDRD) Af Amer 27 L Est GFR (MDRD) Non-Af 22 L BUN/Creatinine Ratio 22.5 H Glucose 324 H Hemoglobin A1c Lactic Acid Calcium 8.4 L Magnesium Ferritin Total Bilirubin 0.50 Direct Bilirubin AST 49 H ALT 28 Alkaline Phosphatase 74 Lactate Dehydrogenase Troponin I C-React Prot Ext Range B-Natriuretic Peptide Total Protein 7.3 Albumin 2.2 L Globulin 5.1 H Albumin/Globulin Ratio 0.4 L Procalcitonin Urine Color Urine Clarity Urine pH Ur Specific [place] Urine Protein Urine Glucose (UA) Urine Ketones Urine Occult Blood Urine Nitrite Urine Bilirubin Urine Urobilinogen Ur Leukocyte Esterase Urine RBC Urine WBC Ur Squamous Epith Cells Amorphous Sediment Urine Bacteria Urine Mucus Ur Random Sodium Urine Creatinine COVID-19 (CORNEL) MRSA (PCR) POC Glucose 391 H 03/07/20 03/07/20 03/07/20 12:54 17:10 21:05 WBC RBC Hgb Hct MCV MCH MCHC RDW Std Deviation RDW Coeff of Shaq Plt Count MPV Immature Gran % (Auto) Neut % (Auto) Lymph % (Auto) [place] % (Auto) Eos % (Auto) Baso % (Auto) Absolute Neuts (auto) Absolute Lymphs (auto) Total Counted Neutrophils % (Manual) Band Neutrophils % Lymphocytes % (Manual) Monocytes % (Manual) Metamyelocytes % Nucleated RBC % Differential Comment Diff Path Review Platelet Estimate RBC Morphology D-Dimer Quant (PE/DVT) Sodium Potassium Chloride Carbon Dioxide Anion Gap BUN Creatinine Estim Creat Clear Calc Est GFR (MDRD) Af Amer Est GFR (MDRD) Non-Af BUN/Creatinine Ratio Glucose Hemoglobin A1c Lactic Acid Calcium Magnesium Ferritin Total Bilirubin Direct Bilirubin AST ALT Alkaline Phosphatase Lactate Dehydrogenase Troponin I C-React Prot Ext Range B-Natriuretic Peptide Total Protein Albumin Globulin Albumin/Globulin Ratio Procalcitonin Urine Color Urine Clarity Urine pH Ur Specific [place] Urine Protein Urine Glucose (UA) Urine Ketones Urine Occult Blood Urine Nitrite Urine Bilirubin Urine Urobilinogen Ur Leukocyte Esterase Urine RBC Urine WBC Ur Squamous Epith Cells Amorphous Sediment Urine Bacteria Urine Mucus Ur Random Sodium Urine Creatinine COVID-19 (CORNEL) MRSA (PCR) POC Glucose 326 H 287 H 162 H 03/08/20 03/08/20 04:35 04:35 WBC 17.2 H RBC 4.23 L Hgb 12.4 L Hct 37.5 L MCV 88.7 MCH 29.3 MCHC 33.1 RDW Std Deviation 54.5 H RDW Coeff of Shaq 16.8 H Plt Count 158 MPV 10.7 Immature Gran % (Auto) Neut % (Auto) Lymph % (Auto) [place] % (Auto) Eos % (Auto) Baso % (Auto) Absolute Neuts (auto) Absolute Lymphs (auto) Total Counted Neutrophils % (Manual) Band Neutrophils % Lymphocytes % (Manual) Monocytes % (Manual) Metamyelocytes % Nucleated RBC % Differential Comment Diff Path Review Platelet Estimate RBC Morphology D-Dimer Quant (PE/DVT) Sodium 134 L Potassium 4.6 Chloride 101 Carbon Dioxide 27.0 Anion Gap 6 BUN 65 H Creatinine 1.89 H Estim Creat Clear Calc 41.69 Est GFR (MDRD) Af Amer 46 L Est GFR (MDRD) Non-Af 38 L BUN/Creatinine Ratio 34.4 H Glucose 180 H Hemoglobin A1c Lactic Acid Calcium 8.0 L Magnesium Ferritin Total Bilirubin 0.40 Direct Bilirubin AST 42 H ALT 30 Alkaline Phosphatase 77 Lactate Dehydrogenase Troponin I C-React Prot Ext Range B-Natriuretic Peptide Total Protein 7.2 Albumin 2.1 L Globulin 5.1 H Albumin/Globulin Ratio 0.4 L Procalcitonin Urine Color Urine Clarity Urine pH Ur Specific [place] Urine Protein Urine Glucose (UA) Urine Ketones Urine Occult Blood Urine Nitrite Urine Bilirubin Urine Urobilinogen Ur Leukocyte Esterase Urine RBC Urine WBC Ur Squamous Epith Cells Amorphous Sediment Urine Bacteria Urine Mucus Ur Random Sodium Urine Creatinine COVID-19 (CORNEL) MRSA (PCR) POC Glucose Microbiology 03/06/20 17:40 Blood Culture (Wb) - Anticubital Right Bacteria Detection (PCR) - Final Strep not Strep pneumo 03/06/20 17:40 Blood Culture (Wb) - Anticubital Right Blood Culture - Preliminary Beta streptococcus 03/06/20 18:20 Blood Culture (Wb) - Right Hand Bacteria Detection (PCR) - Final 03/06/20 18:20 Blood Culture (Wb) - Right Hand Blood Culture - Preliminary Beta streptococcus 03/06/20 17:55 Urine Catheter - Catheter Urine Culture - Preliminary Staphylococcus aureus 03/06/20 Unknown Mucosa - Nasopharyngeal Respiratory Panel (PCR) - Final 03/06/20 17:55 Urine Catheter - Catheter Legionella Antigen - Final 03/06/20 17:55 Urine Catheter - Catheter Streptococcus pneumoniae Antigen (M - Final Clinical Impression(s) from Imaging Studies Chest X-Ray 03/07/20 05:55 IMPRESSION: Moderate degree of cardiac enlargement. Electronically Signed: Alex Gary MD at 8:34 EST , Service support , Medical Necessity - Tobacco Use Smoking Status: Current every day smoker Tobacco Use: Cigarettes Assessment/Plan All Active Problems (Last Reviewed 01/13/18 @ 09:26 by Eleni Bradley) Diabetic ulcer of right buttock (Acute) Skin ulcer (Acute) Septic shock (Acute) UTI (urinary tract infection) (Acute) Suspected COVID-19 virus infection (Acute) Hyperkalemia (Acute) Acute kidney injury superimposed on chronic kidney disease (Acute) Acute kidney injury (Acute) Hypoxemia (Acute) Acute exacerbation of CHF (congestive heart failure) (Acute) Chronic respiratory failure (Acute) Erectile dysfunction associated with type 2 diabetes mellitus (Acute) RECOMMENDATIONS: 1. Hold on aggressive fluid resuscitation 2. Agree with empiric antibiotics 3. Hold Xarelto therapy. Possibly resume Eliquis on 03/09/2020 4. Aggressive blood sugar control 5. BiPAP with sleep if patient agreeable 6. Await infectious disease recommendations 7. Okay to leave the intensive care unit from my perspective IMPRESSIONS: 1. Septic shock secondary to UTI versus right lower extremity cellulitis Patient appears to have staph growing in his blood. Given lichenification of lower extremities, this may need to be treated even if staph epidermidis. Infectious diseases consulted. Continue empiric antibiotics at this time. Concomitant UTI may be suggestive of hematologic spread. Await blood cultures and urine. Patient may need an echocardiogram for evaluation of endocarditis. Given size, JUDY may be necessary. This is complicated by COVID-19. Would attempt to keep fluid on the lower side if possible secondary to respiratory status. 2. Acute hypoxic respiratory insufficiency secondary to chronic COPD/cor pulmonale/COVID-19 Patient currently on 4 L to maintain saturations. Volume status will be very difficult to assess as patient will require volume secondary to cor pulmonale to maintain cardiac output, but excess fluid has led to increased risk for intubation in patients with COVID-19. Likely okay to discontinue inhaled steroids if patient is placed on Decadron. Continue with bronchodilators. Patient has refused BiPAP rescue and with sleep, which does increased risk for need of intubation. 3. Acute kidney injury on CKD stage III Patient appears to be volume overloaded, but may be intravascularly depleted versus decreased cardiac output secondary to RV strain. Patient does have some elevated blood sugars, which may be leading to auto diuresis. We will continue to monitor, but intravascular volume may improve from extracellular recruitment. No indication for dialysis at this time, but will have to watch closely. 4. Diabetes mellitus type 2 with hyperglycemia - uncontrolled Poorly controlled at baseline. Patient does have an elevated glucose at this time. We will add on insulin dosing and monitor closely. Clinical suspicion the patient does not follow a diabetic diet at home leading to increased insulin requirements. We will also need to follow for hypoglycemia for these reasons. 5. Chronic anticoagulation with Xarelto Patient presented with significantly elevated creatinine. Xarelto is renally excreted and likely represents increased anticoagulation at this time. We will hold empirically for 2 more days. A 10 a level or Xarelto level will take days to weeks to return. Doubt patient would be a candidate for Lovenox given body habitus. Heparin drip versus Eliquis can be evaluated after a total of 3 days. Patient will be at increased risk for bleeding in the interim. 6. Hypertension/hyperlipidemia/super morbid obesity/chronic A. fib with heart block Complicates care, management, recovery and prognosis. Agree with holding diuretic and ARB at this time. We will need to monitor fluid status closely. Xarelto held for reasons above. Likely reinitiate anticoagulation in 3 days empirically. Inpatient E&M: [id number] [place] [id number]
[2020-03-08] MEDS: Insulin Lispro 100 UNIT/ML INSULN.PEN SC ×3 (08:14→21:34)
[2020-03-08] MEDS: Insulin Lispro 100 UNIT/ML INSULN.PEN 45 UNIT SC ×2 (08:14→10:50)
[2020-03-08 08:25] LABS: Bedside Glucose 207 mg/dL (70-110)
[2020-03-08] MEDS: dexAMETHasone 4 MG Tablet 6 MG PO (10:48)
[2020-03-08] MEDS: Pantoprazole Sodium 40 MG Tablet PO (10:48)
[2020-03-08] MEDS: Furosemide 40 MG Tablet PO ×2 (10:48→17:32)
[2020-03-08] MEDS: Docusate Sodium 100 MG Capsule 200 MG PO (10:49)
[2020-03-08] MEDS: Gabapentin 300 MG Capsule PO ×2 (10:49→17:32)
[2020-03-08 11:00] LABS: Bedside Glucose 234 mg/dL (70-110)
--- NOTE | 2020-03-08 11:41 | PCM.PN.HOSP ---
Patient Problems: Active and Suspected Problems (Last Reviewed 01/13/18 @ 09:26 by Eleni Bradley) Diabetic ulcer of right buttock (Acute) Septic shock (Acute) UTI (urinary tract infection) (Acute) Suspected COVID-19 virus infection (Acute) Hyperkalemia (Acute) Acute kidney injury superimposed on chronic kidney disease (Acute) Acute kidney injury (Acute) Chronic respiratory failure (Acute) Erectile dysfunction associated with type 2 diabetes mellitus (Acute) Subjective: Doing well, maintaining his sats on room air, no issues overnight. Vitals/I&O's: Vital Signs Temp Pulse Resp BP Pulse Ox 96.8 F L 80 23 H 86/63 L 91 03/08/20 10:54 03/08/20 11:00 03/08/20 11:00 03/08/20 11:00 03/08/20 11:00 Oxygen Flow Rate (L/min) 4 Oxygen Delivery Method Room Air Weight: 416 lb 7.251 oz Body Mass Index (BMI) 54.2 Intake and Output for Last 24 Hours 03/06/20 03/07/20 03/08/20 23:59 23:59 23:59 Intake Total 2640.05 / 2640.05 1336.25 / 1456.25 170 / 170 Output Total 450 / 850 2050 / 2650 900 / 900 Balance 2190.05 / 1790.05 -713.75 / -1193.75 -730 / -730 General: Alert, Oriented x3, Cooperative, No apparent distress HEENT: Atraumatic, PERRLA, EOMI, Normocephalic Oral: Moist Mucosa Neck: Supple, No JVD Lungs: No rhonchi, No wheeze, no Rales, diminished Cardiovascular: Regular rate, Regular Rhythm, Normal S1, Normal S2, Murmur - CARLOS EDUARDO Abdomen: Soft, Non Tender, Non-Distended, No Hepato-splenomegaly Extremities: Capillary Refill Less than 3 Seconds, Edema significant with lichenification Skin: - - Right lower extremity erythema Neurological: Neuro grossly intact, Sensory exam intact to light touch and pain Psych/Mental Status: Normal Affect, Appropriate Microbiology Past 72 Hours 03/06/20 17:55 Urine Catheter - Catheter Urine Culture - Final Meth. resistant Staph. aureus 03/06/20 17:40 Blood Culture (Wb) - Anticubital Right Bacteria Detection (PCR) - Final Strep not Strep pneumo 03/06/20 17:40 Blood Culture (Wb) - Anticubital Right Blood Culture - Preliminary Beta streptococcus 03/06/20 18:20 Blood Culture (Wb) - Right Hand Bacteria Detection (PCR) - Final 03/06/20 18:20 Blood Culture (Wb) - Right Hand Blood Culture - Preliminary Beta streptococcus 03/06/20 Unknown Mucosa - Nasopharyngeal Respiratory Panel (PCR) - Final 03/06/20 17:55 Urine Catheter - Catheter Legionella Antigen - Final 03/06/20 17:55 Urine Catheter - Catheter Streptococcus pneumoniae Antigen (M - Final Laboratory Results 03/06/20 17:55: Urine Color Brown, Urine Clarity Cloudy, Urine pH 5.0, Ur Specific [place] 1.025, Urine Protein 100 H, Urine Glucose (UA) 50 H, Urine Ketones 5 H, Urine Occult Blood 250 H, Urine Nitrite Negative, Urine Bilirubin 1 H, Urine Urobilinogen 1 H, Ur Leukocyte Esterase 500 H, Urine RBC 10-25 SEEN, Urine WBC 50-100 SEEN, Ur Squamous Epith Cells 0-5 SEEN, Amorphous Sediment 2+, Urine Bacteria 2+, Urine Mucus 0 SEEN 03/07/20 04:20: Diff Path Review Reviewed 03/07/20 12:54: POC Glucose 326 H 03/07/20 17:10: POC Glucose 287 H 03/07/20 21:05: POC Glucose 162 H 03/08/20 04:35: WBC 17.2 H, RBC 4.23 L, Hgb 12.4 L, Hct 37.5 L, MCV 88.7, MCH 29.3, MCHC 33.1, RDW Std Deviation 54.5 H, RDW Coeff of Shaq 16.8 H, Plt Count 158, MPV 10.7 03/08/20 04:35: Sodium 134 L, Potassium 4.6, Chloride 101, Carbon Dioxide 27.0, Anion Gap 6, BUN 65 H, Creatinine 1.89 H, Estim Creat Clear Calc 41.69, Est GFR (MDRD) Af Amer 46 L, Est GFR (MDRD) Non-Af 38 L, BUN/Creatinine Ratio 34.4 H, Glucose 180 H, Calcium 8.0 L, Total Bilirubin 0.40, AST 42 H, ALT 30, Alkaline Phosphatase 77, Total Protein 7.2, Albumin 2.1 L, Globulin 5.1 H, Albumin/Globulin Ratio 0.4 L 03/08/20 08:09: POC Glucose 207 H 03/08/20 10:44: POC Glucose 234 H Current Medications Acetaminophen (Acetaminophen 325 Mg Tablet) 650 mg PO Q6H PRN PRN PRN Reason: Pain Score 1-10/Temp > 100.7 F Al Hydroxide/Mg Hydroxide (Mag Hydrox/Al Hydrox/Simeth 30 Ml Udc) 30 ml PO Q6H PRN PRN PRN Reason: Gastric Burning Albuterol Sulfate (Albuterol Ih 8.5 Gm (Proair) Inhaler (200 Puffs)) 4 - 8 puff INHALATION Q4H PRN PRN PRN Reason: Dyspnea, wheezing Last Admin: 03/07/20 21:16 Dose: 4 puff Documented by: Calamine/Phenol (Menthol/Lanolin/Calamine/Znox 113 Gm Tube) 1 applic TOPICAL TID COUNT INCLUDES THE [facility]; Protocol Last Admin: 03/08/20 05:15 Dose: 1 applicatio Documented by: Dexamethasone (Dexamethasone 4 Mg Tablet) 6 mg PO DAILY COUNT INCLUDES THE [facility] Stop: 03/15/20 10:01 Last Admin: 03/08/20 10:48 Dose: 6 mg Documented by: Docusate Sodium (Docusate Sodium 100 Mg Capsule) 200 mg PO DAILY COUNT INCLUDES THE [facility] Last Admin: 03/08/20 10:49 Dose: 200 mg Documented by: Furosemide (Furosemide 40 Mg Tablet) 40 mg PO BID@1000,1800 COUNT INCLUDES THE [facility] Last Admin: 03/08/20 10:48 Dose: 40 mg Documented by: Gabapentin (Gabapentin 400 Mg Capsule) 400 mg PO 1200 COUNT INCLUDES THE [facility] Last Admin: 03/07/20 13:03 Dose: 400 mg Documented by: Gabapentin (Gabapentin 300 Mg Capsule) 300 mg PO BIDCM COUNT INCLUDES THE [facility] Last Admin: 03/08/20 10:49 Dose: 300 mg Documented by: Gabapentin (Gabapentin 100 Mg Capsule) 100 mg PO 1200 COUNT INCLUDES THE [facility] Last Admin: 03/07/20 13:04 Dose: 100 mg Documented by: Guaifenesin (Guaifenesin 10 Ml Udc (200mg/10ml)) 10 ml PO Q4H PRN PRN PRN Reason: COUGH Hydralazine HCl (Hydralazine 20 Mg/Ml Vial) 10 mg IV Q4H PRN PRN PRN Reason: SBP > 160 Vancomycin IV Pharmacy to Dose (1 ea/ Sodium Chloride) 500 mls @ 250 mls/hr IV X1 PRN; Protocol PRN Reason: Rx to Dose Sodium Chloride () 250 mls @ 15 mls/hr IV .[id number] PRN PRN Reason: Saline Flush Sodium Chloride () 250 mls @ 15 mls/hr IV .[id number] PRN PRN Reason: Additional IVPB Infusion Vancomycin HCl 1,500 mg/ (Sodium Chloride) 530 mls @ 250 mls/hr IV Q24H COUNT INCLUDES THE [facility] Last Infusion: 03/07/20 23:19 Dose: Infused Documented by: Piperacillin Sod/Tazobactam (Sod 3.375 gm/ Sodium Chloride) 50 mls @ 12.5 mls/hr IV Q12 COUNT INCLUDES THE [facility] Last Infusion: 03/08/20 02:45 Dose: Infused Documented by: Remdesivir 100 mg/ Sodium (Chloride) 250 mls @ 125 mls/hr IV DAILY COUNT INCLUDES THE [facility]; Protocol Stop: 03/11/20 11:59 Last Admin: 03/08/20 10:49 Dose: 125 mls/hr Documented by: Insulin Glargine (Insulin Glargine 100 Units/Ml Pen) 23 units SC BREAKFAST COUNT INCLUDES THE [facility] Last Admin: 03/08/20 08:13 Dose: 23 u Documented by: Insulin Glargine (Insulin Glargine 100 Units/Ml Pen) 20 units SC QHS COUNT INCLUDES THE [facility] Last Admin: 03/07/20 21:09 Dose: 20 units Documented by: Insulin Human Lispro (Insulin Lispro 100 Unit/Ml Insuln.Pen) 45 unit SC 1200 COUNT INCLUDES THE [facility] Last Admin: 03/08/20 10:50 Dose: 45 u Documented by: Insulin Human Lispro (Insulin Lispro 100 Unit/Ml Insuln.Pen) 45 unit SC 0800 COUNT INCLUDES THE [facility] Last Admin: 03/08/20 08:14 Dose: 45 u Documented by: Insulin Human Lispro (Insulin Lispro 100 Unit/Ml Insuln.Pen) 17 unit SC 1700 COUNT INCLUDES THE [facility] Last Admin: 03/07/20 17:11 Dose: 17 u Documented by: Insulin Human Lispro (Insulin Lispro 100 Unit/Ml Insuln.Pen) 0 unit SC ACHS COUNT INCLUDES THE [facility]; Protocol Last Admin: 03/08/20 10:50 Dose: 6 u Documented by: Magnesium Hydroxide (Magnesium Hydroxide 30 Ml Udc) 30 ml PO DAILY PRN PRN PRN Reason: Constipation Melatonin (Melatonin 3 Mg Tablet) 3 mg PO QHS PRN PRN PRN Reason: INSOMNIA Miscellaneous Information (Aerochamber 1 Each) 1 ea INHALATION UD PRN PRN Reason: INHALER USE Montelukast Sodium (Montelukast 10 Mg Tablet) 10 mg PO QHS COUNT INCLUDES THE [facility] Last Admin: 03/07/20 21:07 Dose: 10 mg Documented by: Nitroglycerin (Nitroglycerin (Inpatient Use) 0.4 Mg Tab.Subl) 0.4 mg SUBLINGUAL Q5M PRN PRN Reason: CARDIAC/CHEST PAIN Nystatin (Nystatin Powder 15gm Bottle) 1 applic TOPICAL TID COUNT INCLUDES THE [facility]; Protocol Last Admin: 03/08/20 05:16 Dose: 1 applicatio Documented by: Ondansetron HCl (Ondansetron 4 Mg/2 Ml Vial) 4 mg IV Q8H PRN PRN PRN Reason: NAUSEA/VOMITING Pantoprazole Sodium (Pantoprazole Sodium 40 Mg Tablet) 40 mg PO DAILY COUNT INCLUDES THE [facility] Last Admin: 03/08/20 10:48 Dose: 40 mg Documented by: Prochlorperazine Edisylate (Prochlorperazine 10 Mg/2 Ml Vial) 5 mg IV Q4H PRN PRN PRN Reason: Breakthrough Nausea/Vomiting Psyllium Hydrophilic Mucilloid (Psyllium 1 Packet) 1 packet PO DAILY PRN PRN PRN Reason: Constipation Senna/Docusate Sodium (Senna/Docusate Sodium 1 Tablet) 2 tablet PO BID PRN PRN PRN Reason: Constipation Sodium Chloride (0.9% Saline Lock 10 Ml Syringe) 10 - 40 ml IV UD PRN PRN Reason: SALINE FLUSH Throat Lozenges (Benzocaine/Menthol 1 Lozenge) 1 lozenge MUCOUS MEM Q2H PRN PRN PRN Reason: SORE THROAT STROKE Vital Signs/Narrative: Vital Signs Temp Pulse Resp BP BP Pulse Ox 03/08/20 11:00 80 23 H 86/63 L 91 03/08/20 10:54 96.8 F L 80 18 120/55 L 93 03/08/20 09:00 80 16 120/55 L 94 03/08/20 08:00 80 25 H 103/75 91 Medical Necessity - Tobacco Use Smoking Status: Current every day smoker Tobacco Use: Cigarettes Assessment/Plan All Active Problems (Last Reviewed 01/13/18 @ 09:26 by Eleni Bradley) Diabetic ulcer of right buttock (Acute) Skin ulcer (Acute) Septic shock (Acute) UTI (urinary tract infection) (Acute) Suspected COVID-19 virus infection (Acute) Hyperkalemia (Acute) Acute kidney injury superimposed on chronic kidney disease (Acute) Acute kidney injury (Acute) Hypoxemia (Acute) Acute exacerbation of CHF (congestive heart failure) (Acute) Chronic respiratory failure (Acute) Erectile dysfunction associated with type 2 diabetes mellitus (Acute) 1. Septic shock secondary to UTI and right lower extremity cellulitis with streptococcal bacteremia/JESUS on CKD 3 -Does have strep organism growing in his blood as well -Appreciate ID assistance -Continue with Vanco and Zosyn -May need echo for further evaluation of his murmur in the setting of streptococcal bacteremia assuming that he cannot clear the infection quickly -Discontinue IV fluids 2. Acute hypoxic respiratory insufficiency secondary to chronic COPD/cor pulmonale/COVID-19 infection -Currently on room air and breathing well -Continue with Decadron, symptoms started within the last week, may benefit from remdesivir as well 3. DM 2 -Continue with insulin and monitor his blood sugars closely secondary to the Decadron for Covid -Hold Tradjenta 4. Chronic A. fib/chronic CHF likely diastolic/super morbid obesity/HTN/HLD/complete heart block status post pacemaker -He is on Xarelto as an outpatient however given his increasing creatinine, this has been discontinued. He will likely need to transition to Eliquis on discharge as creatinine returns to baseline -Hold losartan and metolazone secondary to JESUS and IV fluid necessity -Can restart Lasix -Echo in 2018 with moderate concentric LVH and an EF of 55% with a dilated right ventricle RVSP of 24 mmHg 5. GERD -Stable -Continue with PPI DVT: Xarelto, though on hold per operator catalyst concentration note, Xarelto is renally excreted given his acute renal failure he is likely hypercoagulable at this moment Inpatient E&M: [id number] Subs Hosp L2
[2020-03-08 12:50] LABS: Magnesium 3.1 mg/dL (1.6-2.6)
[2020-03-08] MEDS: Gabapentin 100 MG Capsule PO (13:08)
[2020-03-08] MEDS: Gabapentin 400 MG Capsule PO (13:08)
--- NOTE | 2020-03-08 13:45 | CASEMGMT ---
PATO called patient's room to discuss discharge plan. Patient did not answer the phone. Leah RIOS MSW
--- NOTE | 2020-03-08 14:54 | NURSING ---
in to reassess bilateral lower legs. minimal drainage noted on the pads under legs. spent approx 30 min removing some of the thick dry skin from the RLE. some areas are still quite adherent. removed a small amount from the LLE. will continue to work on them daily while in the hospital. washed legs with soap and water. pat dry.
[2020-03-08 17:50] LABS: Bedside Glucose 67 mg/dL (70-110)
[2020-03-08 20:34] LABS: Vancomycin, Trough Level 10.9 ug/mL (5.0-15.0)
[2020-03-08] MEDS: Montelukast 10 MG Tablet PO (21:33)
[2020-03-08] MEDS: 0.9% Saline Lock 10 ML Syringe IV (21:37)
[2020-03-08 22:42] LABS: Bedside Glucose 154 mg/dL (70-110)
[2020-03-09] VITALS (10 sets, daily range): BP systolic 120–134; BP diastolic 62–77; PULSE 80–90; RESP 18–24; TEMP 36.3–36.6; O2SAT 93–94
--- NOTE | 2020-03-09 00:18 | PCM.RX.CS ---
Consult Pharmacy has been consulted to manage selected antiobiotic: Vancomycin Type of Consult: Follow-up Labs: Sodium 134 mmol/L (136-145) L 03/08/20 04:35 Potassium 4.6 mmol/L (3.5-5.1) 03/08/20 04:35 Chloride 101 mmol/L (98-107) 03/08/20 04:35 Carbon Dioxide 27.0 mmol/L (21.0-32.0) 03/08/20 04:35 Anion Gap 6 (5-15) 03/08/20 04:35 BUN 65 mg/dL (7-18) H 03/08/20 04:35 Creatinine 1.89 mg/dL (0.70-1.30) H 03/08/20 04:35 Est GFR (MDRD) Af Amer 46 mL/min (>60) L 03/08/20 04:35 Est GFR (MDRD) Non-Af 38 mL/min (>60) L 03/08/20 04:35 BUN/Creatinine Ratio 34.4 RATIO (10-20) H 03/08/20 04:35 Glucose 180 mg/dL (74-106) H 03/08/20 04:35 Vancomycin Trough 10.9 ug/mL (5.0-15.0) 03/08/20 19:55 Microbiology: Microbiology 03/06/20 17:55 Urine Catheter - Catheter Urine Culture - Final Meth. resistant Staph. aureus 03/06/20 17:40 Blood Culture (Wb) - Anticubital Right Bacteria Detection (PCR) - Final Strep not Strep pneumo 03/06/20 17:40 Blood Culture (Wb) - Anticubital Right Blood Culture - Preliminary Beta streptococcus 03/06/20 18:20 Blood Culture (Wb) - Right Hand Bacteria Detection (PCR) - Final 03/06/20 18:20 Blood Culture (Wb) - Right Hand Blood Culture - Preliminary Beta streptococcus 03/06/20 Unknown Mucosa - Nasopharyngeal Respiratory Panel (PCR) - Final 03/06/20 17:55 Urine Catheter - Catheter Legionella Antigen - Final 03/06/20 17:55 Urine Catheter - Catheter Streptococcus pneumoniae Antigen (M - Final Goal Trough: 15-20 mcg/mL Pharmacy Plan for Drug Dosing: Pharmacy Service will continue to monitor and adjust dosing as required. TROUGH 10.9 INCREASE TO 2GM Q24H Follow-Up Labs: Trough Vancomycin Labs to be done on [date and time ordered]: 03/11 @ 1999
[2020-03-09 04:11] LABS: Hematocrit 36.4 % (40-54); Hemoglobin 12.3 g/dL (13.0-16.5); Mean Corp Hgb Conc 33.8 g/dL (32-36); Mean Corpuscular Hgb 29.3 pg (27.0-32.0); Mean Corpuscular Volume 86.7 fL (80-94); Mean Platelet Vol. 10.7 fl (6.2-12.0); Platelet Count 166 K/mm3 (150-450); RBC Distribution Width CV 16.8 % (11.6-14.6); RBC Distribution Width SD 53.1 fl (35.1-43.9); White Blood Count 15.5 K/mm3 (4.4-11.0)
[2020-03-09 04:25] LABS: ALB/GLOB Ratio 0.4 RATIO (0.9-2.4); AST(SGOT) 35 U/L (15-37); Alanine Aminotransfer ALT/SGPT 33 U/L (16-61); Alkaline Phosphatase 103 U/L (45-117); Anion Gap 5 (5-15); BUN 64 mg/dL (7-18); Calcium,Total 7.8 mg/dL (8.5-10.1); Chloride 103 mmol/L (98-107); Creatinine, Serum 1.56 mg/dL (0.70-1.30); EST Glomerular Filtration Rate 47 mL/min (>60); Est Glom Filt Rate - Afr Amer 57 mL/min (>60); Estimated Creatinine Clearance 50.51 ml/min; Globulin 5.1 g/dL (2.2-4.2); Glucose 192 mg/dL (74-106); Potassium 4.4 mmol/L (3.5-5.1); Protein, Total 7.1 g/dL (6.4-8.2); Sodium Level 134 mmol/L (136-145)
[2020-03-09] MEDS: Nystatin Powder 15gm Bottle 1 APPLIC TOPICAL ×3 (05:18→20:29)
[2020-03-09] MEDS: Menthol/Lanolin/Calamine/Znox 113 GM Tube 1 APPLIC TOPICAL ×2 (05:18→16:54)
--- NOTE | 2020-03-09 08:06 | PN_ITS ---
Subjective: Patient did okay overnight. No acute issues were reported. Patient states he feels subjectively improved compared to previous. No interventions for hypotension were required overnight. Patient is reporting chronic pain of his hands and feet. Patient feels his right lower extremity is improved compared to yesterday. Patient continues to refuse any BiPAP therapy with sleep. General: Alert, Oriented x3, Cooperative, No apparent distress, - - Super morbidly obese. No conversational dyspnea. HEENT: Atraumatic, PERRLA, EOMI, Normocephalic, - - No scleral icterus or injection noted Oral: Moist Mucosa, No Gingival or Mucosal Lesions/ Ulcerations Neck: Supple, No Nodes, Trachea Midline, - - Difficult to assess JVD secondary to body habitus Lungs: Clear to auscultation, Normal air movement, No rhonchi, No wheeze, No rales Cardiovascular: Regular rate, Regular Rhythm, Normal S1, Normal S2, No murmurs, No rub noted, No Gallop, - - Distant heart sounds Abdomen: Bowel Sounds Present, Soft, Non Tender, Non-Distended, Obese Extremities: No clubbing, No cyanosis, Edema Skin: - - No change compared to previous except for decreased erythema of the right lower extremity Musculoskeletal: No Tenderness to Palpation of Joints or Extremities - Decreased sensation overall Lymphatic: No Cervical, Supraclavicular, or Inguinal Adenopathy Neurological: Cranial nerves II-XII grossly intact, Neuro grossly intact Psych/Mental Status: Alert and oriented to time, place, person, mood and affect Vital Signs Temp Pulse Resp BP Pulse Ox 36.6 C 80 24 H 122/77 H 93 03/09/20 04:00 03/09/20 04:00 03/09/20 04:00 03/09/20 04:00 03/09/20 04:00 Oxygen Flow Rate (L/min) 2 Oxygen Delivery Method Room Air Weight: 187.5 kg Body Mass Index (BMI) 54.2 Intake and Output for Last 24 Hours 03/07/20 03/08/20 03/09/20 23:59 23:59 23:59 Intake Total 1336.25 / 1456.25 1000 / 1000 770 / 770 Output Total 2050 / 2650 2550 / 2550 1500 / 1500 Balance -713.75 / -1193.75 -1550 / -1550 -730 / -730 Labs (Last 48 Hours) 03/06/20 03/07/20 03/07/20 17:55 04:20 08:25 WBC RBC Hgb Hct MCV MCH MCHC RDW Std Deviation RDW Coeff of Shaq Plt Count MPV Diff Path Review Reviewed Sodium Potassium Chloride Carbon Dioxide Anion Gap BUN Creatinine Estim Creat Clear Calc Est GFR (MDRD) Af Amer Est GFR (MDRD) Non-Af BUN/Creatinine Ratio Glucose Calcium Magnesium Total Bilirubin AST ALT Alkaline Phosphatase Total Protein Albumin Globulin Albumin/Globulin Ratio Urine Color Brown Urine Clarity Cloudy Urine pH 5.0 Ur Specific [place] 1.025 Urine Protein 100 H Urine Glucose (UA) 50 H Urine Ketones 5 H Urine Occult Blood 250 H Urine Nitrite Negative Urine Bilirubin 1 H Urine Urobilinogen 1 H Ur Leukocyte Esterase 500 H Urine RBC 10-25 SEEN Urine WBC 50-100 SEEN Ur Squamous Epith Cells 0-5 SEEN Amorphous Sediment 2+ Urine Bacteria 2+ Urine Mucus 0 SEEN Vancomycin Trough POC Glucose 391 H 03/07/20 03/07/20 03/07/20 12:54 17:10 21:05 WBC RBC Hgb Hct MCV MCH MCHC RDW Std Deviation RDW Coeff of Shaq Plt Count MPV Diff Path Review Sodium Potassium Chloride Carbon Dioxide Anion Gap BUN Creatinine Estim Creat Clear Calc Est GFR (MDRD) Af Amer Est GFR (MDRD) Non-Af BUN/Creatinine Ratio Glucose Calcium Magnesium Total Bilirubin AST ALT Alkaline Phosphatase Total Protein Albumin Globulin Albumin/Globulin Ratio Urine Color Urine Clarity Urine pH Ur Specific [place] Urine Protein Urine Glucose (UA) Urine Ketones Urine Occult Blood Urine Nitrite Urine Bilirubin Urine Urobilinogen Ur Leukocyte Esterase Urine RBC Urine WBC Ur Squamous Epith Cells Amorphous Sediment Urine Bacteria Urine Mucus Vancomycin Trough POC Glucose 326 H 287 H 162 H 03/08/20 03/08/20 03/08/20 04:35 04:35 04:35 WBC 17.2 H RBC 4.23 L Hgb 12.4 L Hct 37.5 L MCV 88.7 MCH 29.3 MCHC 33.1 RDW Std Deviation 54.5 H RDW Coeff of Shaq 16.8 H Plt Count 158 MPV 10.7 Diff Path Review Sodium 134 L Potassium 4.6 Chloride 101 Carbon Dioxide 27.0 Anion Gap 6 BUN 65 H Creatinine 1.89 H Estim Creat Clear Calc 41.69 Est GFR (MDRD) Af Amer 46 L Est GFR (MDRD) Non-Af 38 L BUN/Creatinine Ratio 34.4 H Glucose 180 H Calcium 8.0 L Magnesium 3.1 H Total Bilirubin 0.40 AST 42 H ALT 30 Alkaline Phosphatase 77 Total Protein 7.2 Albumin 2.1 L Globulin 5.1 H Albumin/Globulin Ratio 0.4 L Urine Color Urine Clarity Urine pH Ur Specific [place] Urine Protein Urine Glucose (UA) Urine Ketones Urine Occult Blood Urine Nitrite Urine Bilirubin Urine Urobilinogen Ur Leukocyte Esterase Urine RBC Urine WBC Ur Squamous Epith Cells Amorphous Sediment Urine Bacteria Urine Mucus Vancomycin Trough POC Glucose 03/08/20 03/08/20 03/08/20 08:09 10:44 17:31 WBC RBC Hgb Hct MCV MCH MCHC RDW Std Deviation RDW Coeff of Shaq Plt Count MPV Diff Path Review Sodium Potassium Chloride Carbon Dioxide Anion Gap BUN Creatinine Estim Creat Clear Calc Est GFR (MDRD) Af Amer Est GFR (MDRD) Non-Af BUN/Creatinine Ratio Glucose Calcium Magnesium Total Bilirubin AST ALT Alkaline Phosphatase Total Protein Albumin Globulin Albumin/Globulin Ratio Urine Color Urine Clarity Urine pH Ur Specific [place] Urine Protein Urine Glucose (UA) Urine Ketones Urine Occult Blood Urine Nitrite Urine Bilirubin Urine Urobilinogen Ur Leukocyte Esterase Urine RBC Urine WBC Ur Squamous Epith Cells Amorphous Sediment Urine Bacteria Urine Mucus Vancomycin Trough POC Glucose 207 H 234 H 67 L 03/08/20 03/08/20 03/09/20 19:55 21:31 04:05 WBC 15.5 H RBC 4.20 L Hgb 12.3 L Hct 36.4 L MCV 86.7 MCH 29.3 MCHC 33.8 RDW Std Deviation 53.1 H RDW Coeff of Shaq 16.8 H Plt Count 166 MPV 10.7 Diff Path Review Sodium Potassium Chloride Carbon Dioxide Anion Gap BUN Creatinine Estim Creat Clear Calc Est GFR (MDRD) Af Amer Est GFR (MDRD) Non-Af BUN/Creatinine Ratio Glucose Calcium Magnesium Total Bilirubin AST ALT Alkaline Phosphatase Total Protein Albumin Globulin Albumin/Globulin Ratio Urine Color Urine Clarity Urine pH Ur Specific [place] Urine Protein Urine Glucose (UA) Urine Ketones Urine Occult Blood Urine Nitrite Urine Bilirubin Urine Urobilinogen Ur Leukocyte Esterase Urine RBC Urine WBC Ur Squamous Epith Cells Amorphous Sediment Urine Bacteria Urine Mucus Vancomycin Trough 10.9 POC Glucose 154 H 03/09/20 04:05 WBC RBC Hgb Hct MCV MCH MCHC RDW Std Deviation RDW Coeff of Shaq Plt Count MPV Diff Path Review Sodium 134 L Potassium 4.4 Chloride 103 Carbon Dioxide 26.0 Anion Gap 5 BUN 64 H Creatinine 1.56 H Estim Creat Clear Calc 50.51 Est GFR (MDRD) Af Amer 57 L Est GFR (MDRD) Non-Af 47 L BUN/Creatinine Ratio 41.0 H Glucose 192 H Calcium 7.8 L Magnesium Total Bilirubin 0.50 AST 35 ALT 33 Alkaline Phosphatase 103 Total Protein 7.1 Albumin 2.0 L Globulin 5.1 H Albumin/Globulin Ratio 0.4 L Urine Color Urine Clarity Urine pH Ur Specific [place] Urine Protein Urine Glucose (UA) Urine Ketones Urine Occult Blood Urine Nitrite Urine Bilirubin Urine Urobilinogen Ur Leukocyte Esterase Urine RBC Urine WBC Ur Squamous Epith Cells Amorphous Sediment Urine Bacteria Urine Mucus Vancomycin Trough POC Glucose Microbiology 03/06/20 18:20 Blood Culture (Wb) - Right Hand Bacteria Detection (PCR) - Final 03/06/20 18:20 Blood Culture (Wb) - Right Hand Blood Culture - Final Streptococcus group C 03/06/20 17:40 Blood Culture (Wb) - Anticubital Right Bacteria Detection (PCR) - Final Strep not Strep pneumo 03/06/20 17:40 Blood Culture (Wb) - Anticubital Right Blood Culture - Final Streptococcus dysgalactiae equ 03/06/20 17:55 Urine Catheter - Catheter Urine Culture - Final Meth. resistant Staph. aureus Medical Necessity - Tobacco Use Smoking Status: Current every day smoker Tobacco Use: Cigarettes Assessment/Plan All Active Problems (Last Reviewed 01/13/18 @ 09:26 by Eleni Bradley) Diabetic ulcer of right buttock (Acute) Skin ulcer (Acute) Septic shock (Acute) UTI (urinary tract infection) (Acute) Suspected COVID-19 virus infection (Acute) Hyperkalemia (Acute) Acute kidney injury superimposed on chronic kidney disease (Acute) Acute kidney injury (Acute) Hypoxemia (Acute) Acute exacerbation of CHF (congestive heart failure) (Acute) Chronic respiratory failure (Acute) Erectile dysfunction associated with type 2 diabetes mellitus (Acute) RECOMMENDATIONS: 1. Reinitiate baseline diuretic therapy 2. Antibiotics per infectious disease 3. Placed on Eliquis therapy 4. Aggressive blood sugar control 5. BiPAP with sleep if patient agreeable 6. Hemodynamically stable on room air. Will sign off from a critical care perspective IMPRESSIONS: 1. Septic shock secondary to UTI versus right lower extremity cellulitis Patient appears to have staph growing in his blood. Clinical suspicion for true infection with staph epi and MRSA. Infectious diseases consulted. Antibiotics per infectious disease. Concomitant UTI may be suggestive of hematologic spread. Patient may need an echocardiogram for evaluation of endocarditis. Given size, JUDY may be necessary. This is complicated by COVID- 19. Okay to reinitiate baseline diuretic therapy 2. Acute hypoxic respiratory insufficiency secondary to chronic COPD/cor pulmonale/COVID-19 Patient currently on 4 L to maintain saturations. Volume status will be very difficult to assess as patient will require volume secondary to cor pulmonale to maintain cardiac output, but excess fluid has led to increased risk for intubation in patients with COVID-19. Continue with bronchodilators. Patient has refused BiPAP rescue and with sleep, which does increased risk for need of intubation. 3. Acute kidney injury on CKD stage III Improving. Patient appears to be volume overloaded, but may be intravascularly depleted versus decreased cardiac output secondary to RV strain. Patient does have some elevated blood sugars, which may be leading to auto diuresis. We will continue to monitor, but intravascular volume may improve from extracellular recruitment. No indication for dialysis at this time, but will have to watch closely. 4. Diabetes mellitus type 2 with hyperglycemia - uncontrolled Poorly controlled at baseline. Patient does have an elevated glucose at this time. We will add on insulin dosing and monitor closely. Clinical suspicion the patient does not follow a diabetic diet at home leading to increased insulin requirements. We will also need to follow for hypoglycemia for these reasons. 5. Chronic anticoagulation with Xarelto Patient presented with significantly elevated creatinine. Xarelto is renally excreted and likely represents increased anticoagulation at this time. A 10 a level or Xarelto level will take days to weeks to return. Doubt patient would be a candidate for Lovenox given body habitus. Patient's hemoglobin has been stable. Likely okay to initiate Eliquis without a load. Eliquis likely a better anticoagulation option as patient is at high risk for development of acute kidney injury given need for diuretic therapy. 6. Hypertension/hyperlipidemia/super morbid obesity/chronic A. fib with heart block Complicates care, management, recovery and prognosis. Agree with holding diuretic and ARB at this time. We will need to monitor fluid status closely. Inpatient E&M: 64616 Subs Hosp L2
[2020-03-09] MEDS: Pantoprazole Sodium 40 MG Tablet PO (08:48)
[2020-03-09] MEDS: Docusate Sodium 100 MG Capsule 200 MG PO (08:48)
[2020-03-09] MEDS: Furosemide 40 MG Tablet PO ×2 (08:48→18:44)
[2020-03-09] MEDS: dexAMETHasone 4 MG Tablet 6 MG PO (08:48)
[2020-03-09] MEDS: Gabapentin 300 MG Capsule PO (08:48)
[2020-03-09] MEDS: Insulin Lispro 100 UNIT/ML INSULN.PEN SC ×4 (08:51→20:34)
[2020-03-09] MEDS: Insulin Lispro 100 UNIT/ML INSULN.PEN 45 UNIT SC ×2 (08:51→11:47)
[2020-03-09 09:20] LABS: Bedside Glucose 234 mg/dL (70-110)
--- NOTE | 2020-03-09 10:02 | PN_ITS ---
Patient Problems: Active and Suspected Problems (Last Reviewed 01/13/18 @ 09:26 by Eleni Bradley) Diabetic ulcer of right buttock (Acute) Septic shock (Acute) UTI (urinary tract infection) (Acute) Suspected COVID-19 virus infection (Acute) Hyperkalemia (Acute) Acute kidney injury superimposed on chronic kidney disease (Acute) Acute kidney injury (Acute) Chronic respiratory failure (Acute) Erectile dysfunction associated with type 2 diabetes mellitus (Acute) Subjective: Doing well today, no issues overnight. Continues oxygen saturations on room air Vitals/I&O's: Vital Signs Temp Pulse Resp BP Pulse Ox 97.3 F L 80 20 H 120/66 93 03/09/20 08:45 03/09/20 08:45 03/09/20 08:45 03/09/20 08:45 03/09/20 08:45 Oxygen Flow Rate (L/min) 2 Oxygen Delivery Method Room Air Weight: 413 lb 5.868 oz Body Mass Index (BMI) 54.2 Intake and Output for Last 24 Hours 03/07/20 03/08/20 03/09/20 23:59 23:59 23:59 Intake Total 1336.25 / 1456.25 1000 / 1000 770 / 770 Output Total 2050 / 2650 2550 / 2550 1500 / 1500 Balance -713.75 / -1193.75 -1550 / -1550 -730 / -730 General: Alert, Oriented x3, Cooperative, No apparent distress HEENT: Atraumatic, PERRLA, EOMI, Normocephalic Oral: Moist Mucosa Neck: Supple, No JVD Lungs: No rhonchi, No wheeze, no Rales, diminished Cardiovascular: Regular rate, Regular Rhythm, Normal S1, Normal S2, Murmur - CARLOS EDUARDO Abdomen: Soft, Non Tender, Non-Distended, No Hepato-splenomegaly Extremities: Capillary Refill Less than 3 Seconds, Edema significant with lichenification Skin: - - Right lower extremity redness improved Neurological: Neuro grossly intact, Sensory exam intact to light touch and pain Psych/Mental Status: Normal Affect, Appropriate Microbiology Past 72 Hours 03/06/20 18:20 Blood Culture (Wb) - Right Hand Bacteria Detection (PCR) - Final 03/06/20 18:20 Blood Culture (Wb) - Right Hand Blood Culture - Final Streptococcus group C 03/06/20 17:40 Blood Culture (Wb) - Anticubital Right Bacteria Detection (PCR) - Final Strep not Strep pneumo 03/06/20 17:40 Blood Culture (Wb) - Anticubital Right Blood Culture - Final Streptococcus dysgalactiae equ 03/06/20 17:55 Urine Catheter - Catheter Urine Culture - Final Meth. resistant Staph. aureus 03/06/20 Unknown Mucosa - Nasopharyngeal Respiratory Panel (PCR) - Final 03/06/20 17:55 Urine Catheter - Catheter Legionella Antigen - Final 03/06/20 17:55 Urine Catheter - Catheter Streptococcus pneumoniae Antigen (M - Final Laboratory Results 03/08/20 04:35: Magnesium 3.1 H 03/08/20 10:44: POC Glucose 234 H 03/08/20 17:31: POC Glucose 67 L 03/08/20 19:55: Vancomycin Trough 10.9 03/08/20 21:31: POC Glucose 154 H 03/09/20 04:05: WBC 15.5 H, RBC 4.20 L, Hgb 12.3 L, Hct 36.4 L, MCV 86.7, MCH 29.3, MCHC 33.8, RDW Std Deviation 53.1 H, RDW Coeff of Shaq 16.8 H, Plt Count 166, MPV 10.7 03/09/20 04:05: Sodium 134 L, Potassium 4.4, Chloride 103, Carbon Dioxide 26.0, Anion Gap 5, BUN 64 H, Creatinine 1.56 H, Estim Creat Clear Calc 50.51, Est GFR (MDRD) Af Amer 57 L, Est GFR (MDRD) Non-Af 47 L, BUN/Creatinine Ratio 41.0 H, Glucose 192 H, Calcium 7.8 L, Total Bilirubin 0.50, AST 35, ALT 33, Alkaline Phosphatase 103, Total Protein 7.1, Albumin 2.0 L, Globulin 5.1 H, Albumin/Globulin Ratio 0.4 L 03/09/20 08:43: POC Glucose 234 H Current Medications Acetaminophen (Acetaminophen 325 Mg Tablet) 650 mg PO Q6H PRN PRN PRN Reason: Pain Score 1-10/Temp > 100.7 F Al Hydroxide/Mg Hydroxide (Mag Hydrox/Al Hydrox/Simeth 30 Ml Udc) 30 ml PO Q6H PRN PRN PRN Reason: Gastric Burning Albuterol Sulfate (Albuterol Ih 8.5 Gm (Proair) Inhaler (200 Puffs)) 4 - 8 puff INHALATION Q4H PRN PRN PRN Reason: Dyspnea, wheezing Last Admin: 03/08/20 21:34 Dose: 4 puff Documented by: Apixaban (Apixaban 5 Mg Tablet) 5 mg PO BID [facility] Calamine/Phenol (Menthol/Lanolin/Calamine/Znox 113 Gm Tube) 1 applic TOPICAL TID [facility]; Protocol Last Admin: 03/09/20 05:18 Dose: 1 applicatio Documented by: Dexamethasone (Dexamethasone 4 Mg Tablet) 6 mg PO DAILY [facility] Stop: 03/15/20 10:01 Last Admin: 03/09/20 08:48 Dose: 6 mg Documented by: Docusate Sodium (Docusate Sodium 100 Mg Capsule) 200 mg PO DAILY [facility] Last Admin: 03/09/20 08:48 Dose: 200 mg Documented by: Furosemide (Furosemide 40 Mg Tablet) 40 mg PO BID@1000,1800 [facility] Last Admin: 03/09/20 08:48 Dose: 40 mg Documented by: Gabapentin (Gabapentin 400 Mg Capsule) 400 mg PO 1200 [facility] Last Admin: 03/08/20 13:08 Dose: 400 mg Documented by: Gabapentin (Gabapentin 300 Mg Capsule) 300 mg PO BIDCM [facility] Last Admin: 03/09/20 08:48 Dose: 300 mg Documented by: Gabapentin (Gabapentin 100 Mg Capsule) 100 mg PO 1200 [facility] Last Admin: 03/08/20 13:08 Dose: 100 mg Documented by: Guaifenesin (Guaifenesin 10 Ml Udc (200mg/10ml)) 10 ml PO Q4H PRN PRN PRN Reason: COUGH Hydralazine HCl (Hydralazine 20 Mg/Ml Vial) 10 mg IV Q4H PRN PRN PRN Reason: SBP > 160 Vancomycin IV Pharmacy to Dose (1 ea/ Sodium Chloride) 500 mls @ 250 mls/hr IV X1 PRN; Protocol PRN Reason: Rx to Dose Sodium Chloride () 250 mls @ 15 mls/hr IV .[id number] PRN PRN Reason: Saline Flush Sodium Chloride () 250 mls @ 15 mls/hr IV .[id number] PRN PRN Reason: Additional IVPB Infusion Piperacillin Sod/Tazobactam (Sod 3.375 gm/ Sodium Chloride) 50 mls @ 12.5 mls/hr IV Q12 [facility] Last Infusion: 03/09/20 03:33 Dose: Infused Documented by: Remdesivir 100 mg/ Sodium (Chloride) 250 mls @ 125 mls/hr IV DAILY [facility]; Protocol Stop: 03/11/20 11:59 Last Infusion: 03/08/20 12:49 Dose: Infused Documented by: Vancomycin HCl 2,000 mg/ (Sodium Chloride) 540 mls @ 250 mls/hr IV Q24H [facility] Insulin Glargine (Insulin Glargine 100 Units/Ml Pen) 23 units SC BREAKFAST [facility] Last Admin: 03/09/20 08:52 Dose: 23 u Documented by: Insulin Glargine (Insulin Glargine 100 Units/Ml Pen) 20 units SC QHS [facility] Last Admin: 03/08/20 21:33 Dose: 20 units Documented by: Insulin Human Lispro (Insulin Lispro 100 Unit/Ml Insuln.Pen) 45 unit SC 1200 [facility] Last Admin: 03/08/20 10:50 Dose: 45 u Documented by: Insulin Human Lispro (Insulin Lispro 100 Unit/Ml Insuln.Pen) 45 unit SC 0800 [facility] Last Admin: 03/09/20 08:51 Dose: 45 u Documented by: Insulin Human Lispro (Insulin Lispro 100 Unit/Ml Insuln.Pen) 17 unit SC 1700 [facility] Last Admin: 03/08/20 18:08 Dose: Not Given Documented by: Insulin Human Lispro (Insulin Lispro 100 Unit/Ml Insuln.Pen) 0 unit SC ACHS [facility]; Protocol Last Admin: 03/09/20 08:51 Dose: 6 u Documented by: Magnesium Hydroxide (Magnesium Hydroxide 30 Ml Udc) 30 ml PO DAILY PRN PRN PRN Reason: Constipation Melatonin (Melatonin 3 Mg Tablet) 3 mg PO QHS PRN PRN PRN Reason: INSOMNIA Metolazone (Metolazone 5 Mg Tablet) 5 mg PO DAILY [facility] Miscellaneous Information (Aerochamber 1 Each) 1 ea INHALATION UD PRN PRN Reason: INHALER USE Montelukast Sodium (Montelukast 10 Mg Tablet) 10 mg PO QHS [facility] Last Admin: 03/08/20 21:33 Dose: 10 mg Documented by: Nitroglycerin (Nitroglycerin (Inpatient Use) 0.4 Mg Tab.Subl) 0.4 mg SUBLINGUAL Q5M PRN PRN Reason: CARDIAC/CHEST PAIN Nystatin (Nystatin Powder 15gm Bottle) 1 applic TOPICAL TID [facility]; Protocol Last Admin: 03/09/20 05:18 Dose: 1 applicatio Documented by: Ondansetron HCl (Ondansetron 4 Mg/2 Ml Vial) 4 mg IV Q8H PRN PRN PRN Reason: NAUSEA/VOMITING Pantoprazole Sodium (Pantoprazole Sodium 40 Mg Tablet) 40 mg PO DAILY [facility] Last Admin: 03/09/20 08:48 Dose: 40 mg Documented by: Prochlorperazine Edisylate (Prochlorperazine 10 Mg/2 Ml Vial) 5 mg IV Q4H PRN PRN PRN Reason: Breakthrough Nausea/Vomiting Psyllium Hydrophilic Mucilloid (Psyllium 1 Packet) 1 packet PO DAILY PRN PRN PRN Reason: Constipation Senna/Docusate Sodium (Senna/Docusate Sodium 1 Tablet) 2 tablet PO BID PRN PRN PRN Reason: Constipation Sodium Chloride (0.9% Saline Lock 10 Ml Syringe) 10 - 40 ml IV UD PRN PRN Reason: SALINE FLUSH Last Admin: 03/08/20 21:37 Dose: 10 ml Documented by: Throat Lozenges (Benzocaine/Menthol 1 Lozenge) 1 lozenge MUCOUS MEM Q2H PRN PRN PRN Reason: SORE THROAT STROKE Vital Signs/Narrative: Vital Signs Temp Pulse Resp BP Pulse Ox 03/09/20 08:45 97.3 F L 80 20 H 120/66 93 03/09/20 08:20 93 03/09/20 07:53 80 Medical Necessity - Tobacco Use Smoking Status: Current every day smoker Tobacco Use: Cigarettes Assessment/Plan All Active Problems (Last Reviewed 01/13/18 @ 09:26 by Eleni Bradley) Diabetic ulcer of right buttock (Acute) Skin ulcer (Acute) Septic shock (Acute) UTI (urinary tract infection) (Acute) Suspected COVID-19 virus infection (Acute) Hyperkalemia (Acute) Acute kidney injury superimposed on chronic kidney disease (Acute) Acute kidney injury (Acute) Hypoxemia (Acute) Acute exacerbation of CHF (congestive heart failure) (Acute) Chronic respiratory failure (Acute) Erectile dysfunction associated with type 2 diabetes mellitus (Acute) 1. Septic shock secondary to UTI and right lower extremity cellulitis with streptococcal bacteremia/JESUS on CKD 3 -Does have strep organism growing in his blood as well -Appreciate ID assistance -Continue with Vanco and Zosyn -May need echo for further evaluation of his murmur in the setting of streptococcal bacteremia assuming that he cannot clear the infection quickly -Repeat blood cultures today 2. Acute hypoxic respiratory insufficiency secondary to chronic COPD/cor pulmonale/COVID-19 infection -Currently on room air and breathing well -Continue with Decadron, and remdesivir 3. DM 2 -Continue with insulin and monitor his blood sugars closely secondary to the Decadron for Covid -Hold Tradjenta 4. Chronic A. fib/chronic CHF likely diastolic/super morbid obesity/HTN/HLD/complete heart block status post pacemaker -He is on Xarelto as an outpatient however given his increasing creatinine, this has been discontinued. He will likely need to transition to Eliquis on discharge as creatinine returns to baseline -Hold losartan -Can restart Lasix and metolazone -Echo in 2018 with moderate concentric LVH and an EF of 55% with a dilated right ventricle RVSP of 24 mmHg 5. GERD -Stable -Continue with PPI DVT: Xarelto, though on hold per generation mechanic helper note, Xarelto is renally excreted given his acute renal failure he is likely hypercoagulable at this moment Inpatient E&M: 62110 Subs Hosp L2
--- NOTE | 2020-03-09 11:48 | CASEMGMT ---
Addendum entered by Diandra Lorenzana 03/09/20 13:42: Call to pt room and spoke with pt regarding SNF information obtained. SW explained that each facility could accept and the smoking policy of each. SW also provided pt with the Medicare Star rating of each facility. SW also explained that all the accepting Covid facilities in [place] and [facility] were called and that SW could contact facilities in [facility], and [facility] if pt wished. Pt denied going to a facility in any of these [facility]. Pt choosing [facility]. Referral faxed and SW will await determination if they can accept. SW completed Palliative screen and pt scored 7 indicating pt would qualify for palliative medicine. SW spoke to pt about palliative and described the program and pt is interested in this program. VM left with [facility]. ROMANA Garcia Original Note: Social Work Phone call to pt room to discuss discharge plan. SW introduced self and role of SW. Pt confirms he lives at [facility]. Pt states they provide medication management, shower assistance, laundry and meals. Pt states he uses power wheelchair to get around and sleeps in a recliner. Pt has a walker that he uses to help himself transfer from to recliner but admits that at this time he is too weak to do this. SW informed pt that [facility] states pt would need to be able to transfer independently to return to [place]. Initially pt stating that he will not return to SNF, but after discussion about [place]'s requirements pt is understanding of need for SNF and rehabilitation. PT evals indicate pt is Max assist x 2-3 for transfers and pt was not safe to transfer to chair at the time of the eval. SW verbally reviewed list of nursing facilities accepting pt with Covid. Pt stating he has no preference on facility but that he would like to go somewhere that allows smoking. The following information was obtained by this SW: [facility]: beds available in Covid unit, allow smoking after 14 day quarantine, accept bariatric patients. [facility]: beds available in Covid unit, allow smoking after 14 day quarantine, accept bariatric patients. [facility]: beds available in Covid unit, no smoking [facility]: beds available in Covid unit, smoking after 10 day quarantine, accept bariatric patients. [facility]: beds available in Covid unit, no smoking SW attempted to notify pt of information on SNF however, pt not answering phone at this time. SW will continue to attempt to discuss discharge plan with pt. ROMANA Garcia
[2020-03-09 11:50] LABS: Bedside Glucose 285 mg/dL (70-110)
--- NOTE | 2020-03-09 14:06 | CASEMGMT ---
Social Work Per pt request, phone call to pt nephwilfredo Cooper and updated on discharge plan. Pt room phone number provided to promote family contact. ROMANA Garcia
[2020-03-09] MEDS: APIXABAN 5 MG TABLET PO ×2 (16:53→20:28)
[2020-03-09] MEDS: Gabapentin 100 MG Capsule PO (16:53)
[2020-03-09] MEDS: metOLazone 5 MG Tablet PO (16:53)
[2020-03-09] MEDS: Gabapentin 400 MG Capsule PO (16:54)
[2020-03-09] MEDS: Insulin Lispro 100 UNIT/ML INSULN.PEN 17 UNIT SC (16:55)
--- NOTE | 2020-03-09 17:10 | PCM.PN.ID ---
Patient Problems: Active and Suspected Problems (Last Reviewed 01/13/18 @ 09:26 by Eleni Bradley) Diabetic ulcer of right buttock (Acute) Septic shock (Acute) UTI (urinary tract infection) (Acute) Suspected COVID-19 virus infection (Acute) Hyperkalemia (Acute) Acute kidney injury superimposed on chronic kidney disease (Acute) Acute kidney injury (Acute) Chronic respiratory failure (Acute) Erectile dysfunction associated with type 2 diabetes mellitus (Acute) Subjective: Feeling better, no fever, legs less sore, breathing fine. - Physical Exam Vitals/I&O's: Vital Signs Temp Pulse Resp BP Pulse Ox 97.5 F L 80 20 H 120/62 94 03/09/20 12:00 03/09/20 12:00 03/09/20 12:00 03/09/20 12:00 03/09/20 13:38 Oxygen Flow Rate (L/min) 2 Oxygen Delivery Method Room Air Weight: 187.5 kg Body Mass Index (BMI) 54.2 Intake and Output for Last 24 Hours 03/07/20 03/08/20 03/09/20 23:59 23:59 23:59 Intake Total 1336.25 / 1456.25 1000 / 1000 1270 / 1270 Output Total 2050 / 2650 2550 / 2550 2350 / 2350 Balance -713.75 / -1193.75 -1550 / -1550 -1080 / -1080 General: Alert, Cooperative, No apparent distress Lungs: Clear to auscultation, Normal air movement Cardiovascular: Regular rate, Regular Rhythm Abdomen: Soft, Non Tender, Non-Distended Skin: Ulcer/ Wound - BLE less red Microbiology Past 72 Hours 03/06/20 18:20 Blood Culture (Wb) - Right Hand Bacteria Detection (PCR) - Final 03/06/20 18:20 Blood Culture (Wb) - Right Hand Blood Culture - Final Streptococcus group C 03/06/20 17:40 Blood Culture (Wb) - Anticubital Right Bacteria Detection (PCR) - Final Strep not Strep pneumo 03/06/20 17:40 Blood Culture (Wb) - Anticubital Right Blood Culture - Final Streptococcus dysgalactiae equ 03/06/20 17:55 Urine Catheter - Catheter Urine Culture - Final Meth. resistant Staph. aureus 03/06/20 Unknown Mucosa - Nasopharyngeal Respiratory Panel (PCR) - Final 03/06/20 17:55 Urine Catheter - Catheter Legionella Antigen - Final 03/06/20 17:55 Urine Catheter - Catheter Streptococcus pneumoniae Antigen (M - Final Laboratory Results 03/08/20 17:31: POC Glucose 67 L 03/08/20 19:55: Vancomycin Trough 10.9 03/08/20 21:31: POC Glucose 154 H 03/09/20 04:05: WBC 15.5 H, RBC 4.20 L, Hgb 12.3 L, Hct 36.4 L, MCV 86.7, MCH 29.3, MCHC 33.8, RDW Std Deviation 53.1 H, RDW Coeff of Shaq 16.8 H, Plt Count 166, MPV 10.7 03/09/20 04:05: Sodium 134 L, Potassium 4.4, Chloride 103, Carbon Dioxide 26.0, Anion Gap 5, BUN 64 H, Creatinine 1.56 H, Estim Creat Clear Calc 50.51, Est GFR (MDRD) Af Amer 57 L, Est GFR (MDRD) Non-Af 47 L, BUN/Creatinine Ratio 41.0 H, Glucose 192 H, Calcium 7.8 L, Total Bilirubin 0.50, AST 35, ALT 33, Alkaline Phosphatase 103, Total Protein 7.1, Albumin 2.0 L, Globulin 5.1 H, Albumin/Globulin Ratio 0.4 L 03/09/20 08:43: POC Glucose 234 H 03/09/20 11:45: POC Glucose 285 H Current Medications Acetaminophen (Acetaminophen 325 Mg Tablet) 650 mg PO Q6H PRN PRN PRN Reason: Pain Score 1-10/Temp > 100.7 F Al Hydroxide/Mg Hydroxide (Mag Hydrox/Al Hydrox/Simeth 30 Ml Udc) 30 ml PO Q6H PRN PRN PRN Reason: Gastric Burning Albuterol Sulfate (Albuterol Ih 8.5 Gm (Proair) Inhaler (200 Puffs)) 4 - 8 puff INHALATION Q4H PRN PRN PRN Reason: Dyspnea, wheezing Last Admin: 03/08/20 21:34 Dose: 4 puff Documented by: Apixaban (Apixaban 5 Mg Tablet) 5 mg PO BID YADIRA Last Admin: 03/09/20 16:53 Dose: 5 mg Documented by: Calamine/Phenol (Menthol/Lanolin/Calamine/Znox 113 Gm Tube) 1 applic TOPICAL TID [facility]; Protocol Last Admin: 03/09/20 16:54 Dose: 1 applicatio Documented by: Dexamethasone (Dexamethasone 4 Mg Tablet) 6 mg PO DAILY [facility] Stop: 03/15/20 10:01 Last Admin: 03/09/20 08:48 Dose: 6 mg Documented by: Docusate Sodium (Docusate Sodium 100 Mg Capsule) 200 mg PO DAILY [facility] Last Admin: 03/09/20 08:48 Dose: 200 mg Documented by: Furosemide (Furosemide 40 Mg Tablet) 40 mg PO BID@1000,1800 [facility] Last Admin: 03/09/20 08:48 Dose: 40 mg Documented by: Gabapentin (Gabapentin 400 Mg Capsule) 400 mg PO 1200 [facility] Last Admin: 03/09/20 16:54 Dose: 400 mg Documented by: Gabapentin (Gabapentin 300 Mg Capsule) 300 mg PO BIDCM [facility] Last Admin: 03/09/20 08:48 Dose: 300 mg Documented by: Gabapentin (Gabapentin 100 Mg Capsule) 100 mg PO 1200 [facility] Last Admin: 03/09/20 16:53 Dose: 100 mg Documented by: Guaifenesin (Guaifenesin 10 Ml Udc (200mg/10ml)) 10 ml PO Q4H PRN PRN PRN Reason: COUGH Hydralazine HCl (Hydralazine 20 Mg/Ml Vial) 10 mg IV Q4H PRN PRN PRN Reason: SBP > 160 Vancomycin IV Pharmacy to Dose (1 ea/ Sodium Chloride) 500 mls @ 250 mls/hr IV X1 PRN; Protocol PRN Reason: Rx to Dose Sodium Chloride () 250 mls @ 15 mls/hr IV .[id number] PRN PRN Reason: Saline Flush Sodium Chloride () 250 mls @ 15 mls/hr IV .[id number] PRN PRN Reason: Additional IVPB Infusion Remdesivir 100 mg/ Sodium (Chloride) 250 mls @ 125 mls/hr IV DAILY [facility]; Protocol Stop: 03/11/20 11:59 Last Admin: 03/09/20 13:52 Dose: 125 mls/hr Documented by: Vancomycin HCl 2,000 mg/ (Sodium Chloride) 540 mls @ 250 mls/hr IV Q24H [facility] Ceftriaxone Sodium 2 gm/ (Sodium Chloride) 50 mls @ 100 mls/hr IV Q24 [facility] Insulin Glargine (Insulin Glargine 100 Units/Ml Pen) 23 units SC BREAKFAST [facility] Last Admin: 03/09/20 08:52 Dose: 23 u Documented by: Insulin Glargine (Insulin Glargine 100 Units/Ml Pen) 20 units SC QHS [facility] Last Admin: 03/08/20 21:33 Dose: 20 units Documented by: Insulin Human Lispro (Insulin Lispro 100 Unit/Ml Insuln.Pen) 45 unit SC 1200 [facility] Last Admin: 03/09/20 11:47 Dose: 45 u Documented by: Insulin Human Lispro (Insulin Lispro 100 Unit/Ml Insuln.Pen) 45 unit SC 0800 [facility] Last Admin: 03/09/20 08:51 Dose: 45 u Documented by: Insulin Human Lispro (Insulin Lispro 100 Unit/Ml Insuln.Pen) 17 unit SC 1700 [facility] Last Admin: 03/09/20 16:55 Dose: 17 u Documented by: Insulin Human Lispro (Insulin Lispro 100 Unit/Ml Insuln.Pen) 0 unit SC ACHS [facility]; Protocol Last Admin: 03/09/20 16:55 Dose: 3 u Documented by: Magnesium Hydroxide (Magnesium Hydroxide 30 Ml Udc) 30 ml PO DAILY PRN PRN PRN Reason: Constipation Melatonin (Melatonin 3 Mg Tablet) 3 mg PO QHS PRN PRN PRN Reason: INSOMNIA Metolazone (Metolazone 5 Mg Tablet) 5 mg PO DAILY [facility] Last Admin: 03/09/20 16:53 Dose: 5 mg Documented by: Miscellaneous Information (Aerochamber 1 Each) 1 ea INHALATION UD PRN PRN Reason: INHALER USE Montelukast Sodium (Montelukast 10 Mg Tablet) 10 mg PO QHS [facility] Last Admin: 03/08/20 21:33 Dose: 10 mg Documented by: Nitroglycerin (Nitroglycerin (Inpatient Use) 0.4 Mg Tab.Subl) 0.4 mg SUBLINGUAL Q5M PRN PRN Reason: CARDIAC/CHEST PAIN Nystatin (Nystatin Powder 15gm Bottle) 1 applic TOPICAL TID [facility]; Protocol Last Admin: 03/09/20 16:54 Dose: 1 applicatio Documented by: Ondansetron HCl (Ondansetron 4 Mg/2 Ml Vial) 4 mg IV Q8H PRN PRN PRN Reason: NAUSEA/VOMITING Pantoprazole Sodium (Pantoprazole Sodium 40 Mg Tablet) 40 mg PO DAILY [facility] Last Admin: 03/09/20 08:48 Dose: 40 mg Documented by: Prochlorperazine Edisylate (Prochlorperazine 10 Mg/2 Ml Vial) 5 mg IV Q4H PRN PRN PRN Reason: Breakthrough Nausea/Vomiting Psyllium Hydrophilic Mucilloid (Psyllium 1 Packet) 1 packet PO DAILY PRN PRN PRN Reason: Constipation Senna/Docusate Sodium (Senna/Docusate Sodium 1 Tablet) 2 tablet PO BID PRN PRN PRN Reason: Constipation Sodium Chloride (0.9% Saline Lock 10 Ml Syringe) 10 - 40 ml IV UD PRN PRN Reason: SALINE FLUSH Last Admin: 03/08/20 21:37 Dose: 10 ml Documented by: Throat Lozenges (Benzocaine/Menthol 1 Lozenge) 1 lozenge MUCOUS MEM Q2H PRN PRN PRN Reason: SORE THROAT Medical Necessity - Tobacco Use Smoking Status: Current every day smoker Tobacco Use: Cigarettes Route of nutrition/ use of supplements: [] Nutritional Intake: [] IV Site: [] Mario Catheter: [] - Assessment/Plan Antibiotics: [] Assessment/Plan: [] Active and Suspected Problems (Last Reviewed 01/13/18 @ 09:26 by Eleni Bradley) Diabetic ulcer of right buttock (Acute) Septic shock (Acute) UTI (urinary tract infection) (Acute) Suspected COVID-19 virus infection (Acute) Hyperkalemia (Acute) Acute kidney injury superimposed on chronic kidney disease (Acute) Acute kidney injury (Acute) Chronic respiratory failure (Acute) Erectile dysfunction associated with type 2 diabetes mellitus (Acute) Covid with hypoxia - on dex, remdesivir. Sx started around 02/27. D-dimer 2. On eliquis. strep bacteremia with BLE cellulitis and chronic lymphedema - on vanc. Narrow zosyn to ceftriaxone. I do not think he will need JUDY or iv abx at discharge. MRSA (+) ucx - abx as above JESUS on CKD - improving uncontrolled DM -a1c 9.5. Will follow
[2020-03-09 18:11] LABS: Bedside Glucose 180 mg/dL (70-110)
[2020-03-09] MEDS: Montelukast 10 MG Tablet PO (20:28)
[2020-03-09] MEDS: MELATONIN 3 MG TABLET PO (20:28)
[2020-03-09 21:00] LABS: Bedside Glucose 171 mg/dL (70-110)
[2020-03-10] VITALS (12 sets, daily range): BP systolic 124–150; BP diastolic 69–111; PULSE 79–90; RESP 18–24; TEMP 36.6–36.8; O2SAT 89–94
[2020-03-10 06:11] LABS: Hematocrit 40.1 % (40-54); Hemoglobin 13.1 g/dL (13.0-16.5); Mean Corp Hgb Conc 32.7 g/dL (32-36); Mean Corpuscular Hgb 28.7 pg (27.0-32.0); Mean Corpuscular Volume 87.9 fL (80-94); Mean Platelet Vol. 10.7 fl (6.2-12.0); Platelet Count 199 K/mm3 (150-450); RBC Distribution Width CV 16.3 % (11.6-14.6); RBC Distribution Width SD 52.8 fl (35.1-43.9); Red Blood Count 4.56 M/mm3 (4.6-6.2)
[2020-03-10 06:43] LABS: ALB/GLOB Ratio 0.4 RATIO (0.9-2.4); AST(SGOT) 19 U/L (15-37); Alanine Aminotransfer ALT/SGPT 30 U/L (16-61); Albumin, Serum 1.9 g/dL (3.2-5.0); Alkaline Phosphatase 99 U/L (45-117); Anion Gap 5 (5-15); BUN 58 mg/dL (7-18); BUN/Creat Ratio 41.1 RATIO (10-20); Chloride 103 mmol/L (98-107); Creatinine, Serum 1.41 mg/dL (0.70-1.30); EST Glomerular Filtration Rate 53 mL/min (>60); Est Glom Filt Rate - Afr Amer 64 mL/min (>60); Estimated Creatinine Clearance 55.88 ml/min; Globulin 5.3 g/dL (2.2-4.2); Glucose 162 mg/dL (74-106); Potassium 4.1 mmol/L (3.5-5.1); Protein, Total 7.2 g/dL (6.4-8.2); Sodium Level 136 mmol/L (136-145)
--- NOTE | 2020-03-10 08:45 | CASEMGMT ---
Social Work [facility] is able to accept pt when he is medically ready. Updated clinicals faxed. Pt notified of acceptance and agreeable to plan. Plan: [facility], when medically ready ROMANA Garcia
[2020-03-10] MEDS: APIXABAN 5 MG TABLET PO ×2 (08:48→20:22)
[2020-03-10] MEDS: metOLazone 5 MG Tablet PO (08:48)
[2020-03-10] MEDS: dexAMETHasone 4 MG Tablet 6 MG PO (08:48)
[2020-03-10] MEDS: Pantoprazole Sodium 40 MG Tablet PO (08:49)
[2020-03-10] MEDS: Furosemide 40 MG Tablet PO ×2 (08:49→17:45)
[2020-03-10] MEDS: Docusate Sodium 100 MG Capsule 200 MG PO (08:49)
[2020-03-10] MEDS: Gabapentin 300 MG Capsule PO ×2 (08:49→17:45)
[2020-03-10] MEDS: Insulin Lispro 100 UNIT/ML INSULN.PEN SC ×4 (08:53→20:28)
[2020-03-10] MEDS: Insulin Lispro 100 UNIT/ML INSULN.PEN 45 UNIT SC ×2 (08:53→12:24)
--- NOTE | 2020-03-10 09:39 | PCM.PN.HOSP ---
Patient Problems: Active and Suspected Problems (Last Reviewed 01/13/18 @ 09:26 by Eleni Bradley) Diabetic ulcer of right buttock (Acute) Septic shock (Acute) UTI (urinary tract infection) (Acute) Suspected COVID-19 virus infection (Acute) Hyperkalemia (Acute) Acute kidney injury superimposed on chronic kidney disease (Acute) Acute kidney injury (Acute) Chronic respiratory failure (Acute) Erectile dysfunction associated with type 2 diabetes mellitus (Acute) Subjective: Feeling much better than when he came in. He will transition to the care of aspirin on discharge. Which may be in the next day or so Vitals/I&O's: Vital Signs Temp Pulse Resp BP Pulse Ox 98 F 90 19 H 144/111 H 94 03/10/20 02:15 03/10/20 04:00 03/10/20 02:15 03/10/20 02:15 03/10/20 07:25 Oxygen Flow Rate (L/min) 2 Oxygen Delivery Method Nasal Cannula Weight: 411 lb 9.648 oz Body Mass Index (BMI) 54.2 Intake and Output for Last 24 Hours 03/08/20 03/09/20 03/10/20 23:59 23:59 23:59 Intake Total 1000 / 1000 2340 / 2820 480 / 480 Output Total 2550 / 2550 3700 / 4700 2700 / 2700 Balance -1550 / -1550 -1360 / -1880 -2220 / -2220 General: Alert, Oriented x3, Cooperative, No apparent distress HEENT: Atraumatic, PERRLA, EOMI, Normocephalic Oral: Moist Mucosa Neck: Supple, No JVD Lungs: No rhonchi, No wheeze, no Rales, diminished Cardiovascular: Regular rate, Regular Rhythm, Normal S1, Normal S2, Murmur - CARLOS EDUARDO Abdomen: Soft, Non Tender, Non-Distended, No Hepato-splenomegaly Extremities: Capillary Refill Less than 3 Seconds, Edema significant with lichenification Skin: - - Right lower extremity redness improved Neurological: Neuro grossly intact, Sensory exam intact to light touch and pain Psych/Mental Status: Normal Affect, Appropriate Microbiology Past 72 Hours 03/06/20 18:20 Blood Culture (Wb) - Right Hand Bacteria Detection (PCR) - Final 03/06/20 18:20 Blood Culture (Wb) - Right Hand Blood Culture - Final Streptococcus group C 03/06/20 17:40 Blood Culture (Wb) - Anticubital Right Bacteria Detection (PCR) - Final Strep not Strep pneumo 03/06/20 17:40 Blood Culture (Wb) - Anticubital Right Blood Culture - Final Streptococcus dysgalactiae equ 03/06/20 17:55 Urine Catheter - Catheter Urine Culture - Final Meth. resistant Staph. aureus Laboratory Results 03/09/20 11:45: POC Glucose 285 H 03/09/20 16:48: POC Glucose 180 H 03/09/20 20:33: POC Glucose 171 H 03/10/20 06:00: WBC 14.0 H, RBC 4.56 L, Hgb 13.1, Hct 40.1, MCV 87.9, MCH 28.7, MCHC 32.7, RDW Std Deviation 52.8 H, RDW Coeff of Shaq 16.3 H, Plt Count 199, MPV 10.7 03/10/20 06:00: Sodium 136, Potassium 4.1, Chloride 103, Carbon Dioxide 28.0, Anion Gap 5, BUN 58 H, Creatinine 1.41 H, Estim Creat Clear Calc 55.88, Est GFR (MDRD) Af Amer 64, Est GFR (MDRD) Non-Af 53 L, BUN/Creatinine Ratio 41.1 H, Glucose 162 H, Calcium 8.0 L, Total Bilirubin 0.50, AST 19, ALT 30, Alkaline Phosphatase 99, Total Protein 7.2, Albumin 1.9 L, Globulin 5.3 H, Albumin/Globulin Ratio 0.4 L Current Medications Acetaminophen (Acetaminophen 325 Mg Tablet) 650 mg PO Q6H PRN PRN PRN Reason: Pain Score 1-10/Temp > 100.7 F Al Hydroxide/Mg Hydroxide (Mag Hydrox/Al Hydrox/Simeth 30 Ml Udc) 30 ml PO Q6H PRN PRN PRN Reason: Gastric Burning Albuterol Sulfate (Albuterol Ih 8.5 Gm (Proair) Inhaler (200 Puffs)) 4 - 8 puff INHALATION Q4H PRN PRN PRN Reason: Dyspnea, wheezing Last Admin: 03/08/20 21:34 Dose: 4 puff Documented by: Apixaban (Apixaban 5 Mg Tablet) 5 mg PO BID YADIRA Last Admin: 03/10/20 08:48 Dose: 5 mg Documented by: Calamine/Phenol (Menthol/Lanolin/Calamine/Znox 113 Gm Tube) 1 applic TOPICAL TID [facility]; Protocol Last Admin: 03/10/20 06:09 Dose: Not Given Documented by: Dexamethasone (Dexamethasone 4 Mg Tablet) 6 mg PO DAILY [facility] Stop: 03/15/20 10:01 Last Admin: 03/10/20 08:48 Dose: 6 mg Documented by: Docusate Sodium (Docusate Sodium 100 Mg Capsule) 200 mg PO DAILY [facility] Last Admin: 03/10/20 08:49 Dose: 200 mg Documented by: Furosemide (Furosemide 40 Mg Tablet) 40 mg PO BID@1000,1800 [facility] Last Admin: 03/10/20 08:49 Dose: 40 mg Documented by: Gabapentin (Gabapentin 400 Mg Capsule) 400 mg PO 1200 [facility] Last Admin: 03/09/20 16:54 Dose: 400 mg Documented by: Gabapentin (Gabapentin 300 Mg Capsule) 300 mg PO BIDCM [facility] Last Admin: 03/10/20 08:49 Dose: 300 mg Documented by: Gabapentin (Gabapentin 100 Mg Capsule) 100 mg PO 1200 [facility] Last Admin: 03/09/20 16:53 Dose: 100 mg Documented by: Guaifenesin (Guaifenesin 10 Ml Udc (200mg/10ml)) 10 ml PO Q4H PRN PRN PRN Reason: COUGH Hydralazine HCl (Hydralazine 20 Mg/Ml Vial) 10 mg IV Q4H PRN PRN PRN Reason: SBP > 160 Vancomycin IV Pharmacy to Dose (1 ea/ Sodium Chloride) 500 mls @ 250 mls/hr IV X1 PRN; Protocol PRN Reason: Rx to Dose Sodium Chloride () 250 mls @ 15 mls/hr IV .[id number] PRN PRN Reason: Saline Flush Sodium Chloride () 250 mls @ 15 mls/hr IV .[id number] PRN PRN Reason: Additional IVPB Infusion Remdesivir 100 mg/ Sodium (Chloride) 250 mls @ 125 mls/hr IV DAILY [facility]; Protocol Stop: 03/11/20 11:59 Last Infusion: 03/09/20 15:52 Dose: Infused Documented by: Vancomycin HCl 2,000 mg/ (Sodium Chloride) 540 mls @ 250 mls/hr IV Q24H [facility] Last Infusion: 03/09/20 23:02 Dose: Infused Documented by: Ceftriaxone Sodium 2 gm/ (Sodium Chloride) 50 mls @ 100 mls/hr IV Q24 [facility] Last Infusion: 03/09/20 19:14 Dose: Infused Documented by: Insulin Glargine (Insulin Glargine 100 Units/Ml Pen) 23 units SC BREAKFAST [facility] Last Admin: 03/10/20 08:52 Dose: 23 u Documented by: Insulin Glargine (Insulin Glargine 100 Units/Ml Pen) 20 units SC QHS [facility] Last Admin: 03/09/20 20:35 Dose: 20 units Documented by: Insulin Human Lispro (Insulin Lispro 100 Unit/Ml Insuln.Pen) 45 unit SC 1200 [facility] Last Admin: 03/09/20 11:47 Dose: 45 u Documented by: Insulin Human Lispro (Insulin Lispro 100 Unit/Ml Insuln.Pen) 45 unit SC 0800 [facility] Last Admin: 03/10/20 08:53 Dose: 45 u Documented by: Insulin Human Lispro (Insulin Lispro 100 Unit/Ml Insuln.Pen) 17 unit SC 1700 [facility] Last Admin: 03/09/20 16:55 Dose: 17 u Documented by: Insulin Human Lispro (Insulin Lispro 100 Unit/Ml Insuln.Pen) 0 unit SC ACHS [facility]; Protocol Last Admin: 03/10/20 08:53 Dose: 3 u Documented by: Magnesium Hydroxide (Magnesium Hydroxide 30 Ml Udc) 30 ml PO DAILY PRN PRN PRN Reason: Constipation Melatonin (Melatonin 3 Mg Tablet) 3 mg PO QHS PRN PRN PRN Reason: INSOMNIA Last Admin: 03/09/20 20:28 Dose: 3 mg Documented by: Metolazone (Metolazone 5 Mg Tablet) 5 mg PO DAILY [facility] Last Admin: 03/10/20 08:48 Dose: 5 mg Documented by: Miscellaneous Information (Aerochamber 1 Each) 1 ea INHALATION UD PRN PRN Reason: INHALER USE Montelukast Sodium (Montelukast 10 Mg Tablet) 10 mg PO QHS [facility] Last Admin: 03/09/20 20:28 Dose: 10 mg Documented by: Nitroglycerin (Nitroglycerin (Inpatient Use) 0.4 Mg Tab.Subl) 0.4 mg SUBLINGUAL Q5M PRN PRN Reason: CARDIAC/CHEST PAIN Nystatin (Nystatin Powder 15gm Bottle) 1 applic TOPICAL TID [facility]; Protocol Last Admin: 03/10/20 06:10 Dose: Not Given Documented by: Ondansetron HCl (Ondansetron 4 Mg/2 Ml Vial) 4 mg IV Q8H PRN PRN PRN Reason: NAUSEA/VOMITING Pantoprazole Sodium (Pantoprazole Sodium 40 Mg Tablet) 40 mg PO DAILY [facility] Last Admin: 03/10/20 08:49 Dose: 40 mg Documented by: Prochlorperazine Edisylate (Prochlorperazine 10 Mg/2 Ml Vial) 5 mg IV Q4H PRN PRN PRN Reason: Breakthrough Nausea/Vomiting Psyllium Hydrophilic Mucilloid (Psyllium 1 Packet) 1 packet PO DAILY PRN PRN PRN Reason: Constipation Senna/Docusate Sodium (Senna/Docusate Sodium 1 Tablet) 2 tablet PO BID PRN PRN PRN Reason: Constipation Sodium Chloride (0.9% Saline Lock 10 Ml Syringe) 10 - 40 ml IV UD PRN PRN Reason: SALINE FLUSH Last Admin: 03/08/20 21:37 Dose: 10 ml Documented by: Throat Lozenges (Benzocaine/Menthol 1 Lozenge) 1 lozenge MUCOUS MEM Q2H PRN PRN PRN Reason: SORE THROAT STROKE Vital Signs/Narrative: Vital Signs Pulse Ox 03/10/20 07:25 94 Medical Necessity - Tobacco Use Smoking Status: Current every day smoker Tobacco Use: Cigarettes Assessment/Plan All Active Problems (Last Reviewed 01/13/18 @ 09:26 by Eleni Bradley) Diabetic ulcer of right buttock (Acute) Skin ulcer (Acute) Septic shock (Acute) UTI (urinary tract infection) (Acute) Suspected COVID-19 virus infection (Acute) Hyperkalemia (Acute) Acute kidney injury superimposed on chronic kidney disease (Acute) Acute kidney injury (Acute) Hypoxemia (Acute) Acute exacerbation of CHF (congestive heart failure) (Acute) Chronic respiratory failure (Acute) Erectile dysfunction associated with type 2 diabetes mellitus (Acute) 1. Septic shock secondary to UTI and right lower extremity cellulitis with streptococcal bacteremia/JESUS on CKD 3 -Does have strep organism growing in his blood as well -Appreciate ID assistance -He will complete IV vancomycin for his MRSA UTI prior to discharge, he was transitioned from Zosyn to Rocephin and can likely be transitioned from Rocephin to Keflex on discharge to complete his antibiotic course -Repeat blood cultures are pending 2. Acute hypoxic respiratory insufficiency secondary to chronic COPD/cor pulmonale/COVID-19 infection -Currently on room air and breathing well -Continue with Decadron, and remdesivir 3. DM 2 -Continue with insulin and monitor his blood sugars closely secondary to the Decadron for Covid -Hold Tradjenta 4. Chronic A. fib/chronic CHF likely diastolic/super morbid obesity/HTN/HLD/complete heart block status post pacemaker -He is on Xarelto as an outpatient however given his increasing creatinine, this has been discontinued. He will likely need to transition to Eliquis on discharge as creatinine returns to baseline -Hold losartan -Can restart Lasix and metolazone -Echo in 2018 with moderate concentric LVH and an EF of 55% with a dilated right ventricle RVSP of 24 mmHg 5. GERD -Stable -Continue with PPI DVT: Xarelto, though on hold per network diagnostic support specialist note, Xarelto is renally excreted given his acute renal failure he is likely hypercoagulable at this moment Inpatient E&M: [id number] Subs Hosp L2
--- NOTE | 2020-03-10 10:50 | CASEMGMT ---
Social Work Pt is concerned with getting clothes and power wheelchair from [facility] to [facility] so that he can take belongings to [facility] with him. Phone call placed to [facility] and discussed possibility of pt transporting with power wheel chair. Alex at [facility] states that pt can sit in power chair in a wheelchair van to facility if the powerchair width is 33.5 inches or less from wheel to wheel. Phone call to [facility] and spoke with pt nurse Susan inquiring if they can bring clothes and power chair to hospital for pt. PATO explained width parameters. Susan states she will measure chair, but is uncertain if they can bring chair and clothes to hospital. She will check on this and call PATO back. Susan updated on d/c plan to [facility] with possible d/c tomorrow. Phone call received from [facility]. They are able to accept pt and can follow up at [facility]. Referral information faxed and Susan at [facility] updated on referral to Palliative Medicine. PATO will update the pt on his personal belongings and the chair once [facility] calls back with a decision. ROMANA Garcia
[2020-03-10 12:35] LABS: Bedside Glucose 193 mg/dL (70-110)
[2020-03-10] MEDS: Gabapentin 100 MG Capsule PO (12:41)
[2020-03-10] MEDS: Gabapentin 400 MG Capsule PO (12:41)
--- NOTE | 2020-03-10 13:51 | NURSING ---
In to reassess bilateral lower legs. much less redness and edema noted today. no weeping noted. was able to remove a moderate amount of the thick dry skin from the LLE. small amount from the RLE. did not apply lotion to legs at this time. there is some moisture noted under the dry skin. will continue to work on the legs daily to hopefully get the majority of the thick brown skin removed. pt tolerated well.
[2020-03-10] MEDS: Nystatin Powder 15gm Bottle 1 APPLIC TOPICAL ×2 (15:06→20:23)
[2020-03-10] MEDS: Menthol/Lanolin/Calamine/Znox 113 GM Tube 1 APPLIC TOPICAL ×2 (15:06→20:23)
[2020-03-10] MEDS: Insulin Lispro 100 UNIT/ML INSULN.PEN 17 UNIT SC (16:54)
[2020-03-10 18:21] LABS: Bedside Glucose 227 mg/dL (70-110)
[2020-03-10] MEDS: Montelukast 10 MG Tablet PO (20:22)
[2020-03-10] MEDS: MELATONIN 3 MG TABLET PO (20:22)
[2020-03-10 21:26] LABS: Bedside Glucose 245 mg/dL (70-110)
[2020-03-11 02:08] VITALS: BP 137/79; PULSE 82; RESP 20; TEMP 36.9; O2SAT 93
[2020-03-11 03:36] VITALS: PULSE 80
[2020-03-11 05:28] LABS: Hematocrit 42.6 % (40-54); Hemoglobin 13.8 g/dL (13.0-16.5); Mean Corp Hgb Conc 32.4 g/dL (32-36); Mean Corpuscular Hgb 28.8 pg (27.0-32.0); Mean Corpuscular Volume 88.9 fL (80-94); Mean Platelet Vol. 10.5 fl (6.2-12.0); POSITIVE COUNT YES; POSITIVE MORPHOLOGY YES; Platelet Count 262 K/mm3 (150-450); RBC Distribution Width CV 16.5 % (11.6-14.6); RBC Distribution Width SD 53.6 fl (35.1-43.9); Red Blood Count 4.79 M/mm3 (4.6-6.2); White Blood Count 14.2 K/mm3 (4.4-11.0)
[2020-03-11 05:31] LABS: Differential Indicated MANUAL DIFF
[2020-03-11 05:47] LABS: ALB/GLOB Ratio 0.3 RATIO (0.9-2.4); AST(SGOT) 19 U/L (15-37); Alanine Aminotransfer ALT/SGPT 29 U/L (16-61); Albumin, Serum 1.9 g/dL (3.2-5.0); Alkaline Phosphatase 102 U/L (45-117); Anion Gap 4 (5-15); BUN 53 mg/dL (7-18); BUN/Creat Ratio 41.1 RATIO (10-20); Calcium,Total 8.2 mg/dL (8.5-10.1); Chloride 101 mmol/L (98-107); Creatinine, Serum 1.29 mg/dL (0.70-1.30); EST Glomerular Filtration Rate 59 mL/min (>60); Est Glom Filt Rate - Afr Amer 71 mL/min (>60); Estimated Creatinine Clearance 61.08 ml/min; Globulin 5.7 g/dL (2.2-4.2); Glucose 185 mg/dL (74-106); Protein, Total 7.6 g/dL (6.4-8.2); Sodium Level 136 mmol/L (136-145)
[2020-03-11 06:07] LABS: Absolute Neutrophil Count 11.6 X10^3/uL (2.0-7.7); Lymphocyte 11 % (19-41); Metamyelocyte 1 % (0-1); Monocyte 6 % (0-10); Neutrophil-Band 5 % (0-5); Neutrophil-Segmented 77 % (47-70); Total Cells Counted 100 (MANUAL DIFF)
[2020-03-11 06:08] LABS: Platelet Estimate ADEQUATE (ADEQ); Red Cell Morphology NORM C+C NORMAL (NORM C&C)
[2020-03-11] MEDS: Nystatin Powder 15gm Bottle 1 APPLIC TOPICAL ×2 (06:08→12:51)
[2020-03-11] MEDS: Menthol/Lanolin/Calamine/Znox 113 GM Tube 1 APPLIC TOPICAL ×2 (06:08→12:52)
[2020-03-11] MEDS: Insulin Lispro 100 UNIT/ML INSULN.PEN 45 UNIT SC ×2 (08:59→12:45)
[2020-03-11] MEDS: Insulin Lispro 100 UNIT/ML INSULN.PEN SC ×3 (08:59→16:56)
[2020-03-11] MEDS: 0.9% Saline Lock 10 ML Syringe IV (09:00)
[2020-03-11] MEDS: Gabapentin 300 MG Capsule PO ×2 (09:01→17:04)
[2020-03-11] MEDS: Pantoprazole Sodium 40 MG Tablet PO (09:02)
[2020-03-11] MEDS: Docusate Sodium 100 MG Capsule 200 MG PO (09:02)
[2020-03-11] MEDS: Furosemide 40 MG Tablet PO ×2 (09:02→17:03)
[2020-03-11] MEDS: dexAMETHasone 4 MG Tablet 6 MG PO (09:02)
[2020-03-11] MEDS: APIXABAN 5 MG TABLET PO (09:03)
[2020-03-11] MEDS: metOLazone 5 MG Tablet PO (09:03)
[2020-03-11 09:30] VITALS: BP 122/67; PULSE 80; RESP 18; TEMP 36.8; O2SAT 92
[2020-03-11] MEDS: Ipratropium/Albuterol Sulfate 3 ML AMPUL.NEB INHALATION ×2 (11:09→14:22)
[2020-03-11 11:10] VITALS: PULSE 89; RESP 18; O2SAT 93
--- NOTE | 2020-03-11 11:22 | PCM.TXEXTCAR ---
- Diet 03/07/20 09:22 Diet: Cardiac: Calorie-Controlled Food consistency:: Regular Liquid Consistency:: Regular/Thin Dietary Modifications:: Sodium Restricted Is pt able to select menu?: Yes Fluid restriction:: 2000 mL Diet Comments: soft foods please How many daily calories?: 2000 calorie - Routine Orders/Code Status Routine Lab Work: CBC, BMP Code Status: Full Code - Wound(s) Bilateral lower extremities Wound Type: Stasis Ulcer Coccyx Wound Type: Pressure Injury Right top of foot Wound Type: opened blister Left top of foot Wound Type: Fluid filled Blister - Therapies Physical Therapy: Eval and Treat Occupational Therapy: Eval and Treat - Allergies/Procedures Done in Hospital Allergies/Adverse Reactions: Allergies No Known Allergies Allergy (Verified 03/06/20 17:06) - Type of Care/Length of Stay Estimated LOS: Convalescent Care Less Than 30 days Type of Care Needed: Skilled Rehab Potential: Fair Prognosis: Fair - Additional Orders/Day of Discharge Day of Discharge: 03/11/20 - Dietary and Speech Recommendations Dietitian Recommendations/Changes: Will change diet to 2000 antoine Cardiac/low sodium w/ 2000 ml FR/day d/t pmhx - Follow Up Care Primary Care Physician: Ursula Trejo SUBASSEMBLY ASSEMBLER, SUBASSEMBLY ASSEMBLER-C [Primary Care Provider] - Please follow up with your Primary Care Physician in: 3-5 days
[2020-03-11 12:04] LABS: Pathologist Review Reviewed
[2020-03-11 12:40] LABS: Bedside Glucose 238 mg/dL (70-110)
[2020-03-11] MEDS: Gabapentin 100 MG Capsule PO (12:51)
[2020-03-11] MEDS: Gabapentin 400 MG Capsule PO (12:56)
--- NOTE | 2020-03-11 13:15 | CASEMGMT ---
Addendum entered by Diandra Lorenzana 03/11/20 13:22: D/C instructions also faxed to Palliative Medicine for follow up care. ROMANA Garcia Original Note: Social Work Pt is ready for discharge today. 7000 convalescent form completed [facility], transportation arranged for 5:00 apple picking supervisor by [facility] via [facility]. Phone call to [facility] with discharge information and orders faxed. Joaquin Stacy CM at [facility] notified of d/c and d/c info faxed. Phone call to pt room and informed pt of d/c plans and he is agreeable. With pt permission, pt lola Cooper updated on the discharge plan. Nursing made aware of apple picking supervisor at 5:00. ROMANA Garcia
[2020-03-11 14:22] VITALS: PULSE 82; RESP 18
--- NOTE | 2020-03-11 14:41 | PCM.PN.ID ---
Patient Problems: Active and Suspected Problems (Last Reviewed 01/13/18 @ 09:26 by Eleni Bradley) Diabetic ulcer of right buttock (Acute) Septic shock (Acute) UTI (urinary tract infection) (Acute) Suspected COVID-19 virus infection (Acute) Hyperkalemia (Acute) Acute kidney injury superimposed on chronic kidney disease (Acute) Acute kidney injury (Acute) Chronic respiratory failure (Acute) Erectile dysfunction associated with type 2 diabetes mellitus (Acute) Subjective: Feeling better, no fever, breathing ok - Physical Exam Vitals/I&O's: Vital Signs Temp Pulse Resp BP Pulse Ox 98.2 F 82 18 122/67 H 93 03/11/20 09:30 03/11/20 14:22 03/11/20 14:22 03/11/20 09:30 03/11/20 11:10 Oxygen Flow Rate (L/min) 2 Oxygen Delivery Method Nasal Cannula Weight: 180 kg Body Mass Index (BMI) 54.2 Intake and Output for Last 24 Hours 03/09/20 03/10/20 03/11/20 23:59 23:59 23:59 Intake Total 2340 / 2820 1680 / 1680 315.25 / 315.25 Output Total 3700 / 4700 6400 / 6400 2400 / 2400 Balance -1360 / -1880 -4720 / -4720 -2084.75 / -2084.75 General: Alert, Cooperative, No apparent distress Lungs: Clear to auscultation, Normal air movement Cardiovascular: Regular rate, Regular Rhythm Abdomen: Soft, Non Tender, Non-Distended Skin: Ulcer/ Wound Microbiology Past 72 Hours 03/09/20 12:15 Blood Culture (Wb) - Anticubital Right Blood Culture - Preliminary No growth in 48 hours. 03/09/20 12:15 Blood Culture (Wb) - Right Forearm Blood Culture - Preliminary No growth in 48 hours. 03/06/20 18:20 Blood Culture (Wb) - Right Hand Bacteria Detection (PCR) - Final 03/06/20 18:20 Blood Culture (Wb) - Right Hand Blood Culture - Final Streptococcus group C 03/06/20 17:40 Blood Culture (Wb) - Anticubital Right Bacteria Detection (PCR) - Final Strep not Strep pneumo 03/06/20 17:40 Blood Culture (Wb) - Anticubital Right Blood Culture - Final Streptococcus dysgalactiae equ Laboratory Results 03/10/20 16:52: POC Glucose 227 H 03/10/20 20:11: POC Glucose 245 H 03/11/20 05:18: WBC 14.2 H, RBC 4.79, Hgb 13.8, Hct 42.6, MCV 88.9, MCH 28.8, MCHC 32.4, RDW Std Deviation 53.6 H, RDW Coeff of Shaq 16.5 H, Plt Count 262, MPV 10.5, Neut % (Auto) Not Reportable, Absolute Neuts (auto) 11.6 H, Absolute Lymphs (auto) 1.60, Total Counted 100, Neutrophils % (Manual) 77 H, Band Neutrophils % 5, Lymphocytes % (Manual) 11 L, Monocytes % (Manual) 6, Metamyelocytes % 1, Diff Path Review Reviewed, Platelet Estimate ADEQUATE, RBC Morphology NORM C+C 03/11/20 05:18: Sodium 136, Potassium 4.0, Chloride 101, Carbon Dioxide 31.0, Anion Gap 4 L, BUN 53 H, Creatinine 1.29, Estim Creat Clear Calc 61.08, Est GFR (MDRD) Af Amer 71, Est GFR (MDRD) Non-Af 59 L, BUN/Creatinine Ratio 41.1 H, Glucose 185 H, Calcium 8.2 L, Total Bilirubin 0.50, AST 19, ALT 29, Alkaline Phosphatase 102, Total Protein 7.6, Albumin 1.9 L, Globulin 5.7 H, Albumin/Globulin Ratio 0.3 L 03/11/20 12:28: POC Glucose 238 H Current Medications Acetaminophen (Acetaminophen 325 Mg Tablet) 650 mg PO Q6H PRN PRN PRN Reason: Pain Score 1-10/Temp > 100.7 F Al Hydroxide/Mg Hydroxide (Mag Hydrox/Al Hydrox/Simeth 30 Ml Udc) 30 ml PO Q6H PRN PRN PRN Reason: Gastric Burning Albuterol/Ipratropium (Ipratropium/Albuterol Sulfate 3 Ml Ampul.Neb) 3 ml INHALATION Q4HWA.RT YADIRA Last Admin: 03/11/20 14:22 Dose: 3 ml Documented by: Apixaban (Apixaban 5 Mg Tablet) 5 mg PO BID [facility] Last Admin: 03/11/20 09:03 Dose: 5 mg Documented by: Calamine/Phenol (Menthol/Lanolin/Calamine/Znox 113 Gm Tube) 1 applic TOPICAL TID [facility]; Protocol Last Admin: 03/11/20 12:52 Dose: 1 applicatio Documented by: Dexamethasone (Dexamethasone 4 Mg Tablet) 6 mg PO DAILY [facility] Stop: 03/15/20 10:01 Last Admin: 03/11/20 09:02 Dose: 6 mg Documented by: Docusate Sodium (Docusate Sodium 100 Mg Capsule) 200 mg PO DAILY [facility] Last Admin: 03/11/20 09:02 Dose: 200 mg Documented by: Furosemide (Furosemide 40 Mg Tablet) 40 mg PO BID@1000,1800 [facility] Last Admin: 03/11/20 09:02 Dose: 40 mg Documented by: Gabapentin (Gabapentin 400 Mg Capsule) 400 mg PO 1200 [facility] Last Admin: 03/11/20 12:56 Dose: 400 mg Documented by: Gabapentin (Gabapentin 300 Mg Capsule) 300 mg PO BIDCM [facility] Last Admin: 03/11/20 09:01 Dose: 300 mg Documented by: Gabapentin (Gabapentin 100 Mg Capsule) 100 mg PO 1200 [facility] Last Admin: 03/11/20 12:51 Dose: 100 mg Documented by: Guaifenesin (Guaifenesin 10 Ml Udc (200mg/10ml)) 10 ml PO Q4H PRN PRN PRN Reason: COUGH Hydralazine HCl (Hydralazine 20 Mg/Ml Vial) 10 mg IV Q4H PRN PRN PRN Reason: SBP > 160 Vancomycin IV Pharmacy to Dose (1 ea/ Sodium Chloride) 500 mls @ 250 mls/hr IV X1 PRN; Protocol PRN Reason: Rx to Dose Sodium Chloride () 250 mls @ 15 mls/hr IV .[id number] PRN PRN Reason: Saline Flush Last Infusion: 03/11/20 10:41 Dose: 0 mls/hr Documented by: Sodium Chloride () 250 mls @ 15 mls/hr IV .[id number] PRN PRN Reason: Additional IVPB Infusion Vancomycin HCl 2,000 mg/ (Sodium Chloride) 540 mls @ 250 mls/hr IV Q24H [facility] Last Infusion: 03/10/20 22:36 Dose: Infused Documented by: Ceftriaxone Sodium 2 gm/ (Sodium Chloride) 50 mls @ 100 mls/hr IV Q24 [facility] Last Infusion: 03/11/20 09:40 Dose: Infused Documented by: Insulin Glargine (Insulin Glargine 100 Units/Ml Pen) 23 units SC BREAKFAST [facility] Last Admin: 03/11/20 09:00 Dose: 23 u Documented by: Insulin Glargine (Insulin Glargine 100 Units/Ml Pen) 20 units SC QHS [facility] Last Admin: 03/10/20 20:27 Dose: 20 units Documented by: Insulin Human Lispro (Insulin Lispro 100 Unit/Ml Insuln.Pen) 45 unit SC 1200 [facility] Last Admin: 03/11/20 12:45 Dose: 45 u Documented by: Insulin Human Lispro (Insulin Lispro 100 Unit/Ml Insuln.Pen) 45 unit SC 0800 [facility] Last Admin: 03/11/20 08:59 Dose: 45 u Documented by: Insulin Human Lispro (Insulin Lispro 100 Unit/Ml Insuln.Pen) 17 unit SC 1700 [facility] Last Admin: 03/10/20 16:54 Dose: 17 u Documented by: Insulin Human Lispro (Insulin Lispro 100 Unit/Ml Insuln.Pen) 0 unit SC [facility]; Protocol Last Admin: 03/11/20 12:45 Dose: 6 u Documented by: Magnesium Hydroxide (Magnesium Hydroxide 30 Ml Udc) 30 ml PO DAILY PRN PRN PRN Reason: Constipation Melatonin (Melatonin 3 Mg Tablet) 3 mg PO QHS PRN PRN PRN Reason: INSOMNIA Last Admin: 03/10/20 20:22 Dose: 3 mg Documented by: Metolazone (Metolazone 5 Mg Tablet) 5 mg PO DAILY [facility] Last Admin: 03/11/20 09:03 Dose: 5 mg Documented by: Miscellaneous Information (Aerochamber 1 Each) 1 ea INHALATION UD PRN PRN Reason: INHALER USE Montelukast Sodium (Montelukast 10 Mg Tablet) 10 mg PO QHS [facility] Last Admin: 03/10/20 20:22 Dose: 10 mg Documented by: Nitroglycerin (Nitroglycerin (Inpatient Use) 0.4 Mg Tab.Subl) 0.4 mg SUBLINGUAL Q5M PRN PRN Reason: CARDIAC/CHEST PAIN Nystatin (Nystatin Powder 15gm Bottle) 1 applic TOPICAL TID [facility]; Protocol Last Admin: 03/11/20 12:51 Dose: 1 applicatio Documented by: Ondansetron HCl (Ondansetron 4 Mg/2 Ml Vial) 4 mg IV Q8H PRN PRN PRN Reason: NAUSEA/VOMITING Pantoprazole Sodium (Pantoprazole Sodium 40 Mg Tablet) 40 mg PO DAILY YADIRA Last Admin: 03/11/20 09:02 Dose: 40 mg Documented by: Prochlorperazine Edisylate (Prochlorperazine 10 Mg/2 Ml Vial) 5 mg IV Q4H PRN PRN PRN Reason: Breakthrough Nausea/Vomiting Psyllium Hydrophilic Mucilloid (Psyllium 1 Packet) 1 packet PO DAILY PRN PRN PRN Reason: Constipation Senna/Docusate Sodium (Senna/Docusate Sodium 1 Tablet) 2 tablet PO BID PRN PRN PRN Reason: Constipation Sodium Chloride (0.9% Saline Lock 10 Ml Syringe) 10 - 40 ml IV UD PRN PRN Reason: SALINE FLUSH Last Admin: 03/11/20 09:00 Dose: 10 ml Documented by: Throat Lozenges (Benzocaine/Menthol 1 Lozenge) 1 lozenge MUCOUS MEM Q2H PRN PRN PRN Reason: SORE THROAT Medical Necessity - Tobacco Use Smoking Status: Current every day smoker Tobacco Use: Cigarettes Route of nutrition/ use of supplements: [] Nutritional Intake: [] IV Site: [] Mario Catheter: [] - Assessment/Plan Antibiotics: [] Assessment/Plan: [] Active and Suspected Problems (Last Reviewed 01/13/18 @ 09:26 by Eleni Bradley) Diabetic ulcer of right buttock (Acute) Septic shock (Acute) UTI (urinary tract infection) (Acute) Suspected COVID-19 virus infection (Acute) Hyperkalemia (Acute) Acute kidney injury superimposed on chronic kidney disease (Acute) Acute kidney injury (Acute) Chronic respiratory failure (Acute) Erectile dysfunction associated with type 2 diabetes mellitus (Acute) Covid with hypoxia - on dex, completed remdesivir. Sx started around 02/27. D-dimer 2. On eliquis. Quarantine 20 days total from 02/27. strep bacteremia with BLE cellulitis and chronic lymphedema - ok for discharge on 7-10 more days of keflex po. MRSA (+) ucx - abx as above JESUS on CKD - improving uncontrolled DM -a1c 9.5. Will follow, d/w primary team
[2020-03-11 15:30] VITALS: BP 130/70; PULSE 82; RESP 18; TEMP 36.6; O2SAT 93
--- NOTE | 2020-03-11 16:38 | DS.PCM_ITS ---
Discharge Date and Diagnosis - Problem List Patient Problems: Active and Suspected Problems (Last Reviewed 01/13/18 @ 09:26 by Eleni Bradley) Diabetic ulcer of right buttock (Acute) Septic shock (Acute) UTI (urinary tract infection) (Acute) Suspected COVID-19 virus infection (Acute) Hyperkalemia (Acute) Acute kidney injury superimposed on chronic kidney disease (Acute) Acute kidney injury (Acute) Chronic respiratory failure (Acute) Erectile dysfunction associated with type 2 diabetes mellitus (Acute) Date of Admission: 03/06/20 Date of Discharge: 03/11/20 - Primary Discharge Diagnosis Acute Problems: Active Problems (Last Reviewed 01/13/18 @ 09:26 by Eleni Bradley) Diabetic ulcer of right buttock (Acute) Septic shock (Acute) UTI (urinary tract infection) (Acute) Suspected COVID-19 virus infection (Acute) Hyperkalemia (Acute) Acute kidney injury superimposed on chronic kidney disease (Acute) Acute kidney injury (Acute) Chronic respiratory failure (Acute) Erectile dysfunction associated with type 2 diabetes mellitus (Acute) - Secondary Discharge Diagnosis Chronic Problems: Chronic Problems (Last Reviewed 01/13/18 @ 09:26 by Eleni Bradley) Abscess of right buttock (Chronic) Chronic CHF (Chronic) Ascites (Chronic) Hyperlipidemia (Chronic) Diabetes type 2, controlled (Chronic) HTN (hypertension) (Chronic) Left ventricular hypertrophy (Chronic) Severe per echo 12/13/2017, EF 55% Complete heart block (Chronic) Biventricular implantable cardioverter-defibrillator (ICD) in situ (Chronic 06/05/15) Implanted by Dr. Denise @ [facility] for Complete heart block, symptomat ic bradycardia and EF 40-45%. Generator is [employer] model U128, serial # [id number] COPD (chronic obstructive pulmonary disease) (Chronic) Type 2 diabetes mellitus (Chronic) Chronic atrial fibrillation (Chronic) Morbid obesity with BMI of 50.0-59.9, adult (Chronic) HTN (hypertension) (Chronic) Nicotine abuse (Chronic) CKD (chronic kidney disease) stage 3, GFR 30-59 ml/min (Chronic) GERMANIA (obstructive sleep apnea) (Chronic) Hospital Course and Treatment Imaging Results: Clinical Impression(s) from Imaging Studies Chest X-Ray 03/06/20 18:07 IMPRESSION: Mild pulmonary vascular congestion. Electronically Signed: Irineo Boswell MD at 18:21 EST Tel , Service support , Chest X-Ray 03/07/20 05:55 IMPRESSION: Moderate degree of cardiac enlargement. Electronically Signed: Alex Gary MD at 8:34 EST , Service support , Consultations 03/06/20 19:57 Consult: Onc/Wound/soft sugar operator head Routine Comment: ID ICU/Pulmonology Operations: None Procedures: None Summary of Care Provided: Per HPI: The patient is a 69 y/o M from SNF w/ PMHx: Morbid obesity, CKD stage III, HTN, HLD, GERMANIA, Diabetes mellitus type II with neuropathy, Chronic atrial fibrillation, Tobacco use, GERD, Hx complete heart block s/p AICD/pacemaker placement, Chronic CHF Unclear type, Chronic COPD w/ Chronic Hypoxic Respiratory Failure who presents to the [facility] ED on 03/06/20 with history of worsening generalized weakness over the last week, notes even too debilitated to stand, worse with any attempted movements with no specific fevers or chills but ongoing cough and dyspnea, worsening prompting ED presentation. Patient reports having had a recent Covid antigen test that was negative and has a pending Covid PCR. Work-up in the ED included T 99.6, heart rate 87, BP 101/48, respiratory rate 28, 97% on 3 L nasal cannula, CBC with WC 14.4, hemoglobin 13.8, platelet 172 with left shift and concurrent lymphopenia, BMP with sodium 128, potassium 6.1, chloride 97, BUN/creatinine 63/3.60, glucose 457, lactic acid 5.3, BNP 80.2, blood culture x2 pending per ED, chest x-ray with mild pulmonary vascular congestion. EKG with mild peaked T waves, paced with LBBB. Hepatic profile, Troponin, COVID PCR, Urinalysis and urine culture pending per ED. In the ED patient ministered Kayexalate 30 g p.o. x1, insulin 5 units IV x1, calcium gluconate 1 g IV x1 in addition to normal saline. Hospital Course: 1. Septic shock secondary to UTI and right lower extremity cellulitis with streptococcal bacteremia/JESUS on CKD 3 -Does have strep organism growing in his blood as well, repeat blood cultures were negative -Appreciate ID assistance -He will completed IV vancomycin for his MRSA UTI prior to discharge, he was transitioned from Zosyn to Rocephin and can likely be transitioned from Rocephin to Keflex on discharge to complete his antibiotic course. He will need to complete 10 more days of Keflex at 3 times daily dosing secondary to scratch and clearance -I discussed the plan for discharge today and he expressed understanding the risk and benefits and would like to be discharged to the assisted to proceed with physical therapy. 2. Acute hypoxic respiratory insufficiency secondary to chronic COPD/cor pulmonale/COVID-19 infection -Currently on room air and breathing well -Continue with Decadron, and remdesivir -Continue with breathing treatments on discharge, he did require little bit of oxygen today secondary to some wheezing. 3. DM 2 -Continue with insulin and monitor his blood sugars closely secondary to the Decadron for Covid -Hold Tradjenta 4. Chronic A. fib/chronic CHF likely diastolic/super morbid obesity/HTN/HLD/complete heart block status post pacemaker -We will continue with Eliquis 5 mg p.o. twice daily instead of Xarelto since Xarelto is renally excreted in his kidney function likely will vary widely secondary to his 2 diuretics with his losartan -Would recommend continued monitoring of his BMP and his renal function -Continue with losartan -Can restart Lasix and metolazone -Echo in 2018 with moderate concentric LVH and an EF of 55% with a dilated right ventricle RVSP of 24 mmHg 5. GERD -Stable -Continue with PPI Patient Problems: Active and Suspected Problems (Last Reviewed 01/13/18 @ 09:26 by Eleni Bradley) Diabetic ulcer of right buttock (Acute) Septic shock (Acute) UTI (urinary tract infection) (Acute) Suspected COVID-19 virus infection (Acute) Hyperkalemia (Acute) Acute kidney injury superimposed on chronic kidney disease (Acute) Acute kidney injury (Acute) Chronic respiratory failure (Acute) Erectile dysfunction associated with type 2 diabetes mellitus (Acute) - Physical Exam Vitals/I&O's: Vital Signs Temp Pulse Resp BP Pulse Ox 98.2 F 82 18 122/67 H 93 03/11/20 09:30 03/11/20 14:22 03/11/20 14:22 03/11/20 09:30 03/11/20 11:10 Oxygen Flow Rate (L/min) 2 Oxygen Delivery Method Nasal Cannula Weight: 396 lb 13.313 oz Body Mass Index (BMI) 54.2 Intake and Output for Last 24 Hours 03/09/20 03/10/20 03/11/20 23:59 23:59 23:59 Intake Total 2340 / 2820 1680 / 1680 315.25 / 315.25 Output Total 3700 / 4700 6400 / 6400 2400 / 2400 Balance -1360 / -1880 -4720 / -4720 -2084.75 / -2084.75 General: Alert, Oriented x3, Cooperative, No apparent distress HEENT: Atraumatic, PERRLA, EOMI, Normocephalic Oral: Moist Mucosa Neck: Supple, No JVD Lungs: No rhonchi, mild wheeze bilaterally, no Rales, diminished Cardiovascular: Regular rate, Regular Rhythm, Normal S1, Normal S2, Murmur - CARLOS EDUARDO Abdomen: Soft, Non Tender, Non-Distended, No Hepato-splenomegaly Extremities: Capillary Refill Less than 3 Seconds, Edema significant with lichenification Skin: - - Right lower extremity redness improved Neurological: Neuro grossly intact, Sensory exam intact to light touch and pain Psych/Mental Status: Normal Affect, Appropriate Microbiology Past 72 Hours 03/09/20 12:15 Blood Culture (Wb) - Anticubital Right Blood Culture - Preliminary No growth in 48 hours. 03/09/20 12:15 Blood Culture (Wb) - Right Forearm Blood Culture - Preliminary No growth in 48 hours. 03/06/20 18:20 Blood Culture (Wb) - Right Hand Bacteria Detection (PCR) - Final 03/06/20 18:20 Blood Culture (Wb) - Right Hand Blood Culture - Final Streptococcus group C 03/06/20 17:40 Blood Culture (Wb) - Anticubital Right Bacteria Detection (PCR) - Final Strep not Strep pneumo 03/06/20 17:40 Blood Culture (Wb) - Anticubital Right Blood Culture - Final Streptococcus dysgalactiae equ Laboratory Results 03/10/20 16:52: POC Glucose 227 H 03/10/20 20:11: POC Glucose 245 H 03/11/20 05:18: WBC 14.2 H, RBC 4.79, Hgb 13.8, Hct 42.6, MCV 88.9, MCH 28.8, MCHC 32.4, RDW Std Deviation 53.6 H, RDW Coeff of Shaq 16.5 H, Plt Count 262, MPV 10.5, Neut % (Auto) Not Reportable, Absolute Neuts (auto) 11.6 H, Absolute Lymphs (auto) 1.60, Total Counted 100, Neutrophils % (Manual) 77 H, Band Neutrophils % 5, Lymphocytes % (Manual) 11 L, Monocytes % (Manual) 6, Metamyelocytes % 1, Diff Path Review Reviewed, Platelet Estimate ADEQUATE, RBC Morphology NORM C+C 03/11/20 05:18: Sodium 136, Potassium 4.0, Chloride 101, Carbon Dioxide 31.0, Anion Gap 4 L, BUN 53 H, Creatinine 1.29, Estim Creat Clear Calc 61.08, Est GFR (MDRD) Af Amer 71, Est GFR (MDRD) Non-Af 59 L, BUN/Creatinine Ratio 41.1 H, Glucose 185 H, Calcium 8.2 L, Total Bilirubin 0.50, AST 19, ALT 29, Alkaline Phosphatase 102, Total Protein 7.6, Albumin 1.9 L, Globulin 5.7 H, Albumin/Globulin Ratio 0.3 L 03/11/20 12:28: POC Glucose 238 H Current Medications Acetaminophen (Acetaminophen 325 Mg Tablet) 650 mg PO Q6H PRN PRN PRN Reason: Pain Score 1-10/Temp > 100.7 F Al Hydroxide/Mg Hydroxide (Mag Hydrox/Al Hydrox/Simeth 30 Ml Udc) 30 ml PO Q6H PRN PRN PRN Reason: Gastric Burning Albuterol/Ipratropium (Ipratropium/Albuterol Sulfate 3 Ml Ampul.Neb) 3 ml INHALATION Q4HWA.RT YADIRA Last Admin: 03/11/20 14:22 Dose: 3 ml Documented by: Apixaban (Apixaban 5 Mg Tablet) 5 mg PO BID [facility] Last Admin: 03/11/20 09:03 Dose: 5 mg Documented by: Calamine/Phenol (Menthol/Lanolin/Calamine/Znox 113 Gm Tube) 1 applic TOPICAL TID YADIRA; Protocol Last Admin: 03/11/20 12:52 Dose: 1 applicatio Documented by: Dexamethasone (Dexamethasone 4 Mg Tablet) 6 mg PO DAILY [facility] Stop: 03/15/20 10:01 Last Admin: 03/11/20 09:02 Dose: 6 mg Documented by: Docusate Sodium (Docusate Sodium 100 Mg Capsule) 200 mg PO DAILY [facility] Last Admin: 03/11/20 09:02 Dose: 200 mg Documented by: Furosemide (Furosemide 40 Mg Tablet) 40 mg PO BID@1000,1800 [facility] Last Admin: 03/11/20 09:02 Dose: 40 mg Documented by: Gabapentin (Gabapentin 400 Mg Capsule) 400 mg PO 1200 [facility] Last Admin: 03/11/20 12:56 Dose: 400 mg Documented by: Gabapentin (Gabapentin 300 Mg Capsule) 300 mg PO BIDCM [facility] Last Admin: 03/11/20 09:01 Dose: 300 mg Documented by: Gabapentin (Gabapentin 100 Mg Capsule) 100 mg PO 1200 [facility] Last Admin: 03/11/20 12:51 Dose: 100 mg Documented by: Guaifenesin (Guaifenesin 10 Ml Udc (200mg/10ml)) 10 ml PO Q4H PRN PRN PRN Reason: COUGH Hydralazine HCl (Hydralazine 20 Mg/Ml Vial) 10 mg IV Q4H PRN PRN PRN Reason: SBP > 160 Vancomycin IV Pharmacy to Dose (1 ea/ Sodium Chloride) 500 mls @ 250 mls/hr IV X1 PRN; Protocol PRN Reason: Rx to Dose Sodium Chloride () 250 mls @ 15 mls/hr IV .[id number] PRN PRN Reason: Saline Flush Last Infusion: 03/11/20 10:41 Dose: 0 mls/hr Documented by: Sodium Chloride () 250 mls @ 15 mls/hr IV .[id number] PRN PRN Reason: Additional IVPB Infusion Vancomycin HCl 2,000 mg/ (Sodium Chloride) 540 mls @ 250 mls/hr IV Q24H [facility] Last Infusion: 03/10/20 22:36 Dose: Infused Documented by: Ceftriaxone Sodium 2 gm/ (Sodium Chloride) 50 mls @ 100 mls/hr IV Q24 [facility] Last Infusion: 03/11/20 09:40 Dose: Infused Documented by: Insulin Glargine (Insulin Glargine 100 Units/Ml Pen) 23 units SC BREAKFAST [facility] Last Admin: 03/11/20 09:00 Dose: 23 u Documented by: Insulin Glargine (Insulin Glargine 100 Units/Ml Pen) 20 units SC QHS [facility] Last Admin: 03/10/20 20:27 Dose: 20 units Documented by: Insulin Human Lispro (Insulin Lispro 100 Unit/Ml Insuln.Pen) 45 unit SC 1200 [facility] Last Admin: 03/11/20 12:45 Dose: 45 u Documented by: Insulin Human Lispro (Insulin Lispro 100 Unit/Ml Insuln.Pen) 45 unit SC 0800 [facility] Last Admin: 03/11/20 08:59 Dose: 45 u Documented by: Insulin Human Lispro (Insulin Lispro 100 Unit/Ml Insuln.Pen) 17 unit SC 1700 [facility] Last Admin: 03/10/20 16:54 Dose: 17 u Documented by: Insulin Human Lispro (Insulin Lispro 100 Unit/Ml Insuln.Pen) 0 unit SC ACHS [facility]; Protocol Last Admin: 03/11/20 12:45 Dose: 6 u Documented by: Magnesium Hydroxide (Magnesium Hydroxide 30 Ml Udc) 30 ml PO DAILY PRN PRN PRN Reason: Constipation Melatonin (Melatonin 3 Mg Tablet) 3 mg PO QHS PRN PRN PRN Reason: INSOMNIA Last Admin: 03/10/20 20:22 Dose: 3 mg Documented by: Metolazone (Metolazone 5 Mg Tablet) 5 mg PO DAILY [facility] Last Admin: 03/11/20 09:03 Dose: 5 mg Documented by: Miscellaneous Information (Aerochamber 1 Each) 1 ea INHALATION UD PRN PRN Reason: INHALER USE Montelukast Sodium (Montelukast 10 Mg Tablet) 10 mg PO QHS [facility] Last Admin: 03/10/20 20:22 Dose: 10 mg Documented by: Nitroglycerin (Nitroglycerin (Inpatient Use) 0.4 Mg Tab.Subl) 0.4 mg SUBLINGUAL Q5M PRN PRN Reason: CARDIAC/CHEST PAIN Nystatin (Nystatin Powder 15gm Bottle) 1 applic TOPICAL TID [facility]; Protocol Last Admin: 03/11/20 12:51 Dose: 1 applicatio Documented by: Ondansetron HCl (Ondansetron 4 Mg/2 Ml Vial) 4 mg IV Q8H PRN PRN PRN Reason: NAUSEA/VOMITING Pantoprazole Sodium (Pantoprazole Sodium 40 Mg Tablet) 40 mg PO DAILY [facility] Last Admin: 03/11/20 09:02 Dose: 40 mg Documented by: Prochlorperazine Edisylate (Prochlorperazine 10 Mg/2 Ml Vial) 5 mg IV Q4H PRN PRN PRN Reason: Breakthrough Nausea/Vomiting Psyllium Hydrophilic Mucilloid (Psyllium 1 Packet) 1 packet PO DAILY PRN PRN PRN Reason: Constipation Senna/Docusate Sodium (Senna/Docusate Sodium 1 Tablet) 2 tablet PO BID PRN PRN PRN Reason: Constipation Sodium Chloride (0.9% Saline Lock 10 Ml Syringe) 10 - 40 ml IV UD PRN PRN Reason: SALINE FLUSH Last Admin: 03/11/20 09:00 Dose: 10 ml Documented by: Throat Lozenges (Benzocaine/Menthol 1 Lozenge) 1 lozenge MUCOUS MEM Q2H PRN PRN PRN Reason: SORE THROAT Home Medications: Medications to take at Discharge acetaminophen 500 mg tablet 1,000 mg PO TID tab 02/25/17 budesonide 0.5 mg/2 mL suspension for nebulization 0.5 mg INHALATION Q12H 02/25/17 cholecalciferol (vitamin D3) 1,250 mcg (50,000 unit) capsule 50,000 unit PO SUWE 02/25/17 docusate sodium 100 mg capsule 200 mg PO QDAY 02/25/17 Montelukast Sodium [Singulair] 10 mg PO QHS 12/15/17 Gabapentin [Neurontin] 300 mg PO BID 12/18/17 Losartan Potassium [Cozaar] 25 mg PO DAILY 12/18/17 Omeprazole 40 mg PO DAILY 12/18/17 Potassium Chloride [K-Dur] 20 meq PO DAILY 12/18/17 Albuterol Aerosols [Ventolin Aerosols] 2.5 mg INHALATION Q6H PRN PRN vial.neb. 12/21/17 Insulin Lispro [Humalog KwikPen] 45 unit SC 0800 insuln.pen 12/21/17 Insulin Lispro [Humalog KwikPen] 45 unit SC 1200 insuln.pen 12/21/17 Insulin Lispro [Humalog KwikPen] 17 unit SC 1700 05/22/18 Bisacodyl 10 mg PO DAILY PRN PRN 03/06/20 Budesonide [Pulmicort] 0.5 mg IH BID PRN PRN 03/06/20 Furosemide [Lasix] 80 mg PO DAILY 03/06/20 Gabapentin 1,200 mg PO 1700 03/06/20 Gabapentin [Neurontin] 100 mg PO 1200 03/06/20 Gabapentin [Neurontin] 400 mg PO 1200 03/06/20 Guaifenesin [Mucus Relief] 400 mg PO DAILY 03/06/20 Guaifenesin [Mucus Relief] 400 mg PO DAILY PRN PRN 03/06/20 Guaifenesin/Dextromethorphan [Siltussin Dm Crespo 100-10Mg/5 ml] 10 ml PO Q4H PRN PRN 03/06/20 Insulin Degludec [Tresiba Flextouch U-100] 23 unit SQ BREAKFAST 03/06/20 Linagliptin [Tradjenta] 5 mg PO DAILY 03/06/20 Magnesium Hydroxide [Milk Of Magnesia] 30 ml PO DAILY PRN PRN 03/06/20 Metolazone 5 mg PO DAILY 03/06/20 Nicotine [Nicotine Patch] 1 ea TD DAILY PRN PRN 03/06/20 Apixaban [Eliquis] 5 mg PO BID tab 03/11/20 Cephalexin [Keflex] 500 mg PO Q8 #30 cap 03/11/20 Dexamethasone [Decadron] 6 mg PO DAILY tab 03/11/20 Insulin Glargine [Lantus SoloStar Pen] 20 units SC QHS pen 03/11/20 Insulin Lispro [Humalog KwikPen] See Protocol SC ACHS insuln.pen 03/11/20 Following Prescriptions Were Given to Patient: Cephalexin [Keflex] 500 mg PO Q8 #30 cap Primary Care Physician: Ursula Trejo [employer], [employer]-C [Primary Care Provider] - Please follow up with your Primary Care Physician in: 3-5 days Disposition: Correction facility Minutes spent on discharge:: 35 Patient Condition:: Stable Medical Necessity - Tobacco Use Smoking Status: Current every day smoker Tobacco Use: Cigarettes Meaningful Use Info Meaningful Use Diagnoses (Choose all that apply): None applicable Inpatient E&M: 57632 Disch Hosp
[2020-03-11] MEDS: Insulin Lispro 100 UNIT/ML INSULN.PEN 17 UNIT SC (16:55)
[2020-03-11 17:40] LABS: Bedside Glucose 247 mg/dL (70-110)
== END 2020-03-11 17:25 | disposition skilled nursing facility (03) | DRG 871 ==
LOC: ED 18:32 → ICU 19:29 → MS2 03-10 16:49
PROVIDERS: Internal Medicine Infectious Disease; Admitting Provider Family Medicine; Emergency Provider Emergency Medicine; PCP Nurse Practitioner Adult Health; Visit Provider Family Medicine
DX: A40.9 Streptococcal sepsis, unspecified (principal); R65.21 Severe sepsis with septic shock; U07.1 COVID-19; N17.9 Acute kidney failure, unspecified; N39.0 Urinary tract infection, site not specified; L03.115 Cellulitis of right lower limb; L03.116 Cellulitis of left lower limb; J96.11 Chronic respiratory failure with hypoxia; I48.20 Chronic atrial fibrillation, unspecified; E87.1 Hypo-osmolality and hyponatremia; Z68.43 Body mass index [BMI] 50.0-59.9, adult; I13.0 Hypertensive heart and chronic kidney disease with heart failure and stage 1 through stage 4 chronic kidney disease, or unspecified chronic kidney disease; I50.32 Chronic diastolic (congestive) heart failure; E87.5 Hyperkalemia; E11.22 Type 2 diabetes mellitus with diabetic chronic kidney disease; I27.81 Cor pulmonale (chronic); N18.30 Chronic kidney disease, stage 3 unspecified; E86.1 Hypovolemia; E11.65 Type 2 diabetes mellitus with hyperglycemia; L28.0 Lichen simplex chronicus; B95.62 Methicillin resistant Staphylococcus aureus infection as the cause of diseases classified elsewhere; B95.5 Unspecified streptococcus as the cause of diseases classified elsewhere; J44.9 Chronic obstructive pulmonary disease, unspecified; E11.40 Type 2 diabetes mellitus with diabetic neuropathy, unspecified; L89.159 Pressure ulcer of sacral region, unspecified stage; E11.622 Type 2 diabetes mellitus with other skin ulcer; L98.411 Non-pressure chronic ulcer of buttock limited to breakdown of skin; E78.5 Hyperlipidemia, unspecified; I89.0 Lymphedema, not elsewhere classified; G89.29 Other chronic pain; K21.9 Gastro-esophageal reflux disease without esophagitis; G47.33 Obstructive sleep apnea (adult) (pediatric); E66.01 Morbid (severe) obesity due to excess calories; F17.210 Nicotine dependence, cigarettes, uncomplicated; Z79.01 Long term (current) use of anticoagulants; Z79.4 Long term (current) use of insulin; Z79.899 Other long term (current) drug therapy; Z95.810 Presence of automatic (implantable) cardiac defibrillator
CPT/HCPCS: 36415; 71045; 71046; 80048; 80053; 80076; 80202; 81001; 82570; 82728; 82962; 83036; 83605; 83615; 83735; 83880; 84145; 84300; 84484; 85025; 85027; 85379; 86140; 87040; 87077; 87086; 87088; 87149; 87186; 87449; 87633; 87635; 87641; 93005; 94640; 97110; 97162; 97166; 97530; 97535; 97802; 99251; 99285; 99406; J7030; J7040; J7050; A4216; G0463; J0610; J0696; U0002